=== PATIENT | female | born 1940 | race Caucasian/White ===

== ENCOUNTER 2016-11-03 13:52 | Inpatient (IN) | payer OTHER ==
[~2016-11-03] VITALS: Ht 160 cm; Wt 78.0 kg
[~2016-11-03 13:52] MED LIST: ACTONEL35 MG PO; ADVAIR 500-501 EACH INH; ADVAIR DISKUS 21 DSK PO; ATROVENT 0.02%2.5 ML INH; AZITHROMYCIN250 M1 PO; AZITHROMYCIN250 MG PO; AZITHROMYCIN500 M3 PO; AZITHROMYCIN500 MG PO; BISCOLAX5 MG PO; CEFTIN500 M1 PO; CHANTIX 1 MG1 MG PO; CLARITIN10 M1 PO; CLARITIN10 MG PO; COUMADIN 2 MG TA2 MG PO; COUMADIN 2.5 M2.5 MG PO; COUMADIN 3 MG TA3 MG PO; COUMADIN 4MG TAB4 MG PO; COUMADIN 5 MG TA5 MG PO; COUMADIN3 M1 PO; COUMADIN4 M1 PO; CRESTOR20 MG PO; DIAZEPAM5 M1 PO; DICLOFENAC 3% TOP; DOCUSATE SOD100 MG PO; DULCOLAX5 M1 PO; FIORICET 325 MG1 TAB PO; FOLIC ACID0.8 M2 PO; FOSAMAX70 M1 PO; FUROSEMIDE40 MG PO; IPRAT-ALBUT 0.5-3 ML INH/SOL; LAMISIL AT1% TOP; LASIX40 M1 PO; LEVOTHYROXINE88 MCG PO; LEXAPRO20 M1 PO; LIDOCAINE VISC100 M2 PO; LIDODERM1 EACH TOP; LYRICA100 M1 PO; MEDROL DOSEPAK1 PAC PO; NAPROSYN500 M1 PO; NASONEX17 GM NASB; NEURONTIN300 MG PO; NEURONTIN400 M1 PO; NICODERM C21 MG/24 H TOP; NICODERM C7 MG/24 HR TD; NICOTINE GUM2 MG PO; NICOTINE PATCH1 EAC1 TOP; NICOTINE T14 MG/24 H TOP; NORCO 325 MG-101 TAB PO; OMEPRAZOLE40 M1 PO; PERCOCET 325 MG1 TA2 PO; PREDNICOT10 MG PO; PREDNISONE10 M2 PO; PREDNISONE10 MG PO; PREDNISONE50 MG PO; PROMETHAZINE V473 M2 PO; PROMETHAZINE V473 ML PO; PROTONIX 40MG T40 MG PO; PROVENTIL HFA6.7 GM INH; PROVIGIL200 MG PO; ROBITUSSIN COU237 ML PO; SINGULAIR10 MG PO; SOLU-MEDROL40 MG IV; SPIRIVA18 MCG INH; SUDAFED 30 MG PO; TRAZODONE HCL50 M1 PO; TUDORZA PR400 MCG/Ac PO; TYLENOL EXTRA500 M2 PO; TYLENOL XSTR500 MG PO; VALIUM5 M1 PO; VIBRAMYCIN 100100 MG PO; VITAMIN B-121000 MC3 PO; VITAMIN B121000 MC2 PO; VITAMIN D250000 UNIT PO; ZITHROMAX 500M500 MG PO; ZITHROMAX250 M1 PO
--- NOTE | 2016-11-03 13:57 | ED DYSPNEA/ASTHMA COMPLAINT ---
History of Present Illness General Chief Complaint: Dyspnea (COPD, CHF, Other) Stated Complaint: BIBA WITH SOB Source: patient Exam Limitations: no limitations Vital Signs & Intake/Output Vital Signs & Intake/Output Vital Signs Date Time Temp Pulse Resp B/P Pulse O2 O2 Flow FiO2 Ox Delivery Rate 11/05 0414 Nasal 2.0L Cannula 11/05 0000 Nasal 2.0L Cannula 11/04 2346 98.4 87 18 118/64 93 Nasal 2.0L Cannula 11/04 1930 87 Room Air 11/04 1509 98.6 90 18 138/62 94 11/04 0953 96 Nasal 2.0L Cannula 11/04 0950 Nasal 2.0L Cannula 11/04 0800 Nasal 2.0L Cannula ED Intake and Output 11/05 0000 11/04 1200 Intake Total 1110 100 Output Total Balance 1110 100 Intake, IV 270 Intake, Oral 840 100 Number 1 Bowel Movements Allergies Coded Allergies: Penicillins (UNKNOWN 05/01/16) atorvastatin (UNKNOWN 05/01/16) nickel (UNKNOWN 05/01/16) morphine (UNKNOWN 05/01/16) Reconcile Medications Acetaminophen (Tylenol Extra Strength) 500 MG TABLET 2 TAB PO BID PAIN ( Reported) Reason to Stop at ADM: pain pathway Albuterol Sulfate (Proventil Hfa) 90 MCG HFA.AER.AD 2 PUF INH Q4 PRN COPD ( Reported) Alendronate Sodium (Fosamax) 70 MG TABLET 1 TAB PO QFRI BONE (Reported) in the morning, at least 30 minutes before the first food, beverage, or medication of the day Bisacodyl (Dulcolax) 5 MG TABLET.DR 1 TAB PO DAILY GI (Reported) Budesonide 0.25 MG/2 ML AMPUL.NEB 1 Vial INH/UDAY BID BREATHING PROBLEMS ( Reported) Reason to Stop at ADM: TRC Butalb/Acetaminophen/Caffeine (Fioricet 50-300-40 MG Capsule) 50 MG-300 MG-40 MG CAPSULE 1 CAP PO Q4 HRS NEEDED PRN HEADACHE (Reported) Cyanocobalamin (Vitamin B-12) 1,000 MCG TABLET 1 TAB PO DAILY SUPPLEMENT ( Reported) Diazepam 5 MG TABLET 1 TAB PO BIDP PRN anxiety/insomnia (Reported) Ergocalciferol (Vitamin D2) (Vitamin D2) 50,000 UNIT CAPSULE 1 CAP PO QFRI SUPPLEMENT (Reported) Escitalopram Oxalate (Lexapro) 20 MG TABLET 1 TAB PO DAILY MENTAL HEALTH ( Reported) Ferrous Sulfate 325 MG (65 MG IRON) TABLET 1 TAB PO BID SUPPLEMENT (Reported) Fluticasone/Salmeterol (Advair 500-50 Diskus) 500 MCG-50 MCG/DOSE BLST.W.DEV 1 PUF INH BID BREATHING PROBLEMS (Reported) Folic Acid 0.8 MG TABLET 1 TAB PO TID SUPPLEMENT (Reported) Gabapentin (Neurontin) 400 MG CAPSULE 1 CAP PO BID NEUROPATHY (Reported) Ipratropium/Albuterol Sulfate (Iprat-Albut 0.5-3(2.5) MG/3 Ml) 0.5 MG-3 MG (2.5 MG BASE)/3 ML AMPUL.NEB 1 Vial INH/UDAY 4 TIMES/DAY COPD (Reported) Reason to Stop at ADM: TRC Levothyroxine Sodium 88 MCG TABLET 1 TAB PO DAILY AC THYROID (Reported) Lidocaine (Lidoderm) 5 % ADH..PATCH 1 PAT TOP DAILY PAIN (Reported) may wear up to 12 hours Melatonin 3 MG TABLET 1 TAB PO QPM SLEEP (Reported) Mometasone Furoate (Nasonex) 50 MCG SPRAY.PUMP 2 SPRAY [place] DAILY ALLERGIES ( Reported) Naproxen (Naprosyn) 500 MG TABLET 1 TAB PO BID PAIN CONTROL Reason to Stop at ADM: pain pathway Omeprazole 40 MG CAPSULE.DR 1 CAP PO DAILY GI (Reported) Pregabalin (Lyrica) 100 MG CAPSULE 1 CAP PO TID PAIN (Reported) Tiotropium [place] (Spiriva) 18 MCG CAP.W.DEV 1 CAP INH DAILY BREATHING PROBLEMS (Reported) Trazodone HCl 50 MG TABLET 1 TAB PO QPM SLEEP (Reported) Warfarin Sodium (Coumadin) 3 MG TABLET 1 TAB PO DAILY DVT Triage Nurses Notes Reviewed? yes HPI: This patient is a 76-year-old female with a past medical history including COPD/ emphysema, bronchitis, lung cancer, narcolepsy, hyperlipidemia, osteoarthritis, and depression who presented to the emergency department today brought in by ambulance from [facility] for evaluation of difficulty breathing. The patient reported that she always has trouble breathing at baseline. However, she reported over the last day she has felt more short of breath. She reported that she has been coughing. It is productive of yellow sputum. Coughing causes pain in her right side. She denied any chest pain. She denies any fevers or chills. No abdominal pain, nausea, or vomiting. No constipation or diarrhea. This patient is a current every day smoker. (FERNY GARCIA PA-C) Past History Travel History Traveled to [place] past 21 day No Medical History Any Pertinent Medical History? see below for history Neurological: FIBROMYALGIA NARCOLEPSEY EENT: allergies Cardiovascular: hyperlipidemia, MITRAL VALVE PROLAPSE Respiratory: bronchitis, COPD, emphysema Gastrointestinal: GERD, CONSTIPATION Hepatic: NONE Renal: NONE Musculoskeletal: osteoarthritis, CERVICAL SPINAL STENOSIS Psychiatric: anxiety Endocrine: diabetes, hypothyroidism Blood Disorders: anemia, DVT Cancer(s): lung cancer, back cancer THERMAL MOLDER/Reproductive: HYSTERECTOMY History of MRSA: No History of VRE: No History of CDIFF: No Pneumonia Vaccine: 04/29/16 Influenza Vaccine: 04/29/16 Surgical History Surgical History: appendectomy lumpectomy for tumor in breast. tumor removal from back? RIGHT PNEUMONECTOMY Psychosocial History Who do you live with Patient/Self Services at Home Home Health Aide What is your primary language British Tobacco Use: Current Daily Use Family History Family History, If Any: FATHER Relation not specified for: FH: CHF (congestive heart failure) Hypertension Hx Contributory? No (FERNY GARCIA PA-C) Review of Systems Review of Systems Constitutional: Reports: no symptoms. EENTM: Reports: no symptoms. Respiratory: Reports: see HPI. Cardiovascular: Reports: no symptoms. GI: Reports: no symptoms. Genitourinary: Reports: no symptoms. Musculoskeletal: Reports: see HPI. Skin: Reports: no symptoms. Neurological/Psychological: Reports: no symptoms. All Other Systems: Reviewed and Negative (FERNY GARCIA PA-C) Physical Exam Physical Exam Respiratory: chest non-tender, DIFFUSE EXPIRATORY WHEEZES IN ALL LUNG DE JESUS. nO RHONCHI OR RALES. nO STRIDOR OR DIMINISHED BREATH SOUNDS. mILD RESPIRATORY DISTRESS Comments: Well-developed well-nourished person in no acute distress HEENT: Normal EENT exam, head normocephalic, moist mucous membranes Pupils equally round and reactive to light. Neck: Supple, no lymphadenopathy Back: Normal inspection Cardiovascular: Regular rate and rhythm with no murmurs, rubs, or gallops. No JVD or carotid bruits Abdomen: Soft. Nontender. Nondistended Extremity: No edema, no calf tenderness to palpation, normal and equal pulses. Neuro: Alert oriented x3, cranial nerves II through XII grossly intact. Skin: No appreciable rash on exposed skin, skin is warm and dry. Psych: Mood and affect is normal Core Measures ACS in differential dx? Yes Severe Sepsis Present: No Septic Shock Present: No (RADHA HOLDEN,FERNY) Progress Differential Diagnosis: asthma, AMI, bronchitis, costochondritis, CHF, COPD, musculoskeletal pain, pericarditis, pulmonary embolism, pneumonia, pneumothorax, unstable angina Plan of Care: Orders Procedure Date/time Status PROTHROMBIN TIME 11/05 599 Active BASIC ELECTROLYTES PLUS BUN&CR 11/05 599 Active RT: Evaluation 11/04 950 Active THERAPIST ORDERS 11/04 UNK Complete OXYGEN SETUP CHG 11/03 UNK Complete OXYGEN 11/03 UNK Complete OXYGEN DAILY CHARGE 11/03 UNK Complete Current Medications Sig/Eulogio Start time Last Medication Dose Stop Time Status Admin Alendronate Sodium 70 MG QFRI 11/10 0700 AC (Fosamax) Ergocalciferol 50,000 IU QFRI 11/10 0700 AC (Drisdol) Warfarin Sodium 3 MG 1700 11/04 1700 CAN (Coumadin) Insulin Aspart 0 TIDAC 11/04 1200 AC (NovoLOG) Nicotine 21 MG DAILY 11/04 1000 AC (Nicoderm) Magnesium Hydroxide 30 ML AT BEDTIME PRN 11/04 0845 AC (Milk Of Magnesia) Acetaminophen 325 MG Q6P PRN 11/03 2130 AC (Tylenol) Ibuprofen 600 MG Q6P PRN 11/03 2130 AC (Motrin) Acetaminophen/ 1 TAB Q4P PRN 11/03 2045 AC Butalbital/Caffeine (Fioricet) Sodium Chloride 2 SPRAY Q4P PRN 11/03 2045 AC (Nasal) Laboratory Tests 11/04/16 1620: PT 28.7 H, INR 2.76 H Diagnostic Imaging: Viewed by Me: Radiology Read. Discussed w/RAD: Radiology Read. CXR Impression: PATIENT: REID WEINER PRESENT AGE: 76 PATIENT ACCOUNT NO: [id number] : 41 LOCATION: [facility] ORDERING PHYSICIAN: FERNY GARCIA PA-C SERVICE DATE: 11/03/16-140 EXAM TYPE: RAD - XRY-CHEST XRAY, PA AND LATERAL EXAMINATION: XR CHEST CLINICAL INFORMATION: Shortness of breath COMPARISON: 05/08/2016, 05/01/2016, 12/30/2015 TECHNIQUE: 2 views of the chest were obtained. FINDINGS: There is stable mild blunting of the right costophrenic angle compatible with pleural thickening. The cardiomediastinal silhouette is unchanged and within normal limits. There is increased retrosternal clear space and flattening of the hemidiaphragms compatible with hyperinflation. Right hilar surgical clips are stable. There is no evidence of pulmonary edema, consolidation, pleural effusion, or pneumothorax. The bones appear demineralized with multilevel degenerative change. Cervical fusion hardware is partially visualized and unchanged. IMPRESSION: Stable appearance of the chest relative to prior studies. No acute abnormality. DICTATED BY: SIMBA RZIVI MD DATE/TIME DICTATED:11/03/161454 HEADLIGHT ASSEMBLER:NATHAN DATE/TIME TRANSCRIBED:11/03/161454 CONFIDENTIAL, DO NOT COPY WITHOUT APPROPRIATE AUTHORIZATION. <Electronically signed in Other Vendor System> SIGNED BY: SIMBA RIZVI MD 11/03/16 1501 Initial ED EKG: normal axis, normal intervals, no ST T wave changes, 81 bpm (RADHA HOLDEN,FERNY) Departure Departure Disposition: STILL A PATIENT Condition: Stable Clinical Impression Primary Impression: COPD exacerbation Referrals: CINDY STUBBS MD (PCP/Family) Departure Forms: Customer Survey General Discharge Information Prescriptions: Current Visit Scripts Naproxen (Naprosyn) 1 TAB PO BID 7 Days Reason to Stop at ADM: pain pathway Admission Note Spoke With: CINDY STUBBS MD Documentation of Exam: Documentation of any treatments & extenuating circumstances including Concerns Regarding Discharge (functional status, medication knowledge or non-compliance, living conditions, etc.) that warrant an admission rather than observation: [ This patient is a 76-year-old female with a past medical history including COPD who presented to the emergency department today for 2 days of difficulty breathing. Likely COPD exacerbation. Oxygen saturation is 87% on room air. This patient does not have any oxygen at her assisted living facility. She should be admitted to general medicine for oxygen therapy, oxygen saturation monitoring, trend labs, IV steroids, pulmonology consultation, and close monitoring. This patient or candidate for outpatient treatment. Premature discharge could prove medically harmful.] (FERNY GARCIA PA-C) PA/FOAM CASTER Co-Sign Statement Statement: ED Attending supervision documentation- [X] I saw and evaluated the patient. I have also reviewed all the pertinent lab results and diagnostic results. I agree with the findings and the plan of care as documented in the PA's/FOAM CASTER's documentation. [X] I have reviewed the ED Record and agree with the PA's/FOAM CASTER's documentation. [] Additions or exceptions (if any) to the PAs/FOAM CASTER's note and plan are summarized below: [] (LORI LISA,ELEAZAR) Critical Care Note Critical Care Note Critical Care Time: non-applicable (RADHA HOLDEN,FERNY) (Nasal) Laboratory Tests 11/04/16 0720: Anion Gap 8, Estimated GFR > 60, BUN/Creatinine Ratio 27.5 H 11/03/16 2032: PT Cancelled, INR Cancelled 11/03/16 1442: Anion Gap 5, Estimated GFR 54 L, BUN/Creatinine Ratio 27.0 H, Glucose 138 H, Hemoglobin A1c Pending, Calcium 10.0, Magnesium 2.0, Total Bilirubin 0.6, AST 14 , ALT 30, Alkaline Phosphatase 52, Troponin I < 0.01, Vba-D-Ursmrmprdrk Pept 164 H, Total Protein 6.1 L, Albumin 3.7, Globulin 2.4, Albumin/Globulin Ratio 1.5, PT 31.2 H, INR 3.00 H, D-Dimer < 200, CBC w Diff NO MAN DIFF REQ, RBC 4.38, MCV 97.4, MCH 32.0 H, RDW 16.5 H, MPV 7.7, Gran % 87.2 H, Lymphocytes % 10.5 L, Monocytes % 1.0 L, Eosinophils % 1.0, Basophils % 0.3, Absolute Granulocytes 9.0 H, Absolute Lymphocytes 1.1 L, Absolute Monocytes 0.1 L, Absolute Eosinophils 0.1, Absolute Basophils 0, PUBS MCHC 32.8 L Microbiology 11/04 2115 LOWER RESP: Respiratory Culture - COLB 11/04 2115 LOWER RESP: Gram Stain - COLB Diagnostic Imaging: Viewed by Me: Radiology Read. Discussed w/RAD: Radiology Read. CXR Impression: PATIENT: REID WEINER PRESENT AGE: 76 PATIENT ACCOUNT NO: [id number] : 41 LOCATION: ER ORDERING PHYSICIAN: FERNY GARCIA PA-C SERVICE DATE: 11/03/16 EXAM TYPE: RAD - XRY-CHEST XRAY, PA AND LATERAL EXAMINATION: XR CHEST CLINICAL INFORMATION: Shortness of breath COMPARISON: 05/08/2016, 05/01/2016, 12/30/2015 TECHNIQUE: 2 views of the chest were obtained. FINDINGS: There is stable mild blunting of the right costophrenic angle compatible with pleural thickening. The cardiomediastinal silhouette is unchanged and within normal limits. There is increased retrosternal clear space and flattening of the hemidiaphragms compatible with hyperinflation. Right hilar surgical clips are stable. There is no evidence of pulmonary edema, consolidation, pleural effusion, or pneumothorax. The bones appear demineralized with multilevel degenerative change. Cervical fusion hardware is partially visualized and unchanged. IMPRESSION: Stable appearance of the chest relative to prior studies. No acute abnormality. DICTATED BY: SIMBA RIZVI MD DATE/TIME DICTATED:11/03/161454 HEADLIGHT ASSEMBLER:NATHAN DATE/TIME TRANSCRIBED:11/03/161454 CONFIDENTIAL, DO NOT COPY WITHOUT APPROPRIATE AUTHORIZATION. <Electronically signed in Other Vendor System> SIGNED BY: SIMBA RIZVI MD 11/03/16 1501 Initial ED EKG: normal axis, normal intervals, no ST T wave changes, 81 bpm Departure Departure Disposition: STILL A PATIENT Condition: Stable Clinical Impression Primary Impression: COPD exacerbation Referrals: CINDY STUBBS MD (PCP/Family) Departure Forms: Customer Survey General Discharge Information Prescriptions: Current Visit Scripts Naproxen (Naprosyn) 1 TAB PO BID 7 Days Reason to Stop at ADM: pain pathway Admission Note Spoke With: CINDY STUBBS MD Documentation of Exam: Documentation of any treatments & extenuating circumstances including Concerns Regarding Discharge (functional status, medication knowledge or non-compliance, living conditions, etc.) that warrant an admission rather than observation: [ This patient is a 76-year-old female with a past medical history including COPD who presented to the emergency department today for 2 days of difficulty breathing. Likely COPD exacerbation. Oxygen saturation is 87% on room air. This patient does not have any oxygen at her assisted living facility. She should be admitted to general medicine for oxygen therapy, oxygen saturation monitoring, trend labs, IV steroids, pulmonology consultation, and close monitoring. This patient or candidate for outpatient treatment. Premature discharge could prove medically harmful.] Critical Care Note Critical Care Note Critical Care Time: non-applicable
[2016-11-03] MEDS ORDERED: MELATONIN3 M4 PO (14:16)
[2016-11-03] MEDS ORDERED: FIORICET 50-301 EACH PO (14:27)
[2016-11-03] MEDS ORDERED: BUDESONIDE0.25 MG/1 INH/SOL (14:28)
[2016-11-03] MEDS ORDERED: FERROUS SULFAT325 M3 PO (14:29)
[2016-11-03 14:49] LABS: ABSOLUTE BASOPHIL COUNT 0 /CUMM (0.0-0.2); ABSOLUTE EOSINOPHIL COUNT 0.1 /CUMM (0.0-0.7); ABSOLUTE LYMPH COUNT 1.1 /CUMM (1.2-3.4); ABSOLUTE MONOCYTE COUNT 0.1 /CUMM (0.10-0.60); BASOPHIL % 0.3 % (0.0-2.0); HEMATOCRIT 42.7 % (37-47); MEAN CORPUSCULAR HGB CONC 32.8 G/DL (33.0-37.0); MEAN CORPUSCULAR VOLUME 97.4 FL (81.0-99.0); MEAN PLATELET VOLUME 7.7 FL (7.4-10.4); PLATELET COUNT 214 /CUMM (130-400); RBC DISTRIBUTION WIDTH 16.5 % (11.5-14.5); RED BLOOD CELL CT 4.38 /CUMM (4.20-5.40); WHITE BLOOD CELL COUNT 10.3 /CUMM (4.8-10.8)
--- NOTE | 2016-11-03 15:01 | RADIOLOGY REPORT ---
EXAMINATION: XR CHEST CLINICAL INFORMATION: Shortness of breath COMPARISON: 05/08/2016, 05/01/2016, 12/30/2015 TECHNIQUE: 2 views of the chest were obtained. FINDINGS: There is stable mild blunting of the right costophrenic angle compatible with pleural thickening. The cardiomediastinal silhouette is unchanged and within normal limits. There is increased retrosternal clear space and flattening of the hemidiaphragms compatible with hyperinflation. Right hilar surgical clips are stable. There is no evidence of pulmonary edema, consolidation, pleural effusion, or pneumothorax. The bones appear demineralized with multilevel degenerative change. Cervical fusion hardware is partially visualized and unchanged. IMPRESSION: Stable appearance of the chest relative to prior studies. No acute abnormality.
[2016-11-03 15:05] LABS: GRANULOCYTE % 87.2 % (42.2-75.2)
--- NOTE | 2016-11-03 19:49 | History & Physical ---
[facility] [place] 11/03/161947: General Information and HPI MD Statement: I have seen and personally examined REID NOONAN and documented this H&P. The patient is a 76 year old F who presented with a patient stated chief complaint of shortness of breath. Source of Information: patient, old records Exam Limitations: clinical condition History of Present Illness: Ms. Noonan is a 76 y/o F smoker with PMHx of COPD not on home oxygen, lung cancer s/p right lobectomy and DVT s/p IVC filter on warfarin who presents with worsening shortness of breath x1 day. The night prior to current presentation patient's nurse at the assisted living facility noted that she was having trouble breathing and prompted her to come to the hospital but patient refused. This morning patient's shortness of breath had worsened and ambulance was called to bring her to the ED. Patient has a chronic cough productive of yellow sputum at baseline and reports increased sputum production for the past few weeks. She also endorses wheezing as well as right-sided sharp chest pain exacerbated by coughing. Of note, for the past few weeks leading up current presentation, she has been having lower abdominal pain. She reports that pain is exacerbated by straining during defecation although she denies constipation and reports having daily bowel movements. Patient has had the flu shot this year. Allergies/Medications Allergies: Coded Allergies: Penicillins (UNKNOWN 05/01/16) atorvastatin (UNKNOWN 05/01/16) nickel (UNKNOWN 05/01/16) morphine (UNKNOWN 05/01/16) Home Med list Acetaminophen (Tylenol Extra Strength) 500 MG TABLET 2 TAB PO BID PAIN ( Reported) Reason to Stop at ADM: pain pathway Albuterol Sulfate (Proventil Hfa) 90 MCG HFA.AER.AD 2 PUF INH Q4 PRN COPD ( Reported) Alendronate Sodium (Fosamax) 70 MG TABLET 1 TAB PO QFRI BONE (Reported) in the morning, at least 30 minutes before the first food, beverage, or medication of the day Bisacodyl (Dulcolax) 5 MG TABLET.DR 1 TAB PO DAILY GI (Reported) Budesonide 0.25 MG/2 ML AMPUL.NEB 1 Vial INH/UDAY BID BREATHING PROBLEMS ( Reported) Reason to Stop at ADM: TRC Butalb/Acetaminophen/Caffeine (Fioricet 50-300-40 MG Capsule) 50 MG-300 MG-40 MG CAPSULE 1 CAP PO Q4 HRS NEEDED PRN HEADACHE (Reported) Cyanocobalamin (Vitamin B-12) 1,000 MCG TABLET 1 TAB PO DAILY SUPPLEMENT ( Reported) Diazepam 5 MG TABLET 1 TAB PO BIDP PRN anxiety/insomnia (Reported) Ergocalciferol (Vitamin D2) (Vitamin D2) 50,000 UNIT CAPSULE 1 CAP PO QFRI SUPPLEMENT (Reported) Escitalopram Oxalate (Lexapro) 20 MG TABLET 1 TAB PO DAILY MENTAL HEALTH ( Reported) Ferrous Sulfate 325 MG (65 MG IRON) TABLET 1 TAB PO BID SUPPLEMENT (Reported) Fluticasone/Salmeterol (Advair 500-50 Diskus) 500 MCG-50 MCG/DOSE BLST.W.DEV 1 PUF INH BID BREATHING PROBLEMS (Reported) Folic Acid 0.8 MG TABLET 1 TAB PO TID SUPPLEMENT (Reported) Gabapentin (Neurontin) 400 MG CAPSULE 1 CAP PO BID NEUROPATHY (Reported) Ipratropium/Albuterol Sulfate (Iprat-Albut 0.5-3(2.5) MG/3 Ml) 0.5 MG-3 MG (2.5 MG BASE)/3 ML AMPUL.NEB 1 Vial INH/UDAY 4 TIMES/DAY COPD (Reported) Reason to Stop at ADM: TRC Levothyroxine Sodium 88 MCG TABLET 1 TAB PO DAILY AC THYROID (Reported) Lidocaine (Lidoderm) 5 % ADH..PATCH 1 PAT TOP DAILY PAIN (Reported) may wear up to 12 hours Melatonin 3 MG TABLET 1 TAB PO QPM SLEEP (Reported) Mometasone Furoate (Nasonex) 50 MCG SPRAY.PUMP 2 SPRAY [place] DAILY ALLERGIES ( Reported) Naproxen (Naprosyn) 500 MG TABLET 1 TAB PO BID PAIN CONTROL Reason to Stop at ADM: pain pathway Omeprazole 40 MG CAPSULE.DR 1 CAP PO DAILY GI (Reported) Pregabalin (Lyrica) 100 MG CAPSULE 1 CAP PO TID PAIN (Reported) Tiotropium [place] (Spiriva) 18 MCG CAP.W.DEV 1 CAP INH DAILY BREATHING PROBLEMS (Reported) Trazodone HCl 50 MG TABLET 1 TAB PO QPM SLEEP (Reported) Warfarin Sodium (Coumadin) 3 MG TABLET 1 TAB PO DAILY DVT Past History Travel History Traveled to [place] past 21 day No Medical History Neurological: narcolepsy EENT: allergies, cataracts, rhinitis Cardiovascular: hyperlipidemia, mitral valve prolapse Respiratory: COPD Gastrointestinal: constipation, diverticulitis, GERD Hepatic: NONE Renal: NONE Musculoskeletal: fibromyalgia, osteoarthritis, spinal stenosis (cervical) Psychiatric: anxiety, depression Endocrine: diabetes, hypothyroidism Blood Disorders: anemia, DVT Cancer(s): lung cancer, back cancer 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 Assisted Living Who Do You Live With? self Primary Language: Sami Smoking Status: Current Everyday Smoker (1/2 PPD, Smoked For 65 Years) Living Will? yes Functional Ability ADLs Independent: dressing, eating, toileting, bathing. Ambulation: walker IADLs Independent: telephone. Needs Assist: shopping, housework, transportation, medication admin. Review of Systems Review of Systems Constitutional: Denies: chills, fever. EENTM: Reports: no symptoms. Cardiovascular: Reports: chest pain. Respiratory: Reports: cough, short of breath, sputum production, wheezing. Denies: stridor. GI: Reports: abdominal pain, changes in stool (tarry stools on warfarin). Denies: constipation, diarrhea, nausea, vomiting. Genitourinary: Reports: no symptoms. Musculoskeletal: Reports: no symptoms. Skin: Reports: no symptoms. Neurological/Psychological: Reports: no symptoms. Hematologic/Endocrine: Reports: no symptoms. Immunologic/Allergic: Reports: no symptoms. All Other Systems: Reviewed and Negative Exam & Diagnostic Data Last 24 Hrs of Vital Signs/I&O Vital Signs Date Time Temp Pulse Resp B/P Pulse O2 O2 Flow FiO2 Ox Delivery Rate 11/03 2059 91 Nasal 2.0L Cannula 11/03 1744 98.5 82 18 146/67 87 11/03 1421 96 Nasal 2.0L Cannula 11/03 1401 96.1 84 24 135/63 100 Aerosol 6.0L Mask Intake & Output 11/03 1600 11/03 0800 11/03 0000 Intake Total Output Total Balance Patient 78.471 kg Weight Physical Exam General Appearance Oriented X3, Fatigued Skin No Rashes HEENT Atraumatic, Mucous Membr. moist/pink Neck Supple Cardiovascular Regular Rate, Normal S1, Normal S2 Lungs Diffuse Wheezes Scattered Throughout Bilateral Lung Duran, Mild Respiratory Distress Abdomen Soft, Positive Bowel Sounds, Mild Tenderness to Palpation Most Pronounced at Right Lower Quadrant Extremities No Clubbing, No Cyanosis, No Edema Last 24 Hrs of Labs/Mick: Laboratory Tests 11/03/162: PT Cancelled, INR Cancelled 11/03/16 1442: Anion Gap 5, Estimated GFR 54 L, BUN/Creatinine Ratio 27.0 H, Glucose 138 H, Calcium 10.0, Magnesium 2.0, Total Bilirubin 0.6, AST 14, ALT 30, Alkaline Phosphatase 52, Troponin I < 0.01, Ina-Z-Eimsddvvhcq Pept 164 H, Total Protein 6.1 L, Albumin 3.7, Globulin 2.4, Albumin/Globulin Ratio 1.5, PT 31.2 H, INR 3.00 H, D-Dimer < 200, CBC w Diff NO MAN DIFF REQ, RBC 4.38, MCV 97.4, MCH 32.0 H, RDW 16.5 H, MPV 7.7, Gran % 87.2 H, Lymphocytes % 10.5 L, Monocytes % 1.0 L, Eosinophils % 1.0, Basophils % 0.3, Absolute Granulocytes 9.0 H, Absolute Lymphocytes 1.1 L, Absolute Monocytes 0.1 L, Absolute Eosinophils 0.1, Absolute Basophils 0, PUBS MCHC 32.8 L Microbiology 11/04 2115 LOWER RESP: Respiratory Culture - ORD 11/04 2115 LOWER RESP: Gram Stain - ORD Diagnostic Data EKG Results Normal sinus rhythm HR 81 QTc 451 CXR Results Stable appearance of the chest relative to prior studies. No acute abnormality. Assessment/Plan Assessment: 76 y/o F with PMHx of COPD not on home oxygen, lung cancer s/p right lobe resection and DVT s/p IVC filter on warfarin who presents with worsening shortness of breath x1 day. #COPD exacerbation: SOB and increased sputum production consistent with COPD exacerbation. Lung exam with significant wheezing. CXR with no evidence of pneumonia. S/p 125 mg IV Solumedrol and nebulizer treatment en route to the ED. Multiple attempts at ABG by respiratory therapy were unsuccessful. Currently on 2 L NC. Not on oxygen at home. * TRC and nebs. * Pulmonology consult requested. Appreciate their recs. * Provide supplemental oxygen as needed to keep SpO2 > 92%. * Start Solumedrol 40 mg IV Q8H in the AM. * Start azithromycin 500 mg IV daily. * Continue home inhalers Spiriva and Symbicort. * Check sputum Cx. #Abdominal pain: Lower abdominal pain associated with straining during defecation of several weeks duration. Likely secondary to constipation. * Scheduled Dulcolax and Milk of Magnesia for constipation. * Consider imaging with CT Abdomen/Pelvis if pain worsens. #DVT: S/p IVC filter placement. On warfarin. INR 3 on admission. * Hold warfarin today and resume tomorrow. * Check INR daily and continue to dose warfarin accordingly to keep INR between 2-3. #T2DM: Currently not on any medications. * Check HbA1c. * Accu-checks and low dose Novolog sliding scale. #Hypothyroidism: * Continue prior to admission levothyroxine 88 mcg PO AC daily. #Fibromyalgia: * Continue prior to admission gabapentin 400 mg PO BID and Lyrica 100 mg PO TID. * Apply lidocaine patch. #Depression: * Continue prior to admission escitalopram 10 mg PO daily. #Anxiety: * Continue prior to admission diazepam 5 mg PO BID PRN for anxiety. #Insomnia: * Continue prior to admission trazodone 50 mg PO QPM and melatonin 3 mg PO QPM. #Nicotine dependence: Has smoked for 65 years. Currently smokes 1/2 PPD. 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 * Nicotine patch 21 mg given. Diet: Consistent Carbohydrate 2 DVT PPx: Warfarin CODE: DNR/DNI As Ranked By This Provider Problem List: 1. COPD exacerbation 2. Abdominal pain 3. Nicotine dependence 4. T2DM (type 2 diabetes mellitus) 5. Fibromyalgia 6. Hypothyroidism 7. Anxiety and depression 8. History of DVT (deep vein thrombosis) Core Measures/Miscellaneous Acute Coronary Syndrome ACS Diagnosis: No Cerebrovascular Accident CVA/TIA Diagnosis: No Congestive Heart Failure CHF Diagnosis: No Venous Thromboembolism VTE Risk Factors: Acute medical illness, Age > 40, CHF or Resp failure, Obesity, Previous VTE, [facility] prophylaxis d/t: DVT of LE No VTE Pharm Prophylaxis d/t: No contraindications VTE Diagnosis: No VTE Type: NONE VTE Confirmed by (Test): NONE Severe Sepsis Severe Sepsis Present: No Septic Shock Septic Shock Present: No Miscellaneous Documentation Attending Case Discussed With: EVELYNE MD,[facility] Primary Care Physician: Pari Montano MD Patient sees these Specialists 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 lobectomy, DVT s/p IVC filter on coumadin, GERD, hypothyroidism, mitral valve prolapse, HTN , HLD, DM, fibromyalgia, anxiety/depression, who is a current smoker (1ppd, > 65yrs) presented with worsening shortness of breath from last night around 9pm. She has cough, yellowish sputum with wheezing sounds. No chest pain. She had flu vaccination, and no recent flu like symptoms. Otherwise, she c/o fatigue, lower abdominal pain related with defecation, tarry stool with coumadin. Initial V/S: 96.1F, W[place] 84, RR 24, BP 135/63, 100% on 6L, pertinent exam: pt was in mild distress, lung sounds: coarse breathing sound with wheezing bilaterally, abdomen : soft, mild tenderness, normal bowel sound, LE: no edema, normal pulses, WBC: 10.3, Hb/Hct 14/42.7, INR 3, K 5.3, BUN/Cr 27/1.0 CXR: No acute abnormality. A/P 1. Acute COPD exacerbation: On way to ED, she was given IV solumedrol 125mg x 1 time with TRC/nebs. ABG was attempted 3 times but failed by respiratory therapy. Continue TRC/nebs around the clock, oxygen support Sat > 92%, IV solumedrol 40mg q8, IV azithromycin, follow sputum culture, pulmonary consult in AM (she followed Dr. Mayes as outpt). 2. Current smoker: > 65 PY, smoking cessation counseling was given, nicotine patch is not working for her, but she is willing to try. 3. DVT s/p IVC filter on coumadin: INR was 3, hold coumadin tonight, check INR in am and dose coumadin accordingly. 4. DM: not on home meds, check HbA1c, diabetic diet, accuchecks, novolog s/s 5. Hypothyroidism: c/w levothyroxine 0.088mg daily 6. Fibromyalgia: c/w lyrica, gabapentin as home dose 7. Depression/anxiety: c/w lexapro, diazepam as home dose DVT ppx: po coumadin, DNR/I, pain pathway EVELYNE LISA,[facility] 11/04/16 1302: Attending MD Review Statement Attending Statement Attending MD Statement: examined this patient, discuss w/resident/PA/MOBILE UI DEVELOPER, discussed with family, reviewed EMR data (avail)
[2016-11-03] MEDS ORDERED: NAPROSYN500 M1 PO (21:24)
[2016-11-03 21:29] LABS: PT 31.2 SEC (9.4-12.5)
[2016-11-03 22:49] VITALS: BP 140/78
[2016-11-04 06:30] VITALS: BP 134/76
--- NOTE | 2016-11-04 08:26 | PN- Housestaff ---
Subjective Follow-up For: COPD Exacerbation Subjective: yaya was seen and examined this morning, complains of dry cough, SOB on 2 L O2 , denied fevver, chills. Patient reported abdominal pain at the epigastric and right lower quadrant is not new, denied any nausea, vomiting, had one bowel movement this morning of loose stool. Vital signs are stable Review of Systems Constitutional: Reports: see HPI. Objective Last 24 Hrs of Vital Signs/I&O Vital Signs Date Time Temp Pulse Resp B/P Pulse O2 O2 Flow FiO2 Ox Delivery Rate 11/04 0630 98.4 80 18 134/76 96 Nasal Cannula 11/03 2249 98.2 82 18 140/78 95 Nasal 2.0L Cannula 11/03 2200 Nasal 2.0L Cannula 11/03 2059 91 Nasal 2.0L Cannula 11/03 1744 98.5 82 18 146/67 87 11/03 1421 96 Nasal 2.0L Cannula 11/03 1401 96.1 84 24 135/63 100 Aerosol 6.0L Mask Intake & Output 11/04 1600 11/04 0800 11/04 0000 Intake Total 100 Output Total Balance 100 Intake, Oral 100 Patient 78.471 kg Weight Physical Exam General Appearance: Alert, Oriented X3, Cooperative, No Acute Distress Skin: No Rashes, No Breakdown, No Significant Lesion HEENT: Atraumatic, PERRLA, EOMI, Mucous Membr. moist/pink Neck: Supple, No JVD Cardiovascular: Regular Rate, Normal S1, Normal S2, No Murmurs Lungs: bilateral decreased air entry, diffuse wheeze and prolonged expiratory phase Abdomen: Normal Bowel Sounds, Soft, No Tenderness Neurological: Normal Speech, Strength at 5/5 X4 Ext, Normal Tone, Sensation Intact, Cranial Nerves 3-12 NL, Reflexes 2+ Extremities: No Clubbing, No Cyanosis, No Edema, Normal Pulses Assessment/Plan Assessment: 76 y/o F with PMHx of COPD not on home oxygen, lung cancer s/p right lobe resection and DVT s/p IVC filter on warfarin who presents with worsening shortness of breath x1 day. #COPD exacerbation: * Not on oxygen at home. Patient is a current smoker. * TRC and nebs. * Discontinue Symbicort to prevent confusion. * Continue 2L oxygen supplementation, titrate as tolerated. * Continue Solumedrol 40 mg IV Q8H. * Continue home inhalers Spiriva and Advair. * Sputum culture is unobtainable. 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 #Abdominal pain: Lower abdominal pain associated with straining during defecation of several weeks duration. Likely secondary to constipation. * Bisacodyl 5 mg PO daily for constipation. #DVT: S/p IVC filter placement. On warfarin. INR 3 on admission. * INR 2.7 will dose 3 mg warfrain. * Check INR daily and continue to dose warfarin accordingly to keep INR between 2-3. #Hypothyroidism: * Continue levothyroxine 88 mcg PO AC daily. #Fibromyalgia: * Continue prior to admission gabapentin 400 mg PO BID and Lyrica 100 mg PO TID. #Depression: * Continue prior to admission escitalopram 10 mg PO daily. #Anxiety: * Continue prior to admission diazepam 5 mg PO BID PRN for anxiety. #Insomnia: * Continue prior to admission trazodone 50 mg PO QPM and melatonin 3 mg PO QPM. Diet: Consistent Carbohydrate 2 DVT PPx: Warfarin CODE: DNR/DNI Problem List: 1. COPD exacerbation Pain Ratin Pain Location: LLQ bdominal pain Pain Goal: Pain 4 or less Pain Plan: Mild pain pathway Tomorrow's Labs & Rationales: BEP, INR
--- NOTE | 2016-11-04 12:13 | Cons- Pulmonary ---
General Information and HPI Consulting Request Date of Consult: 11/04/16 Requested By: Dr. Pinon Reason for Consult: COPD exacerbation History of Present Illness: Mrs. Noonan is 76 years old. Her usual ethnographic materials conservator is Dr. Mayes. Consultation is requested for COPD exacerbation. She was last seen in the office on October 26. She continues to smoke. At the time of her office visit she had an increasing cough and bronchospasm. Her sputum is with clear phlegm. In the office her oxygen saturation on room air was 92%. She had no chest pain at the time. At home she is prescribed Advair, Spiriva, and nebulizer therapy. She is from assisted living. At that time during the office visit steroid taper was prescribed. Is not on oxygen at home. She has a history of lung cancer status post right lobectomy and history of DVT with an IVC filter on Coumadin. Her shortness of breath worsened over the course of 2 days and she was brought to the hospital for further workup. In the hospital setting she was afebrile no white blood cell count elevation creatinine 0.8 BNP 164 chest x-ray with a stable appearance of the chest without acute abnormalities. [place] better with steroid administration. No sick contacts or travel history no nausea no vomiting no diarrhea no constipation. No chest pain no headaches Allergies/Medications Allergies: Coded Allergies: Penicillins (UNKNOWN 05/01/16) atorvastatin (UNKNOWN 05/01/16) nickel (UNKNOWN 05/01/16) morphine (UNKNOWN 05/01/16) Home Med List: Acetaminophen (Tylenol Extra Strength) 500 MG TABLET 2 TAB PO BID PAIN ( Reported) Reason to Stop at ADM: pain pathway Albuterol Sulfate (Proventil Hfa) 90 MCG HFA.AER.AD 2 PUF INH Q4 PRN COPD ( Reported) Alendronate Sodium (Fosamax) 70 MG TABLET 1 TAB PO QFRI BONE (Reported) in the morning, at least 30 minutes before the first food, beverage, or medication of the day Bisacodyl (Dulcolax) 5 MG TABLET.DR 1 TAB PO DAILY GI (Reported) Budesonide 0.25 MG/2 ML AMPUL.NEB 1 Vial INH/UDAY BID BREATHING PROBLEMS ( Reported) Reason to Stop at ADM: TRC Butalb/Acetaminophen/Caffeine (Fioricet 50-300-40 MG Capsule) 50 MG-300 MG-40 MG CAPSULE 1 CAP PO Q4 HRS NEEDED PRN HEADACHE (Reported) Cyanocobalamin (Vitamin B-12) 1,000 MCG TABLET 1 TAB PO DAILY SUPPLEMENT ( Reported) Diazepam 5 MG TABLET 1 TAB PO BIDP PRN anxiety/insomnia (Reported) Ergocalciferol (Vitamin D2) (Vitamin D2) 50,000 UNIT CAPSULE 1 CAP PO QFRI SUPPLEMENT (Reported) Escitalopram Oxalate (Lexapro) 20 MG TABLET 1 TAB PO DAILY MENTAL HEALTH ( Reported) Ferrous Sulfate 325 MG (65 MG IRON) TABLET 1 TAB PO BID SUPPLEMENT (Reported) Fluticasone/Salmeterol (Advair 500-50 Diskus) 500 MCG-50 MCG/DOSE BLST.W.DEV 1 PUF INH BID BREATHING PROBLEMS (Reported) Folic Acid 0.8 MG TABLET 1 TAB PO TID SUPPLEMENT (Reported) Gabapentin (Neurontin) 400 MG CAPSULE 1 CAP PO BID NEUROPATHY (Reported) Ipratropium/Albuterol Sulfate (Iprat-Albut 0.5-3(2.5) MG/3 Ml) 0.5 MG-3 MG (2.5 MG BASE)/3 ML AMPUL.NEB 1 Vial INH/UDAY 4 TIMES/DAY COPD (Reported) Reason to Stop at ADM: TRC Levothyroxine Sodium 88 MCG TABLET 1 TAB PO DAILY AC THYROID (Reported) Lidocaine (Lidoderm) 5 % ADH..PATCH 1 PAT TOP DAILY PAIN (Reported) may wear up to 12 hours Melatonin 3 MG TABLET 1 TAB PO QPM SLEEP (Reported) Mometasone Furoate (Nasonex) 50 MCG SPRAY.PUMP 2 SPRAY [place] DAILY ALLERGIES ( Reported) Naproxen (Naprosyn) 500 MG TABLET 1 TAB PO BID PAIN CONTROL Reason to Stop at ADM: pain pathway Omeprazole 40 MG CAPSULE.DR 1 CAP PO DAILY GI (Reported) Pregabalin (Lyrica) 100 MG CAPSULE 1 CAP PO TID PAIN (Reported) Tiotropium [place] (Spiriva) 18 MCG CAP.W.DEV 1 CAP INH DAILY BREATHING PROBLEMS (Reported) Trazodone HCl 50 MG TABLET 1 TAB PO QPM SLEEP (Reported) Warfarin Sodium (Coumadin) 3 MG TABLET 1 TAB PO DAILY DVT Current Medications: Current Medications Sig/Eulogio Start time Last Medication Dose Route Stop Time Status Admin Acetaminophen 325 MG Q6P PRN 11/03 2130 AC PO Acetaminophen 1,000 MG Q6P PRN 04/07 2130 AC IV Acetaminophen/ 1 TAB Q4P PRN 11/03 204 AC Butalbital/Caffeine PO Albuterol Sulfate 3 ML TID 11/04 1000 AC 11/04 INH 0950 Albuterol Sulfate 2 PUF Q4 PRN 11/03 204 CAN INH Albuterol Sulfate 3 ML Q4H 11/03 2045 DC 11/03 INH 205 Alendronate Sodium 70 MG QFRI 11/10 07 AC PO Azithromycin 500 MG DAILY 11/04 1000 AC 11/04 Sodium Chloride 250 ML IV 1049 Bisacodyl 5 MG DAILY 11/04 1000 AC 11/04 PO 0907 Budesonide/ 2 PUF BID 11/03 2200 AC 11/04 Formoterol Fumarate INH 0906 Cyanocobalamin 1,000 MCG DAILY 11/04 1000 AC 11/04 PO 0907 Diazepam 5 MG BID PRN 11/03 2044 AC PO Ergocalciferol 50,000 IU QFRI 11/10 07 AC PO Escitalopram Oxalate 20 MG DAILY 11/04 1000 AC 11/04 PO 0907 Ferrous Sulfate 325 MG BID 11/03 2200 AC 11/04 PO 0907 Folic Acid 1 MG DAILY 11/04 1000 AC 11/04 PO 0907 Gabapentin 400 MG BID 11/03 2200 AC 11/04 PO 0907 Heparin Sodium 5,000 UNIT Q8 11/03 2200 CAN (Porcine) SC Ibuprofen 600 MG Q6P PRN 11/03 2129 AC PO Insulin Aspart 0 TIDAC 11/04 1200 AC SC Ipratropium [place] 2.5 ML TID 11/04 1000 AC 11/04 INH 0950 Levothyroxine Sodium 0.088 MG DAILY AC 11/04 0700 AC 11/04 PO 0551 Lidocaine 1 PAT DAILY 11/04 1000 AC 11/04 EXT 0911 Magnesium Hydroxide 30 ML AT BEDTIME PRN 11/04 0845 AC PO Melatonin 3 MG QPM 11/03 2200 AC 11/03 PO 2332 Methylprednisolone 40 MG Q8 11/04 0600 AC 11/04 IV 0553 Nicotine 21 MG DAILY 11/04 1000 AC TOP Omeprazole 40 MG DAILY AC 11/04 0700 AC 11/04 PO 0550 Pregabalin 100 MG TID 11/03 2200 AC 11/04 PO 0907 Sodium Chloride 2 SPRAY Q4P PRN 11/03 2045 AC BRANDY Sodium Polystyrene 0 .STK-MED ONE 11/03 1631 DC Sulfonate .ROUTE Sodium Polystyrene 60 ML ONCE ONE 11/03 1545 DC 11/03 Sulfonate PO 11/03 1546 1636 Tiotropium [place] 1 PUF DAILY 11/03 2122 AC 11/04 INH 0906 Trazodone HCl 50 MG QPM 11/03 2200 AC 11/03 PO 2332 Warfarin Sodium 3 MG 1700 11/04 1700 AC PO Review of Systems Comments 18 point review of systems performed. Pertinent positive and negative findings are in the HPI, otherwise negative. 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 Assisted Living Who Do You Live With? self Primary Language: Irish Smoking Status: Current Everyday Smoker (1/2 PPD For 65 Years) Living Will? yes Functional Ability ADLs Independent: dressing, eating, toileting, bathing. Ambulation: walker IADLs Independent: telephone. Needs Assist: shopping, housework, transportation, medication admin. Exam & Diagnostic Data Last 24 Hrs of Vital Signs/I&O Vital Signs Date Time Temp Pulse Resp B/P Pulse O2 O2 Flow FiO2 Ox Delivery Rate 11/04 0953 96 Nasal 2.0L Cannula 11/04 0950 Nasal 2.0L Cannula 11/04 0800 Nasal 2.0L Cannula 11/04 0630 98.4 80 18 134/76 96 Nasal Cannula 11/03 2249 98.2 82 18 140/78 95 Nasal 2.0L Cannula 11/03 2200 Nasal 2.0L Cannula 11/03 2059 91 Nasal 2.0L Cannula 11/03 1744 98.5 82 18 146/67 87 11/03 1421 96 Nasal 2.0L Cannula 11/03 1401 96.1 84 24 135/63 100 Aerosol 6.0L Mask Intake & Output 11/04 1600 11/04 0800 11/04 0000 Intake Total 100 Output Total Balance 100 Intake, Oral 100 Patient 173 lb Weight Physical Exam Other Physical Findings: Gen - alert and awake HEENT - NCAT CVS - S1, S2, no murmurs, rubs or gallops Lungs - bilateral significant rhonchi and inspiratory and expiratory wheezes Abdomen - soft, non-tender, bs+ Ext - no edema, no cyanosis Last 48 Hrs of Labs/Mick: Laboratory Tests 11/04/16 0720: Anion Gap 8, Estimated GFR > 60, BUN/Creatinine Ratio 27.5 H 11/03/162031: PT Cancelled, INR Cancelled 11/03/16 1442: Anion Gap 5, Estimated GFR 54 L, BUN/Creatinine Ratio 27.0 H, Glucose 138 H, Hemoglobin A1c Pending, Calcium 10.0, Magnesium 2.0, Total Bilirubin 0.6, AST 14 , ALT 30, Alkaline Phosphatase 52, Troponin I < 0.01, [id number] Pept 164 H, Total Protein 6.1 L, Albumin 3.7, Globulin 2.4, Albumin/Globulin Ratio 1.5, PT 31.2 H, INR 3.00 H, D-Dimer < 200, CBC w Diff NO MAN DIFF REQ, RBC 4.38, MCV 97.4, MCH 32.0 H, RDW 16.5 H, MPV 7.7, Gran % 87.2 H, Lymphocytes % 10.5 L, Monocytes % 1.0 L, Eosinophils % 1.0, Basophils % 0.3, Absolute Granulocytes 9.0 H, Absolute Lymphocytes 1.1 L, Absolute Monocytes 0.1 L, Absolute Eosinophils 0.1, Absolute Basophils 0, PUBS MCHC 32.8 L Assessment/Plan Impression/Plan: Impression 76-year-old woman * Exacerbation of COPD likely related to her underlying tobacco dependence and possible acute viral or possibly bacterial bronchitis Plan - Continue Solu-Medrol 40 mg IV every 8 today, monitor fingersticks - TRC/nebs - Can continue Zithromax for now for anti-inflammatory properties if there are no further signs of infections this may be discontinued - Sputum culture - Patient is on Spiriva and Advair at home please discontinue Symbicort to avoid any confusion - Careful use of benzodiazepines as the patient uses them at home DVT prophylaxis at all times Consult Acknowledgment - Thank you for your consult request.
--- NOTE | 2016-11-04 12:58 | Admission Certification ---
Admission Certification Certification Statement - As attending physician, I certify that at the time of - admission, based on clinical presentation, severity of - symptoms, need for further diagnostic testing and - therapeutic interventions, and risk of adverse outcomes - without in-hospital treatment, in my clinical assessment, - this patient requires an acute hospital stay for a minimum - of two nights or longer. I have also considered psychsocial - factors such as support system, advanced age, financial - issues, cognitive issues, and failed out-patient treatments, - past re-admission history, safety of patient, and lack of - compliance as applicable. Specific rationale supporting this admission is: COPD exacerbation
--- NOTE | 2016-11-04 13:02 | PN- Att Addend ---
Attending Addendum Attending Brief Note Patient reports improved breathing. General Appearance: Alert, No Acute Distress Skin: Grossly normal HEENT: PEERLA Neck: Supple, No JVD Cardiovascular: Regular Rate, Normal S1, Normal S2, No Murmurs Lungs: Expiratory wheeze Neurological: Normal Speech, Strength at 5/5 X4 Ext, Cranial Nerves 3-12 NL, Reflexes 2+ Extremities: No Clubbing, No Cyanosis, No Edema Vascular: Normal Pulses Assessment 76 with history of COPD not on home oxygen, history of lung cancer status post lobectomy and DVT status post IVC filter on Coumadin presenting with shortness of breath. Chest x-ray is negative and there are no signs of pneumonia. She has significant COPD exacerbation now requiring oxygen. Plan Continue Solu-Medrol Continue azithromycin TRC and nebs Hold Coumadin for subtherapeutic INR Check INR in a.m. Continue other home medications DVT prophylaxis Current Medications Sig/Eulogio Start time Last Medication Dose Route Stop Time Status Admin Acetaminophen 325 MG Q6P PRN 11/03 2129 AC PO Acetaminophen 1,000 MG Q6P PRN 11/03 213 AC IV Acetaminophen/ 1 TAB Q4P PRN 11/03 2044 AC Butalbital/Caffeine PO Albuterol Sulfate 3 ML TID 11/04 1000 AC 11/04 INH 0950 Albuterol Sulfate 2 PUF Q4 PRN 11/03 2044 CAN INH Albuterol Sulfate 3 ML Q4H 11/03 2045 DC 11/03 INH 2054 Alendronate Sodium 70 MG QFRI 11/10 699 AC PO Azithromycin 500 MG DAILY 11/04 1000 AC 11/04 Sodium Chloride 250 ML IV 1049 Bisacodyl 5 MG DAILY 11/04 1000 AC 11/04 PO 0907 Budesonide/ 2 PUF BID 11/03 220 AC 11/04 Formoterol Fumarate INH 0906 Cyanocobalamin 1,000 MCG DAILY 11/04 1000 AC 11/04 PO 0907 Diazepam 5 MG BID PRN 11/03 2044 AC PO Ergocalciferol 50,000 IU QFRI 11/10 07 AC PO Escitalopram Oxalate 20 MG DAILY 11/04 1000 AC 11/04 PO 0907 Ferrous Sulfate 325 MG BID 11/03 2200 AC 11/04 PO 09 Folic Acid 1 MG DAILY 11/04 1000 AC 11/04 PO 09 Gabapentin 400 MG BID 11/03 2200 AC 11/04 PO 0907 Heparin Sodium 5,000 UNIT Q8 11/03 2200 CAN (Porcine) SC Ibuprofen 600 MG Q6P PRN 11/03 2130 AC PO Insulin Aspart 0 TIDAC 11/04 1200 AC SC Ipratropium [place] 2.5 ML TID 11/04 1000 AC 11/04 INH 0950 Levothyroxine Sodium 0.088 MG DAILY AC 11/04 0700 AC 11/04 PO 0551 Lidocaine 1 PAT DAILY 11/04 1000 AC 11/04 EXT 0911 Magnesium Hydroxide 30 ML AT BEDTIME PRN 11/04 0845 AC PO Melatonin 3 MG QPM 11/03 2200 AC 11/03 PO 2332 Methylprednisolone 40 MG Q8 11/04 0600 AC 11/04 IV 0553 Nicotine 21 MG DAILY 11/04 1000 AC TOP Omeprazole 40 MG DAILY AC 11/04 0700 AC 11/04 PO 0550 Pregabalin 100 MG TID 11/03 2200 AC 11/04 PO 0907 Sodium Chloride 2 SPRAY Q4P PRN 11/03 2045 AC BRANDY Sodium Polystyrene 0 .STK-MED ONE 11/03 1631 DC Sulfonate .ROUTE Sodium Polystyrene 60 ML ONCE ONE 11/03 1545 DC 11/03 Sulfonate PO 11/03 1546 1636 Tiotropium [place] 1 PUF DAILY 11/032 AC 11/04 INH 0906 Trazodone HCl 50 MG QPM 11/03 2200 AC 11/03 PO 2332 Warfarin Sodium 3 MG 1700 11/04 1700 AC PO Laboratory Tests 11/04 11/03 04 0720 2032 1442 Chemistry Sodium (137 - 145 mmol/L) 139 137 Potassium (3.5 - 5.1 mmol/L) 4.4 5.3 H Chloride (98 - 107 mmol/L) 105 102 Carbon Dioxide (22 - 30 mmol/L) 26 30 Anion Gap (5 - 16) 8 5 BUN (7 - 17 mg/dL) 22 H 27 H Creatinine (0.5 - 1.0 mg/dL) 0.8 1.0 Estimated GFR (>60 ml/min) > 60 54 L BUN/Creatinine Ratio (7 - 25 %) 27.5 H 27.0 H Glucose (65 - 99 mg/dL) 138 H Hemoglobin A1c (4.2 - 5.8 %) 6.4 H Calcium (8.4 - 10.2 mg/dL) 10.0 Magnesium (1.6 - 2.3 mg/dL) 2.0 Total Bilirubin (0.2 - 1.3 mg/dL) 0.6 AST (14 - 36 U/L) 14 ALT (9 - 52 U/L) 30 Alkaline Phosphatase (<127 U/L) 52 Troponin I (< 0.11 ng/ml) < 0.01 [id number]-[id number] Pept (<125 pg/mL) 164 H Total Protein (6.3 - 8.2 g/dL) 6.1 L Albumin (3.5 - 5.0 g/dL) 3.7 Globulin (1.9 - 4.2 gm/dL) 2.4 Albumin/Globulin Ratio (1.1 - 2.2 %) 1.5 Coagulation PT (9.4 - 12.5 SEC) Cancelled 31.2 H INR (0.90 - 1.19) Cancelled 3.00 H D-Dimer (70 - 232 ng/ml) < 200 Hematology CBC w Diff NO MAN DIFF REQ WBC (4.8 - 10.8 /CUMM) 10.3 RBC (4.20 - 5.40 /CUMM) 4.38 Hgb (12.0 - 16.0 G/DL) 14.0 Hct (37 - 47 %) 42.7 MCV (81.0 - 99.0 FL) 97.4 MCH (27.0 - 31.0 PG) 32.0 H RDW (11.5 - 14.5 %) 16.5 H Plt Count (130 - 400 /CUMM) 214 MPV (7.4 - 10.4 FL) 7.7 Gran % (42.2 - 75.2 %) 87.2 H Lymphocytes % (20.5 - 51.1 %) 10.5 L Monocytes % (1.7 - 9.3 %) 1.0 L Eosinophils % (0 - 5 %) 1.0 Basophils % (0.0 - 2.0 %) 0.3 Absolute Granulocytes (1.4 - 6.5 /CUMM) 9.0 H Absolute Lymphocytes (1.2 - 3.4 /CUMM) 1.1 L Absolute Monocytes (0.10 - 0.60 /CUMM) 0.1 L Absolute Eosinophils (0.0 - 0.7 /CUMM) 0.1 Absolute Basophils (0.0 - 0.2 /CUMM) 0 PUBS MCHC (33.0 - 37.0 G/DL) 32.8 L Vital Signs Date Time Temp Pulse Resp B/P Pulse O2 O2 Flow FiO2 Ox Delivery Rate 11/04 0953 96 Nasal 2.0L Cannula 11/04 0950 Nasal 2.0L Cannula 11/04 0800 Nasal 2.0L Cannula 11/04 0630 98.4 80 18 134/76 96 Nasal Cannula 11/03 2249 98.2 82 18 140/78 95 Nasal 2.0L Cannula 11/03 2200 Nasal 2.0L Cannula 11/03 2059 91 Nasal 2.0L Cannula 11/03 1744 98.5 82 18 146/67 87 11/03 1421 96 Nasal 2.0L Cannula 11/03 1401 96.1 84 24 135/63 100 Aerosol 6.0L Mask
[2016-11-04 15:09] VITALS: BP 138/62
[2016-11-04 16:38] LABS: PT 28.7 SEC (9.4-12.5)
[2016-11-04 23:46] VITALS: BP 118/64
[2016-11-05 07:18] VITALS: BP 103/52
--- NOTE | 2016-11-05 08:24 | PN- Housestaff ---
Subjective Follow-up For: COPD Exacerbation Subjective: Patient was seen and examined this morning, she is on 2 L oxygen with saturation above 90%, she had desats 87% at 7 PM last night when she was coughing excessively, afibrile. Patient denied any productive cough, chest pain, fever, chills. She has dry cough, some abdominal discomfort muscular pain with cough episodes, 3 bowel movement of loose stool last night and this morning she had a normal bowel movement, denied any nausea, vomiting, dysuria. Review of Systems Constitutional: Reports: see HPI. Objective Last 24 Hrs of Vital Signs/I&O Vital Signs Date Time Temp Pulse Resp B/P Pulse O2 O2 Flow FiO2 Ox Delivery Rate 11/05 0843 94 Nasal 2.5L Cannula 11/05 08 Nasal 2.0L Cannula 11/05 0718 98.3 91 20 103/52 94 Room Air 11/05 0414 Nasal 2.0L Cannula 11/05 0000 Nasal 2.0L Cannula 11/04 2346 98.4 87 18 118/64 93 Nasal 2.0L Cannula 11/04 1930 87 Room Air 11/04 1509 98.6 90 18 138/62 94 Intake & Output 11/05 1600 11/05 0800 11/05 0000 Intake Total 480 500 Output Total Balance 480 500 Intake, IV 20 Intake, Oral 480 480 Number 2 Bowel Movements Physical Exam General Appearance: Alert, Oriented X3, Cooperative, Mild Distress Skin: No Rashes, No Breakdown, No Significant Lesion HEENT: Atraumatic, PERRLA, EOMI, Mucous Membr. moist/pink Neck: Supple Cardiovascular: Regular Rate, Normal S1, Normal S2, No Murmurs Lungs: BL decrease air entery with diffuse whezze and ronchi Abdomen: Normal Bowel Sounds, Soft, No Tenderness Neurological: Normal Gait, Normal Speech, Strength at 5/5 X4 Ext, Normal Tone, Sensation Intact, Cranial Nerves 3-12 NL, Reflexes 2+ Extremities: No Clubbing, No Cyanosis, No Edema, Normal Pulses Assessment/Plan Assessment: 76 y/o F with PMHx of COPD not on home oxygen, lung cancer s/p right lobe resection and DVT s/p IVC filter on warfarin who presents with worsening shortness of breath x1 day. #COPD exacerbation: * Not on oxygen at home. Patient is a current smoker. * Nicotine patch, smoking cessation counseling. * TRC and nebs. * Discontinue Symbicort to prevent confusion. * Continue 2L oxygen supplementation, titrate as tolerated. * Continue Solumedrol 40 mg IV Q8H. * Continue azithromycin Day#2. * Continue home inhalers Spiriva and Advair. * Sputum culture is unobtainable, patient reported dry cough. #Abdominal pain: Lower abdominal pain associated with straining during defecation of several weeks duration. Likely secondary to constipation. * Bisacodyl 5 mg PO daily for constipation. #DVT: S/p IVC filter placement. On warfarin. INR 3 on admission. * Check INR daily and continue to dose warfarin accordingly to keep INR between 2-3. #Hypothyroidism: * Continue levothyroxine 88 mcg PO AC daily. #Fibromyalgia: * Continue prior to admission gabapentin 400 mg PO BID and Lyrica 100 mg PO TID. #Depression: * Continue prior to admission escitalopram 10 mg PO daily. #Anxiety: * Continue prior to admission diazepam 5 mg PO BID PRN for anxiety. #Insomnia: * Continue prior to admission trazodone 50 mg PO QPM and melatonin 3 mg PO QPM. Diet: Consistent Carbohydrate 2 DVT PPx: Warfarin CODE: DNR/DNI Problem List: 1. COPD exacerbation Pain Ratin Pain Location: None Pain Goal: Pain 4 or less Pain Plan: Mild pain pathway Tomorrow's Labs & Rationales: INR
[2016-11-05 08:43] LABS: PT 26.1 SEC (9.4-12.5)
--- NOTE | 2016-11-05 08:48 | PN- Housestaff ---
Assessment/Plan Assessment: 76 y/o F with PMHx of COPD not on home oxygen, lung cancer s/p right lobe resection and DVT s/p IVC filter on warfarin who presents with worsening shortness of breath x1 day. #COPD exacerbation: * Not on oxygen at home. Patient is a current smoker. * TRC and nebs. * Discontinue Symbicort to prevent confusion. * Continue 2L oxygen supplementation, titrate as tolerated. * Continue Solumedrol 40 mg IV Q8H. * Continue home inhalers Spiriva and Advair. * Sputum culture is unobtainable. 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 #Abdominal pain: Lower abdominal pain associated with straining during defecation of several weeks duration. Likely secondary to constipation. * Bisacodyl 5 mg PO daily for constipation. #DVT: S/p IVC filter placement. On warfarin. INR 3 on admission. * INR 2.7 will dose 3 mg warfrain. * Check INR daily and continue to dose warfarin accordingly to keep INR between 2-3. #Hypothyroidism: * Continue levothyroxine 88 mcg PO AC daily. #Fibromyalgia: * Continue prior to admission gabapentin 400 mg PO BID and Lyrica 100 mg PO TID. #Depression: * Continue prior to admission escitalopram 10 mg PO daily. #Anxiety: * Continue prior to admission diazepam 5 mg PO BID PRN for anxiety. #Insomnia: * Continue prior to admission trazodone 50 mg PO QPM and melatonin 3 mg PO QPM. Diet: Consistent Carbohydrate 2 DVT PPx: Warfarin CODE: DNR/DNI
--- NOTE | 2016-11-05 11:27 | PN- Att Addend ---
Attending Addendum Attending Brief Note Patient reports improved breathing. General Appearance: Alert, No Acute Distress Skin: Grossly normal HEENT: PEERLA Neck: Supple, No JVD Cardiovascular: Regular Rate, Normal S1, Normal S2, No Murmurs Lungs: Expiratory wheeze Neurological: Normal Speech, Strength at 5/5 X4 Ext, Cranial Nerves 3-12 NL, Reflexes 2+ Extremities: No Clubbing, No Cyanosis, No Edema Vascular: Normal Pulses Assessment 76 yo with history of COPD not on home oxygen, history of lung cancer status post lobectomy and DVT status post IVC filter on Coumadin presenting with shortness of breath. Chest x-ray is negative and there are no signs of pneumonia. She has significant COPD exacerbation now requiring oxygen. We will continue current management for 1 more day and reassess. Plan Continue Solu-Medrol Continue azithromycin TRC and nebs Resume Coumadin Check INR in a.m. Continue other home medications DVT prophylaxis Current Medications Sig/Eulogio Start time Last Medication Dose Route Stop Time Status Admin Acetaminophen 325 MG Q6P PRN 11/03 2130 AC PO Acetaminophen 1,000 MG Q6P PRN 11/03 2130 AC 11/04 IV 2006 Acetaminophen/ 1 TAB Q4P PRN 11/03 2045 AC Butalbital/Caffeine PO Albuterol Sulfate 3 ML TID 11/04 1000 AC 11/05 INH 0840 Alendronate Sodium 70 MG QFRI 11/10 699 AC PO Azithromycin 500 MG DAILY 11/04 1000 AC 11/05 Sodium Chloride 250 ML IV 0949 Bisacodyl 5 MG DAILY 11/04 1000 AC 11/04 PO 0907 Budesonide/ 2 PUF BID 11/03 2200 DC 11/04 Formoterol Fumarate INH 0906 Cyanocobalamin 1,000 MCG DAILY 11/04 1000 AC 11/05 PO 0943 Diazepam 5 MG BID PRN 11/03 2045 AC 11/04 PO 1647 Ergocalciferol 50,000 IU QFRI 11/10 07 AC PO Escitalopram Oxalate 20 MG DAILY 11/04 1000 AC 11/05 PO 0943 Ferrous Sulfate 325 MG BID 11/03 2200 AC 11/05 PO 0943 Folic Acid 1 MG DAILY 11/04 1000 AC 11/05 PO 0943 Gabapentin 400 MG BID 11/03 2200 AC 11/05 PO 0943 Guaifenesin 600 MG Q12 11/05 1003 AC PO Ibuprofen 600 MG Q6P PRN 11/03 2130 AC PO Insulin Aspart 0 TIDAC 11/04 1200 AC SC Ipratropium [place] 2.5 ML TID 11/04 1000 AC 11/05 INH 0839 Levothyroxine Sodium 0.088 MG DAILY AC 11/04 0700 AC 11/05 PO 0517 Lidocaine 1 PAT DAILY 11/04 1000 AC 11/05 EXT 0943 Magnesium Hydroxide 30 ML AT BEDTIME PRN 11/04 0845 AC PO Melatonin 3 MG QPM 11/03 2200 AC 11/04 PO 2333 Methylprednisolone 40 MG Q8 11/04 06 AC 11/05 IV 0517 Nicotine 21 MG DAILY 11/04 1000 AC TOP Omeprazole 40 MG DAILY AC 11/04 07 AC 11/05 PO 0517 Pregabalin 100 MG TID 11/03 2200 AC 11/05 PO 0943 Sodium Chloride 2 SPRAY Q4P PRN 11/03 2045 AC BRANDY Tiotropium [place] 1 PUF DAILY 11/03 2122 AC 11/05 INH 0944 Trazodone HCl 50 MG QPM 11/03 2200 AC 11/04 PO 2333 Warfarin Sodium 3 MG COUMADIN 1700 ONE 11/05 1700 AC PO 11/05 1701 Warfarin Sodium 3 MG 1700 11/04 1700 CAN PO Warfarin Sodium 3 MG COUMADIN 1700 ONE 11/04 1700 DC 11/04 PO 11/04 1701 1918 Laboratory Tests 11/05 11/04 0710 1620 Chemistry Sodium (137 - 145 mmol/L) 135 L Potassium (3.5 - 5.1 mmol/L) 4.3 Chloride (98 - 107 mmol/L) 104 Carbon Dioxide (22 - 30 mmol/L) 27 Anion Gap (5 - 16) 4 L BUN (7 - 17 mg/dL) 27 H Creatinine (0.5 - 1.0 mg/dL) 0.8 Estimated GFR (>60 ml/min) > 60 BUN/Creatinine Ratio (7 - 25 %) 33.8 H Coagulation PT (9.4 - 12.5 SEC) 26.1 H 28.7 H INR (0.90 - 1.19) 2.51 H 2.76 H Vital Signs Date Time Temp Pulse Resp B/P Pulse O2 O2 Flow FiO2 Ox Delivery Rate 11/05 842 94 Nasal 2.5L Cannula 04/09 0800 Nasal 2.0L Cannula 11/05 0718 98.3 91 20 103/52 94 Room Air 11/05 0414 Nasal 2.0L Cannula 11/05 0000 Nasal 2.0L Cannula 11/04 2346 98.4 87 18 118/64 93 Nasal 2.0L Cannula 11/04 1930 87 Room Air 11/04 1509 98.6 90 18 138/62 94
--- NOTE | 2016-11-05 12:06 | PN- Pulmonary ---
Subjective HPI/Critical Care Issues: pt seen and examined no significant improvement since yesterday, but better than arrival still wheezing no cp, no n/v/d/c Objective Current Medications: Current Medications Sig/Eulogio Start time Last Medication Dose Route Stop Time Status Admin Acetaminophen 325 MG Q6P PRN 11/03 2130 AC PO Acetaminophen 1,000 MG Q6P PRN 11/03 2130 AC 11/04 IV 2006 Acetaminophen/ 1 TAB Q4P PRN 11/03 2045 AC Butalbital/Caffeine PO Albuterol Sulfate 3 ML TID 11/04 1000 AC 11/05 INH 0840 Alendronate Sodium 70 MG QFRI 11/10 0700 AC PO Azithromycin 500 MG DAILY 11/04 1000 AC 11/05 Sodium Chloride 250 ML IV 0949 Bisacodyl 5 MG DAILY 11/04 1000 AC 11/04 PO 0907 Budesonide/ 2 PUF BID 11/03 2200 DC 11/04 Formoterol Fumarate INH 0906 Cyanocobalamin 1,000 MCG DAILY 11/04 1000 AC 11/05 PO 0943 Diazepam 5 MG BID PRN 11/03 2045 AC 11/04 PO 1647 Ergocalciferol 50,000 IU QFRI 11/10 0700 AC PO Escitalopram Oxalate 20 MG DAILY 11/04 1000 AC 11/05 PO 0943 Ferrous Sulfate 325 MG BID 11/03 2200 AC 11/05 PO 0943 Folic Acid 1 MG DAILY 11/04 1000 AC 11/05 PO 0943 Gabapentin 400 MG BID 11/03 2200 AC 11/05 PO 0943 Guaifenesin 600 MG Q12 11/05 1003 AC PO Ibuprofen 600 MG Q6P PRN 11/03 2130 AC PO Insulin Aspart 0 TIDAC 11/04 1200 AC SC Ipratropium [place] 2.5 ML TID 11/04 1000 AC 11/05 INH 0839 Levothyroxine Sodium 0.088 MG DAILY AC 11/04 0700 AC 11/05 PO 0517 Lidocaine 1 PAT DAILY 11/04 1000 AC 11/05 EXT 0943 Magnesium Hydroxide 30 ML AT BEDTIME PRN 11/04 0845 AC PO Melatonin 3 MG QPM 11/03 2200 AC 11/04 PO 2333 Methylprednisolone 40 MG Q8 11/04 0600 AC 11/05 IV 0517 Nicotine 21 MG DAILY 11/04 1000 AC TOP Omeprazole 40 MG DAILY AC 11/04 0700 AC 11/05 PO 0517 Pregabalin 100 MG TID 11/03 2199 AC 11/05 PO 0943 Sodium Chloride 2 SPRAY Q4P PRN 11/03 2044 AC BRANDY Tiotropium [place] 1 PUF DAILY 11/03 2121 AC 11/05 INH 0944 Trazodone HCl 50 MG QPM 11/03 2199 AC 11/04 PO 2333 Warfarin Sodium 3 MG COUMADIN 1700 ONE 11/05 1700 AC PO 11/05 1701 Warfarin Sodium 3 MG 1700 11/04 1700 CAN PO Warfarin Sodium 3 MG COUMADIN 1700 ONE 11/04 1700 DC 11/04 PO 11/04 1701 1918 Vital Signs & I&O Last 24 Hrs of Vitals and I&O: Vital Signs Date Time Temp Pulse Resp B/P Pulse O2 O2 Flow FiO2 Ox Delivery Rate 11/05 0843 94 Nasal 2.5L Cannula 11/05 08 Nasal 2.0L Cannula 11/05 0718 98.3 91 20 103/52 94 Room Air 11/05 0414 Nasal 2.0L Cannula 11/05 0000 Nasal 2.0L Cannula 11/04 2346 98.4 87 18 118/64 93 Nasal 2.0L Cannula 11/04 1930 87 Room Air 11/04 1509 98.6 90 18 138/62 94 Intake & Output 11/05 1600 11/05 0800 11/05 0000 Intake Total 480 500 Output Total Balance 480 500 Intake, IV 20 Intake, Oral 480 480 Number 2 Bowel Movements Exam Other Physical Findings: Gen - alert and awake HEENT - NCAT CVS - S1, S2, no murmurs, rubs or gallops Lungs - bilateral rhonchi and inspiratory and expiratory wheezes Abdomen - soft, non-tender, bs+ Ext - no edema, no cyanosis Results Last 24 Hrs of Lab Results: Laboratory Tests 11/05/16 0710: Anion Gap 4 L, Estimated GFR > 60, BUN/Creatinine Ratio 33.8 H, PT 26.1 H, INR 2.51 H 11/04/16 1620: PT 28.7 H, INR 2.76 H Impression/Plan Impression/Plan Impression/Plan: Impression 76-year-old woman * Exacerbation of COPD likely related to her underlying tobacco dependence and possible acute viral or possibly bacterial bronchitis Plan - Continue Solu-Medrol 40 mg IV every 8 today, monitor fingersticks, will consider taper 11/06 - Dr. Mayes to resume consultation as of tomorrow - TRC/nebs - Can continue Zithromax for now for anti-inflammatory properties if there are no further signs of infections this may be discontinued - Sputum culture - Patient is on Spiriva and Advair at home please discontinue Symbicort to avoid any confusion - Careful use of benzodiazepines as the patient uses them at home DVT prophylaxis at all times
[2016-11-05 14:16] VITALS: BP 118/72
[2016-11-05 23:22] VITALS: BP 120/70
--- NOTE | 2016-11-06 05:31 | PN- Housestaff ---
Subjective Follow-up For: COPD exacerbation Diarrhea Subjective: Patient seen and examined. She is seen sitting upright in bed resting comfortably maintained on supplemental oxygen via nasal cannula. She appears to be in no acute distress. She is complaining of mild shortness of breath without any associated cough. She also admits to a persistent mid chest discomfort is worsened when lying flat. She also states that she has had multiple episodes of black diarrhea that is not normal for her. Otherwise she denies any headache, fever, chills, chest pain, palpitations, worsening shortness of breath, nausea, vomiting. No overnight events reported. Review of Systems Constitutional: Reports: see HPI. Objective Last 24 Hrs of Vital Signs/I&O Vital Signs Date Time Temp Pulse Resp B/P Pulse O2 O2 Flow FiO2 Ox Delivery Rate 11/06 0842 96 Nasal 2.0L Cannula 11/06 08 Nasal 2.0L Cannula 11/06 0652 97.8 76 20 130/70 96 Nasal 2.0L Cannula 11/06 0000 96 Nasal 2.0L Cannula 11/05 2322 98.6 92 20 120/70 95 Nasal Cannula 11/05 1925 96 Nasal 2.0L Cannula 11/05 1600 95 Nasal 2.0L Cannula 11/05 1416 98.7 78 20 118/72 95 Intake & Output 11/06 1600 11/06 0800 11/06 0000 Intake Total 120 240 Output Total Balance 120 240 Intake, Oral 120 240 Physical Exam General Appearance: Alert, Oriented X3, Cooperative, No Acute Distress Other Physical Findings: General -well-developed, well-nourished elderly woman in no acute distress HEENT - NCAT, PERRL, EOMI, anicteric sclera Cardio - S1, S2 w/o murmurs/gallops/rubs Resp -bilateral wheezing without rhonchi/crackles, nasal cannula in place GI - soft, nontender, nondistended, bowel sounds present Neuro - Awake and alert, CN II - XII grossly intact Extremities - no edema, pulses intact Current Medications: Current Medications Sig/Eulogio Start time Last Medication Dose Route Stop Time Status Admin Acetaminophen 325 MG Q6P PRN 11/03 2129 AC PO Acetaminophen 1,000 MG Q6P PRN 11/03 213 AC 11/04 IV 2006 Acetaminophen/ 1 TAB Q4P PRN 11/03 2044 AC Butalbital/Caffeine PO Albuterol Sulfate 3 ML TID 11/04 1000 AC 11/06 INH 1337 Alendronate Sodium 70 MG QFRI 11/10 0700 AC PO Azithromycin 500 MG DAILY 11/04 1000 AC 11/06 Sodium Chloride 250 ML IV 0912 Bisacodyl 5 MG DAILY 11/04 1000 AC 11/04 PO 0907 Cyanocobalamin 1,000 MCG DAILY 11/04 1000 AC 11/06 PO 0911 Diazepam 5 MG BID PRN 11/03 2045 AC 11/04 PO 1647 Ergocalciferol 50,000 IU QFRI 11/10 0700 AC PO Escitalopram Oxalate 20 MG DAILY 11/04 1000 AC 11/06 PO 0911 Ferrous Sulfate 325 MG BID 11/03 2200 AC 11/06 PO 0911 Folic Acid 1 MG DAILY 11/04 1000 AC 11/06 PO 0911 Gabapentin 400 MG BID 11/03 2200 AC 11/06 PO 0911 Guaifenesin 600 MG Q12 11/05 1003 AC 11/06 PO 0911 Ibuprofen 600 MG Q6P PRN 11/03 2130 AC PO Insulin Aspart 0 TIDAC 11/04 1200 AC 11/05 SC 1739 Ipratropium [place] 2.5 ML TID 11/04 1000 AC 11/06 INH 1337 Levothyroxine Sodium 0.088 MG DAILY AC 11/04 0700 AC 11/06 PO 0538 Lidocaine 1 PAT DAILY 11/04 1000 AC 11/06 EXT 0912 Magnesium Hydroxide 30 ML AT BEDTIME PRN 11/04 0845 AC PO Melatonin 3 MG QPM 11/03 2200 AC 11/05 PO 2146 Methylprednisolone 40 MG Q8 11/04 06 AC 11/06 IV 1326 Nicotine 21 MG DAILY 11/04 1000 AC TOP Omeprazole 40 MG DAILY AC 11/06 0853 AC 11/06 PO 0911 Omeprazole 40 MG DAILY AC 11/04 07 AC 11/06 PO 0540 Pregabalin 25 MG .STK-MED ONE 11/05 2137 DC PO 11/05 2138 Pregabalin 75 MG .STK-MED ONE 11/05 2136 DC PO 11/05 2137 Pregabalin 100 MG TID 11/03 2200 AC 11/06 PO 0912 Sodium Chloride 2 SPRAY Q4P PRN 11/03 2045 AC BRANDY Tiotropium [place] 1 PUF DAILY 11/03 2121 AC 11/06 INH 0912 Trazodone HCl 50 MG QPM 11/03 2200 AC 11/05 PO 2147 Warfarin Sodium 3 MG COUMADIN 1700 ONE 11/05 1700 DC 11/05 PO 11/05 1701 1655 Last 24 Hrs of Lab/Mick Results Last 24 Hrs of Labs/Mics: Laboratory Tests 11/06/16 0730: PT 34.3 H, INR 3.31 H Assessment/Plan Assessment: Patient is clinically improving on intravenous antibiotics and steroids. She is still requiring supplemental oxygen, she is not on home oxygen. He has persistent symptoms suggestive of heartburn for which she was started on a oral PPI today. She also reports having persistent black diarrhea without any objective evidence of hemodynamic instability. Stools are to be guaiaced with interval surveillance acute blood loss as necessary. Coumadin was held today for supratherapeutic INR. Physical therapy assessment order placed, recommendations pending COPD exacerbation -Gen. 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 This is most likely due to acid reflux exacerbated with intravenous steroids. -Guaiac all stools -Omeprazole 40 mg by mouth daily -Daily CBC Fibromyalgia -Gabapentin 400 mg by mouth twice a day -Lyrica 100 mg by mouth 3 times a day Insomnia -Trazodone 50 mg by mouth daily at bedtime -Melatonin 3 mg by mouth daily at bedtime Hypothyroidism-Synthroid 88 g by mouth daily Depression-Escitalopram 10 mg by mouth daily Diet- Consistent Carbohydrate 2 DVT PPx- On anticoagulation CODE STATUS-DNR/DNI Problem List: 1. COPD (chronic obstructive pulmonary disease) Pain Ratin Pain Location: None Pain Goal: Remain pain free Pain Plan: See assessment Tomorrow's Labs & Rationales: CBC - black diarrhea INR - coumadin
[2016-11-06 06:52] VITALS: BP 130/70
--- NOTE | 2016-11-06 07:56 | PN- Pulmonary ---
Subjective HPI/Critical Care Issues: Patient's primary complaint is heartburn. Shortness of breath appears somewhat improved oxygen saturation is normal on 2 L Objective Current Medications: Current Medications Sig/Eulogio Start time Last Medication Dose Route Stop Time Status Admin Acetaminophen 325 MG Q6P PRN 11/03 2130 AC PO Acetaminophen 1,000 MG Q6P PRN 11/03 2130 AC 11/04 IV 2006 Acetaminophen/ 1 TAB Q4P PRN 11/03 2045 AC Butalbital/Caffeine PO Albuterol Sulfate 3 ML TID 11/04 1000 AC 11/05 INH 1925 Alendronate Sodium 70 MG QFRI 11/10 07 AC PO Azithromycin 500 MG DAILY 11/04 1000 AC 11/05 Sodium Chloride 250 ML IV 0949 Bisacodyl 5 MG DAILY 11/04 1000 AC 11/04 PO 0907 Cyanocobalamin 1,000 MCG DAILY 11/04 1000 AC 11/05 PO 0943 Diazepam 5 MG BID PRN 11/03 2045 AC 11/04 PO 1647 Ergocalciferol 50,000 IU QFRI 11/10 07 AC PO Escitalopram Oxalate 20 MG DAILY 11/04 1000 AC 11/05 PO 0943 Ferrous Sulfate 325 MG BID 11/03 2200 AC 11/05 PO 2146 Folic Acid 1 MG DAILY 11/04 1000 AC 11/05 PO 0943 Gabapentin 400 MG BID 11/03 2200 AC 11/05 PO 2146 Guaifenesin 600 MG Q12 11/05 1003 AC 11/05 PO 2146 Ibuprofen 600 MG Q6P PRN 11/03 2130 AC PO Insulin Aspart 0 TIDAC 11/04 1200 AC 11/05 SC 1739 Ipratropium [place] 2.5 ML TID 11/04 1000 AC 11/05 INH 1925 Levothyroxine Sodium 0.088 MG DAILY AC 11/04 0700 AC 11/06 PO 0538 Lidocaine 1 PAT DAILY 11/04 1000 AC 11/05 EXT 0943 Magnesium Hydroxide 30 ML AT BEDTIME PRN 11/04 0845 AC PO Melatonin 3 MG QPM 11/03 2200 AC 11/05 PO 2146 Methylprednisolone 40 MG Q8 11/04 0600 AC 11/06 IV 0538 Nicotine 21 MG DAILY 11/04 1000 AC TOP Omeprazole 40 MG DAILY AC 11/04 699 AC 11/06 PO 0540 Pregabalin 25 MG .STK-MED ONE 11/05 2137 DC PO 11/05 2138 Pregabalin 75 MG .STK-MED ONE 11/05 2136 DC PO 11/05 2137 Pregabalin 100 MG TID 11/03 2199 AC 11/05 PO 2148 Sodium Chloride 2 SPRAY Q4P PRN 11/03 2044 AC BRANDY Tiotropium [place] 1 PUF DAILY 11/03 2121 AC 11/05 INH 0944 Trazodone HCl 50 MG QPM 11/03 2199 AC 11/05 PO 2146 Warfarin Sodium 3 MG COUMADIN 1700 ONE 11/05 1700 DC 11/05 PO 11/05 1701 1655 Vital Signs & I&O Last 24 Hrs of Vitals and I&O: Vital Signs Date Time Temp Pulse Resp B/P Pulse O2 O2 Flow FiO2 Ox Delivery Rate 11/06 0552 97.8 76 20 130/70 96 Nasal 2.0L Cannula 11/06 0000 96 Nasal 2.0L Cannula 11/05 2322 98.6 92 20 120/70 95 Nasal Cannula 11/05 1925 96 Nasal 2.0L Cannula 11/05 1600 95 Nasal 2.0L Cannula 11/05 1416 98.7 78 20 118/72 95 11/05 0843 94 Nasal 2.5L Cannula 11/05 0800 Nasal 2.0L Cannula Intake & Output 11/06 0800 11/06 0000 11/05 1600 Intake Total 240 750 Output Total Balance 240 750 Intake, IV 250 Intake, Oral 240 500 Number 2 Bowel Movements Oxygen saturation on 2 L 96% exam for chest shows bilateral expiratory wheezing cardiac exam shows regular S1 and S2 without murmurs INR is therapeutic Impression/Plan Impression/Plan Impression/Plan: 76-year-old with severe COPD history of PE on anticoagulation status post lung cancer admitted with exacerbation of COPD in the setting of persistent smoking. She's been counseled regarding the need for smoking cessation. Her primary complaint is worsening heartburn likely related to her steroid administration. Recommendations: Follow up on sputum C&S taper FiO2 with improved saturations continue current medical regimen. Address persistent heartburn
[2016-11-06 08:32] LABS: PT 34.3 SEC (9.4-12.5)
--- NOTE | 2016-11-06 09:16 | PN- Att Addend ---
Attending Addendum Attending Brief Note Patient reports having black stools and also burning in her chest. She is still requiring high flow oxygen. She reports generalized weakness. General Appearance: Alert, No Acute Distress Skin: Grossly normal HEENT: [place]ER[place] Neck: Supple, No JVD Cardiovascular: Regular Rate, Normal S1, Normal S2, No Murmurs Lungs: Expiratory wheeze Neurological: Normal Speech, Strength at 5/5 X4 Ext, Cranial Nerves 3-12 NL, Reflexes 2+ Extremities: No Clubbing, No Cyanosis, No Edema Vascular: Normal Pulses Assessment 76 yo with history of COPD not on home oxygen, history of lung cancer status post lobectomy and DVT status post IVC filter on Coumadin presenting with shortness of breath. Chest x-ray is negative and there are no signs of pneumonia. She has significant COPD exacerbation now requiring oxygen. Patient reports burning in her chest with black tarry stools. We must rule out upper GI bleed. Plan Guaiac stools Start PPI Decrease Solu-Medrol to every 12 hours Continue azithromycin TRC and nebs Hold Coumadin for subtherapeutic INR PT evaluation Check INR in a.m. Continue other home medications DVT prophylaxis Current Medications Sig/Eulogio Start time Last Medication Dose Route Stop Time Status Admin Acetaminophen 325 MG Q6P PRN 11/03 2129 AC PO Acetaminophen 1,000 MG Q6P PRN 11/03 213 AC 11/04 IV 2006 Acetaminophen/ 1 TAB Q4P PRN 11/03 2044 AC Butalbital/Caffeine PO Albuterol Sulfate 3 ML TID 11/04 999 AC 11/06 INH 0840 Alendronate Sodium 70 MG QFRI 11/10 699 AC PO Azithromycin 500 MG DAILY 11/04 1000 AC 11/05 Sodium Chloride 250 ML IV 0949 Bisacodyl 5 MG DAILY 11/04 1000 AC 11/04 PO 0907 Cyanocobalamin 1,000 MCG DAILY 11/04 1000 AC 11/05 PO 0943 Diazepam 5 MG BID PRN 11/03 2044 AC 11/04 PO 1647 Ergocalciferol 50,000 IU QFRI 11/10 07 AC PO Escitalopram Oxalate 20 MG DAILY 11/04 1000 AC 11/05 PO 0943 Ferrous Sulfate 325 MG BID 11/030 AC 11/05 PO 2146 Folic Acid 1 MG DAILY 11/04 1000 AC 11/05 PO 0943 Gabapentin 400 MG BID 11/03 2200 AC 11/05 PO 2146 Guaifenesin 600 MG Q12 11/05 1003 AC 11/05 PO 2146 Ibuprofen 600 MG Q6P PRN 11/03 2130 AC PO Insulin Aspart 0 TIDAC 11/04 1200 AC 11/05 SC 1739 Ipratropium [place] 2.5 ML TID 11/04 1000 AC 11/06 INH 0840 Levothyroxine Sodium 0.088 MG DAILY AC 11/04 0700 AC 11/06 PO 0538 Lidocaine 1 PAT DAILY 11/04 1000 AC 11/05 EXT 0943 Magnesium Hydroxide 30 ML AT BEDTIME PRN 11/04 0845 AC PO Melatonin 3 MG QPM 11/03 2200 AC 11/05 PO 2146 Methylprednisolone 40 MG Q8 11/04 0600 AC 11/06 IV 0538 Nicotine 21 MG DAILY 11/04 1000 AC TOP Omeprazole 40 MG DAILY AC 11/06 0853 AC PO Omeprazole 40 MG DAILY AC 11/04 0700 AC 11/06 PO 0540 Pregabalin 25 MG .STK-MED ONE 11/05 2137 DC PO 11/05 213 Pregabalin 75 MG .STK-MED ONE 11/05 2136 DC PO 11/05 2138 Pregabalin 100 MG TID 11/03 2200 AC 11/05 PO 2149 Sodium Chloride 2 SPRAY Q4P PRN 11/03 2045 AC BRANDY Tiotropium [place] 1 PUF DAILY 11/03 2122 AC 11/05 INH 0944 Trazodone HCl 50 MG QPM 11/03 2200 AC 11/05 PO 2147 Warfarin Sodium 3 MG COUMADIN 1700 ONE 11/05 1700 DC 11/05 PO 11/05 1701 1655 Laboratory Tests 11/06 0730 Coagulation PT (9.4 - 12.5 SEC) 34.3 H INR (0.90 - 1.19) 3.31 H Vital Signs Date Time Temp Pulse Resp B/P Pulse O2 O2 Flow FiO2 Ox Delivery Rate 11/06 0842 96 Nasal 2.0L Cannula 11/06 0652 97.8 76 20 130/70 96 Nasal 2.0L Cannula 11/06 0000 96 Nasal 2.0L Cannula 11/05 2322 98.6 92 20 120/70 95 Nasal Cannula 11/05 1925 96 Nasal 2.0L Cannula 11/05 1600 95 Nasal 2.0L Cannula 11/05 1416 98.7 78 20 118/72 95
[2016-11-06 14:35] VITALS: BP 140/82
[2016-11-06 22:50] VITALS: BP 114/78
[2016-11-07 06:21] VITALS: BP 110/80
--- NOTE | 2016-11-07 07:04 | History & Physical ---
General Information and HPI Source of Information: patient, old records Exam Limitations: clinical condition Allergies/Medications Allergies: Coded Allergies: Penicillins (UNKNOWN 05/01/16) atorvastatin (UNKNOWN 05/01/16) nickel (UNKNOWN 05/01/16) morphine (UNKNOWN 05/01/16) Home Med list Acetaminophen (Tylenol Extra Strength) 500 MG TABLET 2 TAB PO BID PAIN ( Reported) Reason to Stop at ADM: pain pathway Albuterol Sulfate (Proventil Hfa) 90 MCG HFA.AER.AD 2 PUF INH Q4 PRN COPD ( Reported) Alendronate Sodium (Fosamax) 70 MG TABLET 1 TAB PO QFRI BONE (Reported) in the morning, at least 30 minutes before the first food, beverage, or medication of the day Bisacodyl (Dulcolax) 5 MG TABLET.DR 1 TAB PO DAILY GI (Reported) Budesonide 0.25 MG/2 ML AMPUL.NEB 1 Vial INH/UDAY BID BREATHING PROBLEMS ( Reported) Reason to Stop at ADM: TRC Butalb/Acetaminophen/Caffeine (Fioricet 50-300-40 MG Capsule) 50 MG-300 MG-40 MG CAPSULE 1 CAP PO Q4 HRS NEEDED PRN HEADACHE (Reported) Cyanocobalamin (Vitamin B-12) 1,000 MCG TABLET 1 TAB PO DAILY SUPPLEMENT ( Reported) Diazepam 5 MG TABLET 1 TAB PO BIDP PRN anxiety/insomnia (Reported) Ergocalciferol (Vitamin D2) (Vitamin D2) 50,000 UNIT CAPSULE 1 CAP PO QFRI SUPPLEMENT (Reported) Escitalopram Oxalate (Lexapro) 20 MG TABLET 1 TAB PO DAILY MENTAL HEALTH ( Reported) Ferrous Sulfate 325 MG (65 MG IRON) TABLET 1 TAB PO BID SUPPLEMENT (Reported) Fluticasone/Salmeterol (Advair 500-50 Diskus) 500 MCG-50 MCG/DOSE BLST.W.DEV 1 PUF INH BID BREATHING PROBLEMS (Reported) Folic Acid 0.8 MG TABLET 1 TAB PO TID SUPPLEMENT (Reported) Gabapentin (Neurontin) 400 MG CAPSULE 1 CAP PO BID NEUROPATHY (Reported) Ipratropium/Albuterol Sulfate (Iprat-Albut 0.5-3(2.5) MG/3 Ml) 0.5 MG-3 MG (2.5 MG BASE)/3 ML AMPUL.NEB 1 Vial INH/UDAY 4 TIMES/DAY COPD (Reported) Reason to Stop at ADM: TRC Levothyroxine Sodium 88 MCG TABLET 1 TAB PO DAILY AC THYROID (Reported) Lidocaine (Lidoderm) 5 % ADH..PATCH 1 PAT TOP DAILY PAIN (Reported) may wear up to 12 hours Melatonin 3 MG TABLET 1 TAB PO QPM SLEEP (Reported) Mometasone Furoate (Nasonex) 50 MCG SPRAY.PUMP 2 SPRAY [place] DAILY ALLERGIES ( Reported) Naproxen (Naprosyn) 500 MG TABLET 1 TAB PO BID PAIN CONTROL Reason to Stop at ADM: pain pathway Omeprazole 40 MG CAPSULE.DR 1 CAP PO DAILY GI (Reported) Pregabalin (Lyrica) 100 MG CAPSULE 1 CAP PO TID PAIN (Reported) Tiotropium [place] (Spiriva) 18 MCG CAP.W.DEV 1 CAP INH DAILY BREATHING PROBLEMS (Reported) Trazodone HCl 50 MG TABLET 1 TAB PO QPM SLEEP (Reported) Warfarin Sodium (Coumadin) 3 MG TABLET 1 TAB PO DAILY DVT Past History Travel History Traveled to [place] past 21 day No Medical History Blood Transfusion Hx: No Neurological: narcolepsy EENT: allergies, cataracts, rhinitis Cardiovascular: hyperlipidemia, mitral valve prolapse Respiratory: COPD Gastrointestinal: constipation, diverticulitis, GERD Hepatic: NONE Renal: NONE Musculoskeletal: fibromyalgia, osteoarthritis, spinal stenosis (cervical) Psychiatric: anxiety, depression Endocrine: diabetes, hypothyroidism Blood Disorders: anemia, DVT BLE Cancer(s): lung cancer 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 Assisted Living Who Do You Live With? self Primary Language: Hungarian Smoking Status: Current Everyday Smoker (1/2 PPD, Smoked For 65 Years) Living Will? yes Functional Ability ADLs Independent: dressing, eating, toileting, bathing. Ambulation: walker IADLs Independent: telephone. Needs Assist: shopping, housework, transportation, medication admin. Exam & Diagnostic Data Diagnostic Data EKG Results Normal sinus rhythm HR 81 QTc 451 CXR Results Stable appearance of the chest relative to prior studies. No acute abnormality. Core Measures/Miscellaneous Cerebrovascular Accident CVA/TIA Diagnosis: No Severe Sepsis Severe Sepsis Present: No Septic Shock Septic Shock Present: No Miscellaneous Documentation Patient sees these Specialists Game Artist Martir Mayes MD Level of Patient Care: General Medicine
--- NOTE | 2016-11-07 07:06 | PN- Housestaff ---
Subjective Follow-up For: COPD exacerbation Diarrhea Subjective: Seen and examined patient. Complains of 4-6 episodes of diarrhea overnight, abdominal discomfort and chills. Denies fever, shortness of breath. Review of Systems Constitutional: Reports: chills. Denies: no symptoms, see HPI, diaphoresis, fever, malaise, weakness, unexplained weight loss. Cardiovascular: Denies: chest pain, edema, orthopena, palpitations, peripheral edema, syncope. Respiratory: Denies: cough, hemoptysis, orthopnea, short of breath, sputum production, stridor, wheezing. Gastrointestinal: Reports: diarrhea. Objective Last 24 Hrs of Vital Signs/I&O Vital Signs Date Time Temp Pulse Resp B/P Pulse O2 O2 Flow FiO2 Ox Delivery Rate 11/07 1427 98.0 86 20 120/70 98 Room Air 11/07 1342 95 Nasal 2.0L Cannula 11/07 0837 95 Nasal 2.0L Cannula 11/07 0621 97.6 100 22 110/80 98 Room Air 11/07 0000 95 Nasal 2.0L Cannula 11/06 2250 98.9 95 20 114/78 95 Nasal 2.0L Cannula 11/06 1920 94 Nasal 2.0L Cannula 11/06 1600 Nasal 2.0L Cannula 11/06 1435 98.0 78 20 140/82 100 Intake & Output 11/07 1600 11/07 0800 11/07 0000 Intake Total 210 700 Output Total 600 Balance 210 100 Intake, IV 10 Intake, Oral 200 700 Number 1 Bowel Movements Output, Urine 600 Patient 172 lb Weight Physical Exam General Appearance: Alert, Oriented X3, Cooperative, No Acute Distress Cardiovascular: Regular Rate, Normal S1, Normal S2 Lungs: scattered wheezes Abdomen: Soft, hyperactive bowel sounds, diffuse tenderness to palpation Extremities: No Edema Current Medications: Current Medications Sig/Eulogio Start time Last Medication Dose Route Stop Time Status Admin Acetaminophen 325 MG Q6P PRN 11/03 2130 AC PO Acetaminophen 1,000 MG Q6P PRN 11/03 2130 AC 11/04 IV 2006 Acetaminophen/ 1 TAB Q4P PRN 11/03 2045 AC Butalbital/Caffeine PO Albuterol Sulfate 3 ML TID 11/04 1000 AC 11/07 INH 1337 Alendronate Sodium 70 MG QFRI 11/10 0700 AC PO Azithromycin 500 MG DAILY 11/04 1000 DC 11/06 Sodium Chloride 250 ML IV 0912 Bisacodyl 5 MG DAILY 11/04 1000 AC 11/04 PO 0907 Calcium Carbonate 500 MG DAILY PRN 11/06 2014 AC 11/07 PO 0042 Cyanocobalamin 1,000 MCG DAILY 11/04 1000 AC 11/07 PO 1133 Diazepam 5 MG BID PRN 11/03 204 AC 11/04 PO 1647 Ergocalciferol 50,000 IU QFRI 11/10 07 AC PO Escitalopram Oxalate 20 MG DAILY 11/04 1000 AC 11/07 PO 1128 Ferrous Sulfate 325 MG BID 11/03 2200 AC 11/07 PO 1128 Folic Acid 1 MG DAILY 11/04 1000 AC 11/07 PO 1132 Gabapentin 400 MG BID 11/03 2200 AC 11/07 PO 1128 Guaifenesin 600 MG Q12 11/05 1003 AC 11/07 PO 1128 Ibuprofen 600 MG Q6P PRN 11/03 2130 AC PO Insulin Aspart 0 TIDAC 11/04 1200 AC 11/05 SC 1739 Ipratropium [place] 2.5 ML TID 11/04 1000 AC 11/07 INH 1337 Levothyroxine Sodium 0.088 MG DAILY AC 11/04 699 AC 11/07 PO 0609 Lidocaine 1 PAT DAILY 11/04 1000 AC 11/07 EXT 1132 Magnesium Hydroxide 30 ML AT BEDTIME PRN 11/04 0845 AC PO Melatonin 3 MG QPM 11/03 2199 AC 11/06 PO 211 Methylprednisolone 40 MG Q12 11/07 1000 AC 11/07 IV 1126 Methylprednisolone 40 MG Q8 11/04 06 DC 11/07 IV 0609 Metronidazole 500 MG Q8 11/07 0859 AC 11/07 PO 1426 Nicotine 21 MG DAILY 11/04 1000 AC TOP Omeprazole 40 MG DAILY AC 11/06 2114 DC PO 11/06 211 Omeprazole 40 MG DAILY AC 11/06 0853 DC 11/06 PO 0911 Omeprazole 40 MG DAILY AC 11/04 07 AC 11/07 PO 0609 Pregabalin 100 MG TID 11/03 2199 AC 11/07 PO 1128 Sodium Chloride 2 SPRAY Q4P PRN 11/03 2045 AC BRANDY Tiotropium [place] 1 PUF DAILY 11/03 2122 AC 11/07 INH 1126 Trazodone HCl 50 MG QPM 11/03 220 AC 11/06 PO 2112 Last 24 Hrs of Lab/Mick Results Last 24 Hrs of Labs/Mics: Laboratory Tests 11/07/16 0620: PT 49.2 *H, INR 4.76 *H, CBC w Diff NO MAN DIFF REQ, RBC 4.30, MCV 98.0, MCH 31.6 H, RDW 16.8 H, MPV 8.3, Gran % 88.2 H, Lymphocytes % 5.9 L, Monocytes % 5.7, Eosinophils % 0.1, Basophils % 0.1, Absolute Granulocytes 11.6 H, Absolute Lymphocytes 0.8 L, Absolute Monocytes 0.7 H, Absolute Eosinophils 0, Absolute Basophils 0, PUBS MCHC 32.3 L Microbiology 11/07 0800 STOOL: Clostridium difficile Toxin A & B - COMP Assessment/Plan Assessment: 76 -year-old woman with PMHx of COPD not on home oxygen, lung cancer s/p right lobe resection and DVT s/p IVC filter on warfarin current admission for hypoxic respiratory failure secondary to COPD exacerbation, now resolved. Complaining of multiple episodes of diarrhea and abdominal pain and chills. plan: Diarrhea High suspicion for C. difficile, hemodynamically stable and afebrile white count trending up today to 13.1. Continues to have multiple episodes of diarrhea throughout the day C. difficile stool test is is negative however will continue to keep patient in isolation. Continue treatment with Flagyl Will repeat C. difficile on 11/09/16, if she continues to have clinical symptoms and the C. difficile is negative again will send for PCR at that time Will discontinue omeprazole as well as azithromycin as they can be potential causes of C. diff COPD exacerbation -Gen. medicine -Continue TRC/nebs -Supplemental oxygen, goal> 92%, continue to taper oxygen -Will discontinue continue Azithromycin in view of high suspicion for C. difficile at this time -Decrease Solu-Medrol 40 mg IV every 12 hours -Guaifenesin 600 mg by mouth every 12 hours -[facility]pir[facility] - appreciate Pulmonology recommendations History of deep venous thrombosis status post IVC filter on Coumadin -Supratherapeutic INR 4.76, hold Coumadin today and check INR tomorrow Diabetes Continue to monitor fingersticks, currently controlled Continue insulin sliding scale Fibromyalgia -Gabapentin 400 mg by mouth twice a day -Lyrica 100 mg by mouth 3 times a day Insomnia -Trazodone 50 mg by mouth daily at bedtime -Melatonin 3 mg by mouth daily at bedtime Hypothyroidism-Synthroid 88 g by mouth daily Depression-Escitalopram 10 mg by mouth daily Diet- Consistent Carbohydrate 2, as tolerated. DVT PPx- On anticoagulation CODE STATUS-DNR/DNI Problem List: 1. Supratherapeutic INR 2. COPD exacerbation 3. Lung cancer 4. Diarrhea 5. Hypothyroidism Pain Ratin Pain Location: abdomen Pain Goal: Pain 4 or less Pain Plan: Will continue with current regimen for now Tomorrow's Labs & Rationales: CBC, BEP, InR
[2016-11-07 07:58] LABS: ABSOLUTE BASOPHIL COUNT 0 /CUMM (0.0-0.2); ABSOLUTE EOSINOPHIL COUNT 0 /CUMM (0.0-0.7); ABSOLUTE GRANULOCYTE CT 11.6 /CUMM (1.4-6.5); ABSOLUTE LYMPH COUNT 0.8 /CUMM (1.2-3.4); ABSOLUTE MONOCYTE COUNT 0.7 /CUMM (0.10-0.60); BASOPHIL % 0.1 % (0.0-2.0); EOSINOPHIL % 0.1 % (0-5); GRANULOCYTE % 88.2 % (42.2-75.2); HEMATOCRIT 42.1 % (37-47); MEAN CORPUSCULAR HGB 31.6 PG (27.0-31.0); MEAN CORPUSCULAR HGB CONC 32.3 G/DL (33.0-37.0); MEAN PLATELET VOLUME 8.3 FL (7.4-10.4); PLATELET COUNT 186 /CUMM (130-400); RBC DISTRIBUTION WIDTH 16.8 % (11.5-14.5)
--- NOTE | 2016-11-07 08:25 | PN- Pulmonary ---
Subjective HPI/Critical Care Issues: Patient complaining of significant diarrhea. Reportedly these are guaiac negative. C. difficile is pending. Shortness of breath is slowly improving. Objective Current Medications: Current Medications Sig/Eulogio Start time Last Medication Dose Route Stop Time Status Admin Acetaminophen 325 MG Q6P PRN 11/03 2130 AC PO Acetaminophen 1,000 MG Q6P PRN 11/03 2130 AC 11/04 IV 2006 Acetaminophen/ 1 TAB Q4P PRN 11/03 2045 AC Butalbital/Caffeine PO Albuterol Sulfate 3 ML TID 11/04 1000 AC 11/06 INH 1920 Alendronate Sodium 70 MG QFRI 11/10 0700 AC PO Azithromycin 500 MG DAILY 11/04 1000 AC 11/06 Sodium Chloride 250 ML IV 0912 Bisacodyl 5 MG DAILY 11/04 1000 AC 11/04 PO 0907 Calcium Carbonate 500 MG DAILY PRN 11/06 2015 AC 11/07 PO 0042 Cyanocobalamin 1,000 MCG DAILY 11/04 1000 AC 11/06 PO 0911 Diazepam 5 MG BID PRN 11/03 2045 AC 11/04 PO 1647 Ergocalciferol 50,000 IU QFRI 11/10 07 AC PO Escitalopram Oxalate 20 MG DAILY 11/04 1000 AC 11/06 PO 0911 Ferrous Sulfate 325 MG BID 11/03 2200 AC 11/06 PO 2112 Folic Acid 1 MG DAILY 11/04 1000 AC 11/06 PO 0911 Gabapentin 400 MG BID 11/03 2200 AC 11/06 PO 2112 Guaifenesin 600 MG Q12 11/05 1003 AC 11/06 PO 2112 Ibuprofen 600 MG Q6P PRN 11/03 2130 AC PO Insulin Aspart 0 TIDAC 11/04 1200 AC 11/05 SC 1739 Ipratropium [place] 2.5 ML TID 11/04 1000 AC 11/06 INH 1920 Levothyroxine Sodium 0.088 MG DAILY AC 11/04 0700 AC 11/07 PO 0609 Lidocaine 1 PAT DAILY 11/04 1000 AC 11/06 EXT 0912 Magnesium Hydroxide 30 ML AT BEDTIME PRN 11/04 0845 AC PO Melatonin 3 MG QPM 11/03 2200 AC 11/06 PO 2112 Methylprednisolone 40 MG Q8 11/04 0600 AC 11/07 IV 0609 Nicotine 21 MG DAILY 11/04 1000 AC TOP Omeprazole 40 MG DAILY AC 11/06 2114 DC PO 11/07 2115 Omeprazole 40 MG DAILY AC 11/06 0853 DC 11/06 PO 0911 Omeprazole 40 MG DAILY AC 11/04 699 AC 11/07 PO 0609 Pregabalin 100 MG TID 11/03 2199 AC 11/06 PO 211 Sodium Chloride 2 SPRAY Q4P PRN 11/035 AC BRANDY Tiotropium [place] 1 PUF DAILY 11/03 2121 AC 11/06 INH 0912 Trazodone HCl 50 MG QPM 11/03 2199 AC 11/06 PO 2111 Vital Signs & I&O Last 24 Hrs of Vitals and I&O: Vital Signs Date Time Temp Pulse Resp B/P Pulse O2 O2 Flow FiO2 Ox Delivery Rate 11/07 0621 97.6 100 22 110/80 98 Room Air 11/07 0000 95 Nasal 2.0L Cannula 11/06 2250 98.9 95 20 114/78 95 Nasal 2.0L Cannula 11/06 1920 94 Nasal 2.0L Cannula 11/06 1600 Nasal 2.0L Cannula 11/06 1435 98.0 78 20 140/82 100 11/06 0842 96 Nasal 2.0L Cannula Intake & Output 11/07 1600 11/07 0800 11/07 0000 Intake Total 210 700 Output Total 600 Balance 210 100 Intake, IV 10 Intake, Oral 200 700 Number 1 Bowel Movements Output, Urine 600 Oxygen saturation 2 L 98% exam for chest shows persistent soft expiratory wheezing cardiac exam shows regular S1 and S2 without murmurs Impression/Plan Impression/Plan Impression/Plan: 76-year-old with severe COPD history of PE on anticoagulation status post lung cancer admitted with exacerbation of COPD in the setting of persistent smoking. Respiratory status is slowly improving. Recommendations: Taper FiO2 his saturations allow. Decrease Solu-Medrol to every 12 hours with anticipated by mouth prednisone tomorrow follow-up C. difficile. She may benefit from short-term pulmonary rehabilitation
[2016-11-07 08:42] LABS: PT 49.2 SEC (9.4-12.5)
[2016-11-07 08:59] LABS: WHITE BLOOD CELL COUNT 13.1 /CUMM (4.8-10.8)
--- NOTE | 2016-11-07 09:44 | PN- Att Addend ---
Attending Addendum Attending Brief Note Patient has profuse diarrhea with abdominal pain. General Appearance: Alert, No Acute Distress Skin: Grossly normal HEENT: [place]ER[place] Neck: Supple, No JVD Cardiovascular: Regular Rate, Normal S1, Normal S2, No Murmurs Lungs: Expiratory wheeze Neurological: Normal Speech, Strength at 5/5 X4 Ext, Cranial Nerves 3-12 NL, Reflexes 2+ Extremities: No Clubbing, No Cyanosis, No Edema Vascular: Normal Pulses Assessment Hypoxic respiratory failure secondary to COPD exacerbation now complicated by severe diarrhea with a high suspicion for C. difficile. We will empirically treat her with Flagyl pending C. difficile test. In the meantime we will continue Solu-Medrol and stop azithromycin. Plan Start Flagyl by mouth Check stool C. difficile Discontinue PPI Repeat Guaiac stools Decrease Solu-Medrol to every 12 hours Discontinue azithromycin TRC and nebs Hold Coumadin for subtherapeutic INR Check INR in a.m. Continue other home medications DVT prophylaxis Current Medications Sig/Eulogio Start time Last Medication Dose Route Stop Time Status Admin Acetaminophen 325 MG Q6P PRN 11/030 AC PO Acetaminophen 1,000 MG Q6P PRN 11/03 2130 AC 11/04 IV 2006 Acetaminophen/ 1 TAB Q4P PRN 11/03 2044 AC Butalbital/Caffeine PO Albuterol Sulfate 3 ML TID 11/04 1000 AC 11/06 INH 1920 Alendronate Sodium 70 MG QFRI 11/10 699 AC PO Azithromycin 500 MG DAILY 11/04 1000 DC 11/06 Sodium Chloride 250 ML IV 0912 Bisacodyl 5 MG DAILY 11/04 1000 AC 11/04 PO 0907 Calcium Carbonate 500 MG DAILY PRN 11/06 2014 AC 11/07 PO 0042 Cyanocobalamin 1,000 MCG DAILY 11/04 1000 AC 11/06 PO 0911 Diazepam 5 MG BID PRN 11/03 204 AC 11/04 PO 1647 Ergocalciferol 50,000 IU QFRI 11/10 699 AC PO Escitalopram Oxalate 20 MG DAILY 11/04 1000 AC 11/06 PO 0911 Ferrous Sulfate 325 MG BID 11/03 2199 AC 11/06 PO 211 Folic Acid 1 MG DAILY 11/04 1000 AC 11/06 PO 09 Gabapentin 400 MG BID 11/03 2199 AC 11/06 PO 211 Guaifenesin 600 MG Q12 11/05 1003 AC 11/06 PO 2112 Ibuprofen 600 MG Q6P PRN 11/03 2130 AC PO Insulin Aspart 0 TIDAC 11/04 1200 AC 11/05 SC 1739 Ipratropium [place] 2.5 ML TID 11/04 1000 AC 11/06 INH 1920 Levothyroxine Sodium 0.088 MG DAILY AC 11/04 0700 AC 11/07 PO 0609 Lidocaine 1 PAT DAILY 11/04 1000 AC 11/06 EXT 0912 Magnesium Hydroxide 30 ML AT BEDTIME PRN 11/04 0845 AC PO Melatonin 3 MG QPM 11/03 2200 AC 11/06 PO 2112 Methylprednisolone 40 MG Q12 11/07 1000 AC IV Methylprednisolone 40 MG Q8 11/04 0600 DC 11/07 IV 0609 Metronidazole 500 MG Q8 11/07 0859 AC PO Nicotine 21 MG DAILY 11/04 1000 AC TOP Omeprazole 40 MG DAILY AC 11/06 211 DC PO 11/06 211 Omeprazole 40 MG DAILY AC 11/06 0853 DC 11/06 PO 0911 Omeprazole 40 MG DAILY AC 11/04 0700 AC 11/07 PO 0609 Pregabalin 100 MG TID 11/03 2200 AC 11/06 PO 2112 Sodium Chloride 2 SPRAY Q4P PRN 11/03 2045 AC BRANDY Tiotropium [place] 1 PUF DAILY 11/03 212 AC 11/06 INH 0912 Trazodone HCl 50 MG QPM 11/03 2200 AC 11/06 PO 211 Laboratory Tests 11/07 0620 Coagulation PT (9.4 - 12.5 SEC) 49.2 *H INR (0.90 - 1.19) 4.76 *H Hematology CBC w Diff NO MAN DIFF REQ WBC (4.8 - 10.8 /CUMM) 13.1 H RBC (4.20 - 5.40 /CUMM) 4.30 Hgb (12.0 - 16.0 G/DL) 13.6 Hct (37 - 47 %) 42.1 MCV (81.0 - 99.0 FL) 98.0 MCH (27.0 - 31.0 PG) 31.6 H RDW (11.5 - 14.5 %) 16.8 H Plt Count (130 - 400 /CUMM) 186 MPV (7.4 - 10.4 FL) 8.3 Gran % (42.2 - 75.2 %) 88.2 H Lymphocytes % (20.5 - 51.1 %) 5.9 L Monocytes % (1.7 - 9.3 %) 5.7 Eosinophils % (0 - 5 %) 0.1 Basophils % (0.0 - 2.0 %) 0.1 Absolute Granulocytes (1.4 - 6.5 /CUMM) 11.6 H Absolute Lymphocytes (1.2 - 3.4 /CUMM) 0.8 L Absolute Monocytes (0.10 - 0.60 /CUMM) 0.7 H Absolute Eosinophils (0.0 - 0.7 /CUMM) 0 Absolute Basophils (0.0 - 0.2 /CUMM) 0 PUBS MCHC (33.0 - 37.0 G/DL) 32.3 L Vital Signs Date Time Temp Pulse Resp B/P Pulse O2 O2 Flow FiO2 Ox Delivery Rate 11/07 0837 95 Nasal 2.0L Cannula 11/07 0621 97.6 100 22 110/80 98 Room Air 11/07 0000 95 Nasal 2.0L Cannula 11/06 2250 98.9 95 20 114/78 95 Nasal 2.0L Cannula 11/06 1920 94 Nasal 2.0L Cannula 11/06 1600 Nasal 2.0L Cannula 11/06 1435 98.0 78 20 140/82 100
[2016-11-07 14:27] VITALS: BP 120/70
[2016-11-07 22:41] VITALS: BP 110/70
[2016-11-08 06:10] VITALS: BP 154/82
--- NOTE | 2016-11-08 07:35 | PN- Housestaff ---
Subjective Follow-up For: COPD exacerbation Diarrhea Subjective: Seen and examined patient. States that she continues to have episodes of on bloody grayish colored diarrhea, about 4 episodes overnight. Continues to feel chills and nonproductive cough. Denies fever, shortness of breath, abdominal pain, Review of Systems Constitutional: Reports: chills, malaise. Denies: diaphoresis, fever, weakness, unexplained weight loss. Cardiovascular: Denies: chest pain, edema, orthopena, palpitations, peripheral edema, syncope. Respiratory: Reports: cough. Denies: hemoptysis, orthopnea, short of breath, sputum production, stridor, wheezing. Gastrointestinal: Denies: abdominal pain, bloating, constipation, diarrhea, distention, bowel incontinence, melena, nausea, bloody stool, changes in stool, vomiting, steatorrhea. Objective Last 24 Hrs of Vital Signs/I&O Vital Signs Date Time Temp Pulse Resp B/P Pulse O2 O2 Flow FiO2 Ox Delivery Rate 11/08 0610 98.4 73 18 154/82 98 Nasal 1.5L Cannula 11/08 0000 Nasal 1.5L Cannula 11/07 2241 98.2 84 20 110/70 95 11/07 2020 97 Nasal 2.0L Cannula 11/07 1600 Nasal 1.5L Cannula 11/07 1427 98.0 86 20 120/70 98 Room Air 11/07 1342 95 Nasal 2.0L Cannula 11/07 0837 95 Nasal 2.0L Cannula 11/07 0800 Nasal 2.0L Cannula Intake & Output 11/08 0800 11/08 0000 11/07 1600 Intake Total 200 500 Output Total 320 Balance 200 180 Intake, Oral 200 500 Number 6 Bowel Movements Output, Urine 320 Patient 172 lb Weight Physical Exam General Appearance: Alert, Oriented X3, Cooperative, No Acute Distress Cardiovascular: Regular Rate, Normal S1, Normal S2 Lungs: bilateral wheezing, scattered rhonchi Abdomen: Normal Bowel Sounds, Soft Extremities: No Edema Current Medications: Current Medications Sig/Eulogio Start time Last Medication Dose Route Stop Time Status Admin Acetaminophen 325 MG Q6P PRN 11/03 2130 AC PO Acetaminophen 1,000 MG Q6P PRN 11/03 2130 AC 11/04 IV 2006 Acetaminophen/ 1 TAB Q4P PRN 11/03 2045 AC Butalbital/Caffeine PO Albuterol Sulfate 3 ML TID 04/08 1000 AC 11/07 INH 2019 Alendronate Sodium 70 MG QFRI 11/10 07 AC PO Azithromycin 500 MG DAILY 11/04 1000 DC 11/06 Sodium Chloride 250 ML IV 0912 Bisacodyl 5 MG DAILY 11/04 1000 AC 11/04 PO 0907 Calcium Carbonate 500 MG DAILY PRN 11/06 2015 AC 11/07 PO 0042 Cyanocobalamin 1,000 MCG DAILY 11/04 1000 AC 11/07 PO 1133 Diazepam 5 MG BID PRN 11/03 204 AC 11/04 PO 1647 Ergocalciferol 50,000 IU QFRI 11/10 07 AC PO Escitalopram Oxalate 20 MG DAILY 11/04 1000 AC 11/07 PO 112 Ferrous Sulfate 325 MG BID 11/03 220 AC 11/07 PO 205 Folic Acid 1 MG DAILY 11/04 1000 AC 11/07 PO 113 Gabapentin 400 MG BID 11/03 2200 AC 11/07 PO 205 Guaifenesin 600 MG Q12 11/05 1003 AC 11/07 PO 205 Ibuprofen 600 MG Q6P PRN 11/03 2130 AC PO Insulin Aspart 0 TIDAC 11/04 1200 AC 11/05 SC 1739 Ipratropium [place] 2.5 ML TID 11/04 1000 AC 11/07 INH 2019 Levothyroxine Sodium 0.088 MG DAILY AC 11/04 07 AC 11/08 PO 0603 Lidocaine 1 PAT DAILY 11/04 1000 AC 11/07 EXT 1132 Magnesium Hydroxide 30 ML AT BEDTIME PRN 11/04 0845 AC PO Melatonin 3 MG QPM 11/03 2200 AC 11/07 PO 224 Methylprednisolone 40 MG Q12 11/07 1000 AC 11/07 IV 205 Methylprednisolone 40 MG Q8 11/04 06 DC 11/07 IV 0609 Metronidazole 500 MG Q8 11/07 0859 AC 11/08 PO 0603 Nicotine 21 MG DAILY 11/04 1000 AC TOP Omeprazole 40 MG DAILY AC 11/04 0700 DC 11/07 PO 0609 Pregabalin 100 MG TID 11/03 2200 AC 11/07 PO 2058 Sodium Chloride 2 SPRAY Q4P PRN 11/03 204 AC BRANDY Tiotropium [place] 1 PUF DAILY 11/032 AC 11/07 INH 1126 Trazodone HCl 50 MG QPM 11/03 2200 AC 11/07 PO 2243 Last 24 Hrs of Lab/Mick Results Last 24 Hrs of Labs/Mics: Microbiology 11/07 0800 STOOL: Clostridium difficile Toxin A & B - COMP Assessment/Plan Assessment: 76 -year-old woman with PMHx of COPD not on home oxygen, lung cancer s/p right lobe resection and DVT s/p IVC filter on warfarin current admission for hypoxic respiratory failure secondary to COPD exacerbation, now resolved. Discontinued is to have multiple episodes of diarrhea and abdominal discomfort and chills. Of note patient does not have history of diabetes and her fingersticks were monitored secondary to steroid use. plan: Diarrhea High suspicion for C. difficile, hemodynamically stable and afebrile. Continues to have multiple episodes of diarrhea throughout the day C. difficile stool test is is negative however will continue to keep patient in isolation and continue treatment with Flagyl day 2 Will repeat C. difficile on 11/09/16, if she continues to have clinical symptoms and the C. difficile is negative again will send for PCR at that time Discontinued omeprazole as well as azithromycin as they can be potential causes of C. diff COPD exacerbation -Continue TRC/nebs -Supplemental oxygen, 98% on 1.5 L, continue to taper oxygen -Will discontinue continue Azithromycin in view of high suspicion for C. difficile at this time -Solu-Medrol 40 mg IV every 12 hours, will start PO prednisone. Fingersticks, currently controlled: 103, 103, 89. will discontinue fingersticks. -Guaifenesin 600 mg by mouth every 12 hours -Continue [facility] - Appreciate Pulmonology recommendations History of deep venous thrombosis status post IVC filter on Coumadin -INR 5.14, will continue to hold her coumadin Fibromyalgia -Gabapentin 400 mg by mouth twice a day -Lyrica 100 mg by mouth 3 times a day Insomnia -Trazodone 50 mg by mouth daily at bedtime -Melatonin 3 mg by mouth daily at bedtime Hypothyroidism-continue Synthroid 88 g by mouth daily Depression-continue Escitalopram 10 mg by mouth daily Diet- Consistent Carbohydrate 2, as tolerated. DVT PPx- On anticoagulation CODE STATUS-DNR/DNI Problem List: 1. COPD exacerbation 2. Anxiety and depression 3. Supratherapeutic INR 4. Diarrhea Pain Ratin Pain Location: Abdomen Pain Goal: Pain 4 or less Pain Plan: Current regimen Tomorrow's Labs & Rationales: INR
--- NOTE | 2016-11-08 08:28 | PN- Pulmonary ---
Subjective HPI/Critical Care Issues: Patient continues to have watery diarrhea C. difficile is negative respiratory status is stable with improved oxygen saturations Objective Current Medications: Current Medications Sig/Eulogio Start time Last Medication Dose Route Stop Time Status Admin Acetaminophen 325 MG Q6P PRN 11/03 2130 AC PO Acetaminophen 1,000 MG Q6P PRN 11/03 2130 AC 11/04 IV 2006 Acetaminophen/ 1 TAB Q4P PRN 11/03 204 AC Butalbital/Caffeine PO Albuterol Sulfate 3 ML TID 11/04 1000 AC 11/07 INH 2018 Alendronate Sodium 70 MG QFRI 11/10 07 AC PO Azithromycin 500 MG DAILY 11/04 1000 DC 11/06 Sodium Chloride 250 ML IV 09 Bisacodyl 5 MG DAILY 11/04 1000 AC 11/04 PO 09 Calcium Carbonate 500 MG DAILY PRN 11/06 2015 AC 11/07 PO 0042 Cyanocobalamin 1,000 MCG DAILY 11/04 1000 AC 11/07 PO 1133 Diazepam 5 MG BID PRN 11/03 204 AC 11/04 PO 1647 Ergocalciferol 50,000 IU QFRI 11/10 07 AC PO Escitalopram Oxalate 20 MG DAILY 11/04 1000 AC 11/07 PO 1128 Ferrous Sulfate 325 MG BID 11/03 2200 AC 11/07 PO 205 Folic Acid 1 MG DAILY 11/04 1000 AC 11/07 PO 113 Gabapentin 400 MG BID 11/03 2200 AC 11/07 PO 205 Guaifenesin 600 MG Q12 11/05 1003 AC 11/07 PO 205 Ibuprofen 600 MG Q6P PRN 11/03 2130 AC PO Insulin Aspart 0 TIDAC 11/04 1200 AC 11/05 SC 1739 Ipratropium [place] 2.5 ML TID 11/04 1000 AC 11/07 INH 2018 Levothyroxine Sodium 0.088 MG DAILY AC 11/04 0700 AC 11/08 PO 0603 Lidocaine 1 PAT DAILY 11/04 1000 AC 11/07 EXT 1132 Magnesium Hydroxide 30 ML AT BEDTIME PRN 11/04 0845 AC PO Melatonin 3 MG QPM 11/03 2200 AC 11/07 PO 2243 Methylprednisolone 40 MG Q12 11/07 1000 AC 11/07 IV 205 Methylprednisolone 40 MG Q8 11/04 0600 DC 11/07 IV 0609 Metronidazole 500 MG Q8 11/07 0859 AC 11/08 PO 0603 Nicotine 21 MG DAILY 11/04 1000 AC TOP Omeprazole 40 MG DAILY AC 11/04 0700 DC 11/07 PO 0609 Pregabalin 100 MG TID 11/03 2199 AC 11/07 PO 205 Sodium Chloride 2 SPRAY Q4P PRN 11/03 204 AC BRANDY Tiotropium [place] 1 PUF DAILY 11/03 212 AC 11/07 INH 1126 Trazodone HCl 50 MG QPM 11/03 2199 AC 11/07 PO 2243 Vital Signs & I&O Last 24 Hrs of Vitals and I&O: Vital Signs Date Time Temp Pulse Resp B/P Pulse O2 O2 Flow FiO2 Ox Delivery Rate 11/08 0610 98.4 73 18 154/82 98 Nasal 1.5L Cannula 11/08 0000 Nasal 1.5L Cannula 11/07 2241 98.2 84 20 110/70 95 11/07 2020 97 Nasal 2.0L Cannula 11/07 1600 Nasal 1.5L Cannula 11/07 1427 98.0 86 20 120/70 98 Room Air 11/07 1342 95 Nasal 2.0L Cannula 11/07 0837 95 Nasal 2.0L Cannula Intake & Output 11/08 1600 11/08 0800 11/08 0000 Intake Total 200 Output Total Balance 200 Intake, Oral 200 Oxygen saturation 1.5 L 98% exam of her chest continues to show scattered expiratory rhonchi cardiac exam shows regular S1 and S2 abdomen is soft Impression/Plan Impression/Plan Impression/Plan: 76-year-old with severe COPD history of PE on anticoagulation status post lung cancer admitted with exacerbation of COPD in the setting of persistent smoking. Respiratory status is slowly improving. Recommendations: Taper FiO2 his saturations allow. Begin oral prednisone. If diarrhea persists and C. difficile is negative consider CT of the abdomen and pelvis to exclude alternative causes.
[2016-11-08 08:40] LABS: PT 53.1 SEC (9.4-12.5)
[2016-11-08 09:17] LABS: ABSOLUTE BASOPHIL COUNT 0 /CUMM (0.0-0.2); ABSOLUTE EOSINOPHIL COUNT 0 /CUMM (0.0-0.7); ABSOLUTE LYMPH COUNT 1.1 /CUMM (1.2-3.4); ABSOLUTE MONOCYTE COUNT 0.5 /CUMM (0.10-0.60); BASOPHIL % 0.1 % (0.0-2.0); EOSINOPHIL % 0.1 % (0-5); HEMATOCRIT 40.6 % (37-47); MEAN CORPUSCULAR HGB 31.6 PG (27.0-31.0); MEAN CORPUSCULAR HGB CONC 32.5 G/DL (33.0-37.0); MEAN CORPUSCULAR VOLUME 97.4 FL (81.0-99.0); MEAN PLATELET VOLUME 8.4 FL (7.4-10.4); PLATELET COUNT 174 /CUMM (130-400); RBC DISTRIBUTION WIDTH 16.3 % (11.5-14.5); RED BLOOD CELL CT 4.17 /CUMM (4.20-5.40); WHITE BLOOD CELL COUNT 10.7 /CUMM (4.8-10.8)
--- NOTE | 2016-11-08 09:26 | PN- Att Addend ---
Attending Addendum Attending Brief Note Patient has profuse diarrhea with abdominal pain. General Appearance: Alert, No Acute Distress Skin: Grossly normal HEENT: PEERLA Neck: Supple, No JVD Cardiovascular: Regular Rate, Normal S1, Normal S2, No Murmurs Lungs: Expiratory wheeze Neurological: Normal Speech, Strength at 5/5 X4 Ext, Cranial Nerves 3-12 NL, Reflexes 2+ Extremities: No Clubbing, No Cyanosis, No Edema Vascular: Normal Pulses Assessment Hypoxic respiratory failure secondary to COPD exacerbation now complicated by severe diarrhea with a high suspicion for C. difficile. For C. difficile was negative and her diarrhea has improved with Flagyl. Will continue Flagyl and repeat C. difficile. Plan Continue Flagyl by mouth Check stool C. difficile Changed to prednisone by mouth Discontinue azithromycin TRC and nebs Hold Coumadin for subtherapeutic INR Check INR in a.m. Continue other home medications DVT prophylaxis Current Medications Sig/Eulogio Start time Last Medication Dose Route Stop Time Status Admin Acetaminophen 325 MG Q6P PRN 11/03 2129 AC PO Acetaminophen 1,000 MG Q6P PRN 11/03 2129 AC 11/04 IV 2006 Acetaminophen/ 1 TAB Q4P PRN 11/03 2044 AC Butalbital/Caffeine PO Albuterol Sulfate 3 ML TID 11/04 1000 AC 11/07 INH 2019 Alendronate Sodium 70 MG QFRI 11/10 07 AC PO Bisacodyl 5 MG DAILY 11/04 1000 AC 11/04 PO 0907 Calcium Carbonate 500 MG DAILY PRN 11/06 2014 AC 11/07 PO 0042 Cyanocobalamin 1,000 MCG DAILY 11/04 1000 AC 11/07 PO 113 Diazepam 5 MG BID PRN 11/03 2044 AC 11/04 PO 164 Ergocalciferol 50,000 IU QFRI 11/10 07 AC PO Escitalopram Oxalate 20 MG DAILY 11/04 1000 AC 11/07 PO 112 Ferrous Sulfate 325 MG BID 11/03 2199 AC 11/07 PO 2057 Folic Acid 1 MG DAILY 11/04 1000 AC 11/07 PO 113 Gabapentin 400 MG BID 11/03 2199 AC 11/07 PO 2057 Guaifenesin 600 MG Q12 11/05 1003 AC 11/07 PO 2057 Ibuprofen 600 MG Q6P PRN 11/03 2129 AC PO Insulin Aspart 0 TIDAC 11/04 1200 AC 11/05 SC 1739 Ipratropium [place] 2.5 ML TID 11/04 1000 AC 11/07 INH 2019 Levothyroxine Sodium 0.088 MG DAILY AC 11/04 0700 AC 11/08 PO 0603 Lidocaine 1 PAT DAILY 11/04 1000 AC 11/07 EXT 1132 Magnesium Hydroxide 30 ML AT BEDTIME PRN 11/04 0845 AC PO Melatonin 3 MG QPM 11/03 2200 AC 11/07 PO 2243 Methylprednisolone 40 MG Q12 11/07 1000 DC 11/07 IV 2058 Metronidazole 500 MG Q8 11/07 0859 AC 11/08 PO 0603 Nicotine 21 MG DAILY 11/04 1000 AC TOP Omeprazole 40 MG DAILY AC 11/04 0700 DC 11/07 PO 0609 Prednisone 60 MG DAILY 11/08 1000 AC PO Pregabalin 100 MG TID 11/03 2200 AC 11/07 PO 205 Sodium Chloride 2 SPRAY Q4P PRN 11/03 2045 AC BRANDY Tiotropium [place] 1 PUF DAILY 11/03 2121 AC 11/07 INH 1126 Trazodone HCl 50 MG QPM 11/03 2200 AC 11/07 PO 2243 Laboratory Tests 11/08 0750 Chemistry Sodium (137 - 145 mmol/L) 141 Potassium (3.5 - 5.1 mmol/L) 4.0 Chloride (98 - 107 mmol/L) 111 H Carbon Dioxide (22 - 30 mmol/L) 22 Anion Gap (5 - 16) 9 BUN (7 - 17 mg/dL) 29 H Creatinine (0.5 - 1.0 mg/dL) 0.9 Estimated GFR (>60 ml/min) > 60 BUN/Creatinine Ratio (7 - 25 %) 32.2 H Coagulation PT (9.4 - 12.5 SEC) 53.1 *H INR (0.90 - 1.19) 5.14 *H Hematology CBC w Diff Pending WBC Pending RBC Pending Hgb Pending Hct Pending MCV Pending MCH Pending RDW Pending Plt Count Pending MPV Pending Gran % Pending Lymphocytes % Pending Monocytes % Pending Eosinophils % Pending Basophils % Pending Absolute Granulocytes Pending Absolute Lymphocytes Pending Absolute Monocytes Pending Absolute Eosinophils Pending Absolute Basophils Pending PUBS MCHC Pending Vital Signs Date Time Temp Pulse Resp B/P Pulse O2 O2 Flow FiO2 Ox Delivery Rate 04/12 0610 98.4 73 18 154/82 98 Nasal 1.5L Cannula 11/08 0000 Nasal 1.5L Cannula 11/07 2241 98.2 84 20 110/70 95 11/07 2020 97 Nasal 2.0L Cannula 11/07 1600 Nasal 1.5L Cannula 11/07 1427 98.0 86 20 120/70 98 Room Air 11/07 1342 95 Nasal 2.0L Cannula
[2016-11-08 10:06] LABS: GRANULOCYTE % 84.3 % (42.2-75.2)
[2016-11-08 14:23] VITALS: BP 110/62
[2016-11-08 22:51] VITALS: BP 160/84
--- NOTE | 2016-11-09 06:44 | PN- Housestaff ---
Subjective Follow-up For: COPD exacerbation Diarrhea Subjective: And examined patient lying in bed. States that her diarrhea has improved considerably continues to have some mild lower abdominal discomfort. Denies any shortness of breath fever, chills, chest pain. Review of Systems Constitutional: Denies: chills, diaphoresis, fever, malaise, weakness, unexplained weight loss. Cardiovascular: Denies: chest pain, edema, orthopena, palpitations, peripheral edema, syncope. Respiratory: Denies: cough, hemoptysis, orthopnea, short of breath, sputum production, stridor, wheezing. Gastrointestinal: Reports: abdominal pain, diarrhea. Objective Last 24 Hrs of Vital Signs/I&O Vital Signs Date Time Temp Pulse Resp B/P Pulse O2 O2 Flow FiO2 Ox Delivery Rate 11/09 0815 94 Room Air 11/09 0800 Room Air 11/09 0652 98.1 68 20 122/68 96 Room Air 11/09 0000 Room Air 11/08 2251 98.1 97 20 160/84 93 Room Air 11/08 1855 93 Room Air 11/08 1423 98.2 102 20 110/62 94 Room Air Intake & Output 11/09 1600 11/09 0800 11/09 0000 Intake Total 240 120 Output Total Balance 240 120 Intake, Oral 240 120 Physical Exam General Appearance: Alert, Oriented X3, Cooperative, No Acute Distress Cardiovascular: Regular Rate, Normal S1, Normal S2 Lungs: Clear to Auscultation, Normal Air Movement Abdomen: Normal Bowel Sounds, Soft, MILD TENDERNESS TO PALPATION OF LOWER ABDOMEN Extremities: No Edema Assessment/Plan Assessment: 76 -year-old woman with PMHx of COPD not on home oxygen, lung cancer s/p right lobe resection and DVT s/p IVC filter on warfarin current admission for hypoxic respiratory failure secondary to COPD exacerbation, now resolved. Her diarrhea has decreased considerably and she is more comfortable now. Showing clinical improvement plan: Diarrhea Continues to be hemodynamically stable and afebrile. Continue treatment with Flagyl day 10/06 Discontinued omeprazole as well as azithromycin COPD exacerbation Continue TRC/nebs 94% on room air, will obtain ambulatory O2 sat Guaifenesin 600 mg by mouth every 12 hours Continue Spiriva Appreciate Pulmonology recommendations Will be discharged on a prednisone taper History of deep venous thrombosis status post IVC filter on Coumadin -INR 3.09, will continue to hold her coumadin, recheck INR in a.m. Fibromyalgia -Gabapentin 400 mg by mouth twice a day -Lyrica 100 mg by mouth 3 times a day Insomnia -Trazodone 50 mg by mouth daily at bedtime -Melatonin 3 mg by mouth daily at bedtime Hypothyroidism-continue Synthroid 88 g by mouth daily Depression-continue Escitalopram 10 mg by mouth daily Diet- Consistent Carbohydrate 2, as tolerated. DVT PPx- supratherapeutic INR CODE STATUS-DNR/DNI Problem List: 1. COPD (chronic obstructive pulmonary disease) 2. Abdominal pain 3. History of DVT (deep vein thrombosis) 4. Supratherapeutic INR 5. Diarrhea Pain Ratin Pain Location: Lower abdomen Pain Goal: Pain 4 or less Pain Plan: Current regimen Tomorrow's Labs & Rationales: INR
[2016-11-09 06:52] VITALS: BP 122/68
[2016-11-09 08:34] LABS: PT 32.1 SEC (9.4-12.5)
--- NOTE | 2016-11-09 08:54 | PN- Pulmonary ---
Subjective HPI/Critical Care Issues: Patient feels substantively better diarrhea appears to have resolved she is now on room air Objective Current Medications: Current Medications Sig/Eulogio Start time Last Medication Dose Route Stop Time Status Admin Acetaminophen 325 MG Q6P PRN 11/03 2130 AC PO Acetaminophen 1,000 MG Q6P PRN 11/03 2130 AC 11/04 IV 2006 Acetaminophen/ 1 TAB Q4P PRN 11/03 2045 AC Butalbital/Caffeine PO Albuterol Sulfate 3 ML TID 11/04 1000 AC 11/09 INH 0813 Alendronate Sodium 70 MG QFRI 11/10 0700 AC PO Bisacodyl 5 MG DAILY 11/04 1000 AC 11/04 PO 0907 Calcium Carbonate 500 MG DAILY PRN 11/06 2014 AC 11/07 PO 0042 Cyanocobalamin 1,000 MCG DAILY 11/04 1000 AC 11/08 PO 1018 Diazepam 5 MG BID PRN 11/03 2045 AC 11/04 PO 1647 Ergocalciferol 50,000 IU QFRI 11/10 0700 AC PO Escitalopram Oxalate 20 MG DAILY 11/04 1000 AC 11/08 PO 1018 Ferrous Sulfate 325 MG BID 11/03 2200 AC 11/08 PO 2231 Folic Acid 1 MG DAILY 11/04 1000 AC 11/08 PO 1018 Gabapentin 400 MG BID 11/03 2200 AC 11/08 PO 2231 Guaifenesin 600 MG Q12 11/05 1003 AC 11/08 PO 2231 Ibuprofen 600 MG Q6P PRN 11/03 2130 AC PO Insulin Aspart 0 TIDAC 11/04 1200 DC 11/05 SC 1739 Ipratropium [place] 2.5 ML TID 11/04 1000 AC 11/09 INH 0813 Levothyroxine Sodium 0.088 MG DAILY AC 11/04 0700 AC 11/09 PO 0639 Lidocaine 1 PAT DAILY 11/04 1000 AC 11/08 EXT 1018 Magnesium Hydroxide 30 ML AT BEDTIME PRN 11/04 0845 AC PO Melatonin 3 MG QPM 11/03 2200 AC 11/08 PO 2231 Methylprednisolone 40 MG Q12 11/07 1000 DC 11/07 IV 2058 Metronidazole 500 MG Q8 11/07 0859 AC 11/09 PO 0639 Nicotine 21 MG DAILY 11/04 1000 AC TOP Prednisone 60 MG DAILY 11/08 1000 AC 11/08 PO 1028 Pregabalin 100 MG TID 11/03 2199 AC 11/08 PO 2231 Sodium Chloride 2 SPRAY Q4P PRN 11/03 2045 AC BRANDY Tiotropium [place] 1 PUF DAILY 11/03 2121 AC 11/08 INH 1019 Trazodone HCl 50 MG QPM 11/03 2199 AC 11/08 PO 2231 Vital Signs & I&O Last 24 Hrs of Vitals and I&O: Vital Signs Date Time Temp Pulse Resp B/P Pulse O2 O2 Flow FiO2 Ox Delivery Rate 11/09 0815 94 Room Air 11/09 0652 98.1 68 20 122/68 96 Room Air 11/09 0000 Room Air 11/08 2251 98.1 97 20 160/84 93 Room Air 11/08 1855 93 Room Air 11/08 1423 98.2 102 20 110/62 94 Room Air 11/08 1000 92 Room Air 11/08 0931 96 Nasal 1.5L Cannula Intake & Output 11/09 1600 11/09 0800 11/09 0000 Intake Total 240 120 Output Total Balance 240 120 Intake, Oral 240 120 Oxygen saturation is 94% exam for chest shows diminished breath sounds there are no wheezes cardiac exam shows regular S1 and S2 without murmurs abdomen is soft Impression/Plan Impression/Plan Impression/Plan: 76-year-old with severe COPD history of PE on anticoagulation status post lung cancer admitted with exacerbation of COPD in the setting of persistent smoking. Respiratory status is slowly improving. Recommendations: Slow prednisone taper. Assess oxygen saturation with ambulation. If diarrhea has resolved assess patient for discharge
--- NOTE | 2016-11-09 09:45 | PN- Att Addend ---
Attending Addendum Attending Brief Note Diarrhea and abdominal pain improved. General Appearance: Alert, No Acute Distress Skin: Grossly normal HEENT: [place] Neck: Supple, No JVD Cardiovascular: Regular Rate, Normal S1, Normal S2, No Murmurs Lungs: Expiratory wheeze Neurological: Normal Speech, Strength at 5/5 X4 Ext, Cranial Nerves 3-12 NL, Reflexes 2+ Extremities: No Clubbing, No Cyanosis, No Edema Vascular: Normal Pulses Assessment Hypoxic respiratory failure secondary to COPD exacerbation now complicated by diarrhea with a high suspicion for C. difficile. First C. difficile was negative and her diarrhea has improved with Flagyl. Will continue Flagyl and repeat C. difficile. Plan Continue Flagyl by mouth for total 10 days Check stool C. difficile prednisone by mouth Discontinue azithromycin TRC and nebs Hold Coumadin for subtherapeutic INR Check INR in a.m. Continue other home medications DVT prophylaxis Current Medications Sig/Eulogio Start time Last Medication Dose Route Stop Time Status Admin Acetaminophen 325 MG Q6P PRN 11/03 2129 AC PO Acetaminophen 1,000 MG Q6P PRN 11/03 213 AC 11/04 IV 2006 Acetaminophen/ 1 TAB Q4P PRN 11/03 2045 AC Butalbital/Caffeine PO Albuterol Sulfate 3 ML TID 11/04 1000 AC 11/09 INH 0813 Alendronate Sodium 70 MG QFRI 11/10 07 AC PO Bisacodyl 5 MG DAILY 11/04 1000 AC 11/04 PO 0907 Calcium Carbonate 500 MG DAILY PRN 11/06 2014 AC 11/07 PO 0042 Cyanocobalamin 1,000 MCG DAILY 11/04 1000 AC 11/09 PO 0902 Diazepam 5 MG BID PRN 11/03 2045 AC 11/04 PO 1647 Ergocalciferol 50,000 IU QFRI 11/10 0700 AC PO Escitalopram Oxalate 20 MG DAILY 11/04 1000 AC 11/09 PO 0902 Ferrous Sulfate 325 MG BID 11/03 2200 AC 11/09 PO 0901 Folic Acid 1 MG DAILY 11/04 1000 AC 11/09 PO 0901 Gabapentin 400 MG BID 11/03 2200 AC 11/09 PO 0902 Guaifenesin 600 MG Q12 11/05 1003 AC 11/09 PO 0902 Ibuprofen 600 MG Q6P PRN 11/03 2130 AC PO Insulin Aspart 0 TIDAC 11/04 1200 DC 11/05 SC 1739 Ipratropium [place] 2.5 ML TID 11/04 1000 AC 11/09 INH 0813 Levothyroxine Sodium 0.088 MG DAILY AC 11/04 0700 AC 11/09 PO 0639 Lidocaine 1 PAT DAILY 11/04 1000 AC 11/09 EXT 0902 Magnesium Hydroxide 30 ML AT BEDTIME PRN 11/04 0845 AC PO Melatonin 3 MG QPM 11/03 2200 AC 11/08 PO 2231 Metronidazole 500 MG Q8 11/07 0859 AC 11/09 PO 0639 Nicotine 21 MG DAILY 11/04 1000 AC TOP Prednisone 60 MG DAILY 11/08 1000 AC 11/09 PO 0902 Pregabalin 100 MG TID 11/03 2200 AC 11/09 PO 0901 Sodium Chloride 2 SPRAY Q4P PRN 11/03 2045 AC BRANDY Tiotropium [place] 1 PUF DAILY 11/03 2122 AC 11/09 INH 0902 Trazodone HCl 50 MG QPM 11/03 2200 AC 11/08 PO 2231 Laboratory Tests 11/09 0700 Coagulation PT (9.4 - 12.5 SEC) 32.1 H INR (0.90 - 1.19) 3.09 H Vital Signs Date Time Temp Pulse Resp B/P Pulse O2 O2 Flow FiO2 Ox Delivery Rate 11/09 0815 94 Room Air 11/09 0652 98.1 68 20 122/68 96 Room Air 11/09 0000 Room Air 11/08 2251 98.1 97 20 160/84 93 Room Air 11/08 1855 93 Room Air 11/08 1423 98.2 102 20 110/62 94 Room Air 11/08 1000 92 Room Air
[2016-11-09] MEDS ORDERED: FLAGYL250 M1 PO (11:48)
--- NOTE | 2016-11-09 11:52 | Patient Discharge Instructions ---
Discharge Instructions General Discharge Information You were seen/treated for: COPD exacerbation C.difficile diarrhea Special Instructions: please follow up with your primary care physician Please follow-up with your imposer within 1 week of discharge Acute Coronary Syndrome Inclusion Criteria At DC or during hospital stay patient has or had the following: ACS DIAGNOSIS No Discharge Core Measures Meds if any: Prescribed or Continued at Discharge Meds if any: NOT Prescribed or Continued at Discharge Congestive Heart Failure Inclusion Criteria At DC or during hospital stay patient has or had the following: CHF DIAGNOSIS No Discharge Core Measures Meds if any: Prescribed or Continued at Discharge Meds if any: NOT Prescribed or Continued at Discharge Cerebrovascular accident Inclusion Criteria At DC or during hospital stay patient has or had the following: CVA/TIA Diagnosis No Discharge Core Measures Meds if any: Prescribed or Continued at Discharge Meds if any: NOT Prescribed or Continued at Discharge Venous thromboembolism Inclusion Criteria VTE Diagnosis No VTE Type NONE VTE Confirmed by (Test) NONE Discharge Core Measures - Per Current guidelines, there needs to be overlap - treatment for the first 5 days of Warfarin therapy. - If discharged on Warfarin prior to 5 days of - overlap therapy, the patient will need to be - assessed for post discharge needs including - *Post discharge parental anticoagulation - *Warfarin and/or parental anticoagulation education - *Follow up date to check INR post discharge At least 5 days overlap therapy as Inpatient No Meds if any: Prescribed or Continued at Discharge Note: Overlap Therapy is Warfarin and Anticoagulant Meds if any: NOT Prescribed or Continued at Discharge
[2016-11-09] MEDS ORDERED: PREDNISONE10 M2 PO (13:06)
[2016-11-09 14:36] VITALS: BP 122/90
[2016-11-09 23:30] VITALS: BP 106/60
--- NOTE | 2016-11-10 07:05 | PN- Housestaff ---
Subjective Follow-up For: COPD exacerbation Diarrhea Subjective: Seen and examined patient. Lying in bed. Does not report any further episodes of diarrhea. She was walked by nursing staff yesterday and saturated 93%, however was noted to little bit short of breath and was not able to conitinue walking. Denies fever, chest pain, shortness of breath. Review of Systems Constitutional: Denies: chills, diaphoresis, fever, malaise, weakness, unexplained weight loss. Cardiovascular: Denies: chest pain, edema, orthopena, palpitations, peripheral edema, syncope. Respiratory: Denies: cough, hemoptysis, orthopnea, short of breath, sputum production, stridor, wheezing. Objective Last 24 Hrs of Vital Signs/I&O Vital Signs Date Time Temp Pulse Resp B/P Pulse O2 O2 Flow FiO2 Ox Delivery Rate 11/10 0742 97.7 60 18 110/62 96 Room Air 11/09 2330 98.2 74 20 106/60 94 Room Air 11/09 1920 92 Room Air 11/09 1600 Room Air 11/09 1436 97.9 74 20 122/90 94 Room Air Intake & Output 11/10 1600 11/10 0800 11/10 0000 Intake Total 240 1010 Output Total Balance 240 1010 Intake, IV 10 Intake, Oral 240 1000 Physical Exam General Appearance: Alert, Oriented X3, Cooperative, No Acute Distress Cardiovascular: Regular Rate, Normal S1, Normal S2 Lungs: Clear to Auscultation, Normal Air Movement Abdomen: Normal Bowel Sounds, mild tenderness to palpation Current Medications: Current Medications Sig/Eulogio Start time Last Medication Dose Route Stop Time Status Admin Acetaminophen 325 MG Q6P PRN 11/030 AC PO Acetaminophen 1,000 MG Q6P PRN 11/03 2130 AC 11/04 IV 2006 Acetaminophen/ 1 TAB Q4P PRN 11/03 2044 AC Butalbital/Caffeine PO Albuterol Sulfate 3 ML TID 11/04 1000 AC 11/09 INH 1920 Alendronate Sodium 70 MG QFRI 11/10 0700 AC 11/10 PO 0607 Bisacodyl 5 MG DAILY 11/04 1000 AC 11/04 PO 0907 Calcium Carbonate 500 MG DAILY PRN 11/06 2014 AC 11/07 PO 0042 Cyanocobalamin 1,000 MCG DAILY 11/04 1000 AC 11/09 PO 0902 Diazepam 5 MG BID PRN 11/03 2044 AC 11/09 PO 2322 Ergocalciferol 50,000 IU QFRI 11/10 0700 AC 11/10 PO 0605 Escitalopram Oxalate 20 MG DAILY 11/04 1000 AC 11/09 PO 0902 Ferrous Sulfate 325 MG BID 11/03 2200 AC 11/09 PO 2110 Folic Acid 1 MG DAILY 11/04 1000 AC 11/09 PO 0901 Gabapentin 400 MG BID 11/03 2200 AC 11/09 PO 2111 Guaifenesin 600 MG Q12 11/05 1003 AC 11/09 PO 2110 Ibuprofen 600 MG Q6P PRN 11/03 2130 AC PO Ipratropium [place] 2.5 ML TID 11/04 1000 AC 11/09 INH 1920 Levothyroxine Sodium 0.088 MG DAILY AC 11/04 0700 AC 11/10 PO 0605 Lidocaine 1 PAT DAILY 11/04 1000 AC 11/09 EXT 0902 Magnesium Hydroxide 30 ML AT BEDTIME PRN 11/04 0845 AC PO Melatonin 3 MG QPM 11/03 2200 AC 11/09 PO 2110 Metronidazole 500 MG Q8 11/07 0859 AC 11/10 PO 0605 Nicotine 21 MG DAILY 11/04 1000 AC TOP Prednisone 60 MG DAILY 11/08 1000 AC 11/09 PO 0902 Pregabalin 100 MG TID 11/03 2200 AC 11/09 PO 2110 Sodium Chloride 2 SPRAY Q4P PRN 11/03 2045 AC BRANDY Tiotropium [place] 1 PUF DAILY 11/03 2122 AC 11/09 INH 0902 Trazodone HCl 50 MG QPM 11/03 2200 AC 11/09 PO 2110 Warfarin Sodium 3 MG COUMADIN 1700 ONE 11/10 1700 AC PO 11/10 1701 Last 24 Hrs of Lab/Mick Results Last 24 Hrs of Labs/Mics: Laboratory Tests 11/10/16 0636: PT 23.2 H, INR 2.23 H Assessment/Plan Assessment: 76 -year-old woman with PMHx of COPD not on home oxygen, lung cancer s/p right lobe resection and DVT s/p IVC filter on warfarin current admission for hypoxic respiratory failure secondary to COPD exacerbation, now resolved. Her diarrhea has decreased considerably and she is more comfortable now. Diarrhea is resolved. Will walk patient again this morning and see how she does. Saturating well on room air. plan: Diarrhea Continues to be hemodynamically stable and afebrile. Continue treatment with Flagyl day 11/06 Discontinued omeprazole as well as azithromycin COPD exacerbation Continue TRC/nebs 94% on room air, 92% ambulatory O2 sat Guaifenesin 600 mg by mouth every 12 hours Continue Spiriva Appreciate Pulmonology recommendations Will be discharged on a prednisone taper History of deep venous thrombosis status post IVC filter on Coumadin -INR 2.23, will dose 3mg of Coumadin today Fibromyalgia -Gabapentin 400 mg by mouth twice a day -Lyrica 100 mg by mouth 3 times a day Insomnia -Trazodone 50 mg by mouth daily at bedtime -Melatonin 3 mg by mouth daily at bedtime Hypothyroidism-continue Synthroid 88 g by mouth daily Depression-continue Escitalopram 10 mg by mouth daily Diet- Consistent Carbohydrate 2, as tolerated. DVT PPx- supratherapeutic INR CODE STATUS-DNR/DNI Problem List: 1. History of DVT (deep vein thrombosis) 2. Diarrhea Pain Ratin Pain Location: na Pain Goal: Pain 4 or less Pain Plan: current regimen Tomorrow's Labs & Rationales: none required
[2016-11-10 07:42] VITALS: BP 110/62
--- NOTE | 2016-11-10 07:59 | PN- Pulmonary ---
Subjective HPI/Critical Care Issues: Patient is comfortable diarrhea has resolved she no longer requires supplemental oxygen Objective Current Medications: Current Medications Sig/Eulogio Start time Last Medication Dose Route Stop Time Status Admin Acetaminophen 325 MG Q6P PRN 11/03 2130 AC PO Acetaminophen 1,000 MG Q6P PRN 11/03 2130 AC 11/04 IV 2006 Acetaminophen/ 1 TAB Q4P PRN 11/03 204 AC Butalbital/Caffeine PO Albuterol Sulfate 3 ML TID 11/04 1000 AC 11/09 INH 1920 Alendronate Sodium 70 MG QFRI 11/10 07 AC 11/10 PO 0607 Bisacodyl 5 MG DAILY 11/04 1000 AC 11/04 PO 0907 Calcium Carbonate 500 MG DAILY PRN 11/06 2014 AC 11/07 PO 0042 Cyanocobalamin 1,000 MCG DAILY 11/04 1000 AC 11/09 PO 0902 Diazepam 5 MG BID PRN 11/03 204 AC 11/09 PO 2322 Ergocalciferol 50,000 IU QFRI 11/10 07 AC 11/10 PO 0605 Escitalopram Oxalate 20 MG DAILY 11/04 1000 AC 11/09 PO 0902 Ferrous Sulfate 325 MG BID 11/03 2200 AC 11/09 PO 2110 Folic Acid 1 MG DAILY 11/04 1000 AC 11/09 PO 0901 Gabapentin 400 MG BID 11/03 2200 AC 11/09 PO 2111 Guaifenesin 600 MG Q12 11/05 1003 AC 11/09 PO 2110 Ibuprofen 600 MG Q6P PRN 11/03 2130 AC PO Ipratropium [place] 2.5 ML TID 11/04 1000 AC 11/09 INH 1920 Levothyroxine Sodium 0.088 MG DAILY AC 11/04 0700 AC 11/10 PO 0605 Lidocaine 1 PAT DAILY 11/04 1000 AC 11/09 EXT 0902 Magnesium Hydroxide 30 ML AT BEDTIME PRN 11/04 0845 AC PO Melatonin 3 MG QPM 11/03 2200 AC 11/09 PO 2110 Metronidazole 500 MG Q8 11/07 0859 AC 11/10 PO 0605 Nicotine 21 MG DAILY 11/04 1000 AC TOP Prednisone 60 MG DAILY 11/08 1000 AC 11/09 PO 0902 Pregabalin 100 MG TID 11/03 2200 AC 11/09 PO 2110 Sodium Chloride 2 SPRAY Q4P PRN 11/03 2044 AC BRANDY Tiotropium [place] 1 PUF DAILY 11/03 2121 AC 11/09 INH 0902 Trazodone HCl 50 MG QPM 11/03 2199 AC 11/09 PO 2110 Vital Signs & I&O Last 24 Hrs of Vitals and I&O: Vital Signs Date Time Temp Pulse Resp B/P Pulse O2 O2 Flow FiO2 Ox Delivery Rate 11/10 0742 97.7 60 18 110/62 96 Room Air 11/09 2330 98.2 74 20 106/60 94 Room Air 11/09 1920 92 Room Air 11/09 1600 Room Air 11/09 1436 97.9 74 20 122/90 94 Room Air 11/09 0815 94 Room Air 11/09 0800 Room Air Intake & Output 11/10 0800 11/10 0000 11/09 1600 Intake Total 240 1010 600 Output Total Balance 240 1010 600 Intake, IV 10 0 Intake, Oral 240 1000 600 Number 3 Bowel Movements Room air oxygen saturation 96% exam for chest shows clear lung [place] are no wheezes cardiac exam shows a normal S1 and S2 without murmurs Impression/Plan Impression/Plan Impression/Plan: 76-year-old with severe COPD history of PE on anticoagulation status post lung cancer admitted with exacerbation of COPD in the setting of persistent smoking. She appears to have recovered Recommendations: Slow prednisone taper. Assess oxygen saturation with ambulation. If diarrhea has resolved assess patient for discharge. Continue prednisone taper patient can be seen in follow-up next week as outpatient
[2016-11-10 08:22] LABS: PT 23.2 SEC (9.4-12.5)
--- NOTE | 2016-11-10 09:29 | Discharge Summary ---
Visit Information Visit Dates Admission Date: 11/03/16 Discharge Date: 11/10/16 Hospital Course Course [facility] Primary Care Physician: Grace Montano MD Hospital Course: 76 -year-old woman with PMHx of COPD not on home oxygen, lung cancer s/p right lobectomy and DVT s/p IVC filter on warfarin, presented to [place] [id number] with worsening shortness of breath of one day duration. Patient reported productive chronic cough with yellowish sputum at baseline and had noticed increased sputum production few weeks prior to admission, endorsed wheezing as well as right-sided sharp chest pain exacerbated by coughing. Vitals on admission: 96.1F, MT 84, RR 24, BP 135/63, 100% on 6L Labs: WBC: 10.3, Hb/Hct 14/42.7, INR 3, K 5.3, BUN/Cr 27/1.0 CXR: No acute abnormality. She was admitted to general medicine floor and the following issues were addressed: COPD exacerbation She was given TRC/nebs, started on IV steroids which was later tapered. She required supplemental oxygen, which was tapered as she clinically improved. IV azithromycin was also started. Spiriva was continued. Pulmonology consult was obtained. Upon discharge she was 94% on room air and 92% on ambulation. Was discharged on a prednisone taper. Diarrhea On day 5 of admission she complained of multiple episodes of diarrhea and associated worsening abdominal pain. C. difficile toxin was sent, patient was kept in isolation and treatment with Flagyl was started. Omeprazole as well as azithromycin was discontinued. C. difficile came back negative however is we had high suspicion of C. difficile and it was decided to continue Flagyl for a total of 10 days. Her diarrhea and abdominal pain improved 2 days after starting Flagyl. Unable to send for a repeat test for C. difficile. History of deep venous thrombosis status post IVC filter on Coumadin During her hospitalization her INR remained supratherapeutic and her Coumadin was held. On day of discharge her INR was INR 2.23 and her home dose of 3mg Coumadin was restarted. Fibromyalgia Gabapentin 400 mg by mouth twice a day was continued along with Lyrica 100 mg by mouth 3 times a day. Insomnia Trazodone 50 mg by mouth daily at bedtime and Melatonin 3 mg by mouth daily at bedtime was given as needed Hypothyroidism Synthroid 88 g by mouth daily was continued. Depression Escitalopram 10 mg by mouth daily was continued. Diet- Consistent Carbohydrate 2, as tolerated. DVT PPx- supratherapeutic INR CODE STATUS-DNR/DNI Complications: diarrhea Allergies: Coded Allergies: Penicillins (UNKNOWN 05/01/16) atorvastatin (UNKNOWN 05/01/16) nickel (UNKNOWN 05/01/16) morphine (UNKNOWN 05/01/16) Significant Procedures: FINDINGS: There is stable mild blunting of the right costophrenic angle compatible with pleural thickening. The cardiomediastinal silhouette is unchanged and within normal limits. There is increased retrosternal clear space and flattening of the hemidiaphragms compatible with hyperinflation. Right hilar surgical clips are stable. There is no evidence of pulmonary edema, consolidation, pleural effusion, or pneumothorax. The bones appear demineralized with multilevel degenerative change. Cervical fusion hardware is partially visualized and unchanged. IMPRESSION: Stable appearance of the chest relative to prior studies. No acute abnormality. 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 within 1 week of discharge Medications at Discharge Discharge Medications: Continue taking these medications: Levothyroxine Sodium (Levothyroxine Sodium) 88 MCG TABLET 1 Tablet ORAL DAILY BEFORE BREAKFAST Comments: Last Taken: 11/10/16 Time: 6AM Escitalopram Oxalate (Lexapro) 20 MG TABLET 1 Tablet ORAL DAILY Comments: Last Taken: 11/10/16 Time: 10AM Cyanocobalamin (Vitamin B-12) 1,000 MCG TABLET 1 Tablet ORAL DAILY Comments: Last Taken: 11/10/16 Time: 10AM Trazodone HCl (Trazodone HCl) 50 MG TABLET 1 Tablet ORAL Every night Comments: Last Taken: 11/09/16 Time: 9PM Folic Acid (Folic Acid) 0.8 MG TABLET 1 Tablet ORAL THREE TIMES DAILY Comments: Last Taken: 11/10/16 Time: 10AM Albuterol Sulfate (Proventil Hfa) 90 MCG HFA.AER.AD 2 Puff Inhale through mouth Every 4 hours as needed for COPD Comments: NOT GIVEN AT HOSPITAL Ergocalciferol (Vitamin D2) (Vitamin D2) 50,000 UNIT CAPSULE 1 Capsule ORAL EVERY SUNDAY Comments: Last Taken: 11/10/16 Time: 6AM Ipratropium/Albuterol Sulfate (Iprat-Albut 0.5-3(2.5) MG/3 Ml) 0.5 MG-3 MG (2.5 MG BASE)/3 ML AMPUL.NEB 1 Vial Inhale Solution 4 TIMES A DAY Instructions: Reason to Stop at ADM: TRC Comments: Last Taken: 11/10/16 Time: 12PM Mometasone Furoate (Nasonex) 50 MCG SPRAY.PUMP 2 [place] Both sides of nose DAILY Comments: NOT GIVEN WHILE IN HOSPITAL Acetaminophen (Tylenol Extra Strength) 500 MG TABLET 2 Tablet ORAL TWICE DAILY Instructions: Reason to Stop at ADM: pain pathway Comments: NOT GIVEN WHILE IN HOSPITAL Gabapentin (Neurontin) 400 MG CAPSULE 1 Capsule ORAL TWICE DAILY Comments: Last Taken: 11/10/16 Time: 10AM Omeprazole (Omeprazole) 40 MG CAPSULE.DR 1 Capsule ORAL DAILY Comments: NOT GIVEN WHILE IN HOSPITAL Bisacodyl (Dulcolax) 5 MG TABLET.DR 1 Tablet ORAL DAILY Comments: HELD FOR DIARRHEA Alendronate Sodium (Fosamax) 70 MG TABLET 1 Tablet ORAL EVERY SUNDAY Instructions: in the morning, at least 30 minutes before the first food, beverage, or medication of the day Comments: Last Taken: 11/10/16 Time: 6AM Fluticasone/Salmeterol (Advair 500-50 Diskus) 500 MCG-50 MCG/DOSE BLST.W.DEV 1 Puff Inhale through mouth TWICE DAILY Comments: NOT GIVEN WHILE IN HOSPITAL Lidocaine (Lidoderm) 5 % ADH..PATCH 1 Patch On the skin DAILY Instructions: may wear up to 12 hours Comments: Last Taken: 11/10/16 Time: 10AM Tiotropium [place] (Spiriva) 18 MCG CAP.W.DEV 1 Capsule Inhale through mouth DAILY Comments: Last Taken: 11/10/16 Time: 10AM Pregabalin (Lyrica) 100 MG CAPSULE 1 Capsule ORAL THREE TIMES DAILY Comments: Last Taken: 11/10/16 Time: 10AM Diazepam (Diazepam) 5 MG TABLET 1 Tablet ORAL 2 x Daily as needed as needed for anxiety/insomnia Comments: NOT GIVEN AT HOSPITAL Warfarin Sodium (Coumadin) 3 MG TABLET 1 Tablet ORAL DAILY Qty = 30 Comments: HELD FOR ELEVATED INR, OK TO RESUME TODAY 11/10 Melatonin (Melatonin) 3 MG TABLET 1 Tablet ORAL Every night Comments: Last Taken: 11/09/16 Time: 9PM Butalb/Acetaminophen/Caffeine (Fioricet 50-300-40 MG Capsule) 50 MG-300 MG-40 MG CAPSULE 1 Capsule ORAL EVERY 4 HOURS NEEDED as needed for HEADACHE Comments: NOT GIVEN WHILE IN HOSPITAL Budesonide (Budesonide) 0.25 MG/2 ML AMPUL.NEB 1 Vial Inhale Solution TWICE DAILY Instructions: Reason to Stop at ADM: TRC Comments: NOT GIVEN WHILE IN HOSPITAL Ferrous Sulfate (Ferrous Sulfate) 325 MG (65 MG IRON) TABLET 1 Tablet ORAL TWICE DAILY Comments: Last Taken: 11/10/16 Time: 10AM Start taking the following new medications: Metronidazole (Flagyl) 250 MG TABLET 500 Milligram ORAL EVERY 8 HOURS Days = 6 No Refills Comments: Last Taken: 11/10/16 Time: 2PM Prednisone (Prednisone) 10 MG TABLET 10 Milligram ORAL See Instructions Qty = 15 No Refills Instructions: On Take 11/10-11/12 5 TABS 11/13-11/15 4 TABS 11/16-11/18 3 TABS 11/19-11/21 2 TABS 11/22-11/21 1 TAB Then Stop Comments: Last Taken: 11/10/16 Time: 10AM Copies To: JAY LISA,GRACE Attending MD Review Statement Documenting Attending: CINDY STUBBS MD
--- NOTE | 2016-11-10 09:52 | PN- Att Addend ---
Attending Addendum Attending Brief Note Diarrhea and abdominal pain improved. General Appearance: Alert, No Acute Distress Skin: Grossly normal HEENT: PEERLA Neck: Supple, No JVD Cardiovascular: Regular Rate, Normal S1, Normal S2, No Murmurs Lungs: Expiratory wheeze Neurological: Normal Speech, Strength at 5/5 X4 Ext, Cranial Nerves 3-12 NL, Reflexes 2+ Extremities: No Clubbing, No Cyanosis, No Edema Vascular: Normal Pulses Assessment Hypoxic respiratory failure secondary to COPD exacerbation now complicated by diarrhea with a high suspicion for C. difficile. First C. difficile was negative and her diarrhea has improved with Flagyl. Will continue Flagyl for total 10 days. Plan Continue Flagyl by mouth for total 10 days prednisone by mouth Resume Coumadin Continue other home medications Stable for discharge Current Medications Sig/Eulogio Start time Last Medication Dose Route Stop Time Status Admin Acetaminophen 325 MG Q6P PRN 11/03 2129 AC PO Acetaminophen 1,000 MG Q6P PRN 11/03 213 AC 11/04 IV 2006 Acetaminophen/ 1 TAB Q4P PRN 11/03 204 AC Butalbital/Caffeine PO Albuterol Sulfate 3 ML TID 11/04 999 AC 11/09 INH 1920 Alendronate Sodium 70 MG QFRI 11/10 07 AC 11/10 PO 0607 Bisacodyl 5 MG DAILY 11/04 1000 AC 11/04 PO 0907 Calcium Carbonate 500 MG DAILY PRN 11/06 2014 AC 11/07 PO 0042 Cyanocobalamin 1,000 MCG DAILY 11/04 1000 AC 11/10 PO 0945 Diazepam 5 MG BID PRN 11/03 204 AC 11/09 PO 2322 Ergocalciferol 50,000 IU QFRI 11/10 07 AC 11/10 PO 0605 Escitalopram Oxalate 20 MG DAILY 11/04 1000 AC 11/10 PO 0945 Ferrous Sulfate 325 MG BID 11/03 2200 AC 11/10 PO 0945 Folic Acid 1 MG DAILY 11/04 1000 AC 11/10 PO 0945 Gabapentin 400 MG BID 11/03 2199 AC 11/10 PO 0945 Guaifenesin 600 MG Q12 11/05 1003 AC 11/10 PO 0945 Ibuprofen 600 MG Q6P PRN 11/03 2130 AC PO Ipratropium [place] 2.5 ML TID 11/04 1000 AC 11/09 INH 1920 Levothyroxine Sodium 0.088 MG DAILY AC 11/04 0700 AC 11/10 PO 0605 Lidocaine 1 PAT DAILY 11/04 1000 AC 11/10 EXT 0945 Magnesium Hydroxide 30 ML AT BEDTIME PRN 11/04 0845 AC PO Melatonin 3 MG QPM 11/03 2200 AC 11/09 PO 2110 Metronidazole 500 MG Q8 11/07 0859 AC 11/10 PO 0605 Nicotine 21 MG DAILY 11/04 1000 AC TOP Prednisone 60 MG DAILY 11/08 1000 AC 11/10 PO 0945 Pregabalin 100 MG TID 11/03 2200 AC 11/10 PO 0945 Sodium Chloride 2 SPRAY Q4P PRN 11/03 2045 AC BRANDY Tiotropium [place] 1 PUF DAILY 11/03 2122 AC 11/10 INH 0945 Trazodone HCl 50 MG QPM 11/03 2200 AC 11/09 PO 2110 Warfarin Sodium 3 MG COUMADIN 1700 ONE 11/10 1700 AC PO 11/10 1701 Laboratory Tests 11/10 0636 Coagulation PT (9.4 - 12.5 SEC) 23.2 H INR (0.90 - 1.19) 2.23 H Vital Signs Date Time Temp Pulse Resp B/P Pulse O2 O2 Flow FiO2 Ox Delivery Rate 11/10 0742 97.7 60 18 110/62 96 Room Air 11/09 2330 98.2 74 20 106/60 94 Room Air 11/09 1920 92 Room Air 11/09 1600 Room Air 11/09 1436 97.9 74 20 122/90 94 Room Air
[2016-11-10 14:30] VITALS: BP 120/85
== END 2016-11-10 14:55 | disposition home health service (06) | DRG 190 ==
LOC: ENRESERVTM → ENRESERVDT → ERH 13:52 → ENPENDDIS 20:22 → ERHI 20:22 → 2NA 20:22
PROVIDERS: Internal Medicine; Internal Medicine Interventional Cardiology; Physician Assistant; Student in an Organized Health Care Education/Training Program; ADMIT Internal Medicine
DX: J44.1 Chronic obstructive pulmonary disease with (acute) exacerbation (principal); J96.01 Acute respiratory failure with hypoxia; B96.7 Clostridium perfringens [C. perfringens] as the cause of diseases classified elsewhere; Z99.81 Dependence on supplemental oxygen; E11.9 Type 2 diabetes mellitus without complications; I34.1 Nonrheumatic mitral (valve) prolapse; J20.9 Acute bronchitis, unspecified; J44.0 Chronic obstructive pulmonary disease with (acute) lower respiratory infection; F17.200 Nicotine dependence, unspecified, uncomplicated; Z86.718 Personal history of other venous thrombosis and embolism; Z79.01 Long term (current) use of anticoagulants; E03.9 Hypothyroidism, unspecified; E78.5 Hyperlipidemia, unspecified; K21.9 Gastro-esophageal reflux disease without esophagitis; Z85.118 Personal history of other malignant neoplasm of bronchus and lung; F41.8 Other specified anxiety disorders; M79.7 Fibromyalgia; R19.7 Diarrhea, unspecified
CPT/HCPCS: 2NAP; 2NASP; 36415; 82436; 87070; 93005; 93010; 97116-GO; 97161-GP; 97164-GP; 97530-GO; J0131; J0456; J2920; J3490; J7040

== ENCOUNTER 2016-11-26 20:07 | Inpatient (IN) | payer OTHER ==
[~2016-11-26] VITALS: Ht 160 cm; Wt 78.5 kg
[~2016-11-26 20:07] MED LIST changes: +BUDESONIDE0.25 MG/1 INH/SOL; +FERROUS SULFAT325 M3 PO; +FIORICET 50-301 EACH PO; +FLAGYL250 M1 PO; +MELATONIN3 M4 PO
--- NOTE | 2016-11-26 20:12 | ED DYSPNEA/ASTHMA COMPLAINT ---
History of Present Illness General Chief Complaint: Dyspnea (COPD, CHF, Other) Stated Complaint: BIBA, SOB Source: patient, EMS Exam Limitations: no limitations Vital Signs & Intake/Output Vital Signs & Intake/Output Vital Signs Date Time Temp Pulse Resp B/P B/P Pulse O2 O2 Flow FiO2 Mean Ox Delivery Rate 11/26 2310 99 Nasal 2.0L Cannula 11/26 2017 95 Nasal 2.0L Cannula 11/26 2013 97.2 84 18 147/76 95 Room Air Room Air ED Intake and Output 11/27 0000 11/26 1200 Intake Total 250 Output Total Balance 250 Intake, IV 250 Patient 160 lb Weight Weight Estimated Measurement Method Allergies Coded Allergies: Penicillins (UNKNOWN 05/01/16) atorvastatin (UNKNOWN 05/01/16) nickel (UNKNOWN 05/01/16) morphine (UNKNOWN 05/01/16) Reconcile Medications Acetaminophen (Tylenol Extra Strength) 500 MG TABLET 2 TAB PO BID PAIN ( Reported) Reason to Stop at ADM: pain pathway Albuterol Sulfate (Proventil Hfa) 90 MCG HFA.AER.AD 2 PUF INH Q4 PRN COPD ( Reported) Alendronate Sodium (Fosamax) 70 MG TABLET 1 TAB PO QFRI BONE (Reported) in the morning, at least 30 minutes before the first food, beverage, or medication of the day Bisacodyl (Dulcolax) 5 MG TABLET.DR 1 TAB PO DAILY GI (Reported) Budesonide 0.25 MG/2 ML AMPUL.NEB 1 Vial INH/UDAY BID BREATHING PROBLEMS ( Reported) Reason to Stop at ADM: TRC Butalb/Acetaminophen/Caffeine (Fioricet 50-300-40 MG Capsule) 50 MG-300 MG-40 MG CAPSULE 1 CAP PO Q4 HRS NEEDED PRN HEADACHE (Reported) Cyanocobalamin (Vitamin B-12) 1,000 MCG TABLET 1 TAB PO DAILY SUPPLEMENT ( Reported) Diazepam 5 MG TABLET 1 TAB PO BIDP PRN anxiety/insomnia (Reported) Ergocalciferol (Vitamin D2) (Vitamin D2) 50,000 UNIT CAPSULE 1 CAP PO QFRI SUPPLEMENT (Reported) Escitalopram Oxalate (Lexapro) 20 MG TABLET 1 TAB PO DAILY MENTAL HEALTH ( Reported) Ferrous Sulfate 325 MG (65 MG IRON) TABLET 1 TAB PO BID SUPPLEMENT (Reported) Fluticasone/Salmeterol (Advair 500-50 Diskus) 500 MCG-50 MCG/DOSE BLST.W.DEV 1 PUF INH BID BREATHING PROBLEMS (Reported) Folic Acid 0.8 MG TABLET 1 TAB PO TID SUPPLEMENT (Reported) Gabapentin (Neurontin) 400 MG CAPSULE 1 CAP PO BID NEUROPATHY (Reported) Ipratropium/Albuterol Sulfate (Iprat-Albut 0.5-3(2.5) MG/3 Ml) 0.5 MG-3 MG (2.5 MG BASE)/3 ML AMPUL.NEB 1 Vial INH/UDAY 4 TIMES/DAY COPD (Reported) Reason to Stop at ADM: TRC Levothyroxine Sodium 88 MCG TABLET 1 TAB PO DAILY AC THYROID (Reported) Lidocaine (Lidoderm) 5 % ADH..PATCH 1 PAT TOP DAILY PAIN (Reported) may wear up to 12 hours Melatonin 3 MG TABLET 1 TAB PO QPM SLEEP (Reported) Mometasone Furoate (Nasonex) 50 MCG SPRAY.PUMP 2 SPRAY [place] DAILY ALLERGIES ( Reported) Naproxen (Naprosyn) 500 MG TABLET 1 TAB PO BID PAIN/INFLAMMATION (Reported) Omeprazole 40 MG CAPSULE.DR 1 CAP PO DAILY GI (Reported) Prednisone 10 MG TABLET 1 TAB PO DAILY STEROID (Reported) Pregabalin (Lyrica) 100 MG CAPSULE 1 CAP PO TID PAIN (Reported) Tiotropium [place] (Spiriva) 18 MCG CAP.W.DEV 1 CAP INH DAILY BREATHING PROBLEMS (Reported) Trazodone HCl 50 MG TABLET 1 TAB PO QPM SLEEP (Reported) Warfarin Sodium (Coumadin) 3 MG TABLET 1 TAB PO DAILY DVT Triage Nurses Notes Reviewed? yes Onset: Gradual Duration: day(s):, waxing and waning Severity: moderate Activities at Onset: none Prior Episodes/Possible Cause: no prior episodes Modifying Factors: Improves With: rest. Associated Symptoms: cough, wheezing Patient currently breastfeeds: No HPI: 76 yo woman, h/o COPD, from home, presents with cough, wheeze, and phlegm for the past 1 day. She has been feeling unwell, but without chest pain, leg swelling, orthopnea, fever. The medics noted an 02 sat of 88-90%, which corrected to 96% with 2l nc Past History Travel History Traveled to [place] past 21 day No Medical History Any Pertinent Medical History? 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 No Review of Systems Review of Systems Constitutional: Reports: no symptoms. EENTM: Reports: no symptoms. Respiratory: Reports: no symptoms. Cardiovascular: Reports: no symptoms. GI: Reports: no symptoms. Genitourinary: Reports: no symptoms. Musculoskeletal: Reports: no symptoms. Skin: Reports: no symptoms. Neurological/Psychological: Reports: no symptoms. Hematologic/Endocrine: Reports: no symptoms. Immunologic/Allergic: Reports: no symptoms. All Other Systems: Reviewed and Negative Physical Exam Physical Exam General Appearance: well developed/nourished, mild distress, moderate distress Head: atraumatic, normal appearance Eyes: Bilateral: normal appearance. Ears, Nose, Throat: normal pharynx, normal ENT inspection Neck: normal inspection, supple, full range of motion Respiratory: normal breath sounds, wheezing, respiratory distress Cardiovascular: regular rate/rhythm Gastrointestinal: normal bowel sounds, soft, non-tender, no organomegaly Extremities: normal inspection Neurologic/Psych: no motor/sensory deficits, awake, alert, oriented x 3 Skin: intact, normal color, warm/dry Core Measures ACS in differential dx? No Severe Sepsis Present: No Septic Shock Present: No Progress Differential Diagnosis: asthma, bronchitis, COPD Plan of Care: Orders Procedure Date/time Status Nothing by Mouth 11/27 B Active TRC EVALUATION (GEN) 11/26 2320 Active Patient Data 11/26 2301 Active Saline Lock 11/26 2252 Active Misc Message 11/26 2252 Active ED Holding Orders 11/26 2252 Active Vital Signs 11/26 2252 Active Code Status 11/26 2252 Active Admit to inpatient 11/27 2251 Active BLOOD CULTURE 11/26 2234 Active Intake & Output 11/26 2016 Active TROPONIN LEVEL 11/27 2011 Complete PARTIAL THROMBOPLASTIN TIME 11/27 2011 Complete PROTHROMBIN TIME 11/27 2011 Complete COMPREHENSIVE METABOLIC PANEL 11/27 2011 Complete CBC WITHOUT DIFFERENTIAL 11/27 2011 Complete B-TYPE NATRIURETIC PEP (BNP) 11/27 2011 Complete EKG 11/27 2007 Active Current Medications Sig/Eulogio Start time Last Medication Dose Stop Time Status Admin Alendronate Sodium 70 MG QFRI 12/01 0700 AC (Fosamax) Melatonin 3 MG QPM 11/27 2200 AC (Melatonin) Trazodone HCl 50 MG QPM 11/27 2200 AC (Desyrel) Azithromycin 500 MG DAILY 11/27 1000 AC (Zithromax) Sodium Chloride 250 ML (Normal Saline 0.9%) Bisacodyl 5 MG DAILY 11/27 1000 AC (Dulcolax) Budesonide/ 2 PUF BID 11/27 1000 AC Formoterol Fumarate (Symbicort) Cyanocobalamin 1,000 MCG DAILY 11/27 1000 AC (Vitamin B12) Diazepam 5 MG BID PRN 11/27 1000 AC (Valium) Escitalopram Oxalate 20 MG DAILY 11/27 1000 AC (Lexapro) Ferrous Sulfate 325 MG BID 11/27 1000 AC (Feosol) Folic Acid 1 MG DAILY 11/27 1000 AC (Folic Acid) Gabapentin 400 MG BID 11/27 1000 AC (Neurontin) Lidocaine 1 PAT DAILY 11/27 1000 AC (Lidoderm) Naproxen 500 MG BID 11/27 1000 AC (Naprosyn) Tiotropium [place] 1 PUF DAILY 11/27 1000 AC (Spiriva) Levothyroxine Sodium 0.088 MG DAILY AC 11/27 0700 AC (Synthroid) Omeprazole 40 MG DAILY AC 11/27 0700 AC (Prilosec) Methylprednisolone 40 MG Q8 11/27 0600 AC (Solumedrol) Albuterol Sulfate 2 PUF Q4 PRN 11/26 2315 AC (Ventolin) Pregabalin 100 MG TID 11/26 2310 AC (Lyrica) Laboratory Tests 11/26/162030: Anion Gap 7, Estimated GFR > 60, BUN/Creatinine Ratio 21.3, Glucose 120 H, Calcium 8.1 L, Total Bilirubin 0.4, AST 13 L, ALT 32, Alkaline Phosphatase 51, Troponin I < 0.01, Lko-P-Gkurowijvnq Pept 108, Total Protein 5.7 L, Albumin 3.2 L, Globulin 2.5, Albumin/Globulin Ratio 1.3, PT 20.4 H, INR 1.96 H, APTT 46 H, CBC w Diff NO MAN DIFF REQ, RBC 4.23, MCV 97.9, MCH 31.6 H, RDW 16.5 H, MPV 7.7, Gran % 71.6, Lymphocytes % 20.4 L, Monocytes % 6.3, Eosinophils % 1.4, Basophils % 0.3, Absolute Granulocytes 5.1, Absolute Lymphocytes 1.5, Absolute Monocytes 0.4, Absolute Eosinophils 0.1, Absolute Basophils 0, PUBS MCHC 32.2 L Microbiology 11/267 BLOOD: Blood Culture - RECD 11/26 2249 BLOOD: Blood Culture - RECD Diagnostic Imaging: Viewed by Me: Radiology Read. Discussed w/RAD: Radiology Read. CXR Impression: no acute abnormality, no infiltrates, normal size heart, normal mediastinum Initial ED EKG: normal axis, normal intervals, normal p-waves, normal QRS complex, normal sinus rhythm Departure Departure Disposition: STILL A PATIENT Condition: Stable Clinical Impression Primary Impression: COPD exacerbation Departure Forms: Customer Survey General Discharge Information Admission Note Spoke With: EBONI MATA MD Documentation of Exam: Documentation of any treatments & extenuating circumstances including Concerns Regarding Discharge (functional status, medication knowledge or non-compliance, living conditions, etc.) that warrant an admission rather than observation: pt with hypoxia to 86-88% room air, dyspnea with minimal walking in the ED... pt merits 02 support, nebs, iv steroids. Critical Care Note Critical Care Note Critical Care Time: non-applicable
[2016-11-26] MEDS ORDERED: PREDNISONE10 M2 PO (20:41)
[2016-11-26 20:42] LABS: ABSOLUTE BASOPHIL COUNT 0 /CUMM (0.0-0.2); ABSOLUTE EOSINOPHIL COUNT 0.1 /CUMM (0.0-0.7); ABSOLUTE GRANULOCYTE CT 5.1 /CUMM (1.4-6.5); ABSOLUTE LYMPH COUNT 1.5 /CUMM (1.2-3.4); ABSOLUTE MONOCYTE COUNT 0.4 /CUMM (0.10-0.60); BASOPHIL % 0.3 % (0.0-2.0); EOSINOPHIL % 1.4 % (0-5); GRANULOCYTE % 71.6 % (42.2-75.2); HEMATOCRIT 41.4 % (37-47); MEAN CORPUSCULAR HGB 31.6 PG (27.0-31.0); MEAN CORPUSCULAR HGB CONC 32.2 G/DL (33.0-37.0); MEAN CORPUSCULAR VOLUME 97.9 FL (81.0-99.0); MEAN PLATELET VOLUME 7.7 FL (7.4-10.4); PLATELET COUNT 168 /CUMM (130-400); RBC DISTRIBUTION WIDTH 16.5 % (11.5-14.5); RED BLOOD CELL CT 4.23 /CUMM (4.20-5.40); WHITE BLOOD CELL COUNT 7.2 /CUMM (4.8-10.8)
[2016-11-26] MEDS ORDERED: NAPROSYN500 M1 PO (20:44)
[2016-11-26 20:54] LABS: PT 20.4 SEC (9.4-12.5); PTT 46 SEC (25-37)
--- NOTE | 2016-11-26 21:25 | RADIOLOGY REPORT ---
EXAMINATION: XR PORTABLE CHEST CLINICAL INFORMATION: Dyspnea. Hypoxia. COMPARISON: Chest x-ray 11/03/2016 TECHNIQUE: Portable frontal view of the chest was obtained. 8:57 PM FINDINGS: Surgical clips in right hilum. Chronic blunting of right costophrenic angle. Chronic reticular markings in the right mid lung. There is emphysematous lucency of lungs. No acute abnormality. No pulmonary vascular congestion. No infiltrate or pleural effusion. No pneumothorax. Orthopedic hardware at the lower cervical spine. IMPRESSION: No acute abnormality of the chest.
--- NOTE | 2016-11-26 23:14 | History & Physical ---
AMY DANIELS 11/26/16 2313: General Information and HPI MD Statement: I have seen and personally examined REID NOONAN and documented this H&P. The patient is a 76 year old F who presented with a patient stated chief complaint of SOB and productive cough for 2 days. Source of Information: patient, old records Exam Limitations: no limitations History of Present Illness: This is a 75-year-old female with past medical history significant for current smoker, COPD not on home oxygen, lung cancer status post right lobe resection, deep vein thrombosis status post IVC filter and Coumadin, osteoarthritis on alendronate, GERD, hypothyroidism, hypertension, anxiety, bilateral leg shakiness, microcytic anemia, allergic rhinitis, hypercholesterolemia, fibromyalgia, spinal stenosis, major depression, emphysema, nonrheumatic mitral valve prolapse, narcolepsy presented to the [facility] emergency department this afternoon with chief complaint of cough and worsening dyspnea on exertion for 2 days. She follows anson Carrizales regional telecommunications specialist as outpatient and she follows Grace Thompson MD primary care provider as outpatient. According to the patient, she reports worsening shortness of breath on exertion for Couple of days. Difficulty breathing associated with cough and yellow colored sputum production. Not associated with any fever, chills. She reports wheezing. She denies any orthopnea, paroxysmal nocturnal dyspnea. She denied having sick contacts or recent travel history. She reports being tired for couple of days. Also she reports the nausea, denies any vomiting, abdominal pain, change in bladder or bowel habits. She denies any chest pain. Offnote patient continues to smoke 1 pack per day for 65 years. Denied any alcohol intake or illicit drug abuse. Patient denies any chest pain, racing of heart, headache, weakness or sensory changes. Offnote patient reports left lower extremity pain and edema. Of note patient was discharged from [facility] on 11/10/2016 after being treated for COPD exacerbation and C. difficile diarrhea with Flagyl for 10 days. She was advised to follow-up with Dr. Hilton, regional telecommunications specialist after discharge however she couldn't book any appointment with the lung doctor. She came from [facility] and she has a visiting nurse who comes every day. Allergies/Medications Allergies: Coded Allergies: Penicillins (UNKNOWN 05/01/16) atorvastatin (UNKNOWN 05/01/16) nickel (UNKNOWN 05/01/16) morphine (UNKNOWN 05/01/16) Home Med list Acetaminophen (Tylenol Extra Strength) 500 MG TABLET 2 TAB PO BID PAIN ( Reported) Reason to Stop at ADM: pain pathway Albuterol Sulfate (Proventil Hfa) 90 MCG HFA.AER.AD 2 PUF INH Q4 PRN COPD ( Reported) Alendronate Sodium (Fosamax) 70 MG TABLET 1 TAB PO QFRI BONE (Reported) in the morning, at least 30 minutes before the first food, beverage, or medication of the day Bisacodyl (Dulcolax) 5 MG TABLET.DR 1 TAB PO DAILY GI (Reported) Budesonide 0.25 MG/2 ML AMPUL.NEB 1 Vial INH/UDAY BID BREATHING PROBLEMS ( Reported) Reason to Stop at ADM: TRC Butalb/Acetaminophen/Caffeine (Fioricet 50-300-40 MG Capsule) 50 MG-300 MG-40 MG CAPSULE 1 CAP PO Q4 HRS NEEDED PRN HEADACHE (Reported) Cyanocobalamin (Vitamin B-12) 1,000 MCG TABLET 1 TAB PO DAILY SUPPLEMENT ( Reported) Diazepam 5 MG TABLET 1 TAB PO BIDP PRN anxiety/insomnia (Reported) Ergocalciferol (Vitamin D2) (Vitamin D2) 50,000 UNIT CAPSULE 1 CAP PO QFRI SUPPLEMENT (Reported) Escitalopram Oxalate (Lexapro) 20 MG TABLET 1 TAB PO DAILY MENTAL HEALTH ( Reported) Ferrous Sulfate 325 MG (65 MG IRON) TABLET 1 TAB PO BID SUPPLEMENT (Reported) Fluticasone/Salmeterol (Advair 500-50 Diskus) 500 MCG-50 MCG/DOSE BLST.W.DEV 1 PUF INH BID BREATHING PROBLEMS (Reported) Folic Acid 0.8 MG TABLET 1 TAB PO TID SUPPLEMENT (Reported) Gabapentin (Neurontin) 400 MG CAPSULE 1 CAP PO BID NEUROPATHY (Reported) Ipratropium/Albuterol Sulfate (Iprat-Albut 0.5-3(2.5) MG/3 Ml) 0.5 MG-3 MG (2.5 MG BASE)/3 ML AMPUL.NEB 1 Vial INH/UDAY 4 TIMES/DAY COPD (Reported) Reason to Stop at ADM: TRC Levothyroxine Sodium 88 MCG TABLET 1 TAB PO DAILY AC THYROID (Reported) Lidocaine (Lidoderm) 5 % ADH..PATCH 1 PAT TOP DAILY PAIN (Reported) may wear up to 12 hours Melatonin 3 MG TABLET 1 TAB PO QPM SLEEP (Reported) Mometasone Furoate (Nasonex) 50 MCG SPRAY.PUMP 2 SPRAY NASB DAILY ALLERGIES ( Reported) Naproxen (Naprosyn) 500 MG TABLET 1 TAB PO BID PAIN/INFLAMMATION (Reported) Omeprazole 40 MG CAPSULE.DR 1 CAP PO DAILY GI (Reported) Prednisone 10 MG TABLET 1 TAB PO DAILY STEROID (Reported) Pregabalin (Lyrica) 100 MG CAPSULE 1 CAP PO TID PAIN (Reported) Tiotropium [place] (Spiriva) 18 MCG CAP.W.DEV 1 CAP INH DAILY BREATHING PROBLEMS (Reported) Trazodone HCl 50 MG TABLET 1 TAB PO QPM SLEEP (Reported) Warfarin Sodium (Coumadin) 3 MG TABLET 1 TAB PO DAILY DVT Compliance With Home Meds: GOOD Past History Travel History Traveled to [place] past 21 day No Medical History Neurological: narcolepsy EENT: allergies, cataracts, rhinitis Cardiovascular: hyperlipidemia, mitral valve prolapse Respiratory: COPD Gastrointestinal: constipation, diverticulitis, GERD Hepatic: NONE Renal: NONE Musculoskeletal: fibromyalgia, osteoarthritis, spinal stenosis (cervical) Psychiatric: anxiety, depression Endocrine: diabetes, hypothyroidism Blood Disorders: anemia, DVT BLE Cancer(s): lung cancer QUALITY AUDITOR/Reproductive: uterine/bladder prolapse History of MRSA: No History of VRE: No History of CDIFF: Yes Surgical History Surgical History: appendectomy, hysterectomy, lumpectomy, right lobectomy cervical fusion Past Family/Social History Family History Relations & Conditions if any FATHER FH: CHF (congestive heart failure) Hypertension Psychosocial History Who Do You Live With? self Primary Language: Albanian Smoking Status: Current Everyday Smoker ETOH Use: denies use Illicit Drug Use: denies illicit drug use Living Will? yes Functional Ability ADLs Independent: dressing, eating, toileting, bathing. Ambulation: walker IADLs Independent: telephone. Needs Assist: shopping, housework, transportation, medication admin. Review of Systems Review of Systems Constitutional: Reports: weakness. Denies: chills, diaphoresis, fever, malaise, unexplained weight loss. EENTM: Denies: see HPI. Cardiovascular: Reports: peripheral edema. Denies: chest pain, edema, orthopena, palpitations, syncope. Respiratory: Reports: cough, short of breath, sputum production, wheezing. Denies: hemoptysis, orthopnea, stridor. GI: Reports: nausea. Denies: abdominal pain, bloating, constipation, diarrhea, melena, vomiting. Genitourinary: Denies: dysuria, frequency, hematuria, urgency. Musculoskeletal: Reports: back pain. Denies: gout, joint pain. Skin: Denies: see HPI. Neurological/Psychological: Denies: anxiety, confusion, depressed, dementia, emotional problems, headache, numbness, tingling, tremors. Exam & Diagnostic Data Last 24 Hrs of Vital Signs/I&O Vital Signs Date Time Temp Pulse Resp B/P B/P Pulse O2 O2 Flow FiO2 Mean Ox Delivery Rate 11/27 0044 94 Nasal 2.0L Cannula 11/27 003 98.7 70 24 118/70 95 11/26 2310 99 Nasal 2.0L Cannula 11/26 2017 95 Nasal 2.0L Cannula 11/26 2013 97.2 84 18 147/76 95 Room Air Room Air Intake & Output 11/27 0800 11/27 0000 11/26 1600 Intake Total 250 Output Total Balance 250 Intake, IV 250 Patient 78.471 kg 72.575 kg Weight Weight Reported by Patient Estimated Measurement Method Physical Exam General Appearance Alert, Oriented X3, Cooperative, No Acute Distress Skin No Rashes, No Breakdown HEENT Atraumatic, PERRLA, EOMI, Mucous Membr. moist/pink Neck Supple, No JVD Lymphatic Cervical nl Cardiovascular Regular Rate, Normal S1, Normal S2, No Murmurs Lungs Normal Air Movement, b/l inspiratory and expiratory wheezes Abdomen Normal Bowel Sounds, Soft, No Tenderness Neurological Normal Speech, Strength at 5/5 X4 Ext, Normal Tone, Cranial Nerves 3-12 NL, Reflexes 2+ Extremities No Clubbing, No Cyanosis, 2 pitting edema left lower extremity Vascular Normal Pulses, Pulses Symmetrical Last 24 Hrs of Labs/Mick: Laboratory Tests 11/26/162030: Anion Gap 7, Estimated GFR > 60, BUN/Creatinine Ratio 21.3, Glucose 120 H, Calcium 8.1 L, Total Bilirubin 0.4, AST 13 L, ALT 32, Alkaline Phosphatase 51, Troponin I < 0.01, Lqq-H-Zcvijtuzjav Pept 108, Total Protein 5.7 L, Albumin 3.2 L, Globulin 2.5, Albumin/Globulin Ratio 1.3, PT 20.4 H, INR 1.96 H, APTT 46 H, CBC w Diff NO MAN DIFF REQ, RBC 4.23, MCV 97.9, MCH 31.6 H, RDW 16.5 H, MPV 7.7, Gran % 71.6, Lymphocytes % 20.4 L, Monocytes % 6.3, Eosinophils % 1.4, Basophils % 0.3, Absolute Granulocytes 5.1, Absolute Lymphocytes 1.5, Absolute Monocytes 0.4, Absolute Eosinophils 0.1, Absolute Basophils 0, PUBS MCHC 32.2 L Microbiology 11/26 2316 BLOOD: Blood Culture - RECD 11/26 2249 BLOOD: Blood Culture - RECD Assessment/Plan Assessment: This is a 75-year-old female with past medical history significant for current smoker, COPD not on home oxygen, lung cancer status post right lobe resection, deep vein thrombosis status post IVC filter and Coumadin, osteoarthritis on alendronate, GERD, hypothyroidism, hypertension, anxiety, bilateral leg shakiness, microcytic anemia, allergic rhinitis, hypercholesterolemia, fibromyalgia, spinal stenosis, major depression, emphysema, nonrheumatic mitral valve prolapse, narcolepsy presented to the [facility] emergency department this afternoon with chief complaint of cough and worsening dyspnea on exertion for 2 days. Of note patient was discharged from [facility] on 11/10/2016 after being treated for COPD exacerbation and C. difficile diarrhea with Flagyl for 10 days. She was advised to follow-up with Dr. Hilton, regional telecommunications specialist after discharge however she couldn't book any appointment with the lung doctor. Vitals on admission-afebrile, heart rate 84, respiratory rate 18, blood pressure 140/76, saturating at 95% on 2 L oxygen. Pertinent labs on admission- WBC normal, hemoglobin 13, platelet 168. INR 1.96. BEP normal. Chest x-ray showed emphysematous changes of both the lungs. No pleural effusion. No infiltrates. No acute pulmonary process. EKG showed sinus rhythm, rate 84, no acute ST-T wave changes. Problem list 1. Acute exacerbation of COPD(not on home oxygen) 2. Chronic smoker 3. Lung cancer status post right lobectomy 4. Left lower extremity pain and swelling 5. Bilateral lower extremity DVT status post IVC filter and on warfarin 6. Hypothyroidism 7. Depression 8. Fibromyalgia 9. Anxiety 10. Osteoarthritis 11. Constipation 12. GERD 13. Iron deficiency anemia Acute exacerbation of COPD/acute resp failure Significant history of COPD, current every day smoker, acute on chronic cough, worsening shortness of breath, sputum production most possibly COPD exacerbation. Her clinical manifestations-cough, sputum production, worsening dyspnea on exertion, decreased breath sounds, increased expiratory phase, rhonchi and wheezes-suggestive of acute exacerbation of COPD. chest x-ray was clear with no acute pulmonary process, no pneumonia. * We'll admit to general med floor * Check her vitals every shift * Supplemental oxygen * Keep oxygen saturation above 92% * Will start IV Solu-Medrol 40 mg IV every 8 hours. * TRC and nebulizer treatment * Bronchodilators and beta agonists * We will start her on antibiotic iv azithromycin daily- to decrease exacerbations * Smoking cessation counseled * Will call Dr. Hilton in the morning for pulmonology consult. * Will follow blood culture and sputum cultures History of lung cancer History of lung cancer status post right lobectomy Follows Anson Ornelas MD regional telecommunications specialist Current every day smoker 1 pack per day Smoking history of 65 years Left lower extremity pain Patient does report left lower extremity pain, 5/10 and swelling. However she denied any redness, warmth. Patient has history of bilateral lower extremity deep vein thrombosis status post IVC filter placement and she is on Coumadin 3 mg daily at home * Will get ultrasound Doppler left lower extremity to rule out any deep vein thrombosis. dvt s/p ivc filter and on coumadin INR 1.96 coumadin 3 mg daily will monitor inr in the morning GERD continue omeprazole hypothyroid continue synthyroid Fibromyalgia Continue home dose of gabapentin 400 mg twice a day Continue home dose of Lyrica Depression Continue Lexapro home dose Anxiety Continue diazepam 5 mg daily Osteoarthritis on alendronate every Sunday 70 mg Constipation Dulcolax whenever necessary Microcytic anemia On iron sulfate Hyperglycemia HbA1c 6.4 Will keep her on insulin sliding scale low-dose Accu-Cheks before meals dnr,dni dvt prophylaxis- coumadin regular diet mild pain pathway- tylinol As Ranked By This Provider Problem List: 1. COPD (chronic obstructive pulmonary disease) 2. DVT (deep venous thrombosis) 3. Shortness of breath 4. Lung cancer 5. Arthritis 6. DNR (do not resuscitate) 7. DNI (do not intubate) 8. Anxiety and depression 9. GERD (gastroesophageal reflux disease) 10. Hypothyroidism 11. Fibromyalgia Core Measures/Miscellaneous Acute Coronary Syndrome ACS Diagnosis: No Cerebrovascular Accident CVA/TIA Diagnosis: No Congestive Heart Failure CHF Diagnosis: No Venous Thromboembolism VTE Risk Factors: Acute medical illness, Age > 40, Obesity, Smoking No [facility] VTE prophylaxis d/t: No contraindications No VTE Pharm Prophylaxis d/t: No contraindications VTE Diagnosis: No VTE Type: Deep Venous Thrombosis VTE Confirmed by (Test): UNILATERAL VENOUS DOPPLER Severe Sepsis Severe Sepsis Present: No Septic Shock Septic Shock Present: No Miscellaneous Documentation Attending Case Discussed With: EBONI MATA MD Primary Care Physician: GRACE THOMPSON MD Patient sees these Specialists regional telecommunications specialist Level of Patient Care: General Medicine WENDIMELISSA 11/27/16 0313: Resident Review Statement Other Findings: Boris Noonan, is a 76-year-old female with significant past medical history of COPD, lung cancer status post right lobectomy, with subsequent DVT status post IVC filter on Coumadin, fibromyalgia, depression, hypothyroidism who presents to hospital emergency department from an assisted living facility with complaints of dyspnea, wheezing and productive cough 1 day. Per the patient, a nurse from her assisted living facility felt that she was indeed more fatigued in comparison to baseline. The patient does admit to sick contacts. The patient also complains of left leg swelling. She follows up with Dr. Mayes for her pulmonary care. She continues to smoke daily and has been smoking for 67 years, The remaining review of systems and physical exam as dictated above Vitals on admission were stable, saturating 95% on 2 L of oxygen via nasal cannula. Labs unremarkable. INR 1.96. Chest x-ray negative. EKG normal sinus rhythm at 84 bpm. NE 132, QTC 454. Problem list assessment and plan Acute hypoxemic respiratory failure secondary to COPD exacerbation. * Admit to general medicine for intravenous steroids, antibiotics until respiratory care. * We will give 40 mg of Solu-Medrol every 8 hours as well as 500 mg azithromycin daily given her productive cough and dyspnea as it does have significant anti- inflammatory properties. * Total respiratory care with nebulizers and inhalers. We will prophylactically place her on a NovoLog sliding scale and she will be on IV steroids and her past A1c has been in the mid 6s. * CBC and INR in the morning, and dose Coumadin accordingly (pt on 3mg at home). LLE swelling * We will also obtain a duplex ultrasound of the left lower extremity given her swelling and tenderness. * DVT unlikely given the fact that she is on Coumadin however her level was slightly subtherapeutic at 1.96. home meds * Continue home medications including pregabalin 100 mg 3 times a day, levothyroxine 88 g daily, escitalopram 20 mg daily, trazodone 50 mg at night, omeprazole 40 mg daily, diazepam 5 mg twice daily when necessary, melatonin 3 mg nightly, and gabapentin 400 mg twice daily. She is also on multivitamin supplementation and iron supplementation. DNR/DNI Regular diet Warfarin for DVT prophylaxis Pain pathway EBONI MATA 11/27/16 0333: Attending MD Review Statement Attending Statement Attending MD Statement: examined this patient, discuss w/resident/PA/EVAPORATOR OPERATOR MOLASSES, agreed w/resident/PA/EVAPORATOR OPERATOR MOLASSES, reviewed EMR data (avail), reviewed images, amended to note Attending Assessment/Plan: Cc: Respiratory congestion, shortness of breath PMH: COPD, lung cancer S/P right lobectomy, bilateral DVT S/P IVC filter and on warfarin, HLD, hypothyroidism, anxiety, current smoker Patient was sent from assisted living through EMS for increased shortness of breath and wheezing along with congested cough. Patient states that since last 2 days she is getting worsening of shortness of breath even at rest, with wheezing extensively, productive cough with yellowish sputum production. She feels very tired and fatigued, denies chest pain, chest tightness, fever, chills, headache, loss of consciousness, PND, orthopnea. Of note patient mentions that she has left lower extremity swelling that started early this morning. Vitals: Afebrile, pulse, RRR, blood pressure unremarkable. Saturating 95% on 2 L. On exam: A O 3, cooperative, mild respiratory distress, neck supple, JVD normal , no lymphadenopathy, mucosa moist, no thrush, no focal neurological deficit, left lower extremity and lashes compared to right, acting edema around feet on the left side, no obvious skin rashes or inflammation CVS: S1-S2, RRR. RS: Wheezing all over lung [place]. Abdomen: Soft, NT, ND, bowel sounds present. CXR: No acute abnormality A and P Patient comes in with worsening of shortness of breath, productive cough with yellow sputum. She has history of COPD, not on home oxygen with extensive and current smoking. We'll admit for COPD exacerbation. Patient will also benefit from outpatient ENT follow-up for vocal cord dysfunction for audible wheezing not corresponding with signs and symptoms of COPD # COPD exacerbation # History of lung cancer # Left lower extremity swelling #History of DVT # History of hypothyroidism, anxiety, chronic pain - Admit to general medicine - Continue IV azithromycin - Continue IV Solu-Medrol 40 mg every 8 hours - Scheduled and when necessary nebulization with albuterol and Atrovent, TRC - Informed patient's regional telecommunications specialist - Left lower extremity Doppler - Continue low-dose sliding scale insulin, patient's hemoglobin A1c is around 6.5 since long time, and no history of diabetes, probably secondary to recurrent steroid use, even in current setting she might get hyperglycemia secondary to IV steroids. - Continue Mucinex 600 mg by mouth twice a day - Continue home doses of warfarin, check INR in a.m. - Continue rest of her home medications
[2016-11-27 00:35] VITALS: BP 118/70
[2016-11-27 06:53] VITALS: BP 140/78
--- NOTE | 2016-11-27 07:00 | PN- Housestaff ---
ABDELRAHMAN SHAH 11/27/16 0659: Subjective Follow-up For: Dyspnea Desaturation Subjective: Seen and examined patient. Continues to feel short of breath. Audible wheezing noted. Denies fevers, chills, chest pain. Review of Systems Constitutional: Denies: chills, diaphoresis, fever, malaise, weakness, unexplained weight loss. Cardiovascular: Denies: chest pain, edema, orthopena, palpitations, peripheral edema, syncope. Respiratory: Reports: cough, short of breath, wheezing. Denies: hemoptysis, orthopnea, sputum production, stridor. Gastrointestinal: Denies: abdominal pain, bloating, constipation, diarrhea, distention, bowel incontinence, melena, nausea, bloody stool, changes in stool, vomiting, steatorrhea. Objective Last 24 Hrs of Vital Signs/I&O Vital Signs Date Time Temp Pulse Resp B/P B/P Pulse O2 O2 Flow FiO2 Mean Ox Delivery Rate 11/27 652 98.3 76 28 140/78 95 11/27 0044 94 Nasal 2.0L Cannula 11/27 0035 98.7 70 24 118/70 95 11/26 2310 99 Nasal 2.0L Cannula 11/26 2017 95 Nasal 2.0L Cannula 11/26 2013 97.2 84 18 147/76 95 Room Air Room Air Intake & Output 11/27 1600 11/27 0800 11/27 0000 Intake Total 240 250 Output Total Balance 240 250 Intake, IV 250 Intake, Oral 240 Patient 173 lb 160 lb Weight Weight Reported by Patient Estimated Measurement Method Physical Exam General Appearance: Alert, Oriented X3, Cooperative, Mild Distress Cardiovascular: Regular Rate, Normal S1, Normal S2 Lungs: b/l coarse rhonchi and wheezing Abdomen: Normal Bowel Sounds, Soft, No Tenderness Extremities: mild edema of ankle Current Medications: Current Medications Sig/Eulogio Start time Last Medication Dose Route Stop Time Status Admin Acetaminophen 650 MG Q6P PRN 11/27 0200 AC PO Acetaminophen 1,000 MG Q6P PRN 11/27 0200 AC IV Albuterol Sulfate 3 ML Q6 PRN 11/27 0100 AC INH Albuterol Sulfate 2 PUF Q4 PRN 11/26 2315 DC INH Albuterol Sulfate 3 ML ONCE ONE 11/26 2244 DC 11/26 INH 11/26 2245 2301 Alendronate Sodium 70 MG QFRI 12/01 07 AC PO Azithromycin 500 MG DAILY 11/27 1000 AC Sodium Chloride 250 ML IV Azithromycin 500 MG ONCE ONE 11/26 2244 DC 11/26 Sodium Chloride 250 ML IV 11/27 2343 231 Bisacodyl 5 MG DAILY 11/27 1000 AC PO Budesonide/ 2 PUF BID 11/27 1000 AC Formoterol Fumarate INH Ceftriaxone Sodium 0 .STK-MED ONE 11/27 2311 DC .ROUTE Ceftriaxone Sodium 1,000 MG ONCE ONE 11/26 2244 DC 11/26 IV 11/26 Cyanocobalamin 1,000 MCG DAILY 11/27 1000 AC PO Diazepam 5 MG BID PRN 11/27 1000 AC PO Enoxaparin Sodium 40 MG DAILY 11/27 1000 CAN SC Escitalopram Oxalate 20 MG DAILY 11/27 1000 AC PO Ferrous Sulfate 325 MG BID 11/27 1000 AC PO Folic Acid 1 MG DAILY 11/27 1000 AC PO Gabapentin 400 MG BID 11/27 1000 AC PO Guaifenesin 600 MG Q12 11/27 1000 AC PO Insulin Aspart 0 TIDAC 11/27 0800 AC SC Ipratropium [place] 2.5 ML ONCE ONE 11/26 2244 DC 11/26 INH 11/26 2245 230 Ketorolac 15 MG Q6P PRN 11/27 0200 AC Tromethamine IV Levothyroxine Sodium 0.088 MG DAILY AC 11/27 0700 AC 11/27 PO 0619 Lidocaine 1 PAT DAILY 11/27 1000 AC EXT Melatonin 3 MG QPM 11/27 2200 AC PO Methylprednisolone 40 MG Q8 11/27 0600 AC 11/27 IV 0618 Methylprednisolone 0 .STK-MED ONE 11/27 2311 DC .ROUTE Methylprednisolone 125 MG ONCE ONE 11/26 2244 DC 11/26 IV 11/26 Naproxen 500 MG BID 11/27 1000 AC PO Omeprazole 40 MG DAILY AC 11/27 0700 AC 11/27 PO 0619 Pregabalin 100 MG TID 11/26 2309 AC 11/27 PO 0103 Tiotropium [place] 1 PUF DAILY 11/27 1000 AC INH Trazodone HCl 50 MG QPM 11/27 2200 AC PO Last 24 Hrs of Lab/Mick Results Last 24 Hrs of Labs/Mics: Laboratory Tests 11/26/162030: Anion Gap 7, Estimated GFR > 60, BUN/Creatinine Ratio 21.3, Glucose 120 H, Calcium 8.1 L, Total Bilirubin 0.4, AST 13 L, ALT 32, Alkaline Phosphatase 51, Troponin I < 0.01, Irl-Y-Thxigygjxrc Pept 108, Total Protein 5.7 L, Albumin 3.2 L, Globulin 2.5, Albumin/Globulin Ratio 1.3, PT 20.4 H, INR 1.96 H, APTT 46 H, CBC w Diff NO MAN DIFF REQ, RBC 4.23, MCV 97.9, MCH 31.6 H, RDW 16.5 H, MPV 7.7, Gran % 71.6, Lymphocytes % 20.4 L, Monocytes % 6.3, Eosinophils % 1.4, Basophils % 0.3, Absolute Granulocytes 5.1, Absolute Lymphocytes 1.5, Absolute Monocytes 0.4, Absolute Eosinophils 0.1, Absolute Basophils 0, PUBS MCHC 32.2 L Microbiology 11/267 BLOOD: Blood Culture - RECD 11/26 2249 BLOOD: Blood Culture - RECD Assessment/Plan Assessment: 75-year-old woman current everyday smoker from assisted living, with past medical history COPD not on home oxygen, lung cancer status post right lobe resection, deep vein thrombosis status post IVC filter and Coumadin, osteoarthritis on alendronate, GERD, hypothyroidism, hypertension, anxiety, microcytic anemia, allergic rhinitis, hypercholesterolemia, fibromyalgia, spinal stenosis, major depression, emphysema, nonrheumatic mitral valve prolapse, narcolepsy with current admission for desaturation to 88% and shortness of breath. No acute changes noted her CXR was hospital day 1 Continues to be short of breath at rest. afebrile, stable BP, saturating 94% on 2L NC. corrected calciium 8.7. Nonocclusive thrombus is present within the left common femoral vein, new since prior study dated 06/29/2011, of indeterminate age. problem list: Dyspnea- sec to COPD exacerbation VS PE(Well's criteria 4.5) h/o DVT on coumadin osteoarthritis hypothyroidism major depression smoking Plan continue on General medicine ATC TRC/nebs, continue IV solumedrol and Azithromycin day 2 f/up venous doppler US per Well's criteria she is moderate risk for PE, will obtain D-Dimer and if elevated will consider CTA to r/o PE INR 2.04, will dose 3mg of coumadin will discontinue her home medication of naproxen to decrease her risk of GI bleeding as she is also on meloxicam and we are using Toradol for pain control continue home meds of fosamax,trazadone,diazepam,omeprozole, lyrica and synthroid. DVT ppx with coumadin regular diet DNR/DNI Problem List: 1. Shortness of breath 2. DVT (deep venous thrombosis) 3. Anxiety and depression 4. Hypothyroidism Pain Ratin Pain Location: na Pain Goal: Pain 4 or less Pain Plan: current plan Tomorrow's Labs & Rationales: none required WHIT TORIBIO MDDARRIUSBrodie 11/27/16 1541: Attending MD Review Statement Attending Statement Attending MD Statement: examined this patient, discuss w/resident/PA/DELI COOK, agreed w/resident/PA/DELI COOK, reviewed EMR data (avail), discussed with nursing, discussed with case mgmt, amended to note Attending Assessment/Plan: Patient seen and examined. Resting in bed not in any acute respiratory distress. She continues to complain of some shortness of breath. She denies chest pain. She denies palpitations. She complains of left lower extremity pain and swelling. Reports that this has been going on for about a month. On auscultation she has mild diffuse wheezes. She has trace swelling over left lower extremity and it is tender to touch per patient. Doppler of the left lower extremity shows a nonocclusive thrombus which is new from my last imaging in 2010. Patient does not recall when she first developed DVT thrombosis of the left lower extremities however has not 2012 records show that she had a confirmED diagnosis of left lower extremity DVT. Her symptoms improved that at best her DVT soft acute. This raises concern that her respiratory complaints may be secondary to an embolism. Her INR was only mildly sub-therapeutic on presentation. Her d-dimer is not elevated however this result is inconclusive giving her new finding of DVT. Recommendations: -Continue bronchodilator therapy and systemic steroid therapy for COPD exacerbation. -Obtain CT angiogram to rule out pulmonary embolism. This was discussed with barker peeler Dr. Martir Mayes. -If her CT scan is positive will consider anticoagulation with one of the newer oral anticoagulation regimen. Currently her INR is therapeutic. We'll not make any changes for now.
--- NOTE | 2016-11-27 08:13 | PN- Pulmonary ---
Subjective HPI/Critical Care Issues: She returned home and began actively smoking. She presented with increasing shortness breath bronchospasm and desaturation. As well she was noted to have left lower extremity edema for which ultrasound is pending Objective Current Medications: Current Medications Sig/Eulogio Start time Last Medication Dose Route Stop Time Status Admin Acetaminophen 650 MG Q6P PRN 11/27 0200 AC PO Acetaminophen 1,000 MG Q6P PRN 11/27 0200 AC IV Albuterol Sulfate 3 ML Q6 PRN 11/27 0100 AC INH Albuterol Sulfate 2 PUF Q4 PRN 11/26 2315 DC INH Albuterol Sulfate 3 ML ONCE ONE 11/26 2244 DC 11/26 INH 11/26 2245 2301 Alendronate Sodium 70 MG QFRI 12/01 07 AC PO Azithromycin 500 MG DAILY 11/27 1000 AC Sodium Chloride 250 ML IV Azithromycin 500 MG ONCE ONE 11/26 2244 DC 11/26 Sodium Chloride 250 ML IV 11/264 2319 Bisacodyl 5 MG DAILY 11/27 1000 AC PO Budesonide/ 2 PUF BID 11/27 1000 AC Formoterol Fumarate INH Ceftriaxone Sodium 0 .STK-MED ONE 11/27 2311 DC .ROUTE Ceftriaxone Sodium 1,000 MG ONCE ONE 11/26 2244 DC 11/26 IV 11/26 2245 2319 Cyanocobalamin 1,000 MCG DAILY 11/27 1000 AC PO Diazepam 5 MG BID PRN 11/27 1000 AC PO Enoxaparin Sodium 40 MG DAILY 11/27 1000 CAN SC Escitalopram Oxalate 20 MG DAILY 11/27 1000 AC PO Ferrous Sulfate 325 MG BID 11/27 1000 AC PO Folic Acid 1 MG DAILY 11/27 1000 AC PO Gabapentin 400 MG BID 11/27 1000 AC PO Guaifenesin 600 MG Q12 11/27 1000 AC PO Insulin Aspart 0 TIDAC 11/27 0800 AC SC Ipratropium [place] 2.5 ML ONCE ONE 11/26 2244 DC 11/26 INH 11/26 2245 2301 Ketorolac 15 MG Q6P PRN 11/27 0200 AC Tromethamine IV Levothyroxine Sodium 0.088 MG DAILY AC 11/27 0700 AC 11/27 PO 0619 Lidocaine 1 PAT DAILY 11/27 1000 AC EXT Melatonin 3 MG QPM 11/27 2200 AC PO Methylprednisolone 40 MG Q8 11/27 0600 AC 11/27 IV 0618 Methylprednisolone 0 .STK-MED ONE 11/27 2311 DC .ROUTE Methylprednisolone 125 MG ONCE ONE 11/26 2244 DC 11/26 IV 11/26 2245 2319 Naproxen 500 MG BID 11/27 1000 AC PO Omeprazole 40 MG DAILY AC 11/27 0700 AC 11/27 PO 0619 Pregabalin 100 MG TID 11/26 2310 AC 11/27 PO 0103 Tiotropium [place] 1 PUF DAILY 11/27 1000 AC INH Trazodone HCl 50 MG QPM 11/27 2200 AC PO Vital Signs & I&O Last 24 Hrs of Vitals and I&O: Vital Signs Date Time Temp Pulse Resp B/P B/P Pulse O2 O2 Flow FiO2 Mean Ox Delivery Rate 11/27 652 98.3 76 28 140/78 95 11/27 0044 94 Nasal 2.0L Cannula 11/27 003 98.7 70 24 118/70 95 11/260 99 Nasal 2.0L Cannula 11/26 2017 95 Nasal 2.0L Cannula 11/26 2013 97.2 84 18 147/76 95 Room Air Room Air Intake & Output 11/27 1600 11/27 0800 11/27 0000 Intake Total 240 250 Output Total Balance 240 250 Intake, IV 250 Intake, Oral 240 Patient 173 lb 160 lb Weight Weight Reported by Patient Estimated Measurement Method Since saturation 2 L 95% exam for chest shows diffuse wheezing cardiac exam shows regular S1 and S2 abdomen exam is soft nontender there's mild left lower extremity edema Impression/Plan Impression/Plan Impression/Plan: 76-year-old with severe COPD actively smoking be admitted with acute wheezing. She is again been counseled regarding the need for smoking cessation Recommendations: Continue IV steroids nebs Zithromax and follow-up lower extremity ultrasound. Taper FiO2 his saturations allow. Would consider pulmonary rehabilitation in hopes of facilitating smoking cessation
[2016-11-27 09:53] LABS: PT 21.3 SEC (9.4-12.5)
--- NOTE | 2016-11-27 10:59 | ULTRASOUND REPORT ---
EXAMINATION: US TRIPLEX LOWER EXTREMITY, LEFT CLINICAL INFORMATION: 76-year-old female, previous lung cancer, presented with left lower extremity swelling. COMPARISON: 06/29/2011. TECHNIQUE: Color-flow triplex imaging with spectral analysis and compression Doppler were performed on the lower extremity. FINDINGS: Nonocclusive thrombus is present within the left common femoral vein, new since prior study dated 06/29/2011, of indeterminate age. The remainder of the left lower extremity deep venous system appear widely patent. There is no Hopson's cyst. IMPRESSION: Nonocclusive thrombus within the left common femoral vein, new since 06/29/2011, indeterminate age. This critical result was discussed with Dr. Gutierrez at 9:50 AM on 11/27/2016 and it was ascertained that the content and urgency of the report was understood at the time of direct communication.
[2016-11-27 14:55] VITALS: BP 116/67; BP 116/70
--- NOTE | 2016-11-27 19:48 | CT SCAN REPORT ---
EXAMINATION: CT ANGIOGRAM OF THE CHEST WITH AND WITHOUT CONTRAST (CT PULMONARY ANGIOGRAM FOR PE) CLINICAL INFORMATION: Shortness of breath. COMPARISON: CT chest without contrast 12/24/2014. TECHNIQUE: Prior to contrast administration, noncontrast localization images were obtained. Subsequently, multidetector volumetric imaging was performed from the thoracic inlet to below the diaphragms following the administration of 95 mL Optiray 350 intravenous contrast. No contrast reaction reported. Sagittal, coronal, and MIP oblique sagittal reformatted images were obtained on the CT workstation, uploaded to PACS, and reviewed. Total exam dose-length product 529 mGy-cm. FINDINGS: QUALITY OF STUDY/CONTRAST BOLUS: Suboptimal contrast opacification of the pulmonary arterial vasculature. Additionally, there is diffuse respiratory motion abnormality which degrades image quality, limiting evaluation of the pulmonary arterial vasculature. PULMONARY ARTERIES: No large central pulmonary emboli. No visible emboli within the right or left pulmonary arteries or within the lobar arterial branches of the pulmonary arterial vasculature. There is limited evaluation for intraluminal filling defects within segmental and subsegmental branches of the pulmonary arterial vasculature given the aforementioned exam limitations. THORACIC AORTA: Scattered atherosclerosis of the thoracic aorta. Normal caliber of the thoracic aorta, without aneurysmal dilatation. No centrally displaced intraluminal flaps to suggest aortic dissection. LUNG: Evaluation of the lung parenchyma demonstrates mild centrilobular emphysematous changes, notably within the bilateral upper lobes. There are groundglass opacities within the dependent portions of the left upper lobe, which may be secondary to hypoinflation. There is questionable subsegmental atelectasis versus scarring along the periphery of the right lower lobe. There are no visible suspicious pulmonary nodules or masses. The central airways are patent without endobronchial obstructing lesions. PLEURA: No pleural effusion or pneumothorax. MEDIASTINUM: Normal heart size. No pericardial effusion. No hilar or mediastinal lymphadenopathy. No evidence of septal bowing or right heart strain. The thyroid gland appears unremarkable. CHEST WALL/AXILLA: No axillary or internal mammary lymphadenopathy. OSSEOUS STRUCTURES: No acute or suspicious osseous abnormality. UPPER ABDOMEN: No acute findings within the upper abdomen. No reflux of contrast into the hepatic veins to suggest elevated right heart pressures. IMPRESSION: 1. Suboptimal contrast opacification of the pulmonary arterial vasculature. Additionally, evaluation of the pulmonary arteries is limited secondary to diffuse respiratory motion abnormality, which degrades image quality. No large central pulmonary emboli. No visible emboli within the right or left pulmonary arteries or within the lobar branches of the pulmonary arterial vasculature. Limited evaluation of the segmental and subsegmental pulmonary arteries given the aforementioned exam limitations. Clinical concern for pulmonary embolism persists, consider correlation with bilateral lower extremity ultrasounds. Alternatively a repeat CTA of the chest may be performed following hydration. 2. Subsegmental atelectasis within the bilateral lungs. Questionable emphysematous changes within the bilateral upper lobes. Questionable scarring versus atelectasis along the periphery of the right lower lobe. VTE: Indeterminate.
[2016-11-27 22:42] VITALS: BP 102/60
[2016-11-28 06:01] VITALS: BP 124/62
[2016-11-28 08:09] LABS: PT 21.9 SEC (9.4-12.5)
--- NOTE | 2016-11-28 08:57 | PN- Pulmonary ---
Subjective HPI/Critical Care Issues: Patient feels a bit more comfortable but continues with wheezing. CTA was suboptimal but excluded major central pulmonary emboli. Significance of lower extremity duplex ultrasound is uncertain. INR is now therapeutic Objective Current Medications: Current Medications Sig/Eulogio Start time Last Medication Dose Route Stop Time Status Admin Acetaminophen 650 MG Q6P PRN 11/27 0200 AC PO Acetaminophen 1,000 MG Q6P PRN 11/27 0200 AC 11/27 IV 1552 Albuterol Sulfate 3 ML EVERY 4 HRS/AWAKE 11/27 1200 AC 11/28 INH 0827 Albuterol Sulfate 3 ML Q6 PRN 11/27 0100 AC INH Alendronate Sodium 70 MG QFRI 12/01 0700 AC PO Azithromycin 500 MG DAILY 11/27 1000 AC 11/27 Sodium Chloride 250 ML IV 1119 Bisacodyl 5 MG DAILY 11/27 1000 AC 11/27 PO 1119 Budesonide/ 2 PUF BID 11/27 1000 AC 11/27 Formoterol Fumarate INH 2222 Cyanocobalamin 1,000 MCG DAILY 11/27 1000 AC 11/27 PO 1118 Diazepam 5 MG BID PRN 11/27 1000 AC 11/27 PO 1940 Escitalopram Oxalate 20 MG DAILY 11/27 1000 AC 11/27 PO 1117 Ferrous Sulfate 325 MG BID 11/27 1000 AC 11/27 PO 2214 Folic Acid 1 MG DAILY 11/27 1000 AC 11/27 PO 1117 Gabapentin 400 MG BID 11/27 1000 AC 11/27 PO 2214 Guaifenesin 600 MG Q12 11/27 1000 AC 11/27 PO 2214 Insulin Aspart 0 TIDAC 11/27 0800 DC SC Ketorolac 15 MG Q6P PRN 11/27 0200 DC Tromethamine IV Levothyroxine Sodium 0.088 MG DAILY AC 11/27 0700 AC 11/28 PO 0623 Lidocaine 1 PAT DAILY 11/27 1000 AC 11/27 EXT 1117 Melatonin 3 MG QPM 11/27 2200 AC 11/27 PO 2214 Methylprednisolone 40 MG Q8 11/27 0600 AC 11/28 IV 0502 Naproxen 500 MG BID 11/27 1000 DC 11/27 PO 1138 Omeprazole 40 MG DAILY AC 11/27 0700 AC 11/28 PO 0622 Patient Medication 1 ED .STK-MED ONE 11/27 1356 DC Teaching ED 11/27 1357 Pregabalin 100 MG TID 11/26 2310 AC 11/27 PO 2216 Tiotropium [place] 1 PUF DAILY 11/27 1000 AC 11/27 INH 1126 Trazodone HCl 50 MG QPM 11/27 2200 AC 11/27 PO 2214 Warfarin Sodium 3 MG COUMADIN 1700 ONE 11/27 1700 DC 11/27 PO 11/27 1701 1935 Vital Signs & I&O Last 24 Hrs of Vitals and I&O: Vital Signs Date Time Temp Pulse Resp B/P B/P Pulse O2 O2 Flow FiO2 Mean Ox Delivery Rate 11/28 0830 91 Nasal 2.0L Cannula 11/28 0601 98.7 76 20 124/62 96 Nasal 2.0L Cannula 11/28 0000 Nasal 2.0L Cannula 11/27 2242 98.6 88 20 102/60 95 Nasal 2.0L Cannula 11/27 1633 97 Nasal 2.0L Cannula 11/27 1600 Nasal 2.0L Cannula 11/27 1455 99.0 101 22 116/67 96 Intake & Output 11/28 1600 11/28 0800 11/28 0000 Intake Total 200 350 Output Total 500 Balance -300 350 Intake, Oral 200 350 Output, Urine 500 Oxygen saturation 2 L 91-96% exam for chest continues to show significant bronchospasm cardiac exam shows a regular S1 and S2 without murmurs Impression/Plan Impression/Plan Impression/Plan: 76-year-old with severe COPD actively smoking be admitted with acute wheezing. She is again been counseled regarding the need for smoking cessation Recommendations: Continue IV steroids nebs Zithromax . Taper FiO2 his saturations allow. Would consider pulmonary rehabilitation in hopes of facilitating smoking cessation. Optimize INR
--- NOTE | 2016-11-28 09:21 | PN- Housestaff ---
ABDELRAHMAN SHAH 11/28/16 0921: Subjective Follow-up For: Dyspnea Desaturation Subjective: Seen and examined patient. States her breathing is still the same and has not improved much. She had one episode of urinary incontinence this morning, denies previous episodes. Denies fever, chills, abdominal pain, dysuria. Review of Systems Constitutional: Denies: chills, diaphoresis, fever, malaise, weakness, unexplained weight loss. Cardiovascular: Denies: chest pain, edema, orthopena, palpitations, peripheral edema, syncope. Respiratory: Denies: cough, hemoptysis, orthopnea, short of breath, sputum production, stridor, wheezing. Objective Last 24 Hrs of Vital Signs/I&O Vital Signs Date Time Temp Pulse Resp B/P B/P Pulse O2 O2 Flow FiO2 Mean Ox Delivery Rate 11/28 0830 91 Nasal 2.0L Cannula 11/28 0601 98.7 76 20 124/62 96 Nasal 2.0L Cannula 11/28 0000 Nasal 2.0L Cannula 11/27 2242 98.6 88 20 102/60 95 Nasal 2.0L Cannula 11/27 1633 97 Nasal 2.0L Cannula 11/27 1600 Nasal 2.0L Cannula 11/27 1455 99.0 101 22 116/67 96 Intake & Output 11/28 1600 11/28 0800 11/28 0000 Intake Total 200 350 Output Total 500 Balance -300 350 Intake, Oral 200 350 Output, Urine 500 Physical Exam General Appearance: Oriented X3, Cooperative, No Acute Distress, lethargic Cardiovascular: Regular Rate, Normal S1, Normal S2 Lungs: b/l rhonchi and expiratory wheezing Abdomen: Normal Bowel Sounds, Soft, No Tenderness Extremities: No Edema Current Medications: Current Medications Sig/Eulogio Start time Last Medication Dose Route Stop Time Status Admin Acetaminophen 650 MG Q6P PRN 11/27 0200 AC PO Acetaminophen 1,000 MG Q6P PRN 11/27 0200 AC 11/27 IV 1552 Albuterol Sulfate 3 ML EVERY 4 HRS/AWAKE 11/27 1200 AC 11/28 INH 0827 Albuterol Sulfate 3 ML Q6 PRN 11/27 0100 AC INH Alendronate Sodium 70 MG QFRI 12/01 0700 AC PO Azithromycin 500 MG DAILY 11/27 1000 AC 11/28 Sodium Chloride 250 ML IV 0948 Bisacodyl 5 MG DAILY 11/27 1000 AC 11/28 PO 0948 Budesonide/ 2 PUF BID 11/27 1000 AC 11/28 Formoterol Fumarate INH 0947 Cyanocobalamin 1,000 MCG DAILY 11/27 1000 AC 11/28 PO 0948 Diazepam 5 MG BID PRN 11/27 1000 AC 11/27 PO 1940 Escitalopram Oxalate 20 MG DAILY 11/27 1000 AC 11/28 PO 0948 Ferrous Sulfate 325 MG BID 11/27 1000 AC 11/28 PO 0948 Folic Acid 1 MG DAILY 11/27 1000 AC 11/28 PO 0948 Gabapentin 400 MG BID 11/27 1000 AC 11/28 PO 0948 Guaifenesin 600 MG Q12 11/27 1000 AC 11/28 PO 0948 Insulin Aspart 0 TIDAC 11/27 0800 DC SC Levothyroxine Sodium 0.088 MG DAILY AC 11/27 0700 AC 11/28 PO 0623 Lidocaine 1 PAT DAILY 11/27 1000 AC 11/28 EXT 0950 Melatonin 3 MG QPM 11/27 2200 AC 11/27 PO 2214 Methylprednisolone 40 MG Q8 11/27 0600 AC 11/28 IV 0502 Naproxen 500 MG BID 11/27 1000 DC 11/27 PO 1138 Omeprazole 40 MG DAILY AC 11/27 0700 AC 11/28 PO 0622 Patient Medication 1 ED .STK-MED ONE 11/27 1356 MI Teaching ED 11/27 1357 Pregabalin 100 MG TID 11/26 2310 AC 11/28 PO 1008 Tiotropium [place] 1 PUF DAILY 11/27 1000 AC 11/28 INH 0947 Trazodone HCl 50 MG QPM 11/27 2200 AC 11/27 PO 2214 Warfarin Sodium 3 MG COUMADIN 1700 ONE 11/27 1700 DC 05 PO 11/27 1701 1935 Last 24 Hrs of Lab/Mick Results Last 24 Hrs of Labs/Mics: Laboratory Tests 11/28/16 1006: Urine Color Pending, Urine Clarity Pending, Urine pH Pending, Ur Specific [place] Pending, Urine Protein Pending, Urine Ketones Pending, Urine Nitrite Pending, Urine Bilirubin Pending, Urine Urobilinogen Pending, Ur Leukocyte Esterase Pending, Ur Microscopic SEDIMENT EXAMINED, Urine RBC Pending, Urine Hemoglobin Pending, Urine Glucose Pending 11/28/16 0644: PT 21.9 H, INR 2.10 H Assessment/Plan Assessment: 75-year-old woman current everyday smoker from assisted living, with past medical history COPD not on home oxygen, lung cancer status post right lobe resection, deep vein thrombosis status post IVC filter and Coumadin, osteoarthritis on alendronate, GERD, hypothyroidism, hypertension, anxiety, microcytic anemia, allergic rhinitis, hypercholesterolemia, fibromyalgia, spinal stenosis, major depression, emphysema, nonrheumatic mitral valve prolapse, narcolepsy with current admission for desaturation to 88% and shortness of breath. No acute changes noted her CXR was Hospital day 2 Continues to be short of breath at rest. afebrile, stable BP, saturating 91% on 2L NC. Nonocclusive thrombus is present within the left common femoral vein, new since prior study dated 06/29/2011. CT scan done yesterday was interdeterminate subsegemental PE. She is more lethargic today, however easily arousable problem list: Acute hypoxic respiratory failure h/o DVT on coumadin urinary in continence osteoarthritis hypothyroidism major depression smoking Plan continue on General medicine, vitals per protocol ATC, TRC/nebs, continue IV solumedrol 40mg IV q8 and Azithromycin day 3 per patient she dose not use CPAP at home, her last sleep study was 10 years ago. if she continues to be lethargic will obtain ABG to r/o CO2 retention will obtain UA to see if there is any infection INR 2.10, will dose 3mg of coumadin continue fingersticks while on IV steroids, will add low dose sliding scale continue home meds of fosamax,trazadone,diazepam,omeprozole, lyrica and synthroid. DVT ppx with coumadin regular diet DNR/DNI Problem List: 1. History of DVT (deep vein thrombosis) Pain Ratin Pain Location: na Pain Goal: Pain 4 or less Pain Plan: current regimen Tomorrow's Labs & Rationales: none required GRETTA TORIBIO MD 11/28/16 1154: Attending MD Review Statement Attending Statement Attending Statement: examined this patient, discuss w/resident/PA/WEDGER MACHINE, agreed w/resident/PA/WEDGER MACHINE, reviewed EMR data (avail), discussed with nursing, discussed with case mgmt, amended to note Attending Assessment/Plan: Patient seen and examined. Mildly lethargic but does in any acute distress. Continues complain of cough or shortness of breath. Denies chest pain. Denies abdominal pain. Reports some discomfort in her left lower extremity. Chest CT done yesterday to rule out pulmonary embolic ensure no evidence of large emboli. However could not rule out subsegmental emboli due to motion artifact. This is discussed with bingo caller Martir Ornelas MD. His recommendations are for patient to continue on anticoagulation with Coumadin since she was mildly subtherapeutic on presentation. We'll continue current course of bronchodilator therapy and keep her on the current dose of steroids as she continues to be wheezing actively on examination. We'll reevaluate the patient to the course of the day. If she continues to be lethargic we'll consider obtaining an ABG to rule out CO2 retention.
--- NOTE | 2016-11-28 10:16 | Discharge Summary ---
Visit Information Visit Dates Admission Date: 11/26/16 Discharge Date: 11/30/16 Hospital Course Course Attending Physician: GRETTA TORIBIO M.D Primary Care Physician: JAY LISA,[facility] Course: Patient was sent from assisted living through EMS for increased shortness of breath and wheezing along with congested cough. Patient states that since last 2 days she is getting worsening of shortness of breath even at rest, with wheezing extensively, productive cough with yellowish sputum production. She feels very tired and fatigued, denies chest pain, chest tightness, fever, chills, headache, loss of consciousness, PND, orthopnea. She developed left lower extremity swelling that started early on the morning of admission. Continued on IV steroids, nebs, Zithromax. FiO2 tapered his saturations allow. Patient was amenable to pulmonary rehabilitation in hopes of facilitating smoking cessation. aTransitions to po azithromycin prednisone taper fter which she will be discharged to nursing home facility for pulmonary rehabilitation as recommended by her skeins yarn examiner. Patient is in agreement with this plan. Patient's INR is currently therapeutic. She did present with a subtherapeutic, and evidence of DVT new from studies last done in 2010. Would recommend outpatient follow-up with her primary care provider. Recommend repeat Doppler of lower extremity in 2 weeks to ensure there is no progression of the clot at which point she should be continued on anticoagulation with Coumadin. If there is evidence of clot progression despite therapeutic INR consideration should be given to changing her anticoagulation therapy. # Acute Respiratory Failure # COPD exacerbation # History of lung cancer # Left lower extremity swelling # History of DVT # History of hypothyroidism, anxiety, chronic pain Allergies: Coded Allergies: Penicillins (UNKNOWN 05/01/16) atorvastatin (UNKNOWN 05/01/16) nickel (UNKNOWN 05/01/16) morphine (UNKNOWN 05/01/16) Pertinent Lab Results: Vital Signs Date Time Temp Pulse Resp B/P B/P Pulse O2 O2 Flow FiO2 Mean Ox Delivery Rate 11/28 0830 91 Nasal 2.0L Cannula 11/28 0601 98.7 76 20 124/62 96 Nasal 2.0L Cannula 11/28 0000 Nasal 2.0L Cannula 11/27 2242 98.6 88 20 102/60 95 Nasal 2.0L Cannula 11/27 1633 97 Nasal 2.0L Cannula 11/27 1600 Nasal 2.0L Cannula 11/27 1455 99.0 101 22 116/67 96 11/27 0839 96 Nasal 2.0L Cannula 11/27 0830 Nasal 2.0L Cannula 11/27 0800 Nasal 2.0L Cannula 11/27 0653 98.3 76 28 140/78 95 11/27 0044 94 Nasal 2.0L Cannula 11/27 0035 98.7 70 24 118/70 95 11/26 2310 99 Nasal 2.0L Cannula 11/26 2017 95 Nasal 2.0L Cannula 11/26 2013 97.2 84 18 147/76 95 Room Air Room Air Last 24 Hours I&Os 11/28 1600 11/28 0800 11/28 0000 Intake Total 200 350 Output Total 500 Balance -300 350 Intake, Oral 200 350 Output, Urine 500 Laboratory Tests 11/28/16 0644: PT 21.9 H, INR 2.10 H Microbiology Date/Time Procedure - Status Source Growth 11/26 2316 Blood Culture - RES BLOOD Orders Procedure Date/time Status URINALYSIS 11/28 0906 Active PROTHROMBIN TIME 11/28 06 Complete MISSING MEDICATION FORM 11/28 UNK Active Regular Diet 11/27 B Active RT: Evaluation 11/27 0838 Active D-DIMER 11/27 0830 Complete Change service to 11/27 0743 Active PROTHROMBIN TIME 11/27 0600 Complete Code Status 11/27 0311 Active Pathway - chart 11/27 0152 Active Pathway - chart 11/27 0143 Active House Staff 11/27 0143 Active Vital Signs 11/27 0044 Active Teach/Educate 11/27 0044 Active Pain Treatment and Response 11/27 0044 Active Nutritional Intake, Monitor 11/27 0044 Active Isolation 11/27 0044 Active Intake & Output 11/27 0044 Active Patient Care Conference 11/27 0044 Active Activity/Ambulation 11/27 0044 Active THERAPIST ORDERS 11/27 UNK Complete OXYGEN SETUP (GEN) 11/27 UNK Complete Lab Add-on Test 11/27 UNK Active FingerStick- Glucose 11/27 UNK Active TRC EVALUATION (GEN) 11/26 2321 Complete Patient Data 11/26 230 Active Saline Lock 11/26 2252 Active Misc Message 11/26 2252 Active ED Holding Orders 11/26 225 Active Vital Signs 11/26 2252 Active Code Status 11/26 225 Complete Admit to inpatient 11/27 2251 Active BLOOD CULTURE 11/26 2234 Active Intake & Output 11/26 2016 Active TROPONIN LEVEL 11/27 2011 Complete PARTIAL THROMBOPLASTIN TIME 11/27 2011 Complete PROTHROMBIN TIME 11/27 2011 Complete COMPREHENSIVE METABOLIC PANEL 11/27 2011 Complete CBC WITHOUT DIFFERENTIAL 11/27 2011 Complete B-TYPE NATRIURETIC PEP (BNP) 11/27 2011 Complete EKG 11/27 2007 Active Disposition Summary Disposition Principal Diagnosis: see above Additional Diagnosis: see above Discharge Disposition: str Discharge Instructions General Discharge Information Code Status: Do Not Resucitate/Intubat Patient's Diet: regular Patient's Activity: self limited Follow-Up Instructions/Appts: [place] Medications at Discharge Discharge Medications: Stop taking the following medications: Prednisone (Prednisone) 10 MG TABLET ORAL DAILY Naproxen (Naprosyn) 500 MG TABLET ORAL TWICE DAILY Continue taking these medications: Levothyroxine Sodium (Levothyroxine Sodium) 88 MCG TABLET 1 Tablet ORAL DAILY BEFORE BREAKFAST Comments: Last Taken: 11/30/16 Time: 6:00 AM Escitalopram Oxalate (Lexapro) 20 MG TABLET 1 Tablet ORAL DAILY Comments: Last Taken: 11/30/16 Time: 9:30 AM Cyanocobalamin (Vitamin B-12) 1,000 MCG TABLET 1 Tablet ORAL DAILY Comments: Last Taken: 11/30/16 Time: 9:30 AM Trazodone HCl (Trazodone HCl) 50 MG TABLET 1 Tablet ORAL Every night Comments: Last Taken: 11/30/16 Time: 10:30 PM Folic Acid (Folic Acid) 0.8 MG TABLET 1 Tablet ORAL THREE TIMES DAILY Comments: Last Taken: 11/30/16 Time: 9:30 AM Albuterol Sulfate (Proventil Hfa) 90 MCG HFA.AER.AD 2 Puff Inhale through mouth Every 4 hours as needed for COPD Comments: NOT GIVEN AT HOSPITAL Ergocalciferol (Vitamin D2) (Vitamin D2) 50,000 UNIT CAPSULE 1 Capsule ORAL EVERY SUNDAY Comments: NOT GIVEN IN HOSPITAL Ipratropium/Albuterol Sulfate (Iprat-Albut 0.5-3(2.5) MG/3 Ml) 0.5 MG-3 MG (2.5 MG BASE)/3 ML AMPUL.NEB 1 Vial Inhale Solution 4 TIMES A DAY Comments: Last Taken: 11/30/16 Time: 12:00 PM Mometasone Furoate (Nasonex) 50 MCG SPRAY.PUMP 2 [place] Both sides of nose DAILY Comments: NOT GIVEN IN HOSPITAL Acetaminophen (Tylenol Extra Strength) 500 MG TABLET 2 Tablet ORAL TWICE DAILY Comments: Last Taken: 11/28/16 Time: 12:00 PM Gabapentin (Neurontin) 400 MG CAPSULE 1 Capsule ORAL TWICE DAILY Comments: Last Taken: 11/30/16 Time: 9:30 AM Omeprazole (Omeprazole) 40 MG CAPSULE.DR 1 Capsule ORAL DAILY Comments: Last Taken: 11/30/16 Time: 6:00 AM Bisacodyl (Dulcolax) 5 MG TABLET.DR 1 Tablet ORAL DAILY Comments: Last Taken: 11/30/16 Time: 9:30 AM Alendronate Sodium (Fosamax) 70 MG TABLET 1 Tablet ORAL EVERY SUNDAY Instructions: in the morning, at least 30 minutes before the first food, beverage, or medication of the day Comments: NOT GIVEN IN HOSPTIAL Fluticasone/Salmeterol (Advair 500-50 Diskus) 500 MCG-50 MCG/DOSE BLST.W.DEV 1 Puff Inhale through mouth TWICE DAILY Comments: NOT GIVEN IN HOSPITAL Lidocaine (Lidoderm) 5 % ADH..PATCH 1 Patch On the skin DAILY Instructions: may wear up to 12 hours Comments: Last Taken: 11/30/16 Time: 11:00 AM Tiotropium [place] (Spiriva) 18 MCG CAP.W.DEV 1 Capsule Inhale through mouth DAILY Comments: Last Taken: 11/30/16 Time: 9:30 AM Pregabalin (Lyrica) 100 MG CAPSULE 1 Capsule ORAL THREE TIMES DAILY Comments: Last Taken: 11/30/16 Time: 4:00 PM Diazepam (Diazepam) 5 MG TABLET 1 Tablet ORAL 2 x Daily as needed as needed for anxiety/insomnia Comments: Last Taken: 11/28/16 Time: 12:30 PM Warfarin Sodium (Coumadin) 3 MG TABLET 1 Tablet ORAL DAILY Qty = 30 Comments: Last Taken: 11/29/16 Time: 4:30 PM Melatonin (Melatonin) 3 MG TABLET 1 Tablet ORAL Every night Comments: NOT GIVEN IN HOSPITAL Butalb/Acetaminophen/Caffeine (Fioricet 50-300-40 MG Capsule) 50 MG-300 MG-40 MG CAPSULE 1 Capsule ORAL EVERY 4 HOURS NEEDED as needed for HEADACHE Comments: NOT GIVEN WHILE IN HOSPITAL Budesonide (Budesonide) 0.25 MG/2 ML AMPUL.NEB 1 Vial Inhale Solution TWICE DAILY Instructions: Reason to Stop at ADM: TRC Comments: NOT GIVEN WHILE IN HOSPITAL Ferrous Sulfate (Ferrous Sulfate) 325 MG (65 MG IRON) TABLET 1 Tablet ORAL TWICE DAILY Comments: Last Taken: 11/30/16 Time: 9:30 AM Start taking the following new medications: Prednisone (Prednisone) 10 MG TABLET 0 ORAL TAPER Qty = 20 No Refills Instructions: TAPER FOLLOWS: 4 TABS FOR 2 DAYS; 3 TABS FOR 2 DAYS; 2 TABS FOR 2 DAYS; 1 TAB FOR 2 DAYS; Comments: NOT GIVEN IN HOSPITAL (IV SOULUMEDROL GIVEN) Azithromycin (Azithromycin) 250 MG TABLET 1 Dose Pack ORAL DAILY Qty = 1 No Refills Instructions: 2 the first day followed by 1 for days 2-5 Comments: NOT GIVEN IN HOSPITAL Nicotine (Nicoderm Cq) 14 MG/24 HOUR PATCH.TD24 1 Patch On the skin DAILY Qty = 28 No Refills Comments: NOT GIVEN IN HOSPITAL Copies To: FLO LISA,CORWIN THOMPSON MD,GRACE Attending MD Review Statement Documenting Attending: GRETTA TORIBIO M.D Other Findings: I have reviewed the discharge summary. Patient is medically stable to be discharged.
[2016-11-28 15:18] VITALS: BP 114/60
[2016-11-28 22:21] VITALS: BP 112/62
[2016-11-29 06:48] VITALS: BP 150/84
--- NOTE | 2016-11-29 08:06 | PN- Pulmonary ---
Subjective HPI/Critical Care Issues: Patient feels somewhat improved. [place] spasm has diminished. Objective Current Medications: Current Medications Sig/Eulogio Start time Last Medication Dose Route Stop Time Status Admin Acetaminophen 650 MG .STK-MED ONE 11/28 1231 DC PO 11/28 1232 Acetaminophen 650 MG Q6P PRN 11/27 0200 AC 11/28 PO 1231 Acetaminophen 1,000 MG Q6P PRN 11/27 0200 AC 11/27 IV 1552 Albuterol Sulfate 3 ML EVERY 4 HRS/AWAKE 11/27 1200 AC 11/28 INH 2025 Albuterol Sulfate 3 ML Q6 PRN 11/27 0100 AC INH Alendronate Sodium 70 MG QFRI 12/01 0700 AC PO Azithromycin 500 MG DAILY 11/27 1000 AC 11/28 Sodium Chloride 250 ML IV 0948 Bisacodyl 5 MG DAILY 11/27 1000 AC 11/28 PO 0948 Budesonide/ 2 PUF BID 11/27 1000 AC 11/28 Formoterol Fumarate INH 2116 Cyanocobalamin 1,000 MCG DAILY 11/27 1000 AC 11/28 PO 0948 Diazepam 5 MG BID PRN 11/27 1000 AC 11/28 PO 1231 Escitalopram Oxalate 20 MG DAILY 11/27 1000 AC 11/28 PO 0948 Ferrous Sulfate 325 MG BID 11/27 1000 AC 11/28 PO 2116 Folic Acid 1 MG DAILY 11/27 1000 AC 11/28 PO 0948 Gabapentin 400 MG BID 11/27 1000 AC 11/28 PO 2115 Guaifenesin 600 MG Q12 11/27 1000 AC 11/28 PO 2116 Insulin Aspart 0 TIDAC 11/28 1200 AC 11/29 SC 0747 Levothyroxine Sodium 0.088 MG DAILY AC 11/27 0700 AC 11/29 PO 0549 Lidocaine 1 PAT DAILY 11/27 1000 AC 11/28 EXT 0950 Melatonin 3 MG QPM 11/27 2200 AC 11/28 PO 2332 Methylprednisolone 40 MG Q8 11/27 0600 AC 11/29 IV 0549 Omeprazole 40 MG DAILY AC 11/27 0700 AC 11/29 PO 0549 Pregabalin 100 MG TID 11/26 2310 AC 11/28 PO 2115 Tiotropium [place] 1 PUF DAILY 11/27 1000 AC 11/28 INH 0947 Trazodone HCl 50 MG QPM 11/27 2200 AC 05/02 PO 2332 Warfarin Sodium 3 MG COUMADIN 1700 ONE 11/28 1700 DC 11/28 PO 11/28 1701 1658 Vital Signs & I&O Last 24 Hrs of Vitals and I&O: Vital Signs Date Time Temp Pulse Resp B/P B/P Pulse O2 O2 Flow FiO2 Mean Ox Delivery Rate 11/29 0648 97.5 62 18 150/84 98 Nasal 2.0L Cannula 11/29 0000 Nasal 2.0L Cannula 11/28 2221 97.8 87 20 112/62 94 Nasal 2.0L Cannula 11/28 1615 95 Nasal 2.0L Cannula 11/28 1600 94 Nasal 2.0L Cannula 11/28 1518 98.3 97 20 114/60 94 Room Air 11/28 0830 91 Nasal 2.0L Cannula Intake & Output 11/29 1600 11/29 0800 11/29 0000 Intake Total 912 1970 Output Total 750 950 Balance 162 1020 Intake, IV 12 250 Intake, Oral 900 1720 Number 0 0 Bowel Movements Output, Urine 750 950 Oxygen saturation 2 L 98% exam for chest shows decreased wheezing cardiac exam shows regular S1 and S2 without murmurs Impression/Plan Impression/Plan Impression/Plan: 76-year-old with severe COPD actively smoking be admitted with acute wheezing. She is again been counseled regarding the need for smoking cessation recommend short-term rehabilitation Recommendations: Begin oral prednisone. Taper FiO2 his saturations allow. Would recommend pulmonary rehabilitation in hopes of facilitating smoking cessation. Optimize INR
[2016-11-29 08:37] LABS: PT 25.4 SEC (9.4-12.5)
--- NOTE | 2016-11-29 11:27 | PN- Housestaff ---
ABDELRAHMAN SHAH 11/29/16 1127: Subjective Follow-up For: Dyspnea Desaturation Subjective: Seen and examined patient, continues to complain of difficulty breathing. Per nursing she gets short of breath on ambulation. Denies fevers, chest pain, abdominal pain. Review of Systems Constitutional: Denies: chills, diaphoresis, fever, malaise, weakness, unexplained weight loss. Cardiovascular: Denies: chest pain, edema, orthopena, palpitations, peripheral edema, syncope. Respiratory: Denies: cough, hemoptysis, orthopnea, short of breath, sputum production, stridor, wheezing. Gastrointestinal: Denies: abdominal pain, bloating, constipation, diarrhea, distention, bowel incontinence, melena, nausea, bloody stool, changes in stool, vomiting, steatorrhea. Objective Last 24 Hrs of Vital Signs/I&O Vital Signs Date Time Temp Pulse Resp B/P B/P Pulse O2 O2 Flow FiO2 Mean Ox Delivery Rate 11/29 1115 Nasal 2.0L Cannula 11/29 0648 97.5 62 18 150/84 98 Nasal 2.0L Cannula 11/29 0000 Nasal 2.0L Cannula 11/28 2221 97.8 87 20 112/62 94 Nasal 2.0L Cannula 11/28 1615 95 Nasal 2.0L Cannula 11/28 1600 94 Nasal 2.0L Cannula 11/28 1518 98.3 97 20 114/60 94 Room Air Intake & Output 11/29 1600 11/29 0800 11/29 0000 Intake Total 912 1970 Output Total 750 950 Balance 162 1020 Intake, IV 12 250 Intake, Oral 900 1720 Number 0 0 Bowel Movements Output, Urine 750 950 Physical Exam General Appearance: Alert, Oriented X3, Cooperative, No Acute Distress Cardiovascular: Regular Rate, Normal S1, Normal S2 Lungs: b/l rhonchi and expiratory wheezes Extremities: No Edema Current Medications: Current Medications Sig/Eulogio Start time Last Medication Dose Route Stop Time Status Admin Acetaminophen 650 MG .STK-MED ONE 11/28 1231 DC PO 11/28 1232 Acetaminophen 650 MG Q6P PRN 11/27 0200 AC 11/28 PO 1231 Acetaminophen 1,000 MG Q6P PRN 11/27 0200 AC 11/27 IV 1552 Albuterol Sulfate 3 ML EVERY 4 HRS/AWAKE 11/27 1200 AC 11/29 INH 0812 Albuterol Sulfate 3 ML Q6 PRN 11/27 0100 AC INH Alendronate Sodium 70 MG QFRI 12/01 0700 AC PO Azithromycin 500 MG DAILY 11/27 1000 AC 11/29 Sodium Chloride 250 ML IV 1000 Bisacodyl 5 MG DAILY 11/27 1000 AC 11/29 PO 1000 Budesonide/ 2 PUF BID 11/27 1000 AC 11/29 Formoterol Fumarate INH 1000 Cyanocobalamin 1,000 MCG DAILY 11/27 1000 AC 11/29 PO 1000 Diazepam 5 MG BID PRN 11/27 1000 AC 11/28 PO 1231 Escitalopram Oxalate 20 MG DAILY 11/27 1000 AC 11/29 PO 1000 Ferrous Sulfate 325 MG BID 11/27 1000 AC 11/29 PO 1000 Folic Acid 1 MG DAILY 11/27 1000 AC 11/29 PO 1000 Gabapentin 400 MG BID 11/27 1000 AC 11/29 PO 1000 Guaifenesin 600 MG Q12 11/27 1000 AC 11/29 PO 1001 Insulin Aspart 0 TIDAC 11/28 1200 AC 11/29 SC 0747 Levothyroxine Sodium 0.088 MG DAILY AC 11/27 0700 AC 11/29 PO 0549 Lidocaine 1 PAT DAILY 11/27 1000 AC 11/29 EXT 1001 Melatonin 3 MG QPM 11/27 2200 AC 11/28 PO 2332 Methylprednisolone 40 MG 0600,1800 11/29 1800 AC IV Methylprednisolone 40 MG Q12 11/29 1000 DC IV Methylprednisolone 40 MG Q8 11/27 0600 DC 11/29 IV 0549 Omeprazole 40 MG DAILY AC 11/27 0700 AC 11/29 PO 0549 Pregabalin 100 MG TID 11/26 2310 AC 11/29 PO 1000 Tiotropium [place] 1 PUF DAILY 11/27 1000 AC 11/29 INH 1000 Trazodone HCl 50 MG QPM 11/27 2200 AC 11/28 PO 2332 Warfarin Sodium 3 MG COUMADIN 1700 ONE 11/29 1700 AC PO 11/29 1701 Warfarin Sodium 3 MG COUMADIN 1700 ONE 11/28 1700 DC 11/28 PO 11/28 1701 1658 Last 24 Hrs of Lab/Mick Results Last 24 Hrs of Labs/Mics: Laboratory Tests 11/29/16 0638: PT 25.4 H, INR 2.44 H 11/28/16 1455: pH 7.40, pCO2 44, pO2 79 L, HCO3 27, ABG O2 Sat (Measured) 96.0, P-50 (Temp Corrected) YES, Carboxyhemoglobin 0.7 L, O2 Concentration % 2L, Temperature 98.7, O2 Delivery Method NC, Phlebotomy Draw Site RIGHT BRACHIAL Assessment/Plan Assessment: 75-year-old woman current everyday smoker from assisted living, with past medical history COPD not on home oxygen, lung cancer status post right lobe resection, deep vein thrombosis status post IVC filter and Coumadin, osteoarthritis on alendronate, GERD, hypothyroidism, hypertension, anxiety, microcytic anemia, allergic rhinitis, hypercholesterolemia, fibromyalgia, spinal stenosis, major depression, emphysema, nonrheumatic mitral valve prolapse, narcolepsy with current admission for desaturation to 88% and shortness of breath. No acute changes noted on her CXR. Hospital day 3 Continues to be short of breath at rest. afebrile, stable BP, saturating 94% on 2L NC. Nonocclusive thrombus is present within the left common femoral vein, new since prior study dated 06/29/2011. CT scan was interdeterminate for subsegemental PE. ABG was wnl yesterday. No indication of infection on UA. Clinically more awake today however continues to be more short of breath on excertion. problem list: Acute hypoxic respiratory failure h/o DVT on coumadin urinary in continence osteoarthritis hypothyroidism major depression smoking Plan continue on General medicine, vitals per protocol ATC, TRC/nebs, IV solumedrol decreased to 40mg IV q12 and Azithromycin day 4 INR 2.44, will dose 3mg of coumadin continue fingersticks while on IV steroids, continue low dose sliding scale continue home meds of fosamax,trazadone,diazepam,omeprozole, lyrica and synthroid. DVT ppx with coumadin regular diet DNR/DNI Problem List: 1. Shortness of breath 2. Hypothyroidism 3. History of DVT (deep vein thrombosis) 4. Nicotine dependence Pain Ratin Pain Location: na Pain Goal: Pain 4 or less Pain Plan: current regimen Tomorrow's Labs & Rationales: none required GRETTA TORIBIO MD 11/29/16 1146: Attending Review Statement Attending Statement Attending MD Statement: examined this patient, discuss w/resident/PA/HARDWOOD FLOOR FINISHER, agreed w/resident/PA/HARDWOOD FLOOR FINISHER, reviewed EMR data (avail), discussed with nursing, discussed with case mgmt, amended to note Attending Assessment/Plan: Patient seen and examined. She appears more alert today. She is not in any respiratory distress. ABG done yesterday showed no evidence of CO2 retention. She continues to report some cough with phlegm which he finds difficult to expectorate. She denies any chest pain. Denies any palpitations. She reports that she is able to ambulate around the room however she does admit to shortness of breath with exertion. She denies any lower extremity pain. On examination she has no cough swelling or tenderness. Recommendations: -We will wean her steroid therapy down from every 8 hours to every 12 hours today. -Tomorrow she may be transitioned to oral prednisone after which she will be discharged to group home facility for pulmonary rehabilitation as recommended by her fire protection engineer. Patient is in agreement with this plan. -Patient's INR is currently therapeutic. She did present with a subtherapeutic, and evidence of DVT new from studies last done in 2010. -Would recommend outpatient follow-up with her primary care provider. -Recommend repeat Doppler of lower extremity in 2 weeks to ensure there is no progression of the clot at which point she should be continued on anticoagulation with Coumadin. If there is evidence of clot progression despite therapeutic INR consideration should be given to changing her anticoagulation therapy.
[2016-11-29] MEDS ORDERED: PREDNISONE10 M2 PO (12:44)
[2016-11-29] MEDS ORDERED: AZITHROMYCIN250 M1 PO (12:49)
--- NOTE | 2016-11-29 12:50 | Patient Discharge Instructions ---
Discharge Instructions General Discharge Information You were seen/treated for: COPD EXACERBATION Watch for these problems: SHROTNESS OF BREATHE, COUGH, MUCUS, FEVER, CHILLS, DIFFICULTY BREATHEING, WHEEZING Diet Continue normal diet: Yes Activity Activity Self Limited: Yes Acute Coronary Syndrome Inclusion Criteria At DC or during hospital stay patient has or had the following: ACS DIAGNOSIS No Discharge Core Measures Meds if any: Prescribed or Continued at Discharge Meds if any: NOT Prescribed or Continued at Discharge Congestive Heart Failure Inclusion Criteria At DC or during hospital stay patient has or had the following: CHF DIAGNOSIS No Discharge Core Measures Meds if any: Prescribed or Continued at Discharge Meds if any: NOT Prescribed or Continued at Discharge Cerebrovascular accident Inclusion Criteria At DC or during hospital stay patient has or had the following: CVA/TIA Diagnosis No Discharge Core Measures Meds if any: Prescribed or Continued at Discharge Meds if any: NOT Prescribed or Continued at Discharge Venous thromboembolism Inclusion Criteria VTE Diagnosis No VTE Type NONE VTE Confirmed by (Test) NONE Discharge Core Measures - Per Current guidelines, there needs to be overlap - treatment for the first 5 days of Warfarin therapy. - If discharged on Warfarin prior to 5 days of - overlap therapy, the patient will need to be - assessed for post discharge needs including - *Post discharge parental anticoagulation - *Warfarin and/or parental anticoagulation education - *Follow up date to check INR post discharge At least 5 days overlap therapy as Inpatient No Meds if any: Prescribed or Continued at Discharge Note: Overlap Therapy is Warfarin and Anticoagulant Meds if any: NOT Prescribed or Continued at Discharge
[2016-11-29 14:33] VITALS: BP 134/80
[2016-11-29 22:31] VITALS: BP 118/64
[2016-11-30 06:19] VITALS: BP 112/72
[2016-11-30 08:23] LABS: PT 32.7 SEC (9.4-12.5)
--- NOTE | 2016-11-30 08:26 | PN- Pulmonary ---
Subjective HPI/Critical Care Issues: Patient is slowly improving oxygen flow rate has been tapered to 1 L Objective Current Medications: Current Medications Sig/Eulogio Start time Last Medication Dose Route Stop Time Status Admin Acetaminophen 650 MG Q6P PRN 11/27 0200 AC 05 PO 1231 Acetaminophen 1,000 MG Q6P PRN 11/27 0200 AC 05 IV 1552 Albuterol Sulfate 3 ML EVERY 4 HRS/AWAKE 11/27 1200 AC 11/29 INH 2045 Albuterol Sulfate 3 ML Q6 PRN 11/27 0100 AC INH Alendronate Sodium 70 MG QFRI 12/01 0700 AC PO Azithromycin 500 MG DAILY 11/27 1000 AC 11/29 Sodium Chloride 250 ML IV 1000 Bisacodyl 5 MG DAILY 11/27 1000 AC 11/29 PO 1000 Budesonide/ 2 PUF BID 11/27 1000 AC 11/29 Formoterol Fumarate INH 2249 Cyanocobalamin 1,000 MCG DAILY 11/27 1000 AC 11/29 PO 1000 Diazepam 5 MG BID PRN 11/27 1000 AC 11/28 PO 1231 Escitalopram Oxalate 20 MG DAILY 11/27 1000 AC 11/29 PO 1000 Ferrous Sulfate 325 MG BID 11/27 1000 AC 11/29 PO 2246 Folic Acid 1 MG DAILY 11/27 1000 AC 11/29 PO 1000 Gabapentin 400 MG BID 11/27 1000 AC 11/29 PO 2246 Guaifenesin 600 MG Q12 11/27 1000 AC 11/29 PO 2246 Insulin Aspart 0 TIDAC 11/28 1200 AC 11/29 SC 1710 Levothyroxine Sodium 0.088 MG DAILY AC 11/27 0700 AC 11/30 PO 0550 Lidocaine 1 PAT DAILY 11/27 1000 AC 11/29 EXT 1001 Melatonin 3 MG QPM 11/27 2200 AC 05 PO 2246 Methylprednisolone 40 MG 0600,1800 05/03 1800 AC 11/30 IV 0550 Methylprednisolone 40 MG Q12 11/29 1000 DC IV Methylprednisolone 40 MG Q8 11/27 0600 DC 11/29 IV 0549 Omeprazole 40 MG DAILY AC 11/27 0700 AC 11/30 PO 0550 Patient Medication 1 ED .STK-MED ONE 11/29 1405 DC Teaching ED 11/29 1406 Pregabalin 100 MG TID 11/26 2310 AC 11/29 PO 2248 Tiotropium [place] 1 PUF DAILY 05/01 1000 AC 11/29 INH 1000 Trazodone HCl 50 MG QPM 11/27 2200 AC 11/29 PO 2246 Warfarin Sodium 3 MG COUMADIN 1700 ONE 11/29 1700 DC 11/29 PO 11/29 1701 1710 Vital Signs & I&O Last 24 Hrs of Vitals and I&O: Vital Signs Date Time Temp Pulse Resp B/P B/P Pulse O2 O2 Flow FiO2 Mean Ox Delivery Rate 11/30 618 97.9 67 22 112/72 96 Nasal 1.0L Cannula 11/30 0000 Nasal 1.0L Cannula 11/29 2231 97.5 88 20 118/64 95 Nasal 1.0L Cannula 11/29 1620 95 Nasal 1.0L Cannula 11/29 1531 93 Nasal 2.0L Cannula 11/29 1433 98.5 77 20 134/80 92 Nasal 1.0L Cannula 11/29 1151 93 Nasal 1.0L Cannula 11/29 1115 Nasal 2.0L Cannula Intake & Output 11/30 1600 11/30 0800 11/30 0000 Intake Total 480 Output Total 300 Balance 180 Intake, Oral 480 Output, Urine 300 She saturation 1 L 96% exam for chest shows scattered wheezing cardiac exam shows regular S1 and S2 without murmurs Impression/Plan Impression/Plan Impression/Plan: 76-year-old with severe COPD actively smoking be admitted with acute wheezing. She is again been counseled regarding the need for smoking cessation recommend short-term rehabilitation Recommendations: DC IV steroids Begin oral prednisone. Taper FiO2 his saturations allow. Would recommend pulmonary rehabilitation in hopes of facilitating smoking cessation. Optimize INR
--- NOTE | 2016-11-30 08:43 | PN- Housestaff ---
ABDELRAHMAN SHAH 11/30/16 0843: Subjective Follow-up For: Dyspnea Desaturation Subjective: Seen and examined patient, continues to complain of difficulty breathing. Still gets short of breath on ambulation. Denies fevers, chest pain, abdominal pain. Review of Systems Constitutional: Denies: chills, diaphoresis, fever, malaise, weakness, unexplained weight loss. Respiratory: Reports: short of breath. Denies: cough, hemoptysis, orthopnea, sputum production, stridor, wheezing. Gastrointestinal: Denies: abdominal pain, bloating, constipation, diarrhea, distention, bowel incontinence, melena, nausea, bloody stool, changes in stool, vomiting, steatorrhea. Objective Last 24 Hrs of Vital Signs/I&O Vital Signs Date Time Temp Pulse Resp B/P B/P Pulse O2 O2 Flow FiO2 Mean Ox Delivery Rate 11/30 0837 95 Nasal 2.0L Cannula 11/30 0823 Nasal 2.0L Cannula 11/30 0800 93 Nasal 1.0L Cannula 11/30 0619 97.9 67 22 112/72 96 Nasal 1.0L Cannula 11/30 0000 Nasal 1.0L Cannula 11/29 2231 97.5 88 20 118/64 95 Nasal 1.0L Cannula 11/29 1620 95 Nasal 1.0L Cannula 11/29 1531 93 Nasal 2.0L Cannula 11/29 1433 98.5 77 20 134/80 92 Nasal 1.0L Cannula 11/29 1151 93 Nasal 1.0L Cannula 11/29 1115 Nasal 2.0L Cannula Intake & Output 11/30 1600 11/30 0800 11/30 0000 Intake Total 480 Output Total 300 Balance 180 Intake, Oral 480 Output, Urine 300 Physical Exam General Appearance: Alert, Oriented X3, Cooperative, No Acute Distress Cardiovascular: Regular Rate, Normal S1, Normal S2 Lungs: b/l rhonchi Abdomen: Soft, No Tenderness Extremities: No Edema Current Medications: Current Medications Sig/Eulogio Start time Last Medication Dose Route Stop Time Status Admin Acetaminophen 650 MG Q6P PRN 11/27 0200 AC 11/28 PO 1231 Acetaminophen 1,000 MG Q6P PRN 11/27 0200 AC 11/27 IV 1552 Albuterol Sulfate 3 ML EVERY 4 HRS/AWAKE 11/27 1200 AC 11/30 INH 0833 Albuterol Sulfate 3 ML Q6 PRN 05 0100 AC INH Alendronate Sodium 70 MG QFRI 12/01 0700 AC PO Azithromycin 500 MG DAILY 11/27 1000 AC 11/29 Sodium Chloride 250 ML IV 1000 Bisacodyl 5 MG DAILY 11/27 1000 AC 0503 PO 1000 Budesonide/ 2 PUF BID 11/27 1000 AC 11/29 Formoterol Fumarate INH 2249 Cyanocobalamin 1,000 MCG DAILY 11/27 1000 AC 11/29 PO 1000 Diazepam 5 MG BID PRN 11/27 1000 AC 11/28 PO 1231 Escitalopram Oxalate 20 MG DAILY 11/27 1000 AC 11/29 PO 1000 Ferrous Sulfate 325 MG BID 11/27 1000 AC 11/29 PO 2246 Folic Acid 1 MG DAILY 11/27 1000 AC 11/29 PO 1000 Gabapentin 400 MG BID 11/27 1000 AC 11/29 PO 2246 Guaifenesin 600 MG Q12 11/27 1000 AC 11/29 PO 2246 Insulin Aspart 0 TIDAC 11/28 1200 AC 11/29 SC 1710 Levothyroxine Sodium 0.088 MG DAILY AC 11/27 0700 AC 11/30 PO 0550 Lidocaine 1 PAT DAILY 11/27 1000 AC 11/29 EXT 1001 Melatonin 3 MG QPM 11/27 2200 AC 11/29 PO 2246 Methylprednisolone 40 MG 0600,1800 05/03 1800 DC 11/30 IV 0550 Methylprednisolone 40 MG Q12 11/29 1000 DC IV Methylprednisolone 40 MG Q8 11/27 0600 DC 05 IV 0549 Omeprazole 40 MG DAILY AC 11/27 0700 AC 11/30 PO 0550 Patient Medication 1 ED .STK-MED ONE 11/29 1405 CO Teaching ED 11/29 1406 Prednisone 60 MG DAILY 11/30 1000 UNVr PO Pregabalin 100 MG TID 11/26 2310 AC 11/29 PO 2248 Tiotropium [place] 1 PUF DAILY 11/27 1000 AC 11/29 INH 1000 Trazodone HCl 50 MG QPM 11/27 2200 AC 11/29 PO 2246 Warfarin Sodium 3 MG COUMADIN 1700 ONE 11/29 1700 DC 05 PO 11/29 1701 1710 Last 24 Hrs of Lab/Mick Results Last 24 Hrs of Labs/Mics: Laboratory Tests 11/30/16 0645: PT 32.7 H, INR 3.15 H Assessment/Plan Assessment: 75-year-old woman current everyday smoker from assisted living, with past medical history COPD not on home oxygen, lung cancer status post right lobe resection, deep vein thrombosis status post IVC filter and Coumadin, osteoarthritis on alendronate, GERD, hypothyroidism, hypertension, anxiety, microcytic anemia, allergic rhinitis, hypercholesterolemia, fibromyalgia, spinal stenosis, major depression, emphysema, nonrheumatic mitral valve prolapse, narcolepsy with current admission for desaturation to 88% and shortness of breath. No acute changes noted on her CXR. Hospital day 4 Continues to be short of breath at rest. afebrile, stable BP, saturating 94% on 2L NC. Nonocclusive thrombus is present within the left common femoral vein, new since prior study dated 06/29/2011. CT scan was interdeterminate for subsegemental PE. ABG was wnl yesterday. No indication of infection on UA. Clinically more awake today however continues to be more short of breath on excertion. problem list: Acute hypoxic respiratory failure h/o DVT on coumadin urinary in continence osteoarthritis hypothyroidism major depression smoking Plan continue on General medicine, vitals per protocol ATC, TRC/nebs, will transition to PO prednisone and Azithromycin day 4 today INR 3.15, will hold coumadin today continue fingersticks while on steroids, continue low dose sliding scale continue home meds of fosamax,trazadone,diazepam,omeprozole, lyrica and synthroid. DVT ppx with coumadin regular diet DNR/DNI awaiting bed to STR Problem List: 1. Lung cancer 2. History of DVT (deep vein thrombosis) 3. Nicotine dependence 4. COPD exacerbation Pain Ratin Pain Location: na Pain Goal: Pain 4 or less Pain Plan: current regimen Tomorrow's Labs & Rationales: inr MALU LISA,GRETTA 11/30/16 1230: Attending MD Review Statement Attending Statement Attending MD Statement: examined this patient, discuss w/resident/PA/TOW MOTOR DRIVER, agreed w/resident/PA/TOW MOTOR DRIVER, reviewed EMR data (avail), discussed with nursing, discussed with case mgmt, amended to note Attending Assessment/Plan: Patient seen and examined. Lying in bed. Not in acute distress. She reports feeling better compared to presentation. She however remains lethargic. She also complains of dyspnea with exertion. She reports difficulty with smoking cessation. She reports been declined by one of the nursing homes because she continued smoking able well and at the facility during her last admission. She is willing to try again. Auscultation and she has mild rhonchi bilaterally. She is maintaining saturation on 2 liters of oxygen. She denies any lower extremity pain. On examination she has local swelling or tenderness. Problems: 1. Acute hypoxic respiratory failure secondary to COPD exacerbation. Recommendations: -She is medically stable to be discharged today. -She will be discharged to detention facility for pulmonary rehabilitation -Need for smoking cessation has been reinforced with the patient. -She will be discharged on a prednisone taper and complete a course of azithromycin.
[2016-11-30 11:03] VITALS: BP 112/72
[2016-11-30] MEDS ORDERED: NICODERM CQ1 EAC1 TOP (13:50)
[2016-11-30 14:06] VITALS: BP 116/64
== END 2016-11-30 16:34 | DRG 190 ==
LOC: DELPENDDIS → ERH 20:07 → ERHI 22:52 → 2NB 22:52 → ENRESERV 23:09 → 2NB 11-27 00:25 → ENPENDDIS 11-30 07:48 → 2NB 11-30 16:34
PROVIDERS: Internal Medicine; Internal Medicine Cardiovascular Disease; Pediatrics; ADMIT Internal Medicine
DX: J44.1 Chronic obstructive pulmonary disease with (acute) exacerbation (principal); E11.65 Type 2 diabetes mellitus with hyperglycemia; J96.01 Acute respiratory failure with hypoxia; I34.1 Nonrheumatic mitral (valve) prolapse; Z85.118 Personal history of other malignant neoplasm of bronchus and lung; Z86.718 Personal history of other venous thrombosis and embolism; K21.9 Gastro-esophageal reflux disease without esophagitis; E03.9 Hypothyroidism, unspecified; I10 Essential (primary) hypertension; M79.7 Fibromyalgia; G47.419 Narcolepsy without cataplexy; F17.210 Nicotine dependence, cigarettes, uncomplicated; E78.5 Hyperlipidemia, unspecified; F32.9 Major depressive disorder, single episode, unspecified; F41.9 Anxiety disorder, unspecified; Z66 Do not resuscitate; E66.9 Obesity, unspecified; Z68.30 Body mass index [BMI] 30.0-30.9, adult; Z79.01 Long term (current) use of anticoagulants; R32 Unspecified urinary incontinence
CPT/HCPCS: 2NBP; ERO; 36415; 81001; 87040; 93005; 93010; 97110-GO; 97116-GO; 97161-GP; J0131; J0456; J0696; J1650; J2920; J2930; J3490; J7040

== ENCOUNTER 2017-08-26 08:08 | Inpatient (IN) | payer OTHER ==
[~2017-08-26] VITALS: Ht 160 cm; Wt 72.6 kg
[~2017-08-26 08:08] MED LIST changes: +NICODERM CQ1 EAC1 TOP
[2017-08-26 09:34] LABS: ABSOLUTE BASOPHIL COUNT 0 /CUMM (0.0-0.2); ABSOLUTE EOSINOPHIL COUNT 0.1 /CUMM (0.0-0.7); ABSOLUTE GRANULOCYTE CT 4.5 /CUMM (1.4-6.5); ABSOLUTE LYMPH COUNT 0.9 /CUMM (1.2-3.4); ABSOLUTE MONOCYTE COUNT 0.4 /CUMM (0.10-0.60); BASOPHIL % 0.3 % (0.0-2.0); EOSINOPHIL % 2.2 % (0-5); GRANULOCYTE % 74.7 % (42.2-75.2); HEMATOCRIT 37.4 % (37-47); MEAN CORPUSCULAR HGB 30.7 PG (27.0-31.0); MEAN CORPUSCULAR HGB CONC 33.4 G/DL (33.0-37.0); MEAN PLATELET VOLUME 8.3 FL (7.4-10.4); PLATELET COUNT 137 /CUMM (130-400); RBC DISTRIBUTION WIDTH 14.8 % (11.5-14.5); RED BLOOD CELL CT 4.07 /CUMM (4.20-5.40)
--- NOTE | 2017-08-26 09:49 | RADIOLOGY REPORT ---
EXAMINATION: XR CHEST CLINICAL INFORMATION: Productive cough, wheezing and weakness. Evaluate for pneumonia. COMPARISON: Previous chest x-rays most recent March [address] scan most recent November 2016. TECHNIQUE: 2 views of the chest were obtained. FINDINGS: The cardiac silhouette is enlarged but stable. There are surgical clips adjacent to the right pulmonary hilum. There is an abnormal parenchymal density in the right lateral midlung that is stable. The lungs are otherwise clear without evidence of a pneumonia. There is no pleural effusion or pneumothorax. There are degenerative changes of the thoracic spine. There is evidence of previous surgery to the cervical spine. IMPRESSION: Stable abnormal parenchymal density in the right lateral mid lung. No evidence of pneumonia.
--- NOTE | 2017-08-26 11:48 | ED DYSPNEA/ASTHMA COMPLAINT ---
History of Present Illness General Chief Complaint: Dyspnea (COPD, CHF, Other) Stated Complaint: SOB OF BREATH, SMOKER, NEB EN ROUTE Source: patient, old records Exam Limitations: no limitations Vital Signs & Intake/Output Vital Signs & Intake/Output Vital Signs Date Time Temp Pulse Resp B/P B/P Pulse O2 O2 Flow FiO2 Mean Ox Delivery Rate 08/26 1404 98.5 74 20 118/62 93 08/26 1300 98.0 76 20 148/80 94 Room Air 08/26 1035 97.6 74 16 118/74 93 Room Air 08/26 1013 96 08/26 0829 95 Room Air 08/26 0828 98.7 75 20 137/68 97 Room Air Allergies Coded Allergies: Penicillins (UNKNOWN 05/01/16) atorvastatin (UNKNOWN 05/01/16) nickel (UNKNOWN 05/01/16) morphine (UNKNOWN 05/01/16) Reconcile Medications Acetaminophen (Tylenol Extra Strength) 500 MG TABLET 2 TAB PO BID PAIN ( Reported) Albuterol Sulfate (Proventil Hfa) 90 MCG HFA.AER.AD 2 PUF INH Q4 PRN COPD ( Reported) Alendronate Sodium (Fosamax) 70 MG TABLET 1 TAB PO QFRI BONE (Reported) in the morning, at least 30 minutes before the first food, beverage, or medication of the day Azithromycin 250 MG TABLET 1 DP PO DAILY COPD EXACERBATION 2 the first day followed by 1 for days 2-5 Bisacodyl (Dulcolax) 5 MG TABLET.DR 1 TAB PO DAILY GI (Reported) Budesonide 0.25 MG/2 ML AMPUL.NEB 1 Vial INH/UDAY BID BREATHING PROBLEMS ( Reported) Reason to Stop at ADM: TRC Butalb/Acetaminophen/Caffeine (Fioricet 50-300-40 MG Capsule) 50 MG-300 MG-40 MG CAPSULE 1 CAP PO Q4 HRS NEEDED PRN HEADACHE (Reported) Cyanocobalamin (Vitamin B-12) 1,000 MCG TABLET 1 TAB PO DAILY SUPPLEMENT ( Reported) Diazepam 5 MG TABLET 1 TAB PO BIDP PRN anxiety/insomnia (Reported) Ergocalciferol (Vitamin D2) (Vitamin D2) 50,000 UNIT CAPSULE 1 CAP PO QFRI SUPPLEMENT (Reported) Escitalopram Oxalate (Lexapro) 20 MG TABLET 1 TAB PO DAILY MENTAL HEALTH ( Reported) Ferrous Sulfate 325 MG (65 MG IRON) TABLET 1 TAB PO BID SUPPLEMENT (Reported) Fluticasone/Salmeterol (Advair 500-50 Diskus) 500 MCG-50 MCG/DOSE BLST.W.DEV 1 PUF INH BID BREATHING PROBLEMS (Reported) Folic Acid 0.8 MG TABLET 1 TAB PO TID SUPPLEMENT (Reported) Gabapentin (Neurontin) 400 MG CAPSULE 1 CAP PO BID NEUROPATHY (Reported) Ipratropium/Albuterol Sulfate (Iprat-Albut 0.5-3(2.5) MG/3 Ml) 0.5 MG-3 MG (2.5 MG BASE)/3 ML AMPUL.NEB 1 Vial INH/UDAY 4 TIMES/DAY COPD (Reported) Levothyroxine Sodium 88 MCG TABLET 1 TAB PO DAILY AC THYROID (Reported) Lidocaine (Lidoderm) 5 % ADH..PATCH 1 PAT TOP DAILY PAIN (Reported) may wear up to 12 hours Melatonin 3 MG TABLET 1 TAB PO QPM SLEEP (Reported) Mometasone Furoate (Nasonex) 50 MCG SPRAY.PUMP 2 SPRAY [place] DAILY ALLERGIES ( Reported) Nicotine (Nicoderm Cq) 14 MG/24 HOUR PATCH.TD24 1 PAT TOP DAILY SMOKING CESSATION Omeprazole 40 MG CAPSULE.DR 1 CAP PO DAILY GI (Reported) Prednisone 10 MG TABLET 0 PO TAPER copd TAPER FOLLOWS: 4 TABS FOR 2 DAYS; 3 TABS FOR 2 DAYS; 2 TABS FOR 2 DAYS; 1 TAB FOR 2 DAYS; Pregabalin (Lyrica) 100 MG CAPSULE 1 CAP PO TID PAIN (Reported) Tiotropium [place] (Spiriva) 18 MCG CAP.W.DEV 1 CAP INH DAILY BREATHING PROBLEMS (Reported) Trazodone HCl 50 MG TABLET 1 TAB PO QPM SLEEP (Reported) Warfarin Sodium (Coumadin) 3 MG TABLET 1 TAB PO DAILY DVT Triage Note: PT BIBA FROM HOME FOR C/O SOB AND DYSURIA HAD BEEN SATING 95% ON RA UPON EMS ARRIVAL. SHE HAD A NEB ON ROUTE AND IS CURRENTLY IN NO DISTRESS SATTING 95% RA. PT IS A 1.5 PPD SMOKER Triage Nurses Notes Reviewed? yes Onset: Morning Duration: hour(s):, constant, continues in ED Timing: recent history Severity: moderate Activities at Onset: rest Prior Episodes/Possible Cause: illness exposure Modifying Factors: Worsens With: movement. Associated Symptoms: wheezing, weakness LMP (ages 10-50): post menopausal : No Patient currently breastfeeds: No HPI: Several hours prior to admission patient reports missed sitting on the couch and landed on her buttocks on a hard floor unable to get up. EMS called for lift assist and put into bed. Prior to admission she complained of productive cough shortness of breath weakness. She also complains of painful urination burning. She denies fever chills nausea vomiting diarrhea abdominal pain chest pain headache rash bleeding. Past History Travel History Traveled to [place] past 21 day No Medical History Any Pertinent Medical History? see below for history Neurological: narcolepsy EENT: allergies, cataracts, rhinitis Cardiovascular: hyperlipidemia, mitral valve prolapse Respiratory: COPD Gastrointestinal: constipation, diverticulitis, GERD Hepatic: NONE Renal: NONE Musculoskeletal: fibromyalgia, osteoarthritis, spinal stenosis (cervical) Psychiatric: anxiety, depression Endocrine: diabetes, hypothyroidism Blood Disorders: anemia, DVT BLE Cancer(s): lung cancer NUT CULLER/Reproductive: uterine/bladder prolapse History of MRSA: No History of VRE: No History of CDIFF: No Surgical History Surgical History: appendectomy, hysterectomy, lumpectomy, right lobectomy cervical fusion Psychosocial History Who do you live with Patient/Self What is your primary language Swedish Tobacco Use: Current Daily Use Daily Tobacco Use Amount/Type: => 5 Cigarettes daily Family History Family History, If Any: FATHER FH: CHF (congestive heart failure) Hypertension Hx Contributory? No Review of Systems Review of Systems Constitutional: Reports: see HPI, weakness. EENTM: Reports: no symptoms. Respiratory: Reports: see HPI, cough, short of breath, wheezing. Cardiovascular: Reports: no symptoms. GI: Reports: no symptoms. Genitourinary: Reports: see HPI, dysuria. Musculoskeletal: Reports: no symptoms. Skin: Reports: no symptoms. Neurological/Psychological: Reports: no symptoms. Hematologic/Endocrine: Reports: no symptoms. Immunologic/Allergic: Reports: no symptoms. All Other Systems: Reviewed and Negative Physical Exam Physical Exam General Appearance: well developed/nourished, alert, awake, mild distress, obese Head: atraumatic, normal appearance Eyes: Bilateral: normal appearance, PERRL, EOMI. Ears, Nose, Throat: normal pharynx, normal ENT inspection, hearing grossly normal Neck: normal inspection, supple, full range of motion, no midline tenderness Respiratory: chest non-tender, no respiratory distress, quiet respiration, rhonchi, wheezing Cardiovascular: regular rate/rhythm, normal peripheral pulses, norml femoral pulses equa Peripheral Pulses: 4+ carotid (R), 4+ carotid (L) Gastrointestinal: normal bowel sounds, soft, non-tender, no organomegaly Extremities: normal inspection, normal capillary refill, normal range of motion, no edema Neurologic/Psych: no motor/sensory deficits, awake, alert, oriented x 3, normal mood/affect, 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 No CVA/TIA Diagnosis No Sepsis Present: No Sepsis Focused Exam Completed? No Progress Differential Diagnosis: bronchitis, CHF, pneumonia Plan of Care: Orders Procedure Date/time Status PROTHROMBIN TIME 08/27 0600 Active CBC WITHOUT DIFFERENTIAL 08/27 0600 Active BASIC ELECTROLYTES PLUS BUN&CR 08/27 0600 Active Regular Diet 08/26 L Complete Regular Diet 08/26 D Active PROTHROMBIN TIME 08/26 1327 Active CULTURE,URINE 08/26 1323 Active Pathway - chart 08/26 1321 Active House Staff 08/26 1321 Active Patient Data 08/26 1321 Active Code Status 08/26 1321 Active Patient Data 08/26 1223 Active OXYGEN SETUP (GEN) 08/26 1148 Active Saline Lock 08/26 1148 Active Admit to inpatient 08/26 1148 Active Vital Signs 08/26 1148 Active Activity/Ambulation 08/26 1148 Active Code Status 08/26 1148 Complete RAPID VIRAL INFLUENZA A 08/26 1107 Complete LDH (LACT ACID DEHYDROGENASE) 08/26 0928 Complete CREATINE PHOSPHOKINASE 08/26 0928 Complete URINALYSIS 08/26 0841 Complete TROPONIN LEVEL 08/26 0841 Complete COMPREHENSIVE METABOLIC PANEL 08/26 0841 Complete CBC WITHOUT DIFFERENTIAL 08/26 0841 Complete B-TYPE NATRIURETIC PEP (BNP) 08/26 0841 Complete EKG 08/26 0841 Active Intake & Output 08/26 0809 Active US-RENAL/KIDNEY 08/26 UNK Active Lab Add-on Test 08/26 UNK Active VTE Mechanical Prophylaxis 08/26 UNK Active Vital Signs 08/26 UNK Active Current Medications Sig/Eulogio Start time Last Medication Dose Stop Time Status Admin Alendronate Sodium 70 MG QFRI 08/31 0700 AC (Fosamax) Bisacodyl 5 MG DAILY 08/27 1000 AC (Dulcolax) Cyanocobalamin 1,000 MCG DAILY 08/27 1000 AC (Vitamin B12) Escitalopram Oxalate 20 MG DAILY 08/27 1000 AC (Lexapro) Lidocaine 1 PAT DAILY 08/27 1000 AC (Lidoderm) Diazepam 5 MG BID PRN 08/26 2200 AC (Valium) Ferrous Sulfate 325 MG BID 08/26 2200 AC (Feosol) Gabapentin 400 MG BID 08/26 2200 AC (Neurontin) Melatonin 3 MG QPM 08/26 2200 AC (Melatonin) Trazodone HCl 50 MG QPM 08/26 2200 AC (Desyrel) Pregabalin 100 MG TID 08/26 1600 AC (Lyrica) Sodium Chloride 1,000 ML Q13H 08/26 1415 AC (Normal Saline 0.9%) 08/27 1614 Nicotine 14 MG DAILY 08/26 1333 AC (Nicotine Cq) Omeprazole 40 MG DAILY AC 08/26 1333 AC (Prilosec) Tiotropium [place] 1 PUF DAILY 08/26 1333 AC (Spiriva) Acetaminophen 650 MG Q6P PRN 08/26 1330 AC (Tylenol) Acetaminophen 1,000 MG Q6P PRN 08/26 1330 AC (Ofirmev) Albuterol Sulfate 2 PUF Q4 PRN 08/26 1330 AC (Ventolin) Fluticasone 2 PUF BID 08/26 1330 AC Propionate (Flovent) Folic Acid 1 MG DAILY 08/26 1330 AC (Folic Acid) Ipratropium [place] 2.5 ML DAILY 08/26 1330 AC (Atrovent) Levothyroxine Sodium 0.088 MG DAILY AC 08/26 1330 AC (Synthroid) Budesonide/ 2 PUF BID 08/26 1328 AC Formoterol Fumarate (Symbicort) Laboratory Tests 08/26/17 1320: Urine Color YEL, Urine Clarity CLDY H, Urine pH 6.0, Ur Specific [place] 1.020, Urine Protein 100 H, Urine Ketones NEG, Urine Nitrite NEG, Urine Bilirubin NEG, Urine Urobilinogen 0.2, Ur Leukocyte Esterase LARGE H, Ur Microscopic SEDIMENT EXAMINED, Urine RBC 3-5, Urine WBC PACKD H, Ur Epithelial Cells MOD H, Urine Bacteria FEW H, Urine Hemoglobin MOD H, Urine Glucose NEG 08/26/17 0928: Anion Gap 13, Estimated GFR 44 L, BUN/Creatinine Ratio 22.5, Glucose 112 H, Calcium 8.3 L, Total Bilirubin 0.2, AST 17, ALT 22, Alkaline Phosphatase 87, Lactate Dehydrogenase 718 H, Creatine Kinase 52, Troponin I 0.07, Pro-B- Natriuretic Pept 530 H, Total Protein 6.0 L, Albumin 3.2 L, Globulin 2.8, Albumin/Globulin Ratio 1.1, CBC w Diff NO MAN DIFF REQ, RBC 4.07 L, MCV 92.0, MCH 30.7, MCHC 33.4, RDW 14.8 H, MPV 8.3, Gran % 74.7, Lymphocytes % 15.6 L, Monocytes % 7.2, Eosinophils % 2.2, Basophils % 0.3, Absolute Granulocytes 4.5, Absolute Lymphocytes 0.9 L, Absolute Monocytes 0.4, Absolute Eosinophils 0.1, Absolute Basophils 0 Microbiology 08/26 1323 URINE ROUT: Urine Culture - COLB 08/26 1137 NASOPHARYN: Influenza Virus A & B Rapid Smear - COMP Diagnostic Imaging: Viewed by Me: Radiology Read. Discussed w/RAD: Radiology Read. CXR Impression: Stable abnormal parenchymal density in the right lateral mid lung. No evidence of pneumonia. Initial ED EKG: normal axis, normal intervals, normal p-waves, normal QRS complex, normal sinus rhythm, nonspecific ST T wave chg Prior EKG: unchanged Rhythm Strip: normal sinus rhythm Comments: Desats with ambulation requiring significant assistance of one. Departure Departure Time of Disposition: 1151 Disposition: STILL A PATIENT Condition: Stable Clinical Impression Primary Impression: COPD (chronic obstructive pulmonary disease) with acute bronchitis Secondary Impressions: Dysuria, UTI (urinary tract infection) Referrals: Pari Montano MD (PCP/Family) Departure Forms: Customer Survey General Discharge Information Admission Note Spoke With: Tariq LISA,Robin Smith Documentation of Exam: Documentation of any treatments & extenuating circumstances including Concerns Regarding Discharge (functional status, medication knowledge or non-compliance, living conditions, etc.) that warrant an admission rather than observation: IV steroids antibiotics for UTI serial beta agonist nebs medication adjustment physical therapy continuing care discharge planning Critical Care Note Critical Care Note Critical Care Time: non-applicable
--- NOTE | 2017-08-26 13:19 | History & Physical ---
Mandeep Jane 08/26/17 1319: General Information and HPI MD Statement: I have seen and personally examined REID WEINER and documented this H&P. The patient is a 77 year old F who presented with a patient stated chief complaint of dysuria, lower abdominal discomfort, shortness of breath on exertion Source of Information: patient Exam Limitations: no limitations History of Present Illness: This is a 75-year-old female with past medical history significant for current smoker 1PPD, COPD not on home oxygen, lung cancer status post right lobe resection, deep vein thrombosis status post IVC filter and Coumadin, osteoarthritis on alendronate, GERD, hypothyroidism, hypertension, anxiety, bilateral leg shakiness, microcytic anemia, allergic rhinitis, hypercholesterolemia, fibromyalgia, spinal stenosis, major depression, emphysema , nonrheumatic mitral valve prolapse, narcolepsy presented to the [facility] emergency department this afternoon with chief complaint of burning urination, lower abdominal pain, shortness of breath on exertion since morning. Patient reports suprapubic discomfort and pain, 5 x 10, stabbing, nonradiating since this morning. She also reports burning urination. Denies any fever, chills, frequency, urgency. Denies any prior urinary tract infections. She denies any hematuria. However she has [id number] smoking history, current smoker one pack per day. Denies any flank pain. Patient also reports shortness of breath on exertion since morning. Minimal relief with nebulizer and inhaler treatment. She denies any fever, chills, chest pain, palpitations, cough. No recent travel or sick contact exposure. Received her flu vaccine this year. Off note flu was negative in the emergency room. Review of systems was negative except for as above. Denies any abdomen pain, nausea, vomiting, constipation or diarrhea, weakness or sensory changes. continues to smoke 1 pack per day for 65 years. Denied any alcohol intake or illicit drug abuse. she was admitted to [facility] in November 2016 for COPD exacerbation. She follows up with Dr. Pace mint machine operator for COPD. Allergies/Medications Allergies: Coded Allergies: Penicillins (UNKNOWN 05/01/16) atorvastatin (UNKNOWN 05/01/16) nickel (UNKNOWN 05/01/16) morphine (UNKNOWN 05/01/16) Home Med list Acetaminophen (Tylenol Extra Strength) 500 MG TABLET 2 TAB PO BID PAIN ( Reported) Albuterol Sulfate (Proventil Hfa) 90 MCG HFA.AER.AD 2 PUF INH Q4 PRN COPD ( Reported) Alendronate Sodium (Fosamax) 70 MG TABLET 1 TAB PO QFRI BONE (Reported) in the morning, at least 30 minutes before the first food, beverage, or medication of the day Azithromycin 250 MG TABLET 1 DP PO DAILY COPD EXACERBATION 2 the first day followed by 1 for days 2-5 Bisacodyl (Dulcolax) 5 MG TABLET.DR 1 TAB PO DAILY GI (Reported) Budesonide 0.25 MG/2 ML AMPUL.NEB 1 Vial INH/UDAY BID BREATHING PROBLEMS ( Reported) Reason to Stop at ADM: TRC Butalb/Acetaminophen/Caffeine (Fioricet 50-300-40 MG Capsule) 50 MG-300 MG-40 MG CAPSULE 1 CAP PO Q4 HRS NEEDED PRN HEADACHE (Reported) Cyanocobalamin (Vitamin B-12) 1,000 MCG TABLET 1 TAB PO DAILY SUPPLEMENT ( Reported) Diazepam 5 MG TABLET 1 TAB PO BIDP PRN anxiety/insomnia (Reported) Ergocalciferol (Vitamin D2) (Vitamin D2) 50,000 UNIT CAPSULE 1 CAP PO QFRI SUPPLEMENT (Reported) Escitalopram Oxalate (Lexapro) 20 MG TABLET 1 TAB PO DAILY MENTAL HEALTH ( Reported) Ferrous Sulfate 325 MG (65 MG IRON) TABLET 1 TAB PO BID SUPPLEMENT (Reported) Fluticasone/Salmeterol (Advair 500-50 Diskus) 500 MCG-50 MCG/DOSE BLST.W.DEV 1 PUF INH BID BREATHING PROBLEMS (Reported) Folic Acid 0.8 MG TABLET 1 TAB PO TID SUPPLEMENT (Reported) Gabapentin (Neurontin) 400 MG CAPSULE 1 CAP PO BID NEUROPATHY (Reported) Ipratropium/Albuterol Sulfate (Iprat-Albut 0.5-3(2.5) MG/3 Ml) 0.5 MG-3 MG (2.5 MG BASE)/3 ML AMPUL.NEB 1 Vial INH/UDAY 4 TIMES/DAY COPD (Reported) Levothyroxine Sodium 88 MCG TABLET 1 TAB PO DAILY AC THYROID (Reported) Lidocaine (Lidoderm) 5 % ADH..PATCH 1 PAT TOP DAILY PAIN (Reported) may wear up to 12 hours Melatonin 3 MG TABLET 1 TAB PO QPM SLEEP (Reported) Mometasone Furoate (Nasonex) 50 MCG SPRAY.PUMP 2 SPRAY [place]B DAILY ALLERGIES ( Reported) Nicotine (Nicoderm Cq) 14 MG/24 HOUR PATCH.TD24 1 PAT TOP DAILY SMOKING CESSATION Omeprazole 40 MG CAPSULE.DR 1 CAP PO DAILY GI (Reported) Prednisone 10 MG TABLET 0 PO TAPER copd TAPER FOLLOWS: 4 TABS FOR 2 DAYS; 3 TABS FOR 2 DAYS; 2 TABS FOR 2 DAYS; 1 TAB FOR 2 DAYS; Pregabalin (Lyrica) 100 MG CAPSULE 1 CAP PO TID PAIN (Reported) Tiotropium Tunica (Spiriva) 18 MCG CAP.W.DEV 1 CAP INH DAILY BREATHING PROBLEMS (Reported) Trazodone HCl 50 MG TABLET 1 TAB PO QPM SLEEP (Reported) Warfarin Sodium (Coumadin) 3 MG TABLET 1 TAB PO DAILY DVT Compliance With Home Meds: GOOD Past History Travel History Traveled to [place] past 21 day No Medical History Neurological: narcolepsy EENT: allergies, cataracts, rhinitis Cardiovascular: hyperlipidemia, mitral valve prolapse Respiratory: COPD Gastrointestinal: constipation, diverticulitis, GERD Hepatic: NONE Renal: NONE Musculoskeletal: fibromyalgia, osteoarthritis, spinal stenosis (cervical) Psychiatric: anxiety, depression Endocrine: diabetes, hypothyroidism Blood Disorders: anemia, DVT BLE Cancer(s): lung cancer CRUISE STAFF MEMBER/Reproductive: uterine/bladder prolapse History of MRSA: No History of VRE: No History of CDIFF: No Surgical History Surgical History: appendectomy, hysterectomy, lumpectomy, right lobectomy cervical fusion Past Family/Social History Family History Relations & Conditions if any FATHER FH: CHF (congestive heart failure) Hypertension Psychosocial History Who Do You Live With? self Primary Language: Singaporean Smoking Status: Current Everyday Smoker ETOH Use: denies use Illicit Drug Use: denies illicit drug use Living Will? yes Functional Ability ADLs Independent: dressing, eating, toileting, bathing. Ambulation: walker IADLs Independent: telephone. Needs Assist: shopping, housework, transportation, medication admin. Review of Systems Review of Systems Constitutional: Reports: see HPI. EENTM: Denies: blurred vision, double vision, visual changes. Cardiovascular: Denies: chest pain, edema, orthopena, palpitations, peripheral edema, syncope. Respiratory: Reports: short of breath, wheezing. Denies: cough, hemoptysis, orthopnea, sputum production, stridor. GI: Reports: abdominal pain. Denies: bloating, constipation, diarrhea, distention, melena, nausea, bloody stool, vomiting. Genitourinary: Reports: dysuria. Denies: discharge, frequency, hematuria, hesitation, nocturia , pain. Musculoskeletal: Reports: back pain. Denies: gout, joint pain, joint swelling. Neurological/Psychological: Denies: anxiety, ataxia, confusion, depressed, emotional problems, headache, numbness. Exam & Diagnostic Data Last 24 Hrs of Vital Signs/I&O Vital Signs Date Time Temp Pulse Resp B/P B/P Pulse O2 O2 Flow FiO2 Mean Ox Delivery Rate 08/26 1404 98.5 74 20 118/62 93 08/26 1300 98.0 76 20 148/80 94 Room Air 08/26 1035 97.6 74 16 118/74 93 Room Air 08/26 1013 96 08/26 0829 95 Room Air 08/26 0828 98.7 75 20 137/68 97 Room Air Intake & Output 08/26 1600 08/26 0800 08/26 0000 Intake Total Output Total Balance Patient 72.575 kg Weight Weight Estimated Measurement Method Physical Exam General Appearance Alert, Oriented X3, Cooperative, No Acute Distress Skin No Rashes, No Breakdown, No Significant Lesion Skin Temp/Moisture Exam: Warm/Dry Sepsis Skin Exam (color): Normal for Ethnicity HEENT Atraumatic, PERRLA, EOMI, Mucous Membr. moist/pink Neck Supple, No JVD, No thryomegaly, +2 Carotid Pulse wo Bruit Lymphatic Axillary nl, Cervical nl Cardiovascular Regular Rate, Normal S1, Normal S2, No Murmurs Lungs Normal Air Movement, b/l insp and exp wheezes Abdomen Normal Bowel Sounds, Soft, No Hepatospenomegaly, tender lower abdomen Neurological Normal Speech, Strength at 5/5 X4 Ext Extremities No Clubbing, No Cyanosis, No Edema, Normal Pulses, No Tenderness/ Swelling Vascular Normal Pulses, Pulses Symmetrical Last 24 Hrs of Labs/Mick: Laboratory Tests 08/26/17 1320: Urine Color YEL, Urine Clarity CLDY H, Urine pH 6.0, Ur Specific [place] 1.020, Urine Protein 100 H, Urine Ketones NEG, Urine Nitrite NEG, Urine Bilirubin NEG, Urine Urobilinogen 0.2, Ur Leukocyte Esterase LARGE H, Ur Microscopic SEDIMENT EXAMINED, Urine RBC 3-5, Urine WBC PACKD H, Ur Epithelial Cells MOD H, Urine Bacteria FEW H, Urine Hemoglobin MOD H, Urine Glucose NEG 08/26/17 0928: Anion Gap 13, Estimated GFR 44 L, BUN/Creatinine Ratio 22.5, Glucose 112 H, Calcium 8.3 L, Total Bilirubin 0.2, AST 17, ALT 22, Alkaline Phosphatase 87, Lactate Dehydrogenase 718 H, Creatine Kinase 52, Troponin I 0.07, Pro-B- Natriuretic Pept 530 H, Total Protein 6.0 L, Albumin 3.2 L, Globulin 2.8, Albumin/Globulin Ratio 1.1, CBC w Diff NO MAN DIFF REQ, RBC 4.07 L, MCV 92.0, MCH 30.7, MCHC 33.4, RDW 14.8 H, MPV 8.3, Gran % 74.7, Lymphocytes % 15.6 L, Monocytes % 7.2, Eosinophils % 2.2, Basophils % 0.3, Absolute Granulocytes 4.5, Absolute Lymphocytes 0.9 L, Absolute Monocytes 0.4, Absolute Eosinophils 0.1, Absolute Basophils 0 Microbiology 08/26 1323 URINE ROUT: Urine Culture - COLB 08/26 1137 NASOPHARYN: Influenza Virus A & B Rapid Smear - COMP Assessment/Plan Assessment: This is a 75-year-old female with past medical history significant for current smoker 1PPD, COPD not on home oxygen, lung cancer status post right lobe resection, deep vein thrombosis status post IVC filter and Coumadin, osteoarthritis on alendronate, GERD, hypothyroidism, hypertension, anxiety, bilateral leg shakiness, microcytic anemia, allergic rhinitis, hypercholesterolemia, fibromyalgia, spinal stenosis, major depression, emphysema , nonrheumatic mitral valve prolapse, narcolepsy presented to the [facility] emergency department this afternoon with chief complaint of burning urination, lower abdominal pain, shortness of breath on exertion since morning. Vitals afebrile, heart rate 74, respiratory rate 16, blood pressure 128/70, saturating at 93 on room air. Labs CBC completely normal BUN 27 and creatinine 1.2, baseline is 1 BNP 530 Troponin negative Flu negative Chest x-ray normal Received IV methylprednisolone 125 mg and respiratory treatments in the emergency room Acute cystitis She presented with suprapubic discomfort, dysuria. Denies any frequency, urgency, fever, chills, flank pain, hematuria. Urine analysis showed positive nitrate, esterase, packed WBC, bacteria, hemoglobin. Given her symptoms and urine findings will treat her for urinary tract infection. * Started IV ceftriaxone 1 g daily * Follow-up urine cultures * Renal ultrasound was done to rule out any obstruction * Bladder ultrasound was normal Acute exacerbation of COPD/acute resp failure Significant history of COPD, current every day smoker, worsening shortness of breath, most possibly COPD exacerbation. chest x-ray was clear with no acute pulmonary process, no pneumonia. * We'll admit to general med floor * Check her vitals every shift * Supplemental oxygen * Keep oxygen saturation above 92% * Will start IV Solu-Medrol 40 mg IV every 12 hours. * TRC and nebulizer treatment * Bronchodilators and beta agonists * Smoking cessation counseled Acute kidney injury Creatinine 1.2 at the time of admission. Baseline creatinine was 1. Given her urine infection and dehydration- will Provide gentle hydration and recheck creatinine in the a.m. Renal ultrasound was done no obstruction was found. History of lung cancer History of lung cancer status post right lobectomy Follows Martir Ornelas MD mint machine operator Current every day smoker 1 pack per day Smoking history of 65 years dvt s/p ivc filter and on coumadin INR today- 1.6 coumadin 3 mg DOSED will monitor inr in the morning and dose coumadin GERD continue omeprazole hypothyroid continue synthyroid Fibromyalgia Continue home dose of gabapentin 400 mg twice a day Continue home dose of Lyrica Depression Continue Lexapro home dose Anxiety Continue diazepam 5 mg daily Osteoarthritis on alendronate every Sunday 70 mg Constipation Dulcolax whenever necessary Microcytic anemia On iron sulfate Smoker Nicotine patch 21 mg daily dnr,dni dvt prophylaxis- coumadin regular diet mild pain pathway- tylinol As Ranked By This Provider Problem List: 1. COPD (chronic obstructive pulmonary disease) 2. Dysuria Core Measures/Misc (04/15) Acute Coronary Syndrome ACS Diagnosis: No Congestive Heart Failure Congestive Heart Failure Diagnosis No Cerebrovascular Accident CVA/TIA Diagnosis: No VTE (View Protocol) VTE Risk Factors Acute Medical Illness No Mechanical VTE Prophylaxis d/t N/A MechProphylax Ordered No VTE Pharm Prophylaxis d/t NA PharmProphylax ordered Sepsis (View protocol) Sepsis Present: No Robin Potter 08/26/17 1846: Attending MD Review Statement Attending Statement Attending MD Statement: examined this patient, discuss w/resident/PA/BUSINESS SERVICES ASSISTANT, agreed w/resident/PA/BUSINESS SERVICES ASSISTANT, reviewed EMR data (avail) Attending Assessment/Plan: 77 yr F with PMH of COPD not on home oxygen( active smoker since age 11, currently smokes 1-2 PPD), lung cancer status post right lobe resection, deep vein thrombosis both legs in 2010 status post IVC filter and Coumadin, also gives h/o Rt arm DVT, osteoarthritis on alendronate, GERD, hypothyroidism, HTN, HLD who lives alone presented to the ER with cc of dysuria and lower abdominal pain alongwith shortness of breath on exertion since morning. Pt was given nebs by EMS on route to ER and also got high dose iv steroids in ER. Pt in ER was found to have suprapubic abdominal discomfort and postive UA with worsening of her Cr. Acute cystitis- with severe dysuria. Pt is not allergic to penicillin. will start her on ceftriaxone. Will f/u on cultures. Acute copd exac- still has wheezing on exam. will cont with iv solumedrol 40 q12h. will get TRC . Nicotine dependence- will put her on nicotine patch 21 mg daily. d/w pt the care plan. consulled against smoking.
[2017-08-26 14:04] VITALS: BP 118/62
--- NOTE | 2017-08-26 16:47 | ULTRASOUND REPORT ---
EXAMINATION: US RETROPERITONEAL COMPLETE (RENAL) CLINICAL INFORMATION: Pyuria. Urinary tract infection. COMPARISON: Previous CT of the abdomen and pelvis and renal and bladder ultrasound 2013. TECHNIQUE: Real-time imaging of the kidneys and bladder. Exam is limited due to patient body habitus. FINDINGS: RIGHT KIDNEY: 9.7 x 4.5 x 4.3 cm (SAG x AP x TRV). The kidney is normal in size, contour, and echogenicity. Renal cortical thickness is normal. There is a 1.4 x 1.4 x 1.4 cm simple cyst in the lower pole. No calculi or mass. No hydronephrosis. LEFT KIDNEY: 8.4 x 4.9 x 4.1 cm (SAG x AP x TRV). The kidney is normal in size, contour, and echogenicity. Renal cortical thickness is normal. No calculi or focal parenchymal lesions. No hydronephrosis. BLADDER: The bladder is not optimally distended. No stone or mass is seen. A right ureteral jet is not seen. A left ureteral jet is seen. Prevoid bladder volume is 101 mL. Postvoid bladder volume was not obtained. IMPRESSION: Limited exam due to patient body habitus. Small right renal cyst otherwise unremarkable renal ultrasound. Limited but unremarkable bladder ultrasound. No stone or mass is seen.
[2017-08-26 18:19] LABS: PT 16.8 SEC (9.4-12.5)
[2017-08-26 22:05] VITALS: BP 136/60
[2017-08-27 07:18] VITALS: BP 142/76
--- NOTE | 2017-08-27 07:29 | PN- Housestaff ---
Marlene LISA,Stacey 08/27/17728: Subjective Follow-up For: UTI COPD BUTTOCK WOUND Complaints: pain scale (0-10) Subjective: PATIENT HAS SEVERE DYSURIA Review of Systems Constitutional: Reports: malaise, weakness. Respiratory: Reports: cough, short of breath. Genitourinary: Reports: dysuria. Skin: Reports: lesions. Objective Last 24 Hrs of Vital Signs/I&O Vital Signs Date Time Temp Pulse Resp B/P B/P Pulse O2 O2 Flow FiO2 Mean Ox Delivery Rate 08/27 1600 98 Room Air 08/27 1600 98.4 75 19 140/70 94 Room Air 08/27 1316 98 Nasal 1.0L Cannula 08/27 0800 94 Room Air Room Air 08/27 0718 98.5 78 20 142/76 94 Room Air 08/27 0000 96 Room Air 08/26 2205 98.2 78 20 136/60 96 Nasal 2.0L Cannula 08/26 2205 98.2 78 136/60 96 Intake & Output 08/27 1600 08/27 0800 08/27 0000 Intake Total 2683 475 6533 Output Total Balance 8620 169 4062 Intake, IV 525 600 600 Intake, Oral 500 50 600 Number 0 Bowel Movements Physical Exam General Appearance: Alert, Oriented X3, Cooperative, No Acute Distress Skin: No Rashes, LEFT BUTTOCK OPEN WOUND Skin Temp/Moisture Exam: Warm/Dry HEENT: Atraumatic, PERRLA Cardiovascular: Regular Rate, Normal S1, Normal S2, No Murmurs Lungs: Clear to Auscultation, Normal Air Movement Abdomen: Normal Bowel Sounds, Soft, No Tenderness, No Hepatospenomegaly, No Masses Neurological: Normal Speech Extremities: No Edema, Normal Pulses, No Tenderness/Swelling Vascular: Normal Pulses, Pulses Symmetrical Current Medications: Current Medications Sig/Eulogio Start time Last Medication Dose Route Stop Time Status Admin Acetaminophen 650 MG Q6P PRN 08/26 1330 AC PO Acetaminophen 1,000 MG Q6P PRN 08/26 1330 AC IV Albuterol Sulfate 2 PUF Q4 PRN 08/26 1330 AC INH Alendronate Sodium 70 MG QFRI 08/31 0700 AC PO Bisacodyl 5 MG DAILY 08/27 1000 AC 08/27 PO 0944 Budesonide/ 2 PUF BID 08/26 1328 AC 08/27 Formoterol Fumarate INH 0945 Ceftriaxone Sodium 1,000 MG DAILY@1900 08/26 1900 AC 08/26 IV 2005 Cyanocobalamin 1,000 MCG DAILY 08/27 1000 AC 08/27 PO 0944 Diazepam 5 MG BID PRN 08/26 2200 AC PO Escitalopram Oxalate 20 MG DAILY 08/27 1000 AC 08/27 PO 0944 Ferrous Sulfate 325 MG BID 08/26 2200 AC 08/27 PO 0944 Fluticasone 2 PUF BID 08/26 1330 AC 08/27 Propionate INH 1223 Folic Acid 1 MG DAILY 08/26 1330 AC 08/27 PO 0944 Gabapentin 400 MG BID 08/26 2200 AC 08/27 PO 0944 Ipratropium Gary 2.5 ML DAILY 08/26 1330 AC INH Levothyroxine Sodium 0.088 MG DAILY AC 08/26 1330 AC 08/27 PO 0618 Lidocaine 1 PAT DAILY 08/27 1000 AC EXT Melatonin 3 MG QPM 08/26 2200 AC 08/26 PO 2104 Methylprednisolone 40 MG Q12 08/26 2200 DC 08/27 IV 0944 Nicotine 14 MG DAILY 08/26 1333 AC TOP Omeprazole 40 MG DAILY AC 08/26 1333 AC 08/27 PO 0619 Phenazopyridine HCl 100 MG PC 08/27 1300 AC 08/27 PO 1747 Prednisone 10 MG DAILY 09/03 1000 AC PO 09/05 0959 Prednisone 20 MG DAILY 09/01 1000 AC PO 09/03 0959 Prednisone 30 MG DAILY 08/30 1000 AC PO 09/01 0959 Prednisone 40 MG DAILY 08/28 1000 CAN PO 09/05 0959 Prednisone 40 MG DAILY 08/28 1000 AC PO 08/30 0959 Pregabalin 100 MG TID 08/26 1600 AC 08/27 PO 1717 Sodium Chloride 1,000 ML Q13H 08/26 1415 DC 08/27 IV 08/27 1614 0615 Tiotropium Gary 1 PUF DAILY 08/26 1333 AC 08/27 INH 0943 Trazodone HCl 50 MG QPM 08/26 2200 AC 08/26 PO 2104 Warfarin Sodium 3 MG COUMADIN 1700 ONE 08/27 1700 DC 08/27 PO 08/27 1701 1718 Last 24 Hrs of Lab/Mick Results Last 24 Hrs of Labs/Mics: Laboratory Tests 08/27/17 0908: Anion Gap 12, Estimated GFR 54 L, BUN/Creatinine Ratio 22.0, PT 13.9 H, INR 1.33 H, CBC w Diff NO MAN DIFF REQ, RBC 3.63 L, MCV 92.0, MCH 31.2 H, MCHC 33.8, RDW 14.5, MPV 9.3, Gran % 82.0 H, Lymphocytes % 12.1 L, Monocytes % 5.6, Eosinophils % 0, Basophils % 0.3, Absolute Granulocytes 6.6 H, Absolute Lymphocytes 1.0 L, Absolute Monocytes 0.4, Absolute Eosinophils 0, Absolute Basophils 0 Assessment/Plan Assessment: This is a 75-year-old female with past medical history significant for current smoker 1PPD, COPD not on home oxygen, lung cancer status post right lobe resection, deep vein thrombosis status post IVC filter and Coumadin, osteoarthritis on alendronate, GERD, hypothyroidism, hypertension, anxiety, bilateral leg shakiness, microcytic anemia, allergic rhinitis, hypercholesterolemia, fibromyalgia, spinal stenosis, major depression, emphysema , nonrheumatic mitral valve prolapse, narcolepsy presented to the [facility] emergency department this afternoon with chief complaint of burning urination, lower abdominal pain, shortness of breath on exertion since morning. Vitals afebrile, heart rate 74, respiratory rate 16, blood pressure 128/70, saturating at 93 on room air. Labs CBC completely normal BUN 27 and creatinine 1.2, baseline is 1 BNP 530 Troponin negative Flu negative Chest x-ray normal Received IV methylprednisolone 125 mg and respiratory treatments in the emergency room Acute cystitis She presented with suprapubic discomfort, dysuria. Denies any frequency, urgency, fever, chills, flank pain, hematuria. Urine analysis showed positive nitrate, esterase, packed WBC, bacteria, hemoglobin. Given her symptoms and urine findings will treat her for urinary tract infection. * CONTINUE IV ceftriaxone 1 g daily * Follow-up urine cultures * Renal ultrasound was done to rule out any obstruction * Bladder ultrasound was normal * PATIENT AFEBRILE * WILL OFFER PYRIDIUM FOR PAIN. PAIN NOTIFIED THAT URINE WILL TURN ORANGE MAY TEARS. Acute exacerbation of COPD/acute resp failure Significant history of COPD, current every day smoker, worsening shortness of breath, most possibly COPD exacerbation. chest x-ray was clear with no acute pulmonary process, no pneumonia. * We'll admit to general med floor * Check her vitals every shift * Supplemental oxygen * Keep oxygen saturation above 92%, TODAY SHE IS [id number]%. HAS A COUGH. * CONTINUE IV Solu-Medrol 40 mg IV every DAY. ORAL TAPER ORDERED 40 FOR 2 30 FOR 2 DAYS 20 FOR 2 DAYS 10 FOR 2 DAYS AND THEN STOP. * TRC and nebulizer treatment * Bronchodilators and beta agonists * Smoking cessation counseled Acute kidney injury Creatinine 1.2 at the time of admission. Baseline creatinine was 1. Given her urine infection and dehydration- will Provide gentle hydration and recheck creatinine in the a.m. Renal ultrasound was done no obstruction was found. History of lung cancer History of lung cancer status post right lobectomy Follows Martir Ornelas MD retirement officer Current every day smoker 1 pack per day Smoking history of 65 years dvt s/p ivc filter and on coumadin INR today- 1.33 coumadin 3 mg DOSED will monitor inr in the morning and dose coumadin OPEN WOUNDS LEFT BUTTOCK WOUND CARE CONSULTED WILL APPLY THIN DUODERM CHANGED EVERY 2-3 DAYS OFFLOADING. GERD continue omeprazole hypothyroid continue synthyroid Fibromyalgia Continue home dose of gabapentin 400 mg twice a day Continue home dose of Lyrica Depression Continue Lexapro home dose Anxiety Continue diazepam 5 mg daily Osteoarthritis on alendronate every Sunday 70 mg Constipation Dulcolax whenever necessary Microcytic anemia On iron sulfate Smoker Nicotine patch 21 mg daily dnr,dni dvt prophylaxis- coumadin regular diet mild pain pathway- tylinol Problem List: 1. UTI (urinary tract infection) 2. Dysuria 3. COPD (chronic obstructive pulmonary disease) with acute bronchitis Pain Ratin Pain Location: WHEN URINATES AND BACK Pain Goal: Pain 4 or less Pain Plan: PYRIDIUM AND PATHWAY Tomorrow's Labs & Rationales: CBC BEP INR Rosario Rocha 08/27/17 1419: Attending MD Review Statement Attending Statement Attending MD Statement: examined this patient, discuss w/resident/PA/ELECTRIC ORGAN CHECKER, agreed w/resident/PA/ELECTRIC ORGAN CHECKER, discussed with family, reviewed EMR data (avail), discussed with nursing, discussed with case mgmt, reviewed images, amended to note Attending Assessment/Plan: 77 yr F with PMH of COPD not on home oxygen (active smoker since age 11, currently smokes 1-2 PPD), lung cancer status post right lobe resection, deep vein thrombosis both legs in 2010 status post IVC filter and Coumadin, also gives h/o Rt arm DVT, osteoporosis on alendronate, GERD, hypothyroidism, HTN, HLD who lives alone presented to the ER with cc of dysuria and lower abdominal pain alongwith shortness of breath on exertion. Pt was given nebs by EMS on route to ER and also got high dose iv steroids in ER. Pt in ER was found to have suprapubic abdominal discomfort and postive UA with worsening of her Cr. Acute cystitis- with severe dysuria. C/w ceftriaxone. f/u on cultures. Acute copd exac- Taper steroids, TRC , oxygen supplementation prn. Nicotine dependence c/w nicotine patch. d/w pt the care plan. consulled against smoking.
[2017-08-27 09:53] LABS: ABSOLUTE BASOPHIL COUNT 0 /CUMM (0.0-0.2); ABSOLUTE EOSINOPHIL COUNT 0 /CUMM (0.0-0.7); ABSOLUTE GRANULOCYTE CT 6.6 /CUMM (1.4-6.5); ABSOLUTE MONOCYTE COUNT 0.4 /CUMM (0.10-0.60); BASOPHIL % 0.3 % (0.0-2.0); EOSINOPHIL % 0 % (0-5); HEMATOCRIT 33.4 % (37-47); MEAN CORPUSCULAR HGB 31.2 PG (27.0-31.0); MEAN CORPUSCULAR HGB CONC 33.8 G/DL (33.0-37.0); MEAN PLATELET VOLUME 9.3 FL (7.4-10.4); PLATELET COUNT 130 /CUMM (130-400); RBC DISTRIBUTION WIDTH 14.5 % (11.5-14.5); RED BLOOD CELL CT 3.63 /CUMM (4.20-5.40)
[2017-08-27 10:10] LABS: PT 13.9 SEC (9.4-12.5)
--- NOTE | 2017-08-27 15:51 | Cons- Wound Care ---
General Information and HPI Consulting Request Date of Consult: 08/27/17 Requested By: Josefina LISA,Rosario Reason for Consult: Left buttock ulcer present on admission History of Present Illness: Patient is a 77-year-old with severe COPD actively smoking DVT IVC filter reportedly on Coumadin as admitted with symptoms of urinary tract infection. She was found to have a left buttock ulcer present on admission. She reports this have been present for some time Allergies/Medications Allergies: Coded Allergies: Penicillins (UNKNOWN 05/01/16) atorvastatin (UNKNOWN 05/01/16) nickel (UNKNOWN 05/01/16) morphine (UNKNOWN 05/01/16) Home Med List: Acetaminophen (Tylenol Extra Strength) 500 MG TABLET 2 TAB PO BID PAIN ( Reported) Albuterol Sulfate (Proventil Hfa) 90 MCG HFA.AER.AD 2 PUF INH Q4 PRN COPD ( Reported) Alendronate Sodium (Fosamax) 70 MG TABLET 1 TAB PO QFRI BONE (Reported) in the morning, at least 30 minutes before the first food, beverage, or medication of the day Azithromycin 250 MG TABLET 1 DP PO DAILY COPD EXACERBATION 2 the first day followed by 1 for days 2-5 Bisacodyl (Dulcolax) 5 MG TABLET.DR 1 TAB PO DAILY GI (Reported) Budesonide 0.25 MG/2 ML AMPUL.NEB 1 Vial INH/UDAY BID BREATHING PROBLEMS ( Reported) Reason to Stop at ADM: TRC Butalb/Acetaminophen/Caffeine (Fioricet 50-300-40 MG Capsule) 50 MG-300 MG-40 MG CAPSULE 1 CAP PO Q4 HRS NEEDED PRN HEADACHE (Reported) Cyanocobalamin (Vitamin B-12) 1,000 MCG TABLET 1 TAB PO DAILY SUPPLEMENT ( Reported) Diazepam 5 MG TABLET 1 TAB PO BIDP PRN anxiety/insomnia (Reported) Ergocalciferol (Vitamin D2) (Vitamin D2) 50,000 UNIT CAPSULE 1 CAP PO QFRI SUPPLEMENT (Reported) Escitalopram Oxalate (Lexapro) 20 MG TABLET 1 TAB PO DAILY MENTAL HEALTH ( Reported) Ferrous Sulfate 325 MG (65 MG IRON) TABLET 1 TAB PO BID SUPPLEMENT (Reported) Fluticasone/Salmeterol (Advair 500-50 Diskus) 500 MCG-50 MCG/DOSE BLST.W.DEV 1 PUF INH BID BREATHING PROBLEMS (Reported) Folic Acid 0.8 MG TABLET 1 TAB PO TID SUPPLEMENT (Reported) Gabapentin (Neurontin) 400 MG CAPSULE 1 CAP PO BID NEUROPATHY (Reported) Ipratropium/Albuterol Sulfate (Iprat-Albut 0.5-3(2.5) MG/3 Ml) 0.5 MG-3 MG (2.5 MG BASE)/3 ML AMPUL.NEB 1 Vial INH/UDAY 4 TIMES/DAY COPD (Reported) Levothyroxine Sodium 88 MCG TABLET 1 TAB PO DAILY AC THYROID (Reported) Lidocaine (Lidoderm) 5 % ADH..PATCH 1 PAT TOP DAILY PAIN (Reported) may wear up to 12 hours Melatonin 3 MG TABLET 1 TAB PO QPM SLEEP (Reported) Mometasone Furoate (Nasonex) 50 MCG SPRAY.PUMP 2 SPRAY [place] DAILY ALLERGIES ( Reported) Nicotine (Nicoderm Cq) 14 MG/24 HOUR PATCH.TD24 1 PAT TOP DAILY SMOKING CESSATION Omeprazole 40 MG CAPSULE.DR 1 CAP PO DAILY GI (Reported) Prednisone 10 MG TABLET 0 PO TAPER copd TAPER FOLLOWS: 4 TABS FOR 2 DAYS; 3 TABS FOR 2 DAYS; 2 TABS FOR 2 DAYS; 1 TAB FOR 2 DAYS; Pregabalin (Lyrica) 100 MG CAPSULE 1 CAP PO TID PAIN (Reported) Tiotropium [place] (Spiriva) 18 MCG CAP.W.DEV 1 CAP INH DAILY BREATHING PROBLEMS (Reported) Trazodone HCl 50 MG TABLET 1 TAB PO QPM SLEEP (Reported) Warfarin Sodium (Coumadin) 3 MG TABLET 1 TAB PO DAILY DVT Past History Travel History Traveled to [place] past 21 day No Medical History Neurological: narcolepsy EENT: allergies, cataracts, rhinitis Cardiovascular: hyperlipidemia, mitral valve prolapse Respiratory: COPD Gastrointestinal: constipation, diverticulitis, GERD Hepatic: NONE Renal: NONE Musculoskeletal: fibromyalgia, osteoarthritis, spinal stenosis (cervical) Psychiatric: anxiety, depression Endocrine: diabetes, hypothyroidism Blood Disorders: anemia, DVT BLE Cancer(s): lung cancer CAR WHACKER/Reproductive: uterine/bladder prolapse Surgical History Surgical History: appendectomy, hysterectomy, lumpectomy, right lobectomy cervical fusion Family History Relations & Conditions If Any: FATHER FH: CHF (congestive heart failure) Hypertension Psychosocial History Who Do You Live With? self Primary Language: Sudanese Smoking Status: Current Everyday Smoker ETOH Use: denies use Illicit Drug Use: denies illicit drug use Living Will? yes Functional Ability ADLs Independent: dressing, eating, toileting, bathing. Ambulation: walker IADLs Independent: telephone. Needs Assist: shopping, housework, transportation, medication admin. Exam & Diagnostic Data Vital Signs and I&O Vital Signs Result Date Time Pulse Ox 98 08/27 1316 O2 Delivery Nasal Cannula 08/27 1316 O2 Flow Rate 1.0L 08/27 1316 B/P 142/76 08/27 0718 Temp 98.5 08/27 0718 Pulse 78 08/27 0718 Resp 20 08/27 0718 Intake & Output 08/27 0000 08/26 1600 08/26 0800 Intake Total 1200 600 Output Total Balance 1200 600 Intake, IV 600 Intake, Oral 600 600 Patient 160 lb Weight Weight Estimated Measurement Method Exam of the left buttock shows there to be a 1.5 x 0.6 cm stage II ulcer over the left buttock there is no significant periwound erythema undermining sinus tracking or exposed bone. Assessment/Plan Impression/Plan: 77-year-old woman admitted with urinary symptoms significant COPD actively smoking was found to have a ulcer of her left buttock. Recommend application of a thin duoderm changed every 2-3 days offloading. Consult Acknowledgment - Thank you for your consult request.
[2017-08-27 16:00] VITALS: BP 140/70
[2017-08-27 22:20] VITALS: BP 140/70
[2017-08-28 07:07] VITALS: BP 126/74
--- NOTE | 2017-08-28 09:06 | PN- Housestaff ---
Marlene LISA,Stacey 08/28/17 0905: Subjective Follow-up For: UTI COPD BUTTOCK WOUND Subjective: PATIENT has slight abdominal pain today but no other complaints. she has less burning on urination. she notes that she is slightly wheezy too but is satting well on RA Review of Systems Constitutional: Reports: no symptoms. Respiratory: Reports: wheezing. Gastrointestinal: Reports: abdominal pain. Objective Last 24 Hrs of Vital Signs/I&O Vital Signs Date Time Temp Pulse Resp B/P B/P Pulse O2 O2 Flow FiO2 Mean Ox Delivery Rate 08/28 1416 98.2 77 19 120/60 95 08/28 0707 97.9 69 20 126/74 94 Room Air 08/28 0000 Room Air 08/27 2220 99.3 83 20 140/70 93 Intake & Output 08/28 1600 08/28 0800 08/28 0000 Intake Total 800 110 900 Output Total 300 Balance 500 110 900 Intake, IV 10 600 Intake, Oral 800 100 300 Output, Urine 300 Physical Exam General Appearance: Alert, Oriented X3, Cooperative, No Acute Distress Skin: No Rashes, No Breakdown, No Significant Lesion Skin Temp/Moisture Exam: Warm/Dry HEENT: Atraumatic, PERRLA, EOMI, Mucous Membr. moist/pink Cardiovascular: Regular Rate, Normal S1, Normal S2, No Murmurs Lungs: scattered wheezes mild Abdomen: Normal Bowel Sounds, Soft, No Hepatospenomegaly, No Masses Neurological: Normal Speech Extremities: No Clubbing, No Cyanosis, Normal Pulses, No Tenderness/Swelling Current Medications: Current Medications Sig/Eulogio Start time Last Medication Dose Route Stop Time Status Admin Acetaminophen 650 MG Q6P PRN 08/26 1330 AC PO Acetaminophen 1,000 MG Q6P PRN 08/26 1330 AC IV Albuterol Sulfate 2 PUF Q4 PRN 08/26 1330 AC INH Alendronate Sodium 70 MG QFRI 08/31 0700 AC PO Bisacodyl 5 MG DAILY 08/27 1000 AC 08/28 PO 0903 Budesonide/ 2 PUF BID 08/26 1328 AC 08/28 Formoterol Fumarate INH 0904 Ceftriaxone Sodium 1,000 MG DAILY@1900 08/26 1900 DC 08/27 IV 1938 Cephalexin 500 MG BID 08/28 1151 AC 08/28 PO 1704 Cyanocobalamin 1,000 MCG DAILY 08/27 1000 AC 08/28 PO 0904 Diazepam 5 MG BID PRN 08/26 2200 AC PO Escitalopram Oxalate 20 MG DAILY 08/27 1000 AC 08/28 PO 0903 Ferrous Sulfate 325 MG BID 08/26 2200 AC 08/28 PO 0903 Fluticasone 2 PUF BID 08/26 1330 AC 08/28 Propionate INH 0905 Folic Acid 1 MG DAILY 08/26 1330 AC 08/28 PO 0903 Gabapentin 400 MG BID 08/26 2200 AC 08/28 PO 0904 Ipratropium [place] 2.5 ML DAILY 08/26 1330 AC INH Levothyroxine Sodium 0.088 MG DAILY AC 08/26 1330 AC 08/28 PO 0602 Lidocaine 1 PAT DAILY 08/27 1000 AC EXT Melatonin 3 MG QPM 08/26 2200 AC 08/27 PO 2150 Nicotine 14 MG DAILY 08/26 1333 AC TOP Omeprazole 40 MG DAILY AC 08/26 1333 AC 08/28 PO 0601 Phenazopyridine HCl 100 MG PC 08/27 1300 AC 08/28 PO 1704 Prednisone 10 MG DAILY 09/03 1000 AC PO 09/05 0959 Prednisone 20 MG DAILY 09/01 1000 AC PO 09/03 0959 Prednisone 30 MG DAILY 08/30 1000 AC PO 09/01 0959 Prednisone 40 MG DAILY 08/28 1000 AC 08/28 PO 08/30 0959 0904 Pregabalin 100 MG TID 08/26 1600 AC 08/28 PO 1703 Tiotropium [place] 1 PUF DAILY 08/26 1333 AC 08/28 INH 0904 Trazodone HCl 50 MG QPM 08/26 2200 AC 08/27 PO 2150 Warfarin Sodium 4 MG COUMADIN 1700 ONE 08/28 1700 DC 08/28 PO 08/28 1701 1703 Last 24 Hrs of Lab/Mick Results Last 24 Hrs of Labs/Mics: Laboratory Tests 08/28/17 0755: Anion Gap 13, Estimated GFR 54 L, BUN/Creatinine Ratio 24.0, PT 13.0 H, INR 1.24 H, CBC w Diff NO MAN DIFF REQ, RBC 3.46 L, MCV 92.7, MCH 30.8, MCHC 33.2, RDW 14.2, MPV 9.0, Gran % 70.0, Lymphocytes % 22.6, Monocytes % 6.2, Eosinophils % 0.8, Basophils % 0.4, Absolute Granulocytes 4.9, Absolute Lymphocytes 1.6, Absolute Monocytes 0.4, Absolute Eosinophils 0.1, Absolute Basophils 0 Assessment/Plan Assessment: This is a 75-year-old female with past medical history significant for current smoker 1PPD, COPD not on home oxygen, lung cancer status post right lobe resection, deep vein thrombosis status post IVC filter and Coumadin, osteoarthritis on alendronate, GERD, hypothyroidism, hypertension, anxiety, bilateral leg shakiness, microcytic anemia, allergic rhinitis, hypercholesterolemia, fibromyalgia, spinal stenosis, major depression, emphysema , nonrheumatic mitral valve prolapse, narcolepsy presented to the [facility] emergency department this afternoon with chief complaint of burning urination, lower abdominal pain, shortness of breath on exertion since morning. Vitals afebrile, heart rate 74, respiratory rate 16, blood pressure 128/70, saturating at 93 on room air. Labs CBC completely normal BUN 27 and creatinine 1.2, baseline is 1 BNP 530 Troponin negative Flu negative Chest x-ray normal Received IV methylprednisolone 125 mg and respiratory treatments in the emergency room Acute cystitis She presented with suprapubic discomfort, dysuria. Denies any frequency, urgency, fever, chills, flank pain, hematuria. Urine analysis showed positive nitrate, esterase, packed WBC, bacteria, hemoglobin. Given her symptoms and urine findings will treat her for urinary tract infection. * change ceftriaxone to keflex bid 500mg for next 4 days for total 7 days treatment * Renal ultrasound was done which did rule out any obstruction * Bladder ultrasound was normal * PATIENT AFEBRILE * ucx shows ecoli susceptible to keflex * WILL OFFER PYRIDIUM FOR PAIN. PAIN NOTIFIED THAT URINE WILL TURN ORANGE MAY TEARS. Exacerbation of COPD Significant history of COPD, current every day smoker, wheezing on admission, good o2 sats throughout, given NC two times. chest x-ray was clear with no acute pulmonary process, no pneumonia. * Check her vitals every shift * Keep oxygen saturation above 92%, TODAY SHE IS [id number]%. HAS A COUGH and wheezing on interview * CONTINUE steroids. ORAL TAPER ORDERED 40 FOR 2 30 FOR 2 DAYS 20 FOR 2 DAYS 10 FOR 2 DAYS AND THEN STOP. * TRC and nebulizer treatment * Bronchodilators and beta agonists * Smoking cessation counseled * ambulatory O2 tomorrow Acute kidney injury Creatinine 1.2 at the time of admission. Baseline creatinine was 1. Given her urine infection and dehydration- will recheck creatinine in the a.m. Renal ultrasound was done no obstruction was found. 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 Disposition PT SAYS STR GERD continue omeprazole hypothyroid continue synthyroid Fibromyalgia Continue home dose of gabapentin 400 mg twice a day Continue home dose of Lyrica Depression Continue Lexapro home dose Anxiety Continue diazepam 5 mg daily Osteoarthritis on alendronate every Sunday 70 mg Constipation Dulcolax whenever necessary Microcytic anemia On iron sulfate Smoker Nicotine patch 21 mg daily dnr,dni dvt prophylaxis- coumadin regular diet mild pain pathway- tylenol Problem List: 1. UTI (urinary tract infection) 2. COPD exacerbation Pain Ratin Pain Location: abdominal which dissipated Pain Goal: Remain pain free Pain Plan: prn Tomorrow's Labs & Rationales: cbc bep inr Rosario Rocha 08/28/17 1222: Attending MD Review Statement Attending Statement Attending MD Statement: examined this patient, discuss w/resident/PA/CLOTH MENDER, agreed w/resident/PA/CLOTH MENDER, discussed with family, reviewed EMR data (avail), discussed with nursing, discussed with case mgmt, reviewed images, amended to note Attending Assessment/Plan: 77 yr F with PMH of COPD not on home oxygen (active smoker since age 11, currently smokes 1-2 PPD), lung cancer status post right lobe resection, deep vein thrombosis both legs in 2010 status post IVC filter and Coumadin, also gives h/o Rt arm DVT, osteoporosis on alendronate, GERD, hypothyroidism, HTN, HLD who lives alone presented to the ER with cc of dysuria and lower abdominal pain alongwith shortness of breath on exertion. Pt was given nebs by EMS on route to ER and also got high dose iv steroids in ER. Acute cystitis- with severe dysuria. Change to PO antibiotic. Cultures grew Ecoli resistant to ampicillin and gentamicin. Acute copd exac- Taper steroids, TRC , oxygen supplementation prn. Nicotine dependence c/w nicotine patch. Wound conuslted for decubiti ulcer present on admission PT consult for general physical deconditioning. d/w pt the care plan. consulled against smoking.
--- NOTE | 2017-08-28 09:49 | Patient Discharge Instructions ---
Discharge Instructions General Discharge Information You were seen/treated for: urinary tract infection copd exacerbation sacral decubitus ulcers (ulcers in lower back) Special Instructions: 1. please follow up with your pcp in one week 2. please follow up with linux architect and wound care doctor Dr. Mayes Diet Continue normal diet: Yes Activity Full Activity/No Limits: Yes (as tolerated) Acute Coronary Syndrome Inclusion Criteria At DC or during hospital stay patient has or had the following: ACS DIAGNOSIS No Discharge Core Measures Meds if any: Prescribed or Continued at Discharge Meds if any: NOT Prescribed or Continued at Discharge Congestive Heart Failure Inclusion Criteria At DC or during hospital stay patient has or had the following: CHF DIAGNOSIS No Discharge Core Measures Meds if any: Prescribed or Continued at Discharge Meds if any: NOT Prescribed or Continued at Discharge Cerebrovascular accident Inclusion Criteria At DC or during hospital stay patient has or had the following: CVA/TIA Diagnosis No Discharge Core Measures Meds if any: Prescribed or Continued at Discharge Meds if any: NOT Prescribed or Continued at Discharge Venous thromboembolism Inclusion Criteria VTE Diagnosis No VTE Type NONE VTE Confirmed by (Test) NONE Discharge Core Measures - Per Current guidelines, there needs to be overlap - treatment for the first 5 days of Warfarin therapy. - If discharged on Warfarin prior to 5 days of - overlap therapy, the patient will need to be - assessed for post discharge needs including - *Post discharge parental anticoagulation - *Warfarin and/or parental anticoagulation education - *Follow up date to check INR post discharge At least 5 days overlap therapy as Inpatient No Meds if any: Prescribed or Continued at Discharge Note: Overlap Therapy is Warfarin and Anticoagulant Meds if any: NOT Prescribed or Continued at Discharge
[2017-08-28 10:10] LABS: ABSOLUTE BASOPHIL COUNT 0 /CUMM (0.0-0.2); ABSOLUTE EOSINOPHIL COUNT 0.1 /CUMM (0.0-0.7); ABSOLUTE GRANULOCYTE CT 4.9 /CUMM (1.4-6.5); ABSOLUTE LYMPH COUNT 1.6 /CUMM (1.2-3.4); ABSOLUTE MONOCYTE COUNT 0.4 /CUMM (0.10-0.60); BASOPHIL % 0.4 % (0.0-2.0); EOSINOPHIL % 0.8 % (0-5); MEAN CORPUSCULAR HGB 30.8 PG (27.0-31.0); MEAN CORPUSCULAR HGB CONC 33.2 G/DL (33.0-37.0); MEAN CORPUSCULAR VOLUME 92.7 FL (81.0-99.0); PLATELET COUNT 124 /CUMM (130-400); RBC DISTRIBUTION WIDTH 14.2 % (11.5-14.5); RED BLOOD CELL CT 3.46 /CUMM (4.20-5.40); WHITE BLOOD CELL COUNT 6.9 /CUMM (4.8-10.8)
[2017-08-28 14:16] VITALS: BP 120/60
[2017-08-28 22:28] VITALS: BP 142/70
[2017-08-29 06:15] VITALS: BP 138/70
--- NOTE | 2017-08-29 07:22 | PN- Housestaff ---
Marlene LISA,Stacey 08/29/17 0722: Subjective Follow-up For: UTI COPD BUTTOCK WOUND Subjective: patient continues to wheeze today. no other complaints. Review of Systems Constitutional: Reports: no symptoms. Cardiovascular: Reports: no symptoms. Respiratory: Reports: wheezing. Gastrointestinal: Reports: no symptoms. Objective Last 24 Hrs of Vital Signs/I&O Vital Signs Date Time Temp Pulse Resp B/P B/P Pulse O2 O2 Flow FiO2 Mean Ox Delivery Rate 08/29 1420 97.2 63 20 120/70 93 08/29 0800 Room Air 08/29 0615 97.9 59 20 138/70 92 Room Air 08/28 2228 98.6 68 22 142/70 93 Room Air Intake & Output 08/29 1600 08/29 0800 08/29 0000 Intake Total 482 Output Total Balance 482 Intake, Oral 482 Number 0 Bowel Movements Output, Urine Physical Exam General Appearance: Alert, Oriented X3, Cooperative, No Acute Distress Skin: No Rashes, No Breakdown, No Significant Lesion HEENT: Atraumatic, PERRLA, EOMI, Mucous Membr. moist/pink Cardiovascular: Regular Rate, Normal S1, Normal S2, No Murmurs Lungs: wheezing throughout Abdomen: Normal Bowel Sounds, Soft, No Tenderness, No Hepatospenomegaly, No Masses Neurological: Normal Speech Extremities: No Clubbing, No Cyanosis, No Edema, Normal Pulses, No Tenderness/ Swelling Current Medications: Current Medications Sig/Eulogio Start time Last Medication Dose Route Stop Time Status Admin Acetaminophen 650 MG .STK-MED ONE 08/28 2145 DC PO 08/28 214 Acetaminophen 650 MG Q6P PRN 08/26 1330 AC 08/28 PO 2147 Acetaminophen 1,000 MG Q6P PRN 08/26 1330 AC IV Albuterol Sulfate 2 PUF Q4 PRN 08/26 1330 AC INH Alendronate Sodium 70 MG QFRI 08/31 0700 AC PO Bisacodyl 5 MG DAILY 08/27 1000 AC 08/29 PO 0937 Budesonide/ 2 PUF BID 08/26 1328 AC 08/29 Formoterol Fumarate INH 0940 Cephalexin 500 MG BID 08/28 1151 AC 08/29 PO 0937 Cyanocobalamin 1,000 MCG DAILY 08/27 1000 AC 08/29 PO 0937 Diazepam 5 MG BID PRN 08/26 2200 AC PO Escitalopram Oxalate 20 MG DAILY 08/27 1000 AC 08/29 PO 0937 Ferrous Sulfate 325 MG BID 08/26 2200 AC 08/29 PO 0937 Fluticasone 2 PUF BID 08/26 1330 AC 08/29 Propionate INH 0940 Folic Acid 1 MG DAILY 08/26 1330 AC 08/29 PO 0937 Gabapentin 400 MG BID 08/26 2200 AC 08/29 PO 0937 Ipratropium [place] 2.5 ML DAILY 08/26 1330 AC INH Levothyroxine Sodium 0.088 MG DAILY AC 08/26 1330 AC 08/29 PO 0558 Lidocaine 1 PAT DAILY 08/27 1000 AC 08/29 EXT 1533 Melatonin 3 MG QPM 08/26 2200 AC 08/28 PO 2145 Nicotine 14 MG DAILY 08/26 1333 AC TOP Omeprazole 40 MG DAILY AC 08/26 1333 AC 08/29 PO 0558 Phenazopyridine HCl 100 MG PC 08/27 1300 AC 08/29 PO 1248 Prednisone 10 MG DAILY 09/03 1000 AC PO 09/05 0959 Prednisone 20 MG DAILY 09/01 1000 AC PO 09/03 0959 Prednisone 30 MG DAILY 08/30 1000 AC PO 09/01 0959 Prednisone 40 MG DAILY 08/28 1000 AC 08/29 PO 08/30 0959 0937 Pregabalin 100 MG TID 08/26 1600 AC 08/29 PO 0942 Tiotropium [place] 1 PUF DAILY 08/26 1333 AC 08/29 INH 0940 Trazodone HCl 50 MG QPM 08/26 2200 AC 08/28 PO 2144 Warfarin Sodium 4 MG COUMADIN 1700 ONE 08/28 1700 DC 08/28 PO 08/28 1701 1703 Last 24 Hrs of Lab/Mick Results Last 24 Hrs of Labs/Mics: Laboratory Tests 08/29/17 0755: Anion Gap 11, Estimated GFR 48 L, BUN/Creatinine Ratio 24.5, PT 15.5 H, INR 1.48 H, CBC w Diff NO MAN DIFF REQ, RBC 3.67 L, MCV 92.7, MCH 30.6, MCHC 33.0, RDW 14.4, MPV 8.5, Gran % 71.8, Lymphocytes % 20.4 L, Monocytes % 7.0, Eosinophils % 0.5, Basophils % 0.3, Absolute Granulocytes 5.4, Absolute Lymphocytes 1.5, Absolute Monocytes 0.5, Absolute Eosinophils 0, Absolute Basophils 0 Assessment/Plan Assessment: This is a 75-year-old female with past medical history significant for current smoker 1PPD, COPD not on home oxygen, lung cancer status post right lobe resection, deep vein thrombosis status post IVC filter and Coumadin, osteoarthritis on alendronate, GERD, hypothyroidism, hypertension, anxiety, bilateral leg shakiness, microcytic anemia, allergic rhinitis, hypercholesterolemia, fibromyalgia, spinal stenosis, major depression, emphysema , nonrheumatic mitral valve prolapse, narcolepsy presented to the [facility] emergency department this afternoon with chief complaint of burning urination, lower abdominal pain, shortness of breath on exertion since morning. Vitals afebrile, heart rate 74, respiratory rate 16, blood pressure 128/70, saturating at 93 on room air. Labs CBC completely normal BUN 27 and creatinine 1.2, baseline is 1 BNP 530 Troponin negative Flu negative Chest x-ray normal Received IV methylprednisolone 125 mg and respiratory treatments in the emergency room Acute cystitis She presented with suprapubic discomfort, dysuria. Denies any frequency, urgency, fever, chills, flank pain, hematuria. Urine analysis showed positive nitrate, esterase, packed WBC, bacteria, hemoglobin. Given her symptoms and urine findings will treat her for urinary tract infection. * WBC 7.6 * CONTINUE keflex bid 500mg for next 3 days for total 7 days treatment * Renal ultrasound was done which did rule out any obstruction * Bladder ultrasound was normal * PATIENT AFEBRILE * ucx shows ecoli susceptible to keflex * PYRIDIUM HAS HELPED WITH DYSURIA Exacerbation of COPD Significant history of COPD, current every day smoker, wheezing on admission, good o2 sats throughout, given NC two times. chest x-ray was clear with no acute pulmonary process, no pneumonia. * Check her vitals every shift * Keep oxygen saturation above 92%, TODAY SHE IS SATTING 94%. HAS A COUGH and wheezing on interview * CONTINUE steroids. ORAL TAPER ORDERED 40 FOR 2 (WE ARE ON THE LAST DAY OF 40MG AND MAY CONTINUE 40MG IF SHE IS STILL WHEEZING TOMORROW) 30 FOR 2 DAYS 20 FOR 2 DAYS 10 FOR 2 DAYS AND THEN STOP. * TRC and nebulizer treatment * CONTINUED WHEEZING - WE HAVE ADDED AZITHROMYCIN 250MG DAILY FOR ANTI-INFLAM PROPERTIES * Bronchodilators and beta agonists * Smoking cessation counseled * ambulatory O2 tomorrow Acute kidney injury Creatinine 1.2 at the time of admission. Baseline creatinine was 1. Given her urine infection and dehydration- will recheck creatinine in the a.m. Renal ultrasound was done no obstruction was found. History of lung cancer History of lung cancer status post right lobectomy Follows Martir Ornelas MD manager internal Current every day smoker 1 pack per day Smoking history of 65 years dvt s/p ivc filter and on coumadin INR today- 1.48 coumadinINCREASED TO 5MG TODAY will monitor inr in the morning and dose coumadin OPEN WOUNDS LEFT BUTTOCK WOUND CARE CONSULTED WILL APPLY THIN DUODERM CHANGED EVERY 2-3 DAYS OFFLOADING. Disposition PT SAYS STR GERD continue omeprazole hypothyroid continue synthyroid Fibromyalgia Continue home dose of gabapentin 400 mg twice a day Continue home dose of Lyrica Depression Continue Lexapro home dose Anxiety Continue diazepam 5 mg daily Osteoarthritis on alendronate every Sunday 70 mg PPI FOR GASTRIC PROTECTION Constipation Dulcolax whenever necessary Microcytic anemia On iron sulfate Smoker Nicotine patch 21 mg daily dnr,dni dvt prophylaxis- coumadin regular diet mild pain pathway- tylenol Problem List: 1. COPD exacerbation 2. UTI (urinary tract infection) Pain Ratin Pain Location: na Pain Goal: Remain pain free Pain Plan: na Tomorrow's Labs & Rationales: cbc bep inr Rosario Rocha 08/29/17 1325: Attending MD Review Statement Attending Statement Attending MD Statement: examined this patient, discuss w/resident/PA/CONFIDENTIAL SECRETARY, agreed w/resident/PA/CONFIDENTIAL SECRETARY, discussed with family, reviewed EMR data (avail), discussed with nursing, discussed with case mgmt, reviewed images, amended to note Attending Assessment/Plan: 77 yr F with PMH of COPD not on home oxygen (active smoker since age 11, currently smokes 1-2 PPD), lung cancer status post right lobe resection, deep vein thrombosis both legs in 2010 status post IVC filter and Coumadin, also gives h/o Rt arm DVT, osteoporosis on alendronate, GERD, hypothyroidism, HTN, HLD who lives alone presented to the ER with cc of dysuria and lower abdominal pain alongwith shortness of breath on exertion. Pt was given nebs by EMS on route to ER and also got high dose iv steroids in ER. Acute cystitis- with severe dysuria. Changed to PO antibiotic. Cultures grew Ecoli resistant to ampicillin and gentamicin. Acute copd exac- Taper steroids, TRC , oxygen supplementation prn. Nicotine dependence c/w nicotine patch. Wound conuslted for decubiti ulcer present on admission PT consult for general physical deconditioning. Plan is to discharge to [facility]. d/w pt the care plan. consulled against smoking.
--- NOTE | 2017-08-29 07:57 | Discharge Summary ---
Visit Information Visit Dates Admission Date: 08/26/17 Discharge Date: 08/31/17 Hospital Course Course Attending Physician: Rosario Rocha MD Primary Care Physician: Pari Montano MD Consulting Request: Consulting Specialty: Pulmonary Disease Hospital Course: Patient is a 75-year-old female with past medical history significant for current smoker 1PPD, COPD not on home oxygen, lung cancer status post right lobe resection, deep vein thrombosis status post IVC filter and Coumadin, osteoarthritis on alendronate, GERD, hypothyroidism, hypertension, anxiety, bilateral leg shakiness, microcytic anemia, allergic rhinitis, hypercholesterolemia, fibromyalgia, spinal stenosis, major depression, emphysema , nonrheumatic mitral valve prolapse, narcolepsy presented to the [facility] emergency department this afternoon with chief complaint of burning urination, lower abdominal pain, shortness of breath on exertion since morning. Vitals afebrile, heart rate 74, respiratory rate 16, blood pressure 128/70, saturating at 93 on room air. Labs CBC completely normal, BUN 27, Cr 1.2, baseline is 1, BNP 530, Troponin negative , Flu negative Chest x-ray normal Received IV methylprednisolone 125 mg and respiratory treatments in the emergency room Admitted to general medicine floor and the following is her management Acute cystitis She presented with suprapubic discomfort, dysuria. Denies any frequency, urgency, fever, chills, flank pain, hematuria. Urine analysis showed positive nitrate, esterase, packed WBC, bacteria, hemoglobin. Given her symptoms and urine findings will treat her for urinary tract infection. Started on IV ceftriaxone and converted to keflex 500mg BID as per the culture sensitivities. Acute exacerbation of COPD Significant history of COPD, current every day smoker, worsening shortness of breath, most possibly COPD exacerbation. chest x-ray was clear with no acute pulmonary process, no pneumonia. Supplemental oxygen to keep oxygen saturation above 92%. started on IV steroids and tapered down to oral steroids. TRC and nebulizer treatment provided. Be noted that the chest x-ray does have an abnormality that's in the right midlung field. When compared to previous x- rays and CTs it appears stable but she needs ongoing follow-up to make sure there is radiographic resolution of this abnormality. Acute kidney injury - resolved Creatinine 1.2 at the time of admission. Baseline creatinine was 1. Given her urine infection and dehydration, hydrated and repeat Cr was back to normal(0.9). Renal ultrasound was done no obstruction was found. History of lung cancer History of lung cancer status post right lobectomy Follows Martir Ornelas MD pyrometallurgical engineer Current every day smoker 1 pack per day Smoking history of 65 years dvt s/p ivc filter and on coumadin INR today- 1.6 coumadin 3 mg DOSED GERD continued omeprazole hypothyroid continued synthyroid Fibromyalgia Continued home dose of gabapentin 400 mg twice a day Continued home dose of Lyrica Depression Continue Lexapro home dose Anxiety Continue diazepam 5 mg daily Osteoarthritis on alendronate every Sunday 70 mg Constipation Dulcolax whenever necessary Microcytic anemia On iron sulfate Smoker Nicotine patch 21 mg daily dnr,dni dvt prophylaxis- coumadin regular diet mild pain pathway- tylenol Complications: none Allergies: Coded Allergies: Penicillins (UNKNOWN 05/01/16) atorvastatin (UNKNOWN 05/01/16) nickel (UNKNOWN 05/01/16) morphine (UNKNOWN 05/01/16) Significant Procedures: Renal ultrasound 08/26/17 IMPRESSION: Limited exam due to patient body habitus. Small right renal cyst otherwise unremarkable renal ultrasound. Limited but unremarkable bladder ultrasound. No stone or mass is seen. CXR 08/26/17 IMPRESSION: Stable abnormal parenchymal density in the right lateral mid lung. No evidence of pneumonia. Pertinent Lab Results: as above Disposition Summary Disposition Principal Diagnosis: Acute cystitis Additional Diagnosis: Exacerbation of COPD DVT s/p filter on warfain JOANNE - resolved History of lung cancer Anxiety Depression Sacral decubitus stage II ulcer. Discharge Disposition: short term rehab Discharge Instructions General Discharge Information Code Status: Do Not Resucitate/Intubat Patient's Diet: as tolerated Patient's Activity: as tolerated Follow-Up Instructions/Appts: Please follow up with your PCP in a week Please follow up with your Hydraulic Jack Adjuster and fisheries specialist - in a week Please make sure that patient has radiographic follow-up of the abnormality seen in the lung on chest x-ray, pulmonology follow-up will then arrange follow-up chest CT in 2-3 weeks. Tobacco cessation counseling at all times Please continue Coumadin and keep INR therapeutic. Discharge INR is 2.3. Check INR in 2-3 days. Medications at Discharge Discharge Medications: Stop taking the following medications: Prednisone (Prednisone) 10 MG TABLET ORAL TAPER Qty = 20 Azithromycin (Azithromycin) 250 MG TABLET ORAL DAILY Qty = 1 Continue taking these medications: Levothyroxine Sodium (Levothyroxine Sodium) 88 MCG TABLET 1 Tablet ORAL DAILY BEFORE BREAKFAST Comments: Last Taken: 11/30/16 Time: 6:00 AM Escitalopram Oxalate (Lexapro) 20 MG TABLET 1 Tablet ORAL DAILY Comments: Last Taken: 11/30/16 Time: 9:30 AM Cyanocobalamin (Vitamin B-12) 1,000 MCG TABLET 1 Tablet ORAL DAILY Comments: Last Taken: 11/30/16 Time: 9:30 AM Trazodone HCl (Trazodone HCl) 50 MG TABLET 1 Tablet ORAL Every night Comments: Last Taken: 11/30/16 Time: 10:30 PM Folic Acid (Folic Acid) 0.8 MG TABLET 1 Tablet ORAL THREE TIMES DAILY Comments: Last Taken: 11/30/16 Time: 9:30 AM Albuterol Sulfate (Proventil Hfa) 90 MCG HFA.AER.AD 2 Puff Inhale through mouth Every 4 hours as needed for COPD Comments: NOT GIVEN AT HOSPITAL Ergocalciferol (Vitamin D2) (Vitamin D2) 50,000 UNIT CAPSULE 1 Capsule ORAL EVERY SUNDAY Comments: NOT GIVEN IN HOSPITAL Ipratropium/Albuterol Sulfate (Iprat-Albut 0.5-3(2.5) MG/3 Ml) 0.5 MG-3 MG (2.5 MG BASE)/3 ML AMPUL.NEB 1 Vial Inhale Solution 4 TIMES A DAY Comments: Last Taken: 11/30/16 Time: 12:00 PM Mometasone Furoate (Nasonex) 50 MCG SPRAY.PUMP 2 [place] Both sides of nose DAILY Comments: NOT GIVEN IN HOSPITAL Acetaminophen (Tylenol Extra Strength) 500 MG TABLET 2 Tablet ORAL TWICE DAILY Comments: Last Taken: 11/28/16 Time: 12:00 PM Gabapentin (Neurontin) 400 MG CAPSULE 1 Capsule ORAL TWICE DAILY Comments: Last Taken: 11/30/16 Time: 9:30 AM Omeprazole (Omeprazole) 40 MG CAPSULE.DR 1 Capsule ORAL DAILY Comments: Last Taken: 11/30/16 Time: 6:00 AM Bisacodyl (Dulcolax) 5 MG TABLET.DR 1 Tablet ORAL DAILY Comments: Last Taken: 11/30/16 Time: 9:30 AM Alendronate Sodium (Fosamax) 70 MG TABLET 1 Tablet ORAL EVERY SUNDAY Instructions: in the morning, at least 30 minutes before the first food, beverage, or medication of the day Comments: NOT GIVEN IN HOSPTIAL Fluticasone/Salmeterol (Advair 500-50 Diskus) 500 MCG-50 MCG/DOSE BLST.W.DEV 1 Puff Inhale through mouth TWICE DAILY Comments: NOT GIVEN IN HOSPITAL Lidocaine (Lidoderm) 5 % ADH..PATCH 1 Patch On the skin DAILY Instructions: may wear up to 12 hours Comments: Last Taken: 11/30/16 Time: 11:00 AM Tiotropium [place] (Spiriva) 18 MCG CAP.W.DEV 1 Capsule Inhale through mouth DAILY Comments: Last Taken: 11/30/16 Time: 9:30 AM Pregabalin (Lyrica) 100 MG CAPSULE 1 Capsule ORAL THREE TIMES DAILY Comments: Last Taken: 11/30/16 Time: 4:00 PM Diazepam (Diazepam) 5 MG TABLET 1 Tablet ORAL 2 x Daily as needed as needed for anxiety/insomnia Comments: Last Taken: 11/28/16 Time: 12:30 PM Warfarin Sodium (Coumadin) 3 MG TABLET 1 Tablet ORAL DAILY Qty = 30 Comments: Last Taken: 11/29/16 Time: 4:30 PM Melatonin (Melatonin) 3 MG TABLET 1 Tablet ORAL Every night Comments: NOT GIVEN IN HOSPITAL Butalb/Acetaminophen/Caffeine (Fioricet 50-300-40 MG Capsule) 50 MG-300 MG-40 MG CAPSULE 1 Capsule ORAL EVERY 4 HOURS NEEDED as needed for HEADACHE Comments: NOT GIVEN WHILE IN HOSPITAL Budesonide (Budesonide) 0.25 MG/2 ML AMPUL.NEB 1 Vial Inhale Solution TWICE DAILY Instructions: Reason to Stop at ADM: TRC Comments: NOT GIVEN WHILE IN HOSPITAL Ferrous Sulfate (Ferrous Sulfate) 325 MG (65 MG IRON) TABLET 1 Tablet ORAL TWICE DAILY Comments: Last Taken: 11/30/16 Time: 9:30 AM Nicotine (Nicoderm Cq) 14 MG/24 HOUR PATCH.TD24 1 Patch On the skin DAILY Qty = 28 Comments: NOT GIVEN IN HOSPITAL Start taking the following new medications: Cephalexin (Keflex) 500 MG CAPSULE 1 Capsule ORAL TWICE DAILY Qty = 3 No Refills Azithromycin (Azithromycin) 250 MG TABLET 1 Tablet ORAL DAILY Qty = 2 No Refills Instructions: 2 the first day followed by 1 for days 2-5 Prednisone (Prednisone) 10 MG TABLET 1 Tablet ORAL SEE INSTRUCTIONS Qty = 6 No Refills Instructions: TAKE 2 DAILY for 2 DAYS 09/01, 09/02 TAKE 1 DAILY for 2 DAYS 09/03, 09/04 Copies To: Gerber LISA,Martir Lloyd; Dusty LISA,Pari Attending MD Review Statement Documenting Attending: Maury LISA,Niki Cole
[2017-08-29 08:46] LABS: PT 15.5 SEC (9.4-12.5)
[2017-08-29 09:03] LABS: ABSOLUTE BASOPHIL COUNT 0 /CUMM (0.0-0.2); ABSOLUTE EOSINOPHIL COUNT 0 /CUMM (0.0-0.7); ABSOLUTE GRANULOCYTE CT 5.4 /CUMM (1.4-6.5); ABSOLUTE LYMPH COUNT 1.5 /CUMM (1.2-3.4); ABSOLUTE MONOCYTE COUNT 0.5 /CUMM (0.10-0.60); BASOPHIL % 0.3 % (0.0-2.0); EOSINOPHIL % 0.5 % (0-5); GRANULOCYTE % 71.8 % (42.2-75.2); MEAN CORPUSCULAR HGB 30.6 PG (27.0-31.0); MEAN CORPUSCULAR VOLUME 92.7 FL (81.0-99.0); MEAN PLATELET VOLUME 8.5 FL (7.4-10.4); PLATELET COUNT 128 /CUMM (130-400); RBC DISTRIBUTION WIDTH 14.4 % (11.5-14.5); RED BLOOD CELL CT 3.67 /CUMM (4.20-5.40); WHITE BLOOD CELL COUNT 7.6 /CUMM (4.8-10.8)
[2017-08-29 14:20] VITALS: BP 120/70
--- NOTE | 2017-08-30 07:36 | PN- Housestaff ---
Marlene LISA,Stacey 08/30/17 0736: Subjective Follow-up For: UTI COPD BUTTOCK WOUND Subjective: Patient continues to be wheezy. Some feeling of being "short of breath" but O2 sats have been good and patient is continued on RA. Patient continues on pyridium and notes no dysuria or hematuria. Review of Systems Constitutional: Reports: no symptoms. Cardiovascular: Reports: no symptoms. Respiratory: Reports: wheezing. Gastrointestinal: Reports: no symptoms. Genitourinary: Reports: no symptoms. Musculoskeletal: Reports: no symptoms. Skin: Reports: lesions. Objective Last 24 Hrs of Vital Signs/I&O Vital Signs Date Time Temp Pulse Resp B/P B/P Pulse O2 O2 Flow FiO2 Mean Ox Delivery Rate 08/30 1600 94 Room Air 08/30 1434 97.8 71 20 138/76 93 08/30 1105 Room Air Room Air 08/30 1100 Room Air Room Air 08/30 0800 94 Room Air 08/30 0000 Room Air Intake & Output 08/30 1600 08/30 0800 08/30 0000 Intake Total 480 10 400 Output Total Balance 480 10 400 Intake, IV 10 Intake, Oral 480 400 Physical Exam General Appearance: Alert, Oriented X3, Cooperative, No Acute Distress Skin: sacral decubitus ulcer, clean Skin Temp/Moisture Exam: Warm/Dry HEENT: Atraumatic, EOMI, Mucous Membr. moist/pink Cardiovascular: Regular Rate, Normal S1, Normal S2, No Murmurs Lungs: scattered mild wheezes Abdomen: Normal Bowel Sounds, Soft, No Tenderness, No Hepatospenomegaly, No Masses Extremities: No Clubbing, No Cyanosis, No Edema, Normal Pulses, No Tenderness/ Swelling Current Medications: Current Medications Sig/Eulogio Start time Last Medication Dose Route Stop Time Status Admin Acetaminophen 650 MG Q6P PRN 08/26 1330 AC 08/28 PO 2147 Acetaminophen 1,000 MG Q6P PRN 08/26 1330 AC IV Albuterol Sulfate 2 PUF Q4 PRN 08/26 1330 AC INH Alendronate Sodium 70 MG QFRI 08/31 0700 AC PO Azithromycin 250 MG DAILY 08/29 1548 AC 08/30 PO 0832 Bisacodyl 5 MG DAILY 08/27 1000 AC 08/30 PO 0830 Budesonide/ 2 PUF BID 08/26 1328 AC 08/30 Formoterol Fumarate INH 0832 Cephalexin 500 MG BID 08/28 1151 AC 08/30 PO 0830 Cyanocobalamin 1,000 MCG DAILY 08/27 1000 AC 08/30 PO 0831 Diazepam 5 MG BID PRN 08/26 2200 AC PO Escitalopram Oxalate 20 MG DAILY 08/27 1000 AC 08/30 PO 0831 Ferrous Sulfate 325 MG BID 08/26 2200 AC 08/30 PO 0831 Fluticasone 2 PUF BID 08/26 1330 AC 08/30 Propionate INH 0834 Folic Acid 1 MG DAILY 08/26 1330 AC 08/30 PO 0830 Gabapentin 400 MG BID 08/26 2200 AC 08/30 PO 0831 Ipratropium [place] 2.5 ML DAILY 08/26 1330 AC INH Levothyroxine Sodium 0.088 MG DAILY AC 08/26 1330 AC 08/30 PO 0606 Lidocaine 1 PAT DAILY 08/27 1000 AC 08/29 EXT 1533 Melatonin 3 MG QPM 08/26 2200 AC 08/29 PO 2130 Nicotine 14 MG DAILY 08/26 1333 AC TOP Omeprazole 40 MG DAILY AC 08/26 1333 AC 08/30 PO 0606 Phenazopyridine HCl 100 MG PC 08/27 1300 AC 08/30 PO 1654 Prednisone 10 MG DAILY 09/03 1000 AC PO 09/05 0959 Prednisone 20 MG DAILY 09/01 1000 AC PO 09/03 0959 Prednisone 30 MG DAILY 08/30 1000 AC 08/30 PO 09/01 0959 0838 Prednisone 40 MG DAILY 08/28 1000 DC 08/29 PO 08/30 0959 0937 Pregabalin 100 MG TID 08/30 2200 AC PO Pregabalin 100 MG TID 08/30 1600 AC 08/30 PO 1710 Pregabalin 75 MG .STK-MED ONE 08/30 826 DC PO 08/30 0828 Pregabalin 25 MG .STK-MED ONE 08/30 0826 DC PO 08/30 0827 Pregabalin 100 MG TID 08/26 1600 DC 08/30 PO 0836 Tiotropium [place] 1 PUF DAILY 08/26 1333 AC 08/30 INH 0832 Trazodone HCl 50 MG QPM 08/26 2200 AC 08/29 PO 2130 Warfarin Sodium 3 MG COUMADIN 1700 ONE 08/30 1700 DC PO 08/30 1701 Warfarin Sodium 3 MG COUMADIN 1700 ONE 08/30 1700 DC 08/30 PO 08/30 1701 1651 Last 24 Hrs of Lab/Mick Results Last 24 Hrs of Labs/Mics: Laboratory Tests 08/30/17 0815: Anion Gap 12, Estimated GFR > 60, BUN/Creatinine Ratio 32.2 H, PT 21.0 H, INR 2.01 H, CBC w Diff NO MAN DIFF REQ, RBC 3.74 L, MCV 93.5, MCH 30.8, MCHC 33.0, RDW 14.5, MPV 8.4, Gran % 77.1 H, Lymphocytes % 16.8 L, Monocytes % 5.5, Eosinophils % 0.4, Basophils % 0.2, Absolute Granulocytes 7.4 H, Absolute Lymphocytes 1.6, Absolute Monocytes 0.5, Absolute Eosinophils 0, Absolute Basophils 0 Assessment/Plan Assessment: This is a 75-year-old female with past medical history significant for current smoker 1PPD, COPD not on home oxygen, lung cancer status post right lobe resection, deep vein thrombosis status post IVC filter and Coumadin, osteoarthritis on alendronate, GERD, hypothyroidism, hypertension, anxiety, bilateral leg shakiness, microcytic anemia, allergic rhinitis, hypercholesterolemia, fibromyalgia, spinal stenosis, major depression, emphysema , nonrheumatic mitral valve prolapse, narcolepsy presented to the [facility] emergency department this afternoon with chief complaint of burning urination, lower abdominal pain, shortness of breath on exertion since morning. Vitals afebrile, heart rate 74, respiratory rate 16, blood pressure 128/70, saturating at 93 on room air. Labs CBC completely normal BUN 27 and creatinine 1.2, baseline is 1 BNP 530 Troponin negative Flu negative Chest x-ray normal Received IV methylprednisolone 125 mg and respiratory treatments in the emergency room PLAN Acute cystitis She presented with suprapubic discomfort, dysuria. Denies any frequency, urgency, fever, chills, flank pain, hematuria. Urine analysis showed positive nitrate, esterase, packed WBC, bacteria, hemoglobin. Given her symptoms and urine findings will treat her for urinary tract infection. * WBC 9.5 * CONTINUE keflex bid 500mg for next 2 days for total 7 days treatment. We have confirmed with pharmacy that dosing is correct for her CrCl. * Renal ultrasound was done which did rule out any obstruction * Bladder ultrasound was normal * PATIENT AFEBRILE * UCX shows ecoli susceptible to keflex * PYRIDIUM HAS HELPED WITH DYSURIA Exacerbation of COPD Significant history of COPD, current every day smoker, wheezing on admission, good o2 sats throughout, given NC two times. chest x-ray was clear with no acute pulmonary process, no pneumonia. * Check her vitals every shift * Keep oxygen saturation above 92%, TODAY SHE IS SATTING 95%. STILL HAS A COUGH and wheezing on interview. * CONTINUE steroids. ORAL TAPER ORDERED 30 FOR 2 DAYS, 20 FOR 2 DAYS 10 FOR 2 DAYS AND THEN STOP. * TRC and nebulizer treatment * CONTINUED WHEEZING - WE HAVE ADDED AZITHROMYCIN 250MG DAILY FOR ANTI-INFLAM PROPERTIES and she is on Day 2 250mg. * Bronchodilators and beta agonists * Smoking cessation counseled * Ambulatory O2 tomorrow * Dr. Mayes is patient's compressor station operator. As she continues to have wheezing we will ask him to see her not for the wounds which he has seen here for during this admission, but for her breathing. According to attending's discussion with him, patient has SEVERE COPD and with her lung resection she should be followed for planning especially for outpatient planning. As of this afternoon, Dr. Mayes did speak with patient and convinced her to go to [facility]. Acute kidney injury Creatinine 1.2 at the time of admission. Baseline creatinine was 1. Renal ultrasound was done no obstruction was found. RESOLVED History of lung cancer History of lung cancer status post right lobectomy Follows Martir Ornelas MD compressor station operator Current every day smoker 1 pack per day Smoking history of 65 years DVT s/p IVC filter and on coumadin INR today- 2.01 coumadin decreased back down to 3mg today will monitor inr in the morning and dose coumadin if she remains here tomorrow OPEN WOUNDS LEFT BUTTOCK WOUND CARE CONSULTED WILL APPLY THIN DUODERM CHANGED EVERY 2-3 DAYS OFFLOADING. Disposition PT SAYS [facility] GERD continue omeprazole hypothyroid continue synthyroid Fibromyalgia Continue home dose of gabapentin 400 mg twice a day Continue home dose of Lyrica Depression Continue Lexapro home dose Anxiety Continue diazepam 5 mg daily Osteoarthritis On alendronate every Sunday 70 mg PPI FOR GASTRIC PROTECTION Constipation Dulcolax whenever necessary Microcytic anemia On iron sulfate Smoker Nicotine patch 21 mg daily DNRDNI DVT prophylaxis- coumadin regular diet mild pain pathway- tylenol Problem List: 1. COPD exacerbation 2. UTI (urinary tract infection) Pain Ratin Pain Location: lower back Pain Goal: Pain 4 or less Pain Plan: prn Tomorrow's Labs & Rationales: INR Niki Mendiola MD 08/30/17 1223: Attending MD Review Statement Attending Statement Attending MD Statement: examined this patient, discuss w/resident/PA/BONDING MACHINE SETTER, agreed w/resident/PA/BONDING MACHINE SETTER, reviewed EMR data (avail), discussed with case mgmt, reviewed images Attending Assessment/Plan: 77-year-old female advanced COPD, DVT with IVC filter on Coumadin who is here with a COPD exacerbation now on a by mouth prednisone taper, subtherapeutic INR repeated today and now at 2 and a cystitis being treated with by mouth antibiotics currently. Initially when I saw the patient she was adamantly refusing rehabilitation and there were numerous concerns giving her sacral stage II decubitus, and PT concerns. Dr. Mayes saw her. He knows her from his outpatient palmarly practice and feels that her breathing is at her baseline. We have her on a prednisone taper and off oxygen. And he convinced her that rehabilitation is in her best interests. At this point the plan is to taper the prednisone, complete the course of antibiotics she is on by mouth Keflex for an Escherichia coli cystitis. We've counseled her extensively about stopping smoking as she is still smoking. She is on Coumadin and her INR is therapeutic and that'll need to be closely followed. In addition she has a right parenchymal density noted on her chest x-ray, that when compared to previous chest x-rays and CTs has been commented on by radiology is stable. She will need close outpatient follow-up for the same.
[2017-08-30 09:33] LABS: ABSOLUTE BASOPHIL COUNT 0 /CUMM (0.0-0.2); ABSOLUTE EOSINOPHIL COUNT 0 /CUMM (0.0-0.7); ABSOLUTE GRANULOCYTE CT 7.4 /CUMM (1.4-6.5); ABSOLUTE LYMPH COUNT 1.6 /CUMM (1.2-3.4); ABSOLUTE MONOCYTE COUNT 0.5 /CUMM (0.10-0.60); BASOPHIL % 0.2 % (0.0-2.0); EOSINOPHIL % 0.4 % (0-5); GRANULOCYTE % 77.1 % (42.2-75.2); MEAN CORPUSCULAR HGB 30.8 PG (27.0-31.0); MEAN CORPUSCULAR VOLUME 93.5 FL (81.0-99.0); MEAN PLATELET VOLUME 8.4 FL (7.4-10.4); PLATELET COUNT 154 /CUMM (130-400); RBC DISTRIBUTION WIDTH 14.5 % (11.5-14.5); RED BLOOD CELL CT 3.74 /CUMM (4.20-5.40); WHITE BLOOD CELL COUNT 9.5 /CUMM (4.8-10.8)
[2017-08-30] MEDS ORDERED: AZITHROMYCIN250 M1 PO (13:50)
[2017-08-30] MEDS ORDERED: PREDNISONE10 M2 PO (13:50)
[2017-08-30] MEDS ORDERED: KEFLEX500 M1 PO (13:50)
[2017-08-30 14:34] VITALS: BP 138/76
[2017-08-30 22:25] VITALS: BP 128/70
[2017-08-31 05:52] VITALS: BP 120/71
[2017-08-31 09:12] LABS: PT 24.6 SEC (9.4-12.5)
--- NOTE | 2017-08-31 10:26 | PN- Housestaff ---
Marlene LISA,Stacey 08/31/17 1026: Subjective Follow-up For: UTI COPD BUTTOCK WOUND Subjective: Patient today notes continued wheezing although notes that it is also less. She has no other complaints and no events overnight. Review of Systems Constitutional: Reports: weakness. Respiratory: Reports: wheezing. Skin: Reports: lesions. Objective Last 24 Hrs of Vital Signs/I&O Vital Signs Date Time Temp Pulse Resp B/P B/P Pulse O2 O2 Flow FiO2 Mean Ox Delivery Rate 08/31 0800 94 Room Air 08/31 0552 98.0 82 20 120/71 95 08/31 0000 Room Air 08/30 2225 97.9 71 20 128/70 93 Room Air 08/30 1600 94 Room Air Intake & Output 08/31 1600 08/31 0800 08/31 0000 Intake Total 1000 120 120 Output Total 400 450 Balance 1000 -280 -330 Intake, Oral 1000 120 120 Output, Urine 400 450 Physical Exam General Appearance: Alert, Cooperative, No Acute Distress Skin: No Rashes, stage II sacral decub ulcer left buttock Cardiovascular: Regular Rate, Normal S1, Normal S2, No Murmurs Lungs: mild wheezing on auscultation Abdomen: Normal Bowel Sounds, Soft, No Tenderness Extremities: No Clubbing, No Cyanosis, No Edema, Normal Pulses, No Tenderness/ Swelling Current Medications: Current Medications Sig/Eulogio Start time Last Medication Dose Route Stop Time Status Admin Acetaminophen 650 MG Q6P PRN 08/26 1330 AC 08/28 PO 2147 Acetaminophen 1,000 MG Q6P PRN 08/26 1330 AC IV Albuterol Sulfate 2 PUF Q4 PRN 08/26 1330 AC INH Alendronate Sodium 70 MG QFRI 08/31 0700 AC 08/31 PO 0618 Azithromycin 250 MG DAILY 08/29 1548 AC 08/31 PO 1023 Bisacodyl 5 MG DAILY 08/27 1000 AC 08/31 PO 1024 Budesonide/ 2 PUF BID 08/26 1328 AC 08/31 Formoterol Fumarate INH 1024 Cephalexin 500 MG BID 08/28 1151 DC 08/30 PO 2224 Cyanocobalamin 1,000 MCG DAILY 08/27 1000 AC 08/31 PO 1023 Diazepam 5 MG BID PRN 08/26 2200 AC PO Escitalopram Oxalate 20 MG DAILY 08/27 1000 AC 08/31 PO 1023 Ferrous Sulfate 325 MG BID 08/26 2200 AC 08/31 PO 1023 Fluticasone 2 PUF BID 08/26 1330 AC 08/31 Propionate INH 1024 Folic Acid 1 MG DAILY 08/26 1330 AC 08/31 PO 1023 Gabapentin 400 MG BID 08/26 2200 AC 08/31 PO 1023 Ipratropium [place] 2.5 ML DAILY 08/26 1330 AC INH Levothyroxine Sodium 0.088 MG DAILY AC 08/26 1330 AC 08/31 PO 0650 Lidocaine 1 PAT DAILY 08/27 1000 AC 08/29 EXT 1533 Melatonin 3 MG QPM 08/26 2200 AC 08/30 PO 2224 Nicotine 14 MG DAILY 08/26 1333 AC TOP Omeprazole 40 MG DAILY AC 08/26 1333 AC 08/31 PO 0650 Phenazopyridine HCl 100 MG PC 08/27 1300 AC 08/31 PO 1310 Prednisone 10 MG DAILY 09/03 1000 AC PO 09/05 0959 Prednisone 20 MG DAILY 09/01 1000 AC PO 09/03 0959 Prednisone 30 MG DAILY 08/30 1000 AC 08/31 PO 09/01 0959 1023 Pregabalin 100 MG TID 08/30 2200 AC 08/31 PO 1022 Pregabalin 100 MG TID 08/30 1600 DC 08/30 PO 1710 Pregabalin 100 MG TID 08/26 1600 DC 08/30 PO 0836 Tiotropium [place] 1 PUF DAILY 08/26 1333 AC 08/31 INH 1022 Trazodone HCl 50 MG QPM 08/26 2200 AC 08/30 PO 2224 Warfarin Sodium 3 MG COUMADIN 1700 ONE 08/31 1700 AC PO 08/31 1701 Warfarin Sodium 3 MG COUMADIN 1700 ONE 08/30 1700 DC PO 08/30 1701 Warfarin Sodium 3 MG COUMADIN 1700 ONE 08/30 1700 DC 08/30 PO 08/30 1701 1651 Last 24 Hrs of Lab/Mick Results Last 24 Hrs of Labs/Mics: Laboratory Tests 08/31/17 0705: PT 24.6 H, INR 2.36 H Assessment/Plan Assessment: This is a 75-year-old female with past medical history significant for current smoker 1PPD, COPD not on home oxygen, lung cancer status post right lobe resection, deep vein thrombosis status post IVC filter and Coumadin, osteoarthritis on alendronate, GERD, hypothyroidism, hypertension, anxiety, bilateral leg shakiness, microcytic anemia, allergic rhinitis, hypercholesterolemia, fibromyalgia, spinal stenosis, major depression, emphysema , nonrheumatic mitral valve prolapse, narcolepsy presented to the [facility] emergency department this afternoon with chief complaint of burning urination, lower abdominal pain, shortness of breath on exertion since morning. Vitals afebrile, heart rate 74, respiratory rate 16, blood pressure 128/70, saturating at 93 on room air. Labs CBC completely normal BUN 27 and creatinine 1.2, baseline is 1 BNP 530 Troponin negative Flu negative Chest x-ray normal Received IV methylprednisolone 125 mg and respiratory treatments in the emergency room PLAN Acute cystitis She presented with suprapubic discomfort, dysuria. Denies any frequency, urgency, fever, chills, flank pain, hematuria. Urine analysis showed positive nitrate, esterase, packed WBC, bacteria, hemoglobin. Given her symptoms and urine findings will treat her for urinary tract infection. * CONTINUE keflex bid 500mg for next 1 days for total 7 days treatment. We have confirmed with pharmacy that dosing is correct for her CrCl. * Renal ultrasound was done which did rule out any obstruction * Bladder ultrasound was normal * PATIENT AFEBRILE with normal white count. No dysuria today. * UCX shows ecoli susceptible to keflex * PYRIDIUM HAS HELPED WITH DYSURIA Exacerbation of COPD Significant history of COPD, current every day smoker, wheezing on admission, good O2 sats throughout, given NC two times. chest x-ray was clear with no acute pulmonary process, no pneumonia. * Keep oxygen saturation above 92%, TODAY SHE IS SATTING 94%. STILL has wheezing on interview. * CONTINUE steroids. ORAL TAPER ORDERED 30 FOR next DAY, 20 FOR 2 DAYS 10 FOR 2 DAYS AND THEN STOP. DC prescriptions entered. * TRC and nebulizer treatment * CONTINUED WHEEZING - WE HAVE ADDED AZITHROMYCIN 250MG DAILY FOR ANTI-INFLAM PROPERTIES and she is on Day 3 250mg. * Bronchodilators and beta agonists * Smoking cessation counseled * Ambulatory O2 tomorrow * Dr. Mayes is patient's packer. As she continues to have wheezing we will ask him to see her not for the wounds which he has seen here for during this admission, but for her breathing. According to attending's discussion with him, patient has SEVERE COPD and with her lung resection she should be followed for planning especially for outpatient planning. Yesterday, Dr. Mayes did speak with patient and convinced her to go to [facility]. Acute kidney injury Creatinine 1.2 at the time of admission. Baseline creatinine was 1. Renal ultrasound was done no obstruction was found. RESOLVED History of lung cancer History of lung cancer status post right lobectomy Follows Martir Ornelas MD packer Current every day smoker 1 pack per day Smoking history of 65 years DVT s/p IVC filter and on coumadin INR today- 2.36 coumadin 3mg home dose given will monitor inr in the morning and dose coumadin if she remains here tomorrow OPEN WOUNDS LEFT BUTTOCK WOUND CARE CONSULTED 1.5 x 0.6 cm stage II ulcer over the left buttock there is no significant periwound erythema undermining sinus tracking or exposed bone. WILL APPLY THIN DUODERM CHANGED EVERY 2-3 DAYS OFFLOADING. Disposition PT SAYS [facility] BUT patient is apparently not sick enough to be covered by insurance for particular facility. CASE MANAGEMENT WILL HELP WITH PLACEMENT. GERD continue omeprazole hypothyroid continue synthyroid Fibromyalgia Continue home dose of gabapentin 400 mg twice a day Continue home dose of Lyrica Depression Continue Lexapro home dose Anxiety Continue diazepam 5 mg daily Osteoarthritis On alendronate every Sunday 70 mg PPI FOR GASTRIC PROTECTION Constipation Dulcolax whenever necessary Microcytic anemia On iron sulfate Smoker Nicotine patch 21 mg daily DNRDNI DVT prophylaxis- coumadin regular diet mild pain pathway- tylenol Problem List: 1. COPD exacerbation 2. UTI (urinary tract infection) Pain Ratin Pain Location: none Pain Goal: Remain pain free Pain Plan: pyridium as needed Tomorrow's Labs & Rationales: none Niki Mendiola MD 08/31/17 1458: Attending MD Review Statement Attending Statement Attending MD Statement: examined this patient, discuss w/resident/PA/SENIOR COGNOS DEVELOPER, agreed w/resident/PA/SENIOR COGNOS DEVELOPER, reviewed EMR data (avail), discussed with nursing, discussed with case mgmt Attending Assessment/Plan: Patient is doing well on by mouth antibiotics for cholecystitis, by mouth prednisone taper for a COPD exacerbation. She is getting wound care for the sacral decubitus and the plan is that she'll go to [facility] with close outpatient follow-up. Her right middle lobe opacity in her lung needs outpatient chest x- ray follow-up, her INR needs to be kept therapeutic at all times and she needs follow-up with Dr. Mayes.
[2017-08-31] MEDS ORDERED: PREDNISONE10 M2 PO (11:13)
[2017-08-31] MEDS ORDERED: KEFLEX500 M1 PO (11:13)
[2017-08-31] MEDS ORDERED: AZITHROMYCIN250 M1 PO (11:13)
[2017-08-31 15:03] VITALS: BP 120/71
== END 2017-08-31 18:30 | DRG 191 ==
LOC: ERH 08:08 → 2NA 11:48 → ERHI 11:48 → ENRESERV 12:38 → ENTRNSPT 13:26 → EDTRNSPTSTS 13:40 → 2NA 13:45 → CMPTRNSPT 14:02 → 2NA 08-27 08:42 → ENPENDDIS 08-31 11:50 → 2NA 08-31 18:30
PROVIDERS: Emergency Medicine; Hospitalist; Student in an Organized Health Care Education/Training Program
DX: J44.1 Chronic obstructive pulmonary disease with (acute) exacerbation (principal); N30.00 Acute cystitis without hematuria; L89.322 Pressure ulcer of left buttock, stage 2; D64.9 Anemia, unspecified; F17.210 Nicotine dependence, cigarettes, uncomplicated; Z86.718 Personal history of other venous thrombosis and embolism; Z85.118 Personal history of other malignant neoplasm of bronchus and lung; K21.9 Gastro-esophageal reflux disease without esophagitis; E03.9 Hypothyroidism, unspecified; I10 Essential (primary) hypertension; F41.9 Anxiety disorder, unspecified; M79.7 Fibromyalgia; M19.90 Unspecified osteoarthritis, unspecified site; F32.9 Major depressive disorder, single episode, unspecified; Z79.01 Long term (current) use of anticoagulants
CPT/HCPCS: 2NAP; 36415; 71046; 76775; 81001; 82436; 87086; 87804; 87804-59; 93005; 93010; 96374; 97110-GO; 97116-GO; 97161-GP; 97530-GO; J0131; J0456; J0696; J2920; J2930; J3490; J7512

== ENCOUNTER 2017-09-10 11:59 | Observation (INO) | payer OTHER ==
[~2017-09-10] VITALS: Ht 165.1 cm; Wt 80.7 kg
[~2017-09-10 11:59] MED LIST changes: +KEFLEX500 M1 PO; -NEURONTIN400 M1 PO
--- NOTE | 2017-09-10 12:28 | ED DYSPNEA/ASTHMA COMPLAINT ---
History of Present Illness General Chief Complaint: Dyspnea (COPD, CHF, Other) Stated Complaint: BIBA, SOB Source: patient, family (DAUGHTER ) Exam Limitations: no limitations Vital Signs & Intake/Output Vital Signs & Intake/Output ED Intake and Output 09/13 0000 09/12 1200 Intake Total 290 Output Total Balance 290 Intake, IV 0 Intake, Oral 290 Number 0 Bowel Movements Allergies Coded Allergies: Penicillins (UNKNOWN 05/01/16) atorvastatin (UNKNOWN 05/01/16) nickel (UNKNOWN 05/01/16) morphine (UNKNOWN 05/01/16) Triage Note: 77F BIBA FROM ECF FOR WORSENING DYSPNEA AND SOB AT REST. RECENTLY TREATED FOR PNA AND GIVEN PREDNISONE AND ANTIBIOTICS BUT SYMPTOMS WORSENING. DIFFUSE EXP WHEEZES NOTED TO ALL DE JESUS. PT REPORTS SHE IS ON O2 NORMALLY BUT UNSURE OF AMOUNT. RECEIVED DUONEB AND 125MG SOLUMEDROL IVP BY EMS AND ARRIVES TACHYPNIC RATE 30'S AND SAT 94%. PLACED ON 2LNC SUPPLIMENTAL O2. DENIES ANY CHEST PAIN. DENIES COUGH. REPORTS 1/2PPD SMOKER QUIT TWO WEEKS AGO. DENIES FEVERS/CHILLS OR BODY ACHES. NEUROS INTACT. AFEBRILE. ON COUMADIN, HX DVT'S BUT DENIES PE OR CVA. MINIMAL BLE EDEMA OBSERVED. Triage Nurses Notes Reviewed? yes Onset: Abrupt Duration: day(s): (5), constant, continues in ED, getting worse Timing: recent history Severity: moderate, severe Activities at Onset: none Prior Episodes/Possible Cause: frequent episodes Modifying Factors: Improves With: movement. Worsens With: rest. Associated Symptoms: cough, wheezing, weakness LMP (ages 10-50): post menopausal, unknown : No Patient currently breastfeeds: No HPI: 77 her old female past medical history of COPD, lung cancer, DVT presents for evaluation of cough, congestion and shortness of breath. Symptoms have been worsening over the past few days. She was recently admitted here at the end of last month with a COPD exacerbation. [facility] was [facility] to a [facility] facility. She states that she is becoming increasingly short of breath at rest and has been coughing. The cough is dry. She denies any chest pain or hemoptysis. No lower extremity edema. No fevers. She's been using DuoNeb's at the shelter without any improvement. She received 125 IV Solu-Medrol and DuoNeb in route to the emergency department. No nausea vomiting or diarrhea. She is eating and drinking normally. (Florin POWERS,Clint) Reconcile Medications Acetaminophen (Tylenol Extra Strength) 500 MG TABLET 2 TAB PO BID PAIN ( Reported) Albuterol Sulfate (Proventil Hfa) 90 MCG HFA.AER.AD 2 PUF INH Q4 PRN COPD ( Reported) Alendronate Sodium (Fosamax) 70 MG TABLET 1 TAB PO QFRI BONE (Reported) in the morning, at least 30 minutes before the first food, beverage, or medication of the day Apixaban (Eliquis) 5 MG TABLET 5 MG PO BID Blood thinner Bisacodyl (Dulcolax) 5 MG TABLET.DR 1 TAB PO DAILY GI (Reported) Budesonide 0.25 MG/2 ML AMPUL.NEB 1 Vial INH/UDAY BID BREATHING PROBLEMS ( Reported) Reason to Stop at ADM: TRC Butalb/Acetaminophen/Caffeine (Fioricet 50-300-40 MG Capsule) 50 MG-300 MG-40 MG CAPSULE 1 CAP PO Q4 HRS NEEDED PRN HEADACHE (Reported) Calcium Carbonate/Vitamin D3 (Caltrate 600 + D Tablet) 600 MG-800 TABLET 1 TAB PO DAILY osteoprosis (Reported) Cyanocobalamin (Vitamin B-12) 1,000 MCG TABLET 1 TAB PO DAILY SUPPLEMENT ( Reported) Diazepam 5 MG TABLET 1 TAB PO BIDP PRN anxiety/insomnia (Reported) Diphenhydramine HCl/Zinc Acet (Itch Relief Cream) 2 %-0.1 % CREAM..G. 1 MOIRA TOP BID PRN Pruitis Ergocalciferol (Vitamin D2) (Vitamin D2) 50,000 UNIT CAPSULE 1 CAP PO QFRI SUPPLEMENT (Reported) Ergocalciferol (Vitamin D2) (Vitamin D2) 50,000 UNIT CAPSULE 1 CAP PO QW osteoprosis (Reported) Escitalopram Oxalate (Lexapro) 20 MG TABLET 1 TAB PO DAILY depression ( Reported) Ferrous Sulfate 325 MG (65 MG IRON) TABLET 1 TAB PO BID SUPPLEMENT (Reported) Fluticasone/Salmeterol (Advair 500-50 Diskus) 500 MCG-50 MCG/DOSE BLST.W.DEV 1 PUF INH BID BREATHING PROBLEMS (Reported) Folic Acid 0.8 MG TABLET 1 TAB PO TID SUPPLEMENT (Reported) Gabapentin (Neurontin) 400 MG CAPSULE 1 CAP PO BID NEUROPATHY (Reported) Ipratropium/Albuterol Sulfate (Iprat-Albut 0.5-3(2.5) MG/3 Ml) 0.5 MG-3 MG (2.5 MG BASE)/3 ML AMPUL.NEB 1 Vial INH/UDAY 4 TIMES/DAY COPD (Reported) Levothyroxine Sodium (Synthroid) 75 MCG TABLET 0.075 MG PO DAILY AC Thyroid Lidocaine (Lidoderm) 5 % ADH..PATCH 1 PAT TOP DAILY PAIN (Reported) may wear up to 12 hours Melatonin 3 MG TABLET 1 TAB PO QPM SLEEP (Reported) Mometasone Furoate (Nasonex) 50 MCG SPRAY.PUMP 2 SPRAY NASB DAILY ALLERGIES ( Reported) Nicotine (Nicoderm Cq) 14 MG/24 HOUR PATCH.TD24 1 PAT TOP DAILY SMOKING CESSATION Omeprazole 40 MG CAPSULE.DR 1 CAP PO DAILY GI (Reported) Polyethylene Glycol 3350 (Miralax) 17 GRAM POWD.PACK 1 PAC PO DAILY constipation (Reported) dissolve in water Prednisone 10 MG TABLET 1 TAB PO DAILY Steroid Taper Take 40mg from 09/13/17-09/15/17, 30mg from 09/16/17-09/18/17, 20mg from 09/19/17-09/21/17, 10mg from 09/22/17-09/24/17, then stop. Pregabalin (Lyrica) 100 MG CAPSULE 1 CAP PO TID PAIN (Reported) Tiotropium [place] (Spiriva) 18 MCG CAP.W.DEV 1 CAP INH DAILY BREATHING PROBLEMS (Reported) Trazodone HCl 50 MG TABLET 1 TAB PO QPM SLEEP (Reported) (Elza LISA,Christiano Mchugh) Past History Travel History Traveled to [place] past 21 day No Medical History Any Pertinent Medical History? see below for history Neurological: narcolepsy EENT: allergies, cataracts, rhinitis Cardiovascular: hyperlipidemia, mitral valve prolapse Respiratory: COPD Gastrointestinal: constipation, diverticulitis, GERD Hepatic: NONE Renal: NONE Musculoskeletal: fibromyalgia, osteoarthritis, spinal stenosis (cervical) Psychiatric: anxiety, depression Endocrine: diabetes, hypothyroidism Blood Disorders: anemia, DVT BLE Cancer(s): lung cancer WEB WEAVER/Reproductive: uterine/bladder prolapse History of MRSA: No History of VRE: No History of CDIFF: No Influenza Vaccine: 06/29/17 Surgical History Surgical History: appendectomy, hysterectomy, lumpectomy, right lobectomy cervical fusion Psychosocial History Who do you live with Patient/Self What is your primary language [place]ian Tobacco Use: Quit <30 days ago Family History Family History, If Any: FATHER FH: CHF (congestive heart failure) Hypertension Hx Contributory? No (Clint Tran) Review of Systems Review of Systems Constitutional: Reports: weakness. EENTM: Reports: no symptoms. Respiratory: Reports: see HPI, cough, short of breath, wheezing. Cardiovascular: Reports: no symptoms. GI: Reports: no symptoms. Genitourinary: Reports: no symptoms. Musculoskeletal: Reports: no symptoms. Skin: Reports: no symptoms. Neurological/Psychological: Reports: no symptoms. Hematologic/Endocrine: Reports: no symptoms. Immunologic/Allergic: Reports: no symptoms. All Other Systems: Reviewed and Negative (Clint Tran) Physical Exam Physical Exam General Appearance: well developed/nourished, no apparent distress, alert, awake Head: atraumatic, normal appearance Eyes: Bilateral: normal appearance, PERRL, EOMI. Ears, Nose, Throat: normal pharynx, normal ENT inspection, hearing grossly normal Neck: normal inspection, supple, full range of motion Respiratory: chest non-tender, rhonchi, wheezing, respiratory distress Cardiovascular: regular rate/rhythm, normal peripheral pulses Peripheral Pulses: 2+ radial (R), 2+ radial (L) Gastrointestinal: soft, non-tender Extremities: normal inspection, normal range of motion, no edema Neurologic/Psych: no motor/sensory deficits, awake, alert, oriented x 3, normal gait Skin: intact, normal color, warm/dry Lymphatic: no anterior cervical dahlia Core Measures ACS in differential dx? No CVA/TIA Diagnosis No Sepsis Present: No Sepsis Focused Exam Completed? No (Clint Tran) Progress Differential Diagnosis: asthma, AMI, bronchitis, CHF, COPD, musculoskeletal pain , pulmonary embolism, pneumonia, pneumothorax, unstable angina Plan of Care: Orders Procedure Date/time Status AEROSOL CHG 09/12 UNK Complete OXYGEN 09/12 UNK Complete OXYGEN DAILY CHARGE 09/12 UNK Complete Patient seen and evaluated. On initial evaluation she was in acute distress with diffuse wheezing and rhonchi auscultated bilaterally. Patient received DuoNeb and Solu-Medrol in route. She is having increased work of breathing. She was placed on 3 L nasal cannula to maintain oxygen saturation in the mid 90s. She was given additional DuoNeb. Blood work does not show any acute findings chest x-ray is negative influenza testing is negative. Patient was trialed on room air and she desaturates to the low 90s. She is still visibly short of breath even when talking or moving around the stretcher. Case was discussed with Dr. DOBBINS the patient's correctional officer. He recommends admitting the patient for observation due to COPD exacerbation. Patient will require oxygen supplementation, pulmonology consult, serial chest x-rays, serial labs, IV steroids, DuoNeb's, monitoring of vital signs. Case discussed with Dr. Bertrand he agrees. Diagnostic Imaging: Viewed by Me: Radiology Read. Discussed w/RAD: Radiology Read. CXR Impression: PATIENT: REID WEINER PRESENT AGE: 77 PATIENT ACCOUNT NO: [id number] : 41 LOCATION: [facility] [place] ORDERING PHYSICIAN: Clint POWERS SERVICE DATE: 09/10/17 EXAM TYPE: RAD - XRY-PORTABLE CHEST XRAY EXAMINATION: XR PORTABLE CHEST CLINICAL INFORMATION: Pneumonia CHF. Cough shortness of breath. COMPARISON: Multiple prior chest exams most recent chest x-ray 08/26/2017. TECHNIQUE: Portable frontal view of the chest was obtained. FINDINGS: Chronic blunting of the right costophrenic angle. Linear opacity in the right midlung laterally compatible scarring unchanged. Postsurgical changes The cardiac silhouette, pulmonary vascularity and aorta are unremarkable. Postsurgical changes overlie the lower cervical spine IMPRESSION: No acute disease. DICTATED BY: Doroteo Bhatti MD DATE/TIME DICTATED:09/10/171332 PLAN COORDINATOR:NATHAN DATE/TIME TRANSCRIBED:09/10/171332 CONFIDENTIAL, DO NOT COPY WITHOUT APPROPRIATE AUTHORIZATION. Initial ED EKG: normal sinus rhythm, no ST T wave changes Prior EKG: unchanged Rhythm Strip: normal sinus rhythm (Clint Tran) Departure Departure Disposition: STILL A PATIENT Condition: Stable Clinical Impression Primary Impression: COPD exacerbation Referrals: Pari Montano MD (PCP/Family) Departure Forms: Customer Survey General Discharge Information Observation Note Spoke With: Doroteo Ho MD Physician Advisor Notified: FLO LISA,CORWIN [address] Patient In: Non-ED OBS Care Area Rationale for Observation: My rational for observation is as follows [IV steroids, DuoNeb's, oxygen supplementation, serial labs, serial chest x-rays, pulmonology consult, monitoring of vital signs]. (Clint Tran) Departure Prescriptions: Current Visit Scripts Apixaban (Eliquis) 5 MG PO BID #60 TAB Levothyroxine Sodium (Synthroid) 0.075 MG PO DAILY AC #30 TAB Prednisone 1 TAB PO DAILY #30 TAB Take 40mg from 09/13/17-09/15/17, 30mg from 09/16/17-09/18/17, 20mg from 09/19/17-09/21/17, 10mg from 09/22/17-09/24/17, then stop. Diphenhydramine HCl/Zinc Acet (Itch Relief Cream) 1 MOIRA TOP BID PRN Pruitis #1 TUBE PA/COMMUNITY DEVELOPMENT AIDE Co-Sign Statement Statement: ED Attending supervision documentation- [X] I saw and evaluated the patient. I have also reviewed all the pertinent lab results and diagnostic results. I agree with the findings and the plan of care as documented in the PA's/COMMUNITY DEVELOPMENT AIDE's documentation. Patient presents for evaluation of worsening dyspnea with cough and chest congestion over the past few days. Sickle examination reveals decreased breath sounds with scattered and expiratory wheezing and mild rhonchi. [] I have reviewed the ED Record and agree with the PA's/COMMUNITY DEVELOPMENT AIDE's documentation. [] Additions or exceptions (if any) to the PAs/COMMUNITY DEVELOPMENT AIDE's note and plan are summarized below: [] (Elza LISA,Christiano Mchugh) Critical Care Note Critical Care Note Critical Care Time: 30-74 min (Clint Tran) Place Patient In: Non-ED OBS Care Area Rationale for Observation: My rational for observation is as follows [IV steroids, DuoNeb's, oxygen supplementation, serial labs, serial chest x-rays, pulmonology consult, monitoring of vital signs]. Critical Care Note Critical Care Note Critical Care Time: 30-74 min
[2017-09-10 12:30] LABS: ABSOLUTE BASOPHIL COUNT 0 /CUMM (0.0-0.2); ABSOLUTE EOSINOPHIL COUNT 0 /CUMM (0.0-0.7); ABSOLUTE LYMPH COUNT 0.6 /CUMM (1.2-3.4); ABSOLUTE MONOCYTE COUNT 0.6 /CUMM (0.10-0.60); BASOPHIL % 0 % (0.0-2.0); EOSINOPHIL % 0 % (0-5); HEMATOCRIT 39.7 % (37-47); MEAN CORPUSCULAR HGB 30.9 PG (27.0-31.0); MEAN CORPUSCULAR HGB CONC 32.9 G/DL (33.0-37.0); MEAN PLATELET VOLUME 8.2 FL (7.4-10.4); RBC DISTRIBUTION WIDTH 15.1 % (11.5-14.5); RED BLOOD CELL CT 4.22 /CUMM (4.20-5.40); WHITE BLOOD CELL COUNT 8.2 /CUMM (4.8-10.8)
[2017-09-10 12:44] LABS: PT 17.9 SEC (9.4-12.5); PTT 46 SEC (25-37)
[2017-09-10 12:55] LABS: PLATELET COUNT 200 /CUMM (130-400)
[2017-09-10 12:56] LABS: GRANULOCYTE % 85.3 % (42.2-75.2)
--- NOTE | 2017-09-10 13:39 | RADIOLOGY REPORT ---
EXAMINATION: XR PORTABLE CHEST CLINICAL INFORMATION: Pneumonia CHF. Cough shortness of breath. COMPARISON: Multiple prior chest exams most recent chest x-ray 08/26/2017. TECHNIQUE: Portable frontal view of the chest was obtained. FINDINGS: Chronic blunting of the right costophrenic angle. Linear opacity in the right midlung laterally compatible scarring unchanged. Postsurgical changes The cardiac silhouette, pulmonary vascularity and aorta are unremarkable. Postsurgical changes overlie the lower cervical spine IMPRESSION: No acute disease.
--- NOTE | 2017-09-10 14:38 | History & Physical ---
[facility] 09/10/17 1438: General Information and HPI MD Statement: I have seen and personally examined REID WEINER and documented this H&P. The patient is a 77 year old F who presented with a patient stated chief complaint of progressive worsening shortness of breath with cough. []. Source of Information: patient, old records Exam Limitations: no limitations History of Present Illness: 77 YO F former smoker (quit 6 weeks back, 1/2 packs/d) with PMH of COPD not on home oxygen, lung cancer s/p right lobe resection, deep vein thrombosis status post IVC filter, atrial flutter on eliquis, osteoarthritis, osteoprosis on alendronate, GERD, hypothyroidism, HTN, anxiety, microcytic anemia, allergic rhinitis, hypercholesterolemia, fibromyalgia, spinal stenosis, major depression, nonrheumatic mitral valve prolapse and narcolepsy was sent to ED from nursing facility with shortness of breath with cough for last couple of days. She reported that she was in her usual state of health when she started to have shortness of breath that was on exertion previously but for last couple of days his progressively worsening. Now patient is feeling short of breath even at rest with dry cough. Patient is having baseline dry cough but for last couple of days she reported that it's worsening and she is not able to bring any phlegm. In nursing facility patient received nebulization treatment and also steroids but she didn't get relief and her shortness of breath and cough worsened that's why they sent the patient to ED. Patient denied any chest pain, palpitation, lightheadedness, fever, chills, diarrhea, constipation, dizziness, pain while chewing, tenderness in temporal region and dysuria. Patient also reported having right sided abdominal pain but no diarrhea or constipation. Patient also reported having headache for couple of days and diplopia for long time. Patient also reported sick contacts as she reported that in [facility] the resident's but also coughing around her. Patient reported that she started to follow Dr. Moreno for her lung problems after her recent admission. 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 Last time patient was admitted to [facility] in July 2017 with acute COPD exacerbation. Patient's echocardiogram was done in June 2011 that showing ejection fraction 60%. ED course: Vitals: Temperature 98.3, pulse 103, respiratory rate 30, blood pressure 127/66, oxygen saturation 94% on room air. Was started on supplemental oxygen 2 L in ED Labs; WBC 8.2, hemoglobin 13.0, hematocrit 39.7, platelet count 200, sodium 139, potassium 4.8, BUN 28, creatinine 1.0, BUNs/creatinine ratio 28.0, glucose 81, calcium 8.8, AST 25, ALT 35, troponin less than 0.01, PT 17.9, INR 1.71 And rapid influenza test was done in ED that was negative. Allergies/Medications Allergies: Coded Allergies: Penicillins (UNKNOWN 05/01/16) atorvastatin (UNKNOWN 05/01/16) nickel (UNKNOWN 05/01/16) morphine (UNKNOWN 05/01/16) Past History Travel History Traveled to [place] past 21 day No Medical History Neurological: narcolepsy EENT: allergies, cataracts, rhinitis Cardiovascular: hyperlipidemia, mitral valve prolapse Respiratory: COPD Gastrointestinal: constipation, diverticulitis, GERD Hepatic: NONE Renal: NONE Musculoskeletal: fibromyalgia, osteoarthritis, spinal stenosis (cervical) Psychiatric: anxiety, depression Endocrine: diabetes, hypothyroidism Blood Disorders: anemia, DVT BLE Cancer(s): lung cancer RADIOLOGIC THERAPIST/Reproductive: uterine/bladder prolapse History of MRSA: No History of VRE: No History of CDIFF: No Surgical History Surgical History: appendectomy, hysterectomy, lumpectomy, right lobectomy cervical fusion Past Family/Social History Family History Relations & Conditions if any FATHER FH: CHF (congestive heart failure) Hypertension Psychosocial History Who Do You Live With? self Primary Language: Monegasque Living Will? yes Functional Ability ADLs Independent: dressing, eating, toileting, bathing. Ambulation: walker IADLs Independent: telephone. Needs Assist: shopping, housework, transportation, medication admin. Review of Systems Review of Systems Constitutional: Reports: no symptoms. EENTM: Reports: no symptoms. Cardiovascular: Reports: no symptoms. Respiratory: Reports: cough, short of breath. GI: Reports: no symptoms. Genitourinary: Reports: no symptoms. Musculoskeletal: Reports: see HPI. Neurological/Psychological: Reports: headache. Exam & Diagnostic Data Physical Exam General Appearance Alert, Oriented X3, Cooperative Skin Temp/Moisture Exam: Warm/Dry Sepsis Skin Exam (color): Normal for Ethnicity HEENT Atraumatic, PERRLA, EOMI Neck Supple Cardiovascular Normal S1, Normal S2 Lungs Expiratory wheezing b/l, B/L decreased breath sounds Abdomen Soft, tenderness in right side of abdomen Neurological Normal Speech, Strength at 5/5 X4 Ext, Normal Tone, Sensation Intact Extremities B/L pedal edema Assessment/Plan Assessment: 77 YO F former smoker (quit 6 weeks back, 1/2 packs/d) with PMH of COPD not on home oxygen, lung cancer s/p right lobe resection, deep vein thrombosis status post IVC filter, atrial flutter on eliquis, osteoarthritis, osteoprosis on alendronate, GERD, hypothyroidism, HTN, anxiety, microcytic anemia, allergic rhinitis, hypercholesterolemia, fibromyalgia, spinal stenosis, major depression, nonrheumatic mitral valve prolapse and narcolepsy was sent to ED from nursing facility with shortness of breath with cough for last couple of days. We'll keep the patient under observation and treat for acute hypoxemic respiratory failure due to COPD exacerbation. Acute hypoxemic respiratory failure due to COPD exacerbation; -Probably secondary to flu although its negative but she has sick contact and rapid flu test could be false negative. -Supplemental oxygen as needed to keep oxygen saturation above 92%. -IV Solu-Medrol every 8 hourly -TRC nebulization -IV azithromycin -Mucinex -Pulmonology consult in a.m. -Tamiflu for 5 days. -Sputum cultures History of hypothyroidism: -Patient TSH is low. May be needed to adjust her dose. -Continue levothyroxine History of A. fib/aflutter: -Continue Eliquis History of recurrent DVT status post IVC filter: -Continue Eliquis 5 mg twice a day -Eliquis was prescribed by Dr. Torres. History of depression: -Continue escitalopram History of GERD: Continue omeprazole History of back pain: Continue lidocaine patch. DVT prophylaxis: Mechanical and subcutaneous heparin. CODE STATUS: DNR/DNI As Ranked By This Provider Problem List: 1. COPD exacerbation Core Measures/Misc (04/15) Acute Coronary Syndrome ACS Diagnosis: No Congestive Heart Failure Congestive Heart Failure Diagnosis No Cerebrovascular Accident CVA/TIA Diagnosis: No VTE (View Protocol) VTE Risk Factors Age>40 No Mechanical VTE Prophylaxis d/t N/A MechProphylax Ordered No VTE Pharm Prophylaxis d/t NA PharmProphylax ordered Sepsis (View protocol) Sepsis Present: No Jaret LISA,Ismary jo 09/10/17 1616: General Information and HPI Allergies/Medications Home Med list Acetaminophen (Tylenol Extra Strength) 500 MG TABLET 2 TAB PO BID PAIN ( Reported) Albuterol Sulfate (Proventil Hfa) 90 MCG HFA.AER.AD 2 PUF INH Q4 PRN COPD ( Reported) Alendronate Sodium (Fosamax) 70 MG TABLET 1 TAB PO QFRI BONE (Reported) in the morning, at least 30 minutes before the first food, beverage, or medication of the day Apixaban (Eliquis) 5 MG TABLET 1 TAB PO DAILY DVT (Reported) Azithromycin 250 MG TABLET 1 TAB PO DAILY COPD EXACERBATION 2 the first day followed by 1 for days 2-5 Bisacodyl (Dulcolax) 5 MG TABLET.DR 1 TAB PO DAILY GI (Reported) Budesonide 0.25 MG/2 ML AMPUL.NEB 1 Vial INH/UDAY BID BREATHING PROBLEMS ( Reported) Reason to Stop at ADM: TRC Butalb/Acetaminophen/Caffeine (Fioricet 50-300-40 MG Capsule) 50 MG-300 MG-40 MG CAPSULE 1 CAP PO Q4 HRS NEEDED PRN HEADACHE (Reported) Calcium Carbonate/Vitamin D3 (Caltrate 600 + D Tablet) 600 MG-800 TABLET 1 TAB PO DAILY osteoprosis (Reported) Cephalexin (Keflex) 500 MG CAPSULE 1 CAP PO BID UTI Cyanocobalamin (Vitamin B-12) 1,000 MCG TABLET 1 TAB PO DAILY SUPPLEMENT ( Reported) Diazepam 5 MG TABLET 1 TAB PO BIDP PRN anxiety/insomnia (Reported) Ergocalciferol (Vitamin D2) (Vitamin D2) 50,000 UNIT CAPSULE 1 CAP PO QW osteoprosis (Reported) Ergocalciferol (Vitamin D2) (Vitamin D2) 50,000 UNIT CAPSULE 1 CAP PO QFRI SUPPLEMENT (Reported) Escitalopram Oxalate (Lexapro) 20 MG TABLET 1 TAB PO DAILY depression ( Reported) Escitalopram Oxalate (Lexapro) 20 MG TABLET 1 TAB PO DAILY MENTAL HEALTH ( Reported) Ferrous Sulfate 325 MG (65 MG IRON) TABLET 1 TAB PO BID SUPPLEMENT (Reported) Fluticasone/Salmeterol (Advair 500-50 Diskus) 500 MCG-50 MCG/DOSE BLST.W.DEV 1 PUF INH BID BREATHING PROBLEMS (Reported) Folic Acid 0.8 MG TABLET 1 TAB PO TID SUPPLEMENT (Reported) Ipratropium/Albuterol Sulfate (Iprat-Albut 0.5-3(2.5) MG/3 Ml) 0.5 MG-3 MG (2.5 MG BASE)/3 ML AMPUL.NEB 1 Vial INH/UDAY 4 TIMES/DAY COPD (Reported) Levothyroxine Sodium 88 MCG TABLET 1 TAB PO DAILY AC THYROID (Reported) Lidocaine (Lidoderm) 5 % ADH..PATCH 1 PAT TOP DAILY PAIN (Reported) may wear up to 12 hours Melatonin 3 MG TABLET 1 TAB PO QPM SLEEP (Reported) Mometasone Furoate (Nasonex) 50 MCG SPRAY.PUMP 2 SPRAY NASB DAILY ALLERGIES ( Reported) Nicotine (Nicoderm Cq) 14 MG/24 HOUR PATCH.TD24 1 PAT TOP DAILY SMOKING CESSATION Omeprazole 40 MG CAPSULE.DR 1 CAP PO DAILY GI (Reported) Polyethylene Glycol 3350 (Miralax) 17 GRAM POWD.PACK 1 PAC PO DAILY constipation (Reported) dissolve in water Prednisone 10 MG TABLET 1 TAB PO SEE ADMIN CRITERIA COPD EXACERBATION TAKE 2 DAILY for 2 DAYS 2/3, 2/4 TAKE 1 DAILY for 2 DAYS 25, 2/6 Pregabalin (Lyrica) 100 MG CAPSULE 1 CAP PO TID PAIN (Reported) Tiotropium [place] (Spiriva) 18 MCG CAP.W.DEV 1 CAP INH DAILY BREATHING PROBLEMS (Reported) Trazodone HCl 50 MG TABLET 1 TAB PO QPM SLEEP (Reported) Exam & Diagnostic Data Last 24 Hrs of Vital Signs/I&O Vital Signs Date Time Temp Pulse Resp B/P B/P Pulse O2 O2 Flow FiO2 Mean Ox Delivery Rate 09/10 2107 Nasal 2.0L Cannula 09/10 1942 98.3 89 18 150/72 98 Nasal 4.5L Cannula 09/10 1902 Nasal 3.0L Cannula 09/10 1819 24 94 Nasal 3.0L Cannula 09/10 1816 98.3 82 18 145/69 92 Room Air 09/10 1446 94 Nasal 2.0L Cannula 09/10 1324 98.0 90 24 122/70 95 Nasal 2.0L Cannula 09/10 1233 94 Nasal 2.0L Cannula 09/10 1222 95 Nasal 2.0L Cannula 09/10 1209 98.3 103 30 127/66 94 Room Air Resident Review Statement Resident Statement: examined this patient, discussed with spring internship, agreed with spring internship Other Findings: 77/F with extensive PMH including but not limited to COPD (no home oxygen), remote lung cancer S/P right upper lobe resection, recurrent DVT s/p IVC filter, on eliquis, and hypothyroidism who presented to [place] ED from [facility] because of worsening dyspnea and dry cough. For the past 5 days patient been complaining of wheezing, dyspnea, and dry cough. She received 80 mg IV Solu-Medrol really for the past 5 days without improvement. The patient reported that her [facility]mate in the [facility] was sick recently, she is not sure if it was influenza however she believes that her roommate was started on Tamiflu. The patient denies chest pain, palpitation, sputum production, hemoptysis, weight loss, or recent travel. The patient reported recent right sided headache that lasts for a few minutes. She denies dizziness, numbness, weakness, or visual changes. The patient also has chronic right lower quadrant abdominal tenderness that's been going for years. She denies diarrhea, constipation, nausea or vomiting. The patient reported intermittent bright red per rectum, however she denies any recent episodes. Assessment and plan This is 77-year-old female who presented dizziness, wheezing and decreased air entry over lung bilaterally which suggestive of COPD exacerbation. She was coughing intermittently during exam without sputum production. BMP was found to be 1150, x-ray did not show any pleural effusion, she has no lower extremity edema which exclude cardiac involvement. The patient was found to be tachycardic on admission, she has a history of hypothyroidism with TSH of 0.2 ( low). #COPD exacerbation/possible flu contact * Patient will be on obs on General medicine floor * Start IV Solu-Medrol 40 mg 3 times a day * Azithromycin daily * Sputum culture * Oxygen as necessary * Nebulizer [id number] * Tamiflu as a prophylaxis #Hx Hypothyroidism * TSH was found to be low, Free T4 was found to be normal, this is subclinical hyperthyroidism. * We will decrease levothyroxine to 75 instead of 88 in the setting of tachycardia and low TSH * This is most likely because of the synergistic effect of steroid on thyroxine, patient will most likely need to repeat TSH after steroid is tapered, and adjust of thyroxin does accordingly. #Recurrent DVT status post inferior vena cava filter * Start eliquis 5 mg BID * The patient was on [facility] daily Eliquis at [facility]. I spoke with Dr. Torres (pt's PCP) over the phone, She confirmed that patient was prescribed BID not once daily, so the patient was under treated during last week.(switched form warfarin to eluqis around a week ago) #Depression/Insomnia * Continue Escitalopram 20 mg daily * Continue Trazodon 50 mg at bed time * Continue Melatonin 3 mg at bed time #GERD * Continue omeprazole 40 mg daily #Chronic back pain * We'll continue lidocaine patch -DVT PPx: Alps/pharmacological -Heart healthy diet -DNR/DNI Attending MD Review Statement Attending Statement Attending MD Statement: examined this patient, discuss w/resident/PA/NETWORK OPERATIONS LEAD, agreed w/resident/PA/NETWORK OPERATIONS LEAD, discussed with family, reviewed EMR data (avail), discussed with nursing, discussed with case mgmt, reviewed images, amended to note Attending Assessment/Plan: 77 YO F former smoker (quit 6 weeks back, 1/2 packs/d) with PMH of COPD not on home oxygen, lung cancer s/p right lobe resection, deep vein thrombosis status post IVC filter, atrial flutter on eliquis, osteoarthritis, osteoprosis on alendronate, GERD, hypothyroidism, hypertension, anxiety, bilateral leg shakiness, microcytic anemia, allergic rhinitis, hypercholesterolemia, fibromyalgia, spinal stenosis, major depression, emphysema, nonrheumatic mitral valve prolapse, narcolepsy comes with shortness of breath after seen at [facility]. Patient c/o cough, diffuse wheezing, denies fever, chest pain, no crackles, no edema. Patient recent contact flu+. Patient recieved steroids in ER with improvement. VITALS 98 bp 122/70 94 on 2l NC RR 30 LABS wbc 8.2, h/h 13/39.7 Cr 1.0 Plt 210 Na 139 Chest xray no acute abnormalities ASSESSMENT AND PLAN: Patient is placed in observation for acute hypoxemic respiratory failure 2/2 COPD exacebration. Patient will be started on i/v steroids, iv abx, tamiflu, oxygen supplementation, TRCs, pulmonary consult if no improvement. Resume home meds (confirm ac). gi/dvt prophyalxis DNR/DNI.
[2017-09-10] MEDS ORDERED: ELIQUIS5 M1 PO (18:13)
[2017-09-10] MEDS ORDERED: MIRALAX17 G1 PO (18:41)
[2017-09-10] MEDS ORDERED: LEXAPRO20 M1 PO (18:41)
[2017-09-10] MEDS ORDERED: VITAMIN D250000 UNIT PO (18:42)
[2017-09-10] MEDS ORDERED: CALTRATE 600 +1 EACH PO (18:43)
[2017-09-10 19:42] VITALS: BP 150/72
[2017-09-10 23:12] VITALS: BP 120/70
[2017-09-11 05:50] VITALS: BP 140/62
--- NOTE | 2017-09-11 07:44 | PN- Housestaff ---
See Addendum Subjective Follow-up For: COPD vs flu Subjective: Admitted last night. Still having wheezing, some SOB. No CP, fever, chills, or other issues. Review of Systems Constitutional: Reports: no symptoms. EENTM: Reports: no symptoms. Cardiovascular: Reports: no symptoms. Respiratory: Reports: see HPI. Gastrointestinal: Reports: no symptoms. Genitourinary: Reports: no symptoms. Musculoskeletal: Reports: no symptoms. Skin: Reports: no symptoms. Neurological/Psychological: Reports: no symptoms. Hematologic/Endocrine: Reports: no symptoms. Immunologic/Allergic: Reports: no symptoms. Objective Last 24 Hrs of Vital Signs/I&O Vital Signs Date Time Temp Pulse Resp B/P B/P Pulse O2 O2 Flow FiO2 Mean Ox Delivery Rate 09/11 0550 97.9 64 20 140/62 98 Nasal 2.5L Cannula 09/11 0000 Nasal 2.0L Cannula 09/10 2312 97.9 72 20 120/70 97 Nasal Cannula 09/10 2107 Nasal 2.0L Cannula 09/10 2000 Nasal 2.0L Cannula 09/10 1942 98.3 89 18 150/72 98 Nasal 4.5L Cannula 09/10 1902 Nasal 3.0L Cannula 09/10 1819 24 94 Nasal 3.0L Cannula 09/10 1816 98.3 82 18 145/69 92 Room Air 09/10 1446 94 Nasal 2.0L Cannula 09/10 1324 98.0 90 24 122/70 95 Nasal 2.0L Cannula 09/10 1233 94 Nasal 2.0L Cannula 09/10 1222 95 Nasal 2.0L Cannula 09/10 1209 98.3 103 30 127/66 94 Room Air Intake & Output 09/11 0800 09/11 0000 09/10 1600 Intake Total Output Total Balance Number 1 Bowel Movements Patient 80.739 kg Weight Physical Exam General Appearance: Alert, Oriented X3, Cooperative, No Acute Distress Cardiovascular: Regular Rate, Normal S1, Normal S2 Lungs: wheezing bilaterally Abdomen: Normal Bowel Sounds, Soft, No Tenderness Neurological: Normal Speech Extremities: No Edema, Normal Pulses, No Tenderness/Swelling Current Medications: Current Medications Sig/Eulogio Start time Last Medication Dose Route Stop Time Status Admin Acetaminophen 1,000 MG BID 09/10 2200 AC 09/10 PO 2213 Acetaminophen 0 .STK-MED ONE 09/10 1245 DC IV Acetaminophen 1,000 MG ONCE ONE 09/10 1230 DC 09/10 N/A 1 UNIT IV 09/10 1244 1245 Albuterol Sulfate 3 ML EVERY 4 HRS/AWAKE 09/11 0800 AC 09/10 INH 2000 Albuterol Sulfate 3 ML Q4P PRN 09/10 1900 AC INH Albuterol Sulfate 3 ML ONCE ONE 09/10 1445 DC 09/10 INH 09/10 1446 1445 Albuterol Sulfate 3 ML ONCE ONE 09/10 1230 DC 09/10 INH 09/10 1231 1231 Apixaban 5 MG DAILY 09/11 1000 CAN PO Apixaban 5 MG BID 09/10 2200 AC 09/10 PO 2213 Bisacodyl 5 MG DAILY 09/11 1000 AC PO Calcium/Vitamin D 1 TAB DAILY 09/11 1000 AC PO Escitalopram Oxalate 20 MG DAILY 09/11 1000 AC PO Ferrous Sulfate 325 MG DAILY 09/10 1836 AC 09/10 PO 2214 Folic Acid 1 MG DAILY 09/11 1000 AC PO Ipratropium Nash 2.5 ML DAILY 09/11 1000 CAN INH Ipratropium Nash 2.5 ML EVERY 4 HRS/AWAKE 09/11 0800 AC 09/10 INH 2000 Ipratropium Nash 2.5 ML ONCE ONE 09/10 1445 DC 09/10 INH 09/10 1446 1445 Ipratropium Nash 2.5 ML ONCE ONE 09/10 1230 DC 09/10 INH 09/10 1231 1231 Levothyroxine Sodium 0.075 MG DAILY AC 09/11 0700 AC 09/11 PO 0610 Lidocaine 1 PAT DAILY 09/11 1000 AC EXT Melatonin 3 MG QPM 09/10 2200 AC 09/10 PO 2213 Methylprednisolone 125 MG ONCE ONE 09/10 1230 CAN IV 09/10 1231 Omeprazole 40 MG DAILY AC 09/11 0700 AC 09/11 PO 0610 Oseltamivir Phosphate 75 MG DAILY 09/11 1000 CAN PO 09/15 0959 Oseltamivir Phosphate 30 MG BID 09/11 1000 AC PO 09/15 0959 Polyethylene Glycol 17 GM DAILY 09/11 1000 AC PO Pregabalin 100 MG TID 09/10 2200 AC 09/10 PO 2213 Trazodone HCl 50 MG QPM 09/10 2200 AC 09/10 PO 2213 Last 24 Hrs of Lab/Mick Results Last 24 Hrs of Labs/Mics: Laboratory Tests 09/11/17 0648: Sodium Pending, Potassium Pending, Chloride Pending, Carbon Dioxide Pending, Anion Gap Pending, BUN Pending, Creatinine Pending, BUN/Creatinine Ratio Pending , CBC w Diff Pending, WBC Pending, RBC Pending, Hgb Pending, Hct Pending, MCV Pending, MCH Pending, MCHC Pending, RDW Pending, Plt Count Pending, MPV Pending 09/10/17 1833: ESR Westergren 30 H 09/10/17 1826: Urine Color YEL, Urine Clarity HAZY H, Urine pH 6.0, Ur Specific Alligator 1.025, Urine Protein TRACE H, Urine Ketones NEG, Urine Nitrite NEG, Urine Bilirubin NEG, Urine Urobilinogen 0.2, Ur Leukocyte Esterase NEG, Ur Microscopic SEDIMENT EXAMINED, Urine RBC 3-5, Urine WBC RARE, Ur Epithelial Cells FEW, Urine Bacteria MANY H, Urine Hemoglobin SMALL H, Urine Glucose 250 H 09/10/17 1213: Anion Gap 10, Estimated GFR 54 L, BUN/Creatinine Ratio 28.0 H, Glucose 81, Calcium 8.8, Total Bilirubin 0.4, AST 25, ALT 35, Alkaline Phosphatase 72, Troponin I < 0.01, [id number] Pept 1150 H, Total Protein 6.9, Albumin 4.0, Globulin 2.9, Albumin/Globulin Ratio 1.4, TSH 0.214 L, Free T4 1.34, PT 17.9 H, INR 1.71 H, APTT 46 H, D-Dimer High Sensitivty < 200, CBC w Diff NO MAN DIFF REQ, RBC 4.22, MCV 94.0, MCH 30.9, MCHC 32.9 L, RDW 15.1 H, MPV 8.2, Gran % 85.3 H, Lymphocytes % 6.9 L, Monocytes % 7.8, Eosinophils % 0, Basophils % 0, Absolute Granulocytes 7.0 H, Absolute Lymphocytes 0.6 L, Absolute Monocytes 0.6, Absolute Eosinophils 0, Absolute Basophils 0 Microbiology 09/11 733 LOWER RESP: Respiratory Culture - ORD 09/11 733 LOWER RESP: Gram Stain - ORD 09/10 1245 BLOOD: Blood Culture - RECD 09/10 121 NASOPHARYN: Influenza Virus A & B Rapid Smear - COMP 09/10 1215 BLOOD: Blood Culture - RECD Assessment/Plan Assessment: 77 YO F former smoker (quit 6 weeks back, 1/2 packs/d) with PMH of COPD not on home oxygen, lung cancer s/p right lobe resection, deep vein thrombosis status post IVC filter, atrial flutter on eliquis, osteoarthritis, osteoprosis on alendronate, GERD, hypothyroidism, HTN, anxiety, microcytic anemia, allergic rhinitis, hypercholesterolemia, fibromyalgia, spinal stenosis, major depression, nonrheumatic mitral valve prolapse and narcolepsy was sent to ED from nursing facility with shortness of breath with cough for last couple of days. Problem List: 1. Acute hypoxic respiratory failure secondary to COPD exacerbation 2. Hypothyroidism #Acute hypoxic respiratory failure secondary to COPD exacerbation: Patient presented with shortness of breath. Was recently admitted in July 2017 for COPD exacerbation. She felt well when she went home and began having shortness of breath the last couple days. She still having some wheezing this morning and some shortness of breath. Flu swab was negative. -Methylprednisolone 40 mg every 8 hours -TRC nebs -Azithromycin -Guaifenesin -Oseltamivir -Appreciate pulmonology requisitions -Follow up cultures #Hypothyroidism: TSH was low but free T4 is normal. -Continue levothyroxine #Chronic medical problems: -Continue home medications DVT prophylaxis with apixiban Consistent carbohydrate one DNR/DNI Problem List: 1. COPD exacerbation Pain Ratin Pain Location: no pain Pain Goal: Remain pain free Pain Plan: see a/p Tomorrow's Labs & Rationales: cbc
--- NOTE | 2017-09-11 08:37 | Cons- Pulmonary ---
General Information and HPI Consulting Request Date of Consult: 09/11/17 Requested By: Joe Reason for Consult: Acute bronchospasm shortness of breath History of Present Illness: Patient is 77-year-old with severe COPD recently admitted for exacerbation again presents with increasing cough wheezing shortness of breath and bronchospasm. She's had exposure to the flu though nasal swab is negative and she has received the flu vaccine. She denies chest pain or sputum production Allergies/Medications Allergies: Coded Allergies: Penicillins (UNKNOWN 05/01/16) atorvastatin (UNKNOWN 05/01/16) nickel (UNKNOWN 05/01/16) morphine (UNKNOWN 05/01/16) Home Med List: Acetaminophen (Tylenol Extra Strength) 500 MG TABLET 2 TAB PO BID PAIN ( Reported) Albuterol Sulfate (Proventil Hfa) 90 MCG HFA.AER.AD 2 PUF INH Q4 PRN COPD ( Reported) Alendronate Sodium (Fosamax) 70 MG TABLET 1 TAB PO QFRI BONE (Reported) in the morning, at least 30 minutes before the first food, beverage, or medication of the day Apixaban (Eliquis) 5 MG TABLET 1 TAB PO DAILY DVT (Reported) Azithromycin 250 MG TABLET 1 TAB PO DAILY COPD EXACERBATION 2 the first day followed by 1 for days 2-5 Bisacodyl (Dulcolax) 5 MG TABLET.DR 1 TAB PO DAILY GI (Reported) Budesonide 0.25 MG/2 ML AMPUL.NEB 1 Vial INH/UDAY BID BREATHING PROBLEMS ( Reported) Reason to Stop at ADM: TRC Butalb/Acetaminophen/Caffeine (Fioricet 50-300-40 MG Capsule) 50 MG-300 MG-40 MG CAPSULE 1 CAP PO Q4 HRS NEEDED PRN HEADACHE (Reported) Calcium Carbonate/Vitamin D3 (Caltrate 600 + D Tablet) 600 MG-800 TABLET 1 TAB PO DAILY osteoprosis (Reported) Cephalexin (Keflex) 500 MG CAPSULE 1 CAP PO BID UTI Cyanocobalamin (Vitamin B-12) 1,000 MCG TABLET 1 TAB PO DAILY SUPPLEMENT ( Reported) Diazepam 5 MG TABLET 1 TAB PO BIDP PRN anxiety/insomnia (Reported) Ergocalciferol (Vitamin D2) (Vitamin D2) 50,000 UNIT CAPSULE 1 CAP PO QW osteoprosis (Reported) Ergocalciferol (Vitamin D2) (Vitamin D2) 50,000 UNIT CAPSULE 1 CAP PO QFRI SUPPLEMENT (Reported) Escitalopram Oxalate (Lexapro) 20 MG TABLET 1 TAB PO DAILY depression ( Reported) Escitalopram Oxalate (Lexapro) 20 MG TABLET 1 TAB PO DAILY MENTAL HEALTH ( Reported) Ferrous Sulfate 325 MG (65 MG IRON) TABLET 1 TAB PO BID SUPPLEMENT (Reported) Fluticasone/Salmeterol (Advair 500-50 Diskus) 500 MCG-50 MCG/DOSE BLST.W.DEV 1 PUF INH BID BREATHING PROBLEMS (Reported) Folic Acid 0.8 MG TABLET 1 TAB PO TID SUPPLEMENT (Reported) Ipratropium/Albuterol Sulfate (Iprat-Albut 0.5-3(2.5) MG/3 Ml) 0.5 MG-3 MG (2.5 MG BASE)/3 ML AMPUL.NEB 1 Vial INH/UDAY 4 TIMES/DAY COPD (Reported) Levothyroxine Sodium 88 MCG TABLET 1 TAB PO DAILY AC THYROID (Reported) Lidocaine (Lidoderm) 5 % ADH..PATCH 1 PAT TOP DAILY PAIN (Reported) may wear up to 12 hours Melatonin 3 MG TABLET 1 TAB PO QPM SLEEP (Reported) Mometasone Furoate (Nasonex) 50 MCG SPRAY.PUMP 2 SPRAY [place] DAILY ALLERGIES ( Reported) Nicotine (Nicoderm Cq) 14 MG/24 HOUR PATCH.TD24 1 PAT TOP DAILY SMOKING CESSATION Omeprazole 40 MG CAPSULE.DR 1 CAP PO DAILY GI (Reported) Polyethylene Glycol 3350 (Miralax) 17 GRAM POWD.PACK 1 PAC PO DAILY constipation (Reported) dissolve in water Prednisone 10 MG TABLET 1 TAB PO SEE ADMIN CRITERIA COPD EXACERBATION TAKE 2 DAILY for 2 DAYS 2/3, 2/4 TAKE 1 DAILY for 2 DAYS 2/5, 2/6 Pregabalin (Lyrica) 100 MG CAPSULE 1 CAP PO TID PAIN (Reported) Tiotropium [place] (Spiriva) 18 MCG CAP.W.DEV 1 CAP INH DAILY BREATHING PROBLEMS (Reported) Trazodone HCl 50 MG TABLET 1 TAB PO QPM SLEEP (Reported) Review of Systems Review of Systems Constitutional: Denies: chills, fever. Cardiovascular: Denies: chest pain, peripheral edema. Respiratory: Reports: cough, short of breath, wheezing. Denies: hemoptysis, sputum production. GI: Denies: abdominal pain, diarrhea, melena. 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 Senior Living Facility Who Do You Live With? self Primary Language: Indonesian Smoking Status: Former Smoker Living Will? yes Functional Ability ADLs Independent: dressing, eating, toileting, bathing. Ambulation: walker IADLs Independent: telephone. Needs Assist: shopping, housework, transportation, medication admin. Exam & Diagnostic Data Last 24 Hrs of Vital Signs/I&O Vital Signs Date Time Temp Pulse Resp B/P B/P Pulse O2 O2 Flow FiO2 Mean Ox Delivery Rate 09/11 0834 95 Nasal 2.0L Cannula 09/11 0550 97.9 64 20 140/62 98 Nasal 2.5L Cannula 09/11 0000 Nasal 2.0L Cannula 09/10 2312 97.9 72 20 120/70 97 Nasal Cannula 09/10 2107 Nasal 2.0L Cannula 09/10 2000 Nasal 2.0L Cannula 09/10 1942 98.3 89 18 150/72 98 Nasal 4.5L Cannula 09/10 1902 Nasal 3.0L Cannula 09/10 1819 24 94 Nasal 3.0L Cannula 09/10 1816 98.3 82 18 145/69 92 Room Air 09/10 1446 94 Nasal 2.0L Cannula 09/10 1324 98.0 90 24 122/70 95 Nasal 2.0L Cannula 09/10 1233 94 Nasal 2.0L Cannula 09/10 1222 95 Nasal 2.0L Cannula 09/10 1209 98.3 103 30 127/66 94 Room Air Intake & Output 09/11 1600 09/11 0800 09/11 0000 Intake Total 100 Output Total Balance 100 Intake, Oral 100 Number 1 Bowel Movements Patient 178 lb Weight Oxygen saturation 2 L 98-96% exam of her chest shows diffuse inspiratory extremity wheezing cardiac exam shows regular S1 and S2 abdomen is soft nontender she has no peripheral edema Last 48 Hrs of Labs/Mick: Laboratory Tests 09/11/17 0648: Sodium Pending, Potassium Pending, Chloride Pending, Carbon Dioxide Pending, Anion Gap Pending, BUN Pending, Creatinine Pending, BUN/Creatinine Ratio Pending , CBC w Diff Pending, WBC Pending, RBC Pending, Hgb Pending, Hct Pending, MCV Pending, MCH Pending, MCHC Pending, RDW Pending, Plt Count Pending, MPV Pending 09/10/17 1833: ESR Westergren 30 H 09/10/17 1826: Urine Color YEL, Urine Clarity HAZY H, Urine pH 6.0, Ur Specific [place] 1.025, Urine Protein TRACE H, Urine Ketones NEG, Urine Nitrite NEG, Urine Bilirubin NEG, Urine Urobilinogen 0.2, Ur Leukocyte Esterase NEG, Ur Microscopic SEDIMENT EXAMINED, Urine RBC 3-5, Urine WBC RARE, Ur Epithelial Cells FEW, Urine Bacteria MANY H, Urine Hemoglobin SMALL H, Urine Glucose 250 H 09/10/17 1213: Anion Gap 10, Estimated GFR 54 L, BUN/Creatinine Ratio 28.0 H, Glucose 81, Calcium 8.8, Total Bilirubin 0.4, AST 25, ALT 35, Alkaline Phosphatase 72, Troponin I < 0.01, Yyi-K-Pstclnllcqz Pept 1150 H, Total Protein 6.9, Albumin 4.0, Globulin 2.9, Albumin/Globulin Ratio 1.4, TSH 0.214 L, Free T4 1.34, PT 17.9 H, INR 1.71 H, APTT 46 H, D-Dimer High Sensitivty < 200, CBC w Diff NO MAN DIFF REQ, RBC 4.22, MCV 94.0, MCH 30.9, MCHC 32.9 L, RDW 15.1 H, MPV 8.2, Gran % 85.3 H, Lymphocytes % 6.9 L, Monocytes % 7.8, Eosinophils % 0, Basophils % 0, Absolute Granulocytes 7.0 H, Absolute Lymphocytes 0.6 L, Absolute Monocytes 0.6, Absolute Eosinophils 0, Absolute Basophils 0 Microbiology 09/10 1215 NASOPHARYN: Influenza Virus A & B Rapid Smear - COMP Assessment/Plan Impression/Plan: 77-year-old woman with severe COPD admitted with acute exacerbation of COPD and acute bronchospasm x-ray shows no evidence of pneumonia. Flu Is negative Recommendations: Begin IV Solu-Medrol 40 mg every 8 hours. Continue baseline bronchodilator medications. Further evaluation of elevated BNP. Attempt sputum collection for culture. Taper FiO2 his saturations allow Consult Acknowledgment - Thank you for your consult request.
[2017-09-11 08:41] LABS: ABSOLUTE BASOPHIL COUNT 0 /CUMM (0.0-0.2); ABSOLUTE EOSINOPHIL COUNT 0 /CUMM (0.0-0.7); ABSOLUTE GRANULOCYTE CT 4.9 /CUMM (1.4-6.5); ABSOLUTE MONOCYTE COUNT 0.7 /CUMM (0.10-0.60); BASOPHIL % 0.1 % (0.0-2.0); EOSINOPHIL % 0.3 % (0-5); GRANULOCYTE % 73.9 % (42.2-75.2); HEMATOCRIT 34.9 % (37-47); MEAN CORPUSCULAR HGB 30.9 PG (27.0-31.0); MEAN CORPUSCULAR VOLUME 93.7 FL (81.0-99.0); MEAN PLATELET VOLUME 8.7 FL (7.4-10.4); PLATELET COUNT 163 /CUMM (130-400); RED BLOOD CELL CT 3.73 /CUMM (4.20-5.40); WHITE BLOOD CELL COUNT 6.6 /CUMM (4.8-10.8)
[2017-09-11] MEDS ORDERED: ELIQUIS5 M1 PO (14:06)
[2017-09-11 14:11] VITALS: BP 112/64
[2017-09-11 22:33] VITALS: BP 118/60
[2017-09-12 06:07] VITALS: BP 130/80
--- NOTE | 2017-09-12 07:50 | PN- Housestaff ---
Josefina LISA,Clint 09/12/17 0748: Subjective Follow-up For: COPD Subjective: ANNALISA. She feels ok this morning, unsure whether she is strong enough to go home. No CP or SOB. Review of Systems Constitutional: Reports: no symptoms. EENTM: Reports: no symptoms. Cardiovascular: Reports: no symptoms. Respiratory: Reports: see HPI. Gastrointestinal: Reports: no symptoms. Genitourinary: Reports: no symptoms. Musculoskeletal: Reports: no symptoms. Skin: Reports: no symptoms. Neurological/Psychological: Reports: no symptoms. Hematologic/Endocrine: Reports: no symptoms. Immunologic/Allergic: Reports: no symptoms. Objective Last 24 Hrs of Vital Signs/I&O Vital Signs Date Time Temp Pulse Resp B/P B/P Pulse O2 O2 Flow FiO2 Mean Ox Delivery Rate 09/12 0607 98.1 62 20 130/80 97 Nasal 2.0L Cannula 09/11 2233 98.1 86 19 118/60 96 Nasal Cannula 09/11 1942 95 Nasal 2.0L Cannula 09/11 1600 Nasal 2.0L Cannula 09/11 1548 96 Nasal 2.0L Cannula 09/11 1411 97.4 107 18 112/64 97 Nasal 2.0L Cannula 09/11 0834 95 Nasal 2.0L Cannula 09/11 0800 98 Nasal 2.0L Cannula Intake & Output 09/12 0800 09/12 0000 09/11 1600 Intake Total 290 480 Output Total Balance 290 480 Intake, IV 10 Intake, Oral 280 480 Physical Exam General Appearance: Alert, Oriented X3, Cooperative, No Acute Distress Skin: No Rashes Cardiovascular: Regular Rate, Normal S1, Normal S2 Lungs: moderate wheezing Abdomen: Normal Bowel Sounds, Soft, No Tenderness Neurological: Normal Speech Extremities: No Edema, Normal Pulses, No Tenderness/Swelling Current Medications: Current Medications Sig/Eulogio Start time Last Medication Dose Route Stop Time Status Admin Acetaminophen 1,000 MG BID 09/100 AC 09/11 PO 2032 Albuterol Sulfate 3 ML EVERY 4 HRS/AWAKE 09/11 0800 AC 09/11 INH 194 Albuterol Sulfate 3 ML Q4P PRN 09/10 1900 AC INH Apixaban 5 MG BID 09/10 2200 AC 09/11 PO 2032 Bisacodyl 5 MG DAILY 09/11 1000 AC 09/11 PO 09 Calcium/Vitamin D 1 TAB DAILY 09/11 1000 AC 09/11 PO 0922 Escitalopram Oxalate 20 MG DAILY 09/11 1000 AC 09/11 PO 0920 Ferrous Sulfate 325 MG DAILY 09/10 1836 AC 09/11 PO 0922 Folic Acid 1 MG DAILY 09/11 1000 AC 09/11 PO 0920 Ipratropium [place] 2.5 ML EVERY 4 HRS/AWAKE 09/11 0800 AC 09/11 INH 1944 Levothyroxine Sodium 0.075 MG DAILY AC 09/11 0700 AC 09/12 PO 0608 Lidocaine 1 PAT DAILY 09/11 1000 AC EXT Melatonin 3 MG QPM 09/10 2200 AC 09/11 PO 2033 Methylprednisolone 40 MG Q8 09/11 0835 AC 09/12 IV 0608 Omeprazole 40 MG DAILY AC 09/11 0700 AC 09/12 PO 0608 Oseltamivir Phosphate 30 MG BID 09/11 1000 AC 09/11 PO 09/15 0959 2033 Polyethylene Glycol 17 GM DAILY 09/11 1000 AC PO Pregabalin 100 MG TID 09/10 2200 AC 09/11 PO 203 Trazodone HCl 50 MG QPM 09/10 2200 AC 09/11 PO 203 Last 24 Hrs of Lab/Mick Results Last 24 Hrs of Labs/Mics: Laboratory Tests 09/12/17 0730: CBC w Diff Pending, WBC Pending, RBC Pending, Hgb Pending, Hct Pending, MCV Pending, MCH Pending, MCHC Pending, RDW Pending, Plt Count Pending, MPV Pending Assessment/Plan Assessment: 77 YO F former smoker (quit 6 weeks back, 1/2 packs/d) with PMH of COPD not on home oxygen, lung cancer s/p right lobe resection, deep vein thrombosis status post IVC filter, atrial flutter on eliquis, osteoarthritis, osteoprosis on alendronate, GERD, hypothyroidism, HTN, anxiety, microcytic anemia, allergic rhinitis, hypercholesterolemia, fibromyalgia, spinal stenosis, major depression, nonrheumatic mitral valve prolapse and narcolepsy was sent to ED from nursing facility with shortness of breath with cough for last couple of days. Problem List: 1. Acute hypoxic respiratory failure secondary to COPD exacerbation 2. Hypothyroidism #Acute hypoxic respiratory failure secondary to COPD exacerbation: Patient presented with shortness of breath. Was recently admitted in July 2017 for COPD exacerbation. She felt well when she went home and began having shortness of breath the last couple days. Flu swab was negative. Feeling much improved today. -Methylprednisolone 40 mg every 8 hours -TRC nebs -Azithromycin -Guaifenesin -stop Oseltamivir -Appreciate pulmonology requisitions -Follow up cultures #Hypothyroidism: TSH was low but free T4 is normal. -Continue levothyroxine at lower dose. #Chronic medical problems: -Continue home medications DVT prophylaxis with apixiban Consistent carbohydrate one DNR/DNI Problem List: 1. COPD exacerbation Pain Ratin Pain Location: no Pain Goal: Remain pain free Pain Plan: see a/p Tomorrow's Labs & Rationales: no Georgia Gamboa MD 09/12/17 1107: Attending MD Review Statement Attending Statement Attending MD Statement: examined this patient, discuss w/resident/PA/LAMP CLEANER, agreed w/resident/PA/LAMP CLEANER, reviewed EMR data (avail) Attending Assessment/Plan: 77F PMH COPD not on home oxygen, lung cancer s/p right lobe resection, deep vein thrombosis status post IVC filter, atrial flutter on eliquis, osteoarthritis, osteoprosis on alendronate, GERD, hypothyroidism, hypertension brought in under observation for shortness of breath and wheezing, with close influenza contact but swab negative, no evidence of pneumonia, started on Tamiflu empirically with Solumedrol, improved breathing today. Plan - Continue observation in general medicine - Prednisone - Discontinue Tamiflu, as no evidence of flu - Outpatient pulmonary follow up - Continue home medications
[2017-09-12 08:08] LABS: ABSOLUTE BASOPHIL COUNT 0 /CUMM (0.0-0.2); ABSOLUTE EOSINOPHIL COUNT 0 /CUMM (0.0-0.7); ABSOLUTE GRANULOCYTE CT 5.4 /CUMM (1.4-6.5); ABSOLUTE LYMPH COUNT 0.6 /CUMM (1.2-3.4); ABSOLUTE MONOCYTE COUNT 0.3 /CUMM (0.10-0.60); BASOPHIL % 0.4 % (0.0-2.0); EOSINOPHIL % 0 % (0-5); MEAN CORPUSCULAR VOLUME 93.9 FL (81.0-99.0); MEAN PLATELET VOLUME 8.6 FL (7.4-10.4); PLATELET COUNT 164 /CUMM (130-400); RBC DISTRIBUTION WIDTH 15.2 % (11.5-14.5); RED BLOOD CELL CT 3.72 /CUMM (4.20-5.40); WHITE BLOOD CELL COUNT 6.4 /CUMM (4.8-10.8)
--- NOTE | 2017-09-12 08:21 | PN- Pulmonary ---
Subjective HPI/Critical Care Issues: Patient shortness of breath and congestion is improved Objective Current Medications: Current Medications Sig/Eulogio Start time Last Medication Dose Route Stop Time Status Admin Acetaminophen 1,000 MG BID 09/10 220 AC 09/11 PO 2032 Albuterol Sulfate 3 ML EVERY 4 HRS/AWAKE 09/11 0800 AC 09/11 INH 1945 Albuterol Sulfate 3 ML Q4P PRN 09/10 1900 AC INH Apixaban 5 MG BID 09/10 2200 AC 09/11 PO 2032 Bisacodyl 5 MG DAILY 09/11 1000 AC 09/11 PO 0922 Calcium/Vitamin D 1 TAB DAILY 09/11 1000 AC 09/11 PO 0922 Escitalopram Oxalate 20 MG DAILY 09/11 1000 AC 09/11 PO 0920 Ferrous Sulfate 325 MG DAILY 09/10 1836 AC 09/11 PO 921 Folic Acid 1 MG DAILY 09/11 1000 AC 09/11 PO 0920 Ipratropium [place] 2.5 ML EVERY 4 HRS/AWAKE 09/11 0800 AC 09/11 INH 1944 Levothyroxine Sodium 0.075 MG DAILY AC 09/11 0700 AC 09/12 PO 0608 Lidocaine 1 PAT DAILY 09/11 1000 AC EXT Melatonin 3 MG QPM 09/10 2200 AC 09/11 PO 2033 Methylprednisolone 40 MG Q8 09/11 0835 AC 09/12 IV 0608 Omeprazole 40 MG DAILY AC 09/11 0700 AC 09/12 PO 0608 Oseltamivir Phosphate 30 MG BID 09/11 1000 AC 09/11 PO 09/15 0959 2033 Polyethylene Glycol 17 GM DAILY 09/11 1000 AC PO Pregabalin 100 MG TID 09/10 2200 AC 09/11 PO 2032 Trazodone HCl 50 MG QPM 09/10 220 AC 09/11 PO 203 Vital Signs & I&O Last 24 Hrs of Vitals and I&O: Vital Signs Date Time Temp Pulse Resp B/P B/P Pulse O2 O2 Flow FiO2 Mean Ox Delivery Rate 09/12 606 98.1 62 20 130/80 97 Nasal 2.0L Cannula 09/11 2232 98.1 86 19 118/60 96 Nasal Cannula 09/11 1942 95 Nasal 2.0L Cannula 09/11 1600 Nasal 2.0L Cannula 09/11 1548 96 Nasal 2.0L Cannula 09/11 1411 97.4 107 18 112/64 97 Nasal 2.0L Cannula 09/11 0834 95 Nasal 2.0L Cannula Intake & Output 09/12 1600 09/12 0800 09/12 0000 Intake Total 290 Output Total Balance 290 Intake, IV 10 Intake, Oral 280 Oxygen saturation 2 L 97% exam for chest shows decreased breath sounds are no wheezes or crackles heard cardiac exam shows regular S1 and S2 without murmurs Impression/Plan Impression/Plan Impression/Plan: 77-year-old woman with severe COPD admitted with acute exacerbation of COPD and acute bronchospasm x-ray shows no evidence of pneumonia. Flu Is negative respiratory status appears improved Recommendations: DC IV steroids begin by mouth prednisone. Complete empiric antibiotic therapy. Taper FiO2 with improved saturations. Patient continues to do well she can be discharged back to short-term rehabilitation
[2017-09-12 08:52] LABS: GRANULOCYTE % 84.6 % (42.2-75.2)
--- NOTE | 2017-09-12 09:50 | Discharge Summary ---
Visit Information Visit Dates Admission Date: 09/10/17 Discharge Date: 09/12/17 Hospital Course Course Attending Physician: Georgia Gamboa MD Primary Care Physician: Dusty LISA,[facility] Course: This is 77-year-old female who presented dizziness, wheezing and decreased air entry over lung bilaterally which suggestive of COPD exacerbation. She was coughing intermittently during exam without sputum production. BMP was found to be 1150, x-ray did not show any pleural effusion, she has no lower extremity edema which exclude cardiac involvement. The patient was found to be tachycardic on admission, she has a history of hypothyroidism with TSH of 0.2 on admission (low). #COPD exacerbation/possible flu contact Patient was admitted to general medicine floor. we start IV Solu-Medrol 40 mg 3 times a day and Azithromycin daily. As per patient she may have recent flu contact for which she was started on Tamiflu as a prophylaxis. The patient was placed also new providers [id number] and oxygen as necessary. #Hx Hypothyroidism An admission patient was mildly tachycardic. TSH was found to be low, Free T4 was found to be normal. This is most likely because of the synergistic effect of steroid on thyroxine. We decrease levothyroxine to 75 instead of 88 in the setting of tachycardia and low TSH. The patient will need to repeat TSH 2-4 weeks after steroid is tapered, and adjust of thyroxin does accordingly. 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 The patient should be continued on the same dose post discharge. #Depression/Insomnia We continued Escitalopram 20 mg daily, Trazodon 50 mg at bed time, and Melatonin 3 mg at bed time. #GERD We continued omeprazole 40 mg daily #Chronic back pain * We'll continue lidocaine patch #Right arm rash 2/2 itchiness likely due to dehydration. We will prescribe Benadryl cream twice a day when necessary. If the symptom progressed patient mainly to further address this with primary care doctor. Allergies: Coded Allergies: Penicillins (UNKNOWN 05/01/16) atorvastatin (UNKNOWN 05/01/16) nickel (UNKNOWN 05/01/16) morphine (UNKNOWN 05/01/16) Disposition Summary Disposition Principal Diagnosis: COPD exacerbation Additional Diagnosis: Chronic DVT Discharge Disposition: SNF Discharge Instructions General Discharge Information Code Status: Do Not Resucitate/Intubat Patient's Diet: Heart healthy diet Patient's Activity: As tolerated Follow-Up Instructions/Appts: Please follow-up with primary care doctor within 1-2 weeks, please ask for TSH level 2-4 weeks after steroid taper. Please follow-up with brass cleaner within 1-2 weeks. Medications at Discharge Discharge Medications: Stop taking the following medications: Levothyroxine Sodium (Levothyroxine Sodium) 88 MCG TABLET ORAL DAILY BEFORE BREAKFAST Escitalopram Oxalate (Lexapro) 20 MG TABLET ORAL DAILY Cephalexin (Keflex) 500 MG CAPSULE ORAL TWICE DAILY Qty = 3 Azithromycin (Azithromycin) 250 MG TABLET ORAL DAILY Qty = 2 Prednisone (Prednisone) 10 MG TABLET ORAL SEE INSTRUCTIONS Qty = 6 Apixaban (Eliquis) 5 MG TABLET ORAL DAILY Warfarin Sodium (Coumadin) 3 MG TABLET ORAL DAILY Qty = 30 Continue taking these medications: Cyanocobalamin (Vitamin B-12) 1,000 MCG TABLET 1 Tablet ORAL DAILY Comments: NOT GIVEN IN THE HOSPITAL Trazodone HCl (Trazodone HCl) 50 MG TABLET 1 Tablet ORAL Every night Comments: Last Taken: 09/11/17 Time: 830 PM Folic Acid (Folic Acid) 0.8 MG TABLET 1 Tablet ORAL THREE TIMES DAILY Comments: Last Taken: 09/12/17 Time: 1015 AM Albuterol Sulfate (Proventil Hfa) 90 MCG HFA.AER.AD 2 Puff Inhale through mouth Every 4 hours as needed for COPD Comments: NOT ADMINISTERED AT HOSPITAL Ergocalciferol (Vitamin D2) (Vitamin D2) 50,000 UNIT CAPSULE 1 Capsule ORAL EVERY SUNDAY Comments: NOT GIVEN IN HOSPITAL Ipratropium/Albuterol Sulfate (Iprat-Albut 0.5-3(2.5) MG/3 Ml) 0.5 MG-3 MG (2.5 MG BASE)/3 ML AMPUL.NEB 1 Vial Inhale Solution 4 TIMES A DAY Comments: NOT GIVEN IN HOSPITAL Mometasone Furoate (Nasonex) 50 MCG SPRAY.PUMP 2 [place] Both sides of nose DAILY Comments: NOT GIVEN IN HOSPITAL Acetaminophen (Tylenol Extra Strength) 500 MG TABLET 2 Tablet ORAL TWICE DAILY Comments: Last Taken: 09/11/17 Time: 830 PM Gabapentin (Neurontin) 400 MG CAPSULE 1 Capsule ORAL TWICE DAILY Comments: NA Omeprazole (Omeprazole) 40 MG CAPSULE.DR 1 Capsule ORAL DAILY Comments: Last Taken: 09/16 Time: 6 AM Bisacodyl (Dulcolax) 5 MG TABLET. 1 Tablet ORAL DAILY Comments: Last Taken: 09/12/17 Time: 1015 AM Alendronate Sodium (Fosamax) 70 MG TABLET 1 Tablet ORAL EVERY SUNDAY Instructions: in the morning, at least 30 minutes before the first food, beverage, or medication of the day Comments: NOT GIVEN IN HOSPTIAL Fluticasone/Salmeterol (Advair 500-50 Diskus) 500 MCG-50 MCG/DOSE BLST.W.DEV 1 Puff Inhale through mouth TWICE DAILY Comments: NA Lidocaine (Lidoderm) 5 % ADH..PATCH 1 Patch On the skin DAILY Instructions: may wear up to 12 hours Comments: Last Taken: 09/11/17 Time: 1000 AM Tiotropium [place] (Spiriva) 18 MCG CAP.W.DEV 1 Capsule Inhale through mouth DAILY Comments: NOT GIVEN Pregabalin (Lyrica) 100 MG CAPSULE 1 Capsule ORAL THREE TIMES DAILY Comments: Last Taken: 09/12/17 Time: 1015 AM Diazepam (Diazepam) 5 MG TABLET 1 Tablet ORAL 2 x Daily as needed as needed for anxiety/insomnia Comments: NOT GIVEN IN HOSPITAL Melatonin (Melatonin) 3 MG TABLET 1 Tablet ORAL Every night Comments: Last Taken: 09/11/17 Time: 830 PM Butalb/Acetaminophen/Caffeine (Fioricet 50-300-40 MG Capsule) 50 MG-300 MG-40 MG CAPSULE 1 Capsule ORAL EVERY 4 HOURS NEEDED as needed for HEADACHE Comments: NOT GIVEN WHILE IN HOSPITAL Budesonide (Budesonide) 0.25 MG/2 ML AMPUL.NEB 1 Vial Inhale Solution TWICE DAILY Instructions: Reason to Stop at ADM: TRC Comments: NOT GIVEN WHILE IN HOSPITAL Ferrous Sulfate (Ferrous Sulfate) 325 MG (65 MG IRON) TABLET 1 Tablet ORAL TWICE DAILY Comments: Last Taken: 09/12/17 Time: 1015 AM Nicotine (Nicoderm Cq) 14 MG/24 HOUR PATCH.TD24 1 Patch On the skin DAILY Qty = 28 Comments: NOT GIVEN IN HOSPITAL Escitalopram Oxalate (Lexapro) 20 MG TABLET 1 Tablet ORAL DAILY Comments: NA Polyethylene Glycol 3350 (Miralax) 17 GRAM POWD.PACK 1 Packet ORAL DAILY Instructions: dissolve in water Comments: Last Taken: 2/13/14 Time: 1000 AM Ergocalciferol (Vitamin D2) (Vitamin D2) 50,000 UNIT CAPSULE 1 Capsule ORAL Once a Week Comments: NA Calcium Carbonate/Vitamin D3 (Caltrate 600 + D Tablet) 600 MG-800 TABLET 1 Tablet ORAL DAILY Comments: Last Taken: 09/12/17 Time: 1015 AM Start taking the following new medications: Apixaban (Eliquis) 5 MG TABLET 5 Milligram ORAL TWICE DAILY Qty = 60 No Refills Comments: Last Taken: 09/12/17 Time: 1015 AM Levothyroxine Sodium (Synthroid) 75 MCG TABLET 0.075 Milligram ORAL DAILY BEFORE BREAKFAST Qty = 30 No Refills Comments: Last Taken: 09/12/17 Time: 6 AM Prednisone (Prednisone) 10 MG TABLET 1 Tablet ORAL DAILY Qty = 30 No Refills Instructions: Take 40mg from 09/13/17-09/15/17, 30mg from 09/16/17-09/18/17, 20mg from 09/19/17-09/21/17, 10mg from 09/22/17-09/24/17, then stop. Comments: NA Copies To: Gerber LISA,Martir Lloyd; Dusty LISA,Pari
[2017-09-12] MEDS ORDERED: SYNTHROID75 MCG PO (10:47)
[2017-09-12] MEDS ORDERED: PREDNISONE10 M2 PO (10:51)
--- NOTE | 2017-09-12 10:52 | Patient Discharge Instructions ---
Discharge Instructions General Discharge Information You were seen/treated for: COPD exacerbation Watch for these problems: Fever, chest pain, shortness of breath Special Instructions: Please take all medications as directed. Please follow-up with primary care and pulmonology. Diet Continue normal diet: Yes Activity Full Activity/No Limits: Yes Acute Coronary Syndrome Inclusion Criteria At DC or during hospital stay patient has or had the following: ACS DIAGNOSIS No Discharge Core Measures Meds if any: Prescribed or Continued at Discharge Meds if any: NOT Prescribed or Continued at Discharge Congestive Heart Failure Inclusion Criteria At DC or during hospital stay patient has or had the following: CHF DIAGNOSIS No Discharge Core Measures Meds if any: Prescribed or Continued at Discharge Meds if any: NOT Prescribed or Continued at Discharge Cerebrovascular accident Inclusion Criteria At DC or during hospital stay patient has or had the following: CVA/TIA Diagnosis No Discharge Core Measures Meds if any: Prescribed or Continued at Discharge Meds if any: NOT Prescribed or Continued at Discharge Venous thromboembolism Inclusion Criteria VTE Diagnosis No VTE Type NONE VTE Confirmed by (Test) NONE Discharge Core Measures - Per Current guidelines, there needs to be overlap - treatment for the first 5 days of Warfarin therapy. - If discharged on Warfarin prior to 5 days of - overlap therapy, the patient will need to be - assessed for post discharge needs including - *Post discharge parental anticoagulation - *Warfarin and/or parental anticoagulation education - *Follow up date to check INR post discharge At least 5 days overlap therapy as Inpatient No Meds if any: Prescribed or Continued at Discharge Note: Overlap Therapy is Warfarin and Anticoagulant Meds if any: NOT Prescribed or Continued at Discharge
[2017-09-12] MEDS ORDERED: NEURONTIN400 M1 PO (11:49)
[2017-09-12] MEDS ORDERED: ITCH RELIEF CRE28 GM TOP (13:18)
[2017-09-12 14:32] VITALS: BP 126/76
== END 2017-09-12 14:39 ==
LOC: ERH 11:59 → ERHI 14:35 → 2NA 14:35 → ENRESERV 16:16 → ENTRNSPT 18:23 → EDTRNSPTSTS 18:37 → EDTRNSPT 18:37 → 2NB 18:50 → 2NA 18:50 → CMPTRNSPT 18:57 → 2NA 22:54 → ENPENDDIS 09-12 10:49 → 2NA 09-12 14:39
PROVIDERS: Internal Medicine; Physician Assistant Medical; Student in an Organized Health Care Education/Training Program
DX: J44.1 Chronic obstructive pulmonary disease with (acute) exacerbation (principal); J96.00 Acute respiratory failure, unspecified whether with hypoxia or hypercapnia; E11.9 Type 2 diabetes mellitus without complications; K59.00 Constipation, unspecified; I82.509 Chronic embolism and thrombosis of unspecified deep veins of unspecified lower extremity; F32.9 Major depressive disorder, single episode, unspecified; I34.1 Nonrheumatic mitral (valve) prolapse; G47.419 Narcolepsy without cataplexy; R21 Rash and other nonspecific skin eruption; M54.9 Dorsalgia, unspecified; R00.0 Tachycardia, unspecified; F17.200 Nicotine dependence, unspecified, uncomplicated; Z85.118 Personal history of other malignant neoplasm of bronchus and lung; Z79.01 Long term (current) use of anticoagulants; I48.91 Unspecified atrial fibrillation; I48.92 Unspecified atrial flutter; M19.90 Unspecified osteoarthritis, unspecified site; M81.0 Age-related osteoporosis without current pathological fracture; K21.9 Gastro-esophageal reflux disease without esophagitis; E03.9 Hypothyroidism, unspecified; I10 Essential (primary) hypertension; F41.9 Anxiety disorder, unspecified; D50.9 Iron deficiency anemia, unspecified; J30.9 Allergic rhinitis, unspecified; E78.00 Pure hypercholesterolemia, unspecified; M79.7 Fibromyalgia; M48.02 Spinal stenosis, cervical region
CPT/HCPCS: 1263; 1328; 1530; 1748; 36415; 36592; 71045; 81001; 82436; 87040; 87070; 87804; 87804-59; 93005; 93010; 96374; 96375; 97161-GP; 99291; G0378; G8978-GP; G8979-GP; J0131; J2920; J3490

== ENCOUNTER 2017-10-30 15:16 | Emergency (ER) | payer OTHER ==
[~2017-10-30] VITALS: Ht 160 cm; Wt 73.9 kg
[~2017-10-30 15:16] MED LIST changes: +CALTRATE 600 +1 EACH PO; +ELIQUIS5 M1 PO; +ITCH RELIEF CRE28 GM TOP; +MIRALAX17 G1 PO; +NEURONTIN400 M1 PO; +SYNTHROID75 MCG PO
--- NOTE | 2017-10-30 15:40 | ED GENERAL ADULT ---
History of Present Illness General Chief Complaint: General Adult Stated Complaint: BIBA FOR WEAKNESS,MALAISE,FALL Source: patient Exam Limitations: no limitations Allergies Coded Allergies: Penicillins (UNKNOWN 05/01/16) atorvastatin (UNKNOWN 05/01/16) nickel (UNKNOWN 05/01/16) morphine (UNKNOWN 05/01/16) Reconcile Medications Acetaminophen (Tylenol Extra Strength) 500 MG TABLET 2 TAB PO BID PAIN ( Reported) Albuterol Sulfate (Proventil Hfa) 90 MCG HFA.AER.AD 2 PUF INH Q4 PRN COPD ( Reported) Alendronate Sodium (Fosamax) 70 MG TABLET 1 TAB PO QFRI BONE (Reported) in the morning, at least 30 minutes before the first food, beverage, or medication of the day Apixaban (Eliquis) 5 MG TABLET 5 MG PO BID Blood thinner Bisacodyl (Dulcolax) 5 MG TABLET.DR 1 TAB PO DAILY GI (Reported) Budesonide 0.25 MG/2 ML AMPUL.NEB 1 Vial INH/UDAY BID BREATHING PROBLEMS ( Reported) Reason to Stop at ADM: TRC Butalb/Acetaminophen/Caffeine (Fioricet 50-300-40 MG Capsule) 50 MG-300 MG-40 MG CAPSULE 1 CAP PO Q4 HRS NEEDED PRN HEADACHE (Reported) Calcium Carbonate/Vitamin D3 (Caltrate 600 + D Tablet) 600 MG-800 TABLET 1 TAB PO DAILY osteoprosis (Reported) Cyanocobalamin (Vitamin B-12) 1,000 MCG TABLET 1 TAB PO DAILY SUPPLEMENT ( Reported) Diazepam 5 MG TABLET 1 TAB PO BIDP PRN anxiety/insomnia (Reported) Diphenhydramine HCl/Zinc Acet (Itch Relief Cream) 2 %-0.1 % CREAM..G. 1 MOIRA TOP BID PRN [place] Ergocalciferol (Vitamin D2) (Vitamin D2) 50,000 UNIT CAPSULE 1 CAP PO QFRI SUPPLEMENT (Reported) Ergocalciferol (Vitamin D2) (Vitamin D2) 50,000 UNIT CAPSULE 1 CAP PO QW osteoprosis (Reported) Escitalopram Oxalate (Lexapro) 20 MG TABLET 1 TAB PO DAILY depression ( Reported) Ferrous Sulfate 325 MG (65 MG IRON) TABLET 1 TAB PO BID SUPPLEMENT (Reported) Fluticasone/Salmeterol (Advair 500-50 Diskus) 500 MCG-50 MCG/DOSE BLST.W.DEV 1 PUF INH BID BREATHING PROBLEMS (Reported) Folic Acid 0.8 MG TABLET 1 TAB PO TID SUPPLEMENT (Reported) Gabapentin (Neurontin) 400 MG CAPSULE 1 CAP PO BID NEUROPATHY (Reported) Ipratropium/Albuterol Sulfate (Iprat-Albut 0.5-3(2.5) MG/3 Ml) 0.5 MG-3 MG (2.5 MG BASE)/3 ML AMPUL.NEB 1 Vial INH/UDAY 4 TIMES/DAY COPD (Reported) Levothyroxine Sodium (Synthroid) 75 MCG TABLET 0.075 MG PO DAILY AC Thyroid Lidocaine (Lidoderm) 5 % ADH..PATCH 1 PAT TOP DAILY PAIN (Reported) may wear up to 12 hours Melatonin 3 MG TABLET 1 TAB PO QPM SLEEP (Reported) Mometasone Furoate (Nasonex) 50 MCG SPRAY.PUMP 2 SPRAY [place] DAILY ALLERGIES ( Reported) Nicotine (Nicoderm Cq) 14 MG/24 HOUR PATCH.TD24 1 PAT TOP DAILY SMOKING CESSATION Omeprazole 40 MG CAPSULE.DR 1 CAP PO DAILY GI (Reported) Polyethylene Glycol 3350 (Miralax) 17 GRAM POWD.PACK 1 PAC PO DAILY constipation (Reported) dissolve in water Prednisone 10 MG TABLET 1 TAB PO DAILY Steroid Taper Take 40mg from 09/13/17-09/15/17, 30mg from 09/16/17-09/18/17, 20mg from 09/19/17-09/21/17, 10mg from 09/22/17-09/24/17, then stop. Pregabalin (Lyrica) 100 MG CAPSULE 1 CAP PO TID PAIN (Reported) Tiotropium [place] (Spiriva) 18 MCG CAP.W.DEV 1 CAP INH DAILY BREATHING PROBLEMS (Reported) Trazodone HCl 50 MG TABLET 1 TAB PO QPM SLEEP (Reported) Triage Nurses Notes Reviewed? yes Onset: Abrupt Duration: hour(s):, constant Timing: single episode today No Modifying Factors: none HPI: 77-year-old female brought into the emergency room from assisted living facility after falling. According to EMS the patient has been increasingly weak over the past week. She had a mechanical fall today. She came down on her rear end. She denies hitting her head. It was a witnessed fall. Mechanical. There was no reports of head strike or loss of consciousness. She denies any rib pain or neck pain. She denies any chest pain shortness of breath fever chills vomiting dizziness. She was told that she had some sores on her rear end. (Dionicio Garrison) Vital Signs & Intake/Output Vital Signs & Intake/Output Vital Signs Date Time Temp Pulse Resp B/P B/P Pulse O2 O2 Flow FiO2 Mean Ox Delivery Rate 10/31 1659 99.0 98 18 180/92 96 Room Air 10/31 1314 92 18 130/83 99 Room Air 10/31 1133 Room Air 2.0L 10/31 1104 97.8 87 20 143/74 95 Room Air 10/31 0541 96.9 88 18 123/59 95 Room Air 10/31 0259 97.9 78 16 134/68 95 Room Air 10/31 0019 96.1 77 18 108/55 94 Nasal 2.0L Cannula 10/30 2243 98.0 78 18 121/68 93 Room Air Room Air 10/30 1805 97.7 73 16 143/69 97 Room Air ED Intake and Output 10/31 0000 10/30 1200 Intake Total Output Total Balance Patient 163 lb Weight Weight Reported by Patient Measurement Method (Tammie LISA,Austen Griffin) Past History Travel History Traveled to [place] past 21 day No Medical History Any Pertinent Medical History? 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 No (Dionicio Garrison) Review of Systems Review of Systems Constitutional: Reports: see HPI. EENTM: Reports: no symptoms. Respiratory: Reports: no symptoms. Cardiovascular: Reports: no symptoms. GI: Reports: no symptoms. Genitourinary: Reports: no symptoms. Musculoskeletal: Reports: see HPI. Skin: Reports: see HPI. Neurological/Psychological: Reports: no symptoms. Hematologic/Endocrine: Reports: no symptoms. Immunologic/Allergic: Reports: no symptoms. All Other Systems: Reviewed and Negative (Dionicio Garrison) Physical Exam Physical Exam General Appearance: alert, awake, mild distress Head: atraumatic Eyes: Bilateral: normal appearance. Ears, Nose, Throat: normal ENT inspection, hearing grossly normal Neck: normal inspection Respiratory: normal breath sounds, no respiratory distress Cardiovascular: regular rate/rhythm Gastrointestinal: soft, non-tender Back: normal inspection, no open sores appreciated to the gluteus bilaterally, some mild erythema, Extremities: normal inspection, no edema Neurologic/Psych: awake, alert, oriented x 3, normal gait Skin: intact (Dionicio Garrison) Core Measures ACS in differential dx? No CVA/TIA Diagnosis: No Sepsis Present: No Sepsis Focused Exam Completed? No (Christiano Nguyen DO) Progress Differential Diagnoses I considered the following diagnoses in my evaluation of the patient: UTI, pneumonia, cellulitis, open sores, sepsis, hip fracture, pelvic fracture, Diagnostic Imaging: Viewed by Me: Radiology Read. Discussed w/RAD: Radiology Read. Radiology Impression: PATIENT: REID WEINER PRESENT AGE: 77 PATIENT ACCOUNT NO: [id number] : 41 LOCATION: [facility] ORDERING PHYSICIAN: Dionicio POWERS SERVICE DATE: 10/30/17 EXAM TYPE : CAT - CT HEAD WO IV CONTRAST EXAMINATION: CT HEAD WITHOUT CONTRAST CLINICAL INFORMATION: History of fall on Eliquid. Head strike? COMPARISON: 04/24/2017 TECHNIQUE: Contiguous axial imaging was performed from the skull base to vertex without intravenous administration of contrast. DLP: 613 mGy-cm FINDINGS: Brain parenchyma: Again noted are a few scattered areas of decreased attenuation within deep/periventricular white matter compatible with chronic microvascular ischemic changes. Cantor-white matter differentiation is well preserved. No evidence of an acute major vascular territory infarction, hemorrhage, mass or midline shift. There is a prominent perivascular space or old lacunar infarct in the region of the right basal ganglia. Cerebrospinal fluid spaces: Mild atrophy of cerebral hemispheres with commensurate prominence of ventricles and sulci. No hydrocephalus or extra-axial fluid collections. Cerebellum and brainstem: Unremarkable. The 4th ventricle is midline in position. The cerebellopontine angles are normal. Calvarium and temporomandibular joints: Calvarium is intact. Mastoid air cells and middle ear cavities are well aerated. The TMJs are normal. Paranasal sinuses and orbits: There is opacification of a right anterior ethmoid air cell. Otherwise, the visualized paranasal sinuses are well aerated. Lenses have been extracted from each globe. There is punctate calcification/drusen of each optic nerve head. Other: No acute findings in the visualized extracranial soft tissues. IMPRESSION: No acute intracranial pathology compared to 2016. DICTATED BY: Jorge Grubbs MD DATE/TIME DICTATED:10/30/171814 MECHANICAL DESIGN TECHNICIAN:NATHAN DATE/TIME TRANSCRIBED:10/30/171814 CONFIDENTIAL, DO NOT COPY WITHOUT APPROPRIATE AUTHORIZATION. <Electronically signed in Other Vendor System> SIGNED BY: Jorge Grubbs MD 10/30/17 1830, PATIENT: REID WEINER PRESENT AGE: 77 PATIENT ACCOUNT NO: [id number] : 41 LOCATION: [facility] ORDERING PHYSICIAN: Dionicio POWERS SERVICE DATE: 10/30/17 EXAM TYPE: RAD - XRY-AP PELVIS; XRY-HIP 2-3 VIEWS, LEFT; XRY-HIP 2-3 VIEWS, RIGHT EXAMINATION: XR PELVIS XR HIP, LEFT XR HIP, RIGHT CLINICAL INFORMATION: Pain and weakness after fall. COMPARISON: 04/24/2017 TECHNIQUE: Pelvis, AP view Right hip, 2 views Left hip, 2 views FINDINGS: Pelvis : Chronic multilevel facet arthropathy and disc degeneration of the visualized lower lumbar spine. IVC filter projects over the L3 level. Bones have normal alignment at the sacroiliac joints, hips and pubic symphysis. There are intact suture anchors within each pubic bone. There is an old surgical or posttraumatic defect of the right lateral iliac bone. Atherosclerotic calcification of the aorta and iliac arteries. Right hip: No acute findings compared to 04/24/2017. 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 The femoral head is well-positioned within the intact acetabulum. There is chronic, minimal narrowing of superomedial joint space. Left hip: No acute findings compared to 04/24/2017. 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 The femoral head is well-positioned within the intact acetabulum. There is chronic, minimal narrowing of the superomedial joint space. IMPRESSION: No acute findings within the pelvis or hips compared to 04/24/2017. DICTATED BY: Jorge Grubbs MD DATE/TIME DICTATED:10/30/171632 MECHANICAL DESIGN TECHNICIAN:NATHAN DATE/TIME TRANSCRIBED:10/30/171632 CONFIDENTIAL, DO NOT COPY WITHOUT APPROPRIATE AUTHORIZATION. <Electronically signed in Other Vendor System> SIGNED BY: Jorge Grubbs MD 10/30/17 164 Initial ED EKG: normal sinus rhythm, rate (70) Hand-Off Endorsed To: Christiano Nguyen DO (Jason POWERS,Dionicio) Plan of Care: Orders Procedure Date/time Status Heart Healthy Diet 10/31 L Active Heart Healthy Diet 10/31 B Complete CASE MANAGEMENT CONSULT 10/31 0059 Active Theraputic Activities 15 Min 10/31 UNK Complete MOBILITY GOAL STATUS 10/31 UNK Complete MOBILITY CURRENT STATUS 10/31 UNK Complete Gait Training, 15 Min 10/31 UNK Complete PT EVAL LOW COMPLEX 20 MIN 10/31 UNK Complete PT Evaluate & Treat 10/30 2248 Active Current Medications Sig/Eulogio Start time Last Medication Dose Stop Time Status Admin Bisacodyl 5 MG DAILY 10/31 1000 UNVr 10/31 (Dulcolax) 0922 Escitalopram Oxalate 20 MG DAILY 10/31 1000 UNVr 10/31 (Lexapro) 0922 Gabapentin 400 MG BID 10/31 1000 UNVr 10/31 (Neurontin) 0922 Laboratory Tests 10/30/17 1933: Urine Color YEL, Urine Clarity CLEAR, Urine pH 6.0, Ur Specific Berry 1.020, Urine Protein NEG, Urine Ketones NEG, Urine Nitrite NEG, Urine Bilirubin NEG, Urine Urobilinogen 0.2, Ur Leukocyte Esterase NEG, Ur Microscopic EXAM NOT REQUIRED, Urine Hemoglobin NEG, Urine Glucose NEG Hand-Off Endorsed To: Christiano Bertrand MD Endorsed Time: 0700 Pending: consult, other (PT/placement) (Tammie LISA,Austen Griffin) Comments: 10/31/2017 3:23:13 PM patient signed out to me by Dr. Cho at shift chemical cell changer this morning. Patient has had an uneventful emergency department stay. Patient signed out to Dr. Nguyen at shift chemical cell changer. Insurance authorization pending. (Elza LISA,Christiano Mchugh) Departure Departure Condition: Stable Referrals: Pari Montano MD (PCP/Family) Departure Forms: Customer Survey General Discharge Information (Dionicio Garrison) Departure Disposition: STILL A PATIENT Clinical Impression Primary Impression: Weakness Secondary Impressions: Falls Comments 10/30/17 10:45 PM The patient was signed out to me by GIO Gomez 77-year-old female who I saw and evaluated. Currently she is sleeping. I woke her and she denied any pain. She is from [facility] and was brought in for weakness and frequent falls, labs and CAT scans were unremarkable for fracture or intracranial bleeding. She is pending case management evaluation and PT consult in the a.m. The patient was signed out to Dr. Cho at 11 PM. 10/31/17 5:50 PM Patient was signed out to me by Dr. Bertrand. She is awake and alert. She is been seen and evaluated by physical therapy and case management. She has been accepted for admission for short-term rehabilitation at [place]. (Christiano Nguyen DO) PA/POLITICAL AIDE Co-Sign Statement Statement: ED Attending supervision documentation- [] I saw and evaluated the patient. I have also reviewed all the pertinent lab results and diagnostic results. I agree with the findings and the plan of care as documented in the PA's/POLITICAL AIDE's documentation. [x] I have reviewed the ED Record and agree with the PA's/POLITICAL AIDE's documentation. [] Additions or exceptions (if any) to the PAs/POLITICAL AIDE's note and plan are summarized below: [] (Austen Cho MD) Critical Care Note Critical Care Note Critical Care Time: non-applicable (Christiano Nguyen DO) [] Additions or exceptions (if any) to the PAs/POLITICAL AIDE's note and plan are summarized below: [] (Austen Cho MD) Critical Care Note Critical Care Note Critical Care Time: non-applicable (Christiano Nguyen DO)
--- NOTE | 2017-10-30 16:39 | RADIOLOGY REPORT ---
EXAMINATION: CHEST 1 VIEW CLINICAL INFORMATION: Pain after fall. Weakness. COMPARISON: 09/10/2017. TECHNIQUE: An AP view of the chest is provided. FINDINGS: The cardiac silhouette is not enlarged. The mediastinal and hilar contours are unremarkable. There is blunting of the right lateral costophrenic angle likely indicative of a small pleural effusion. There is coarsened interstitial prominence within the mid right lung. The osseous structures are stable with cervical spine fusion hardware intact. IMPRESSION: Small right pleural effusion. Coarsening of interstitial markings within the mid right lung. This is nonspecific, but could correspond to atelectasis or developing infiltrate. Recommendation is for a followup chest series to be obtained following treatment and/or resolution of symptoms to assure resolution of this appearance.
[2017-10-30 16:43] LABS: ABSOLUTE BASOPHIL COUNT 0.1 /CUMM (0.0-0.2); ABSOLUTE EOSINOPHIL COUNT 0.2 /CUMM (0.0-0.7); ABSOLUTE GRANULOCYTE CT 3.8 /CUMM (1.4-6.5); ABSOLUTE LYMPH COUNT 1.2 /CUMM (1.2-3.4); ABSOLUTE MONOCYTE COUNT 0.5 /CUMM (0.10-0.60); BASOPHIL % 1.3 % (0.0-2.0); EOSINOPHIL % 2.6 % (0-5); GRANULOCYTE % 66.3 % (42.2-75.2); HEMATOCRIT 35.9 % (37-47); MEAN CORPUSCULAR HGB 31.2 PG (27.0-31.0); MEAN CORPUSCULAR HGB CONC 33.5 G/DL (33.0-37.0); MEAN CORPUSCULAR VOLUME 93.2 FL (81.0-99.0); MEAN PLATELET VOLUME 8.3 FL (7.4-10.4); PLATELET COUNT 166 /CUMM (130-400); RBC DISTRIBUTION WIDTH 14.6 % (11.5-14.5); RED BLOOD CELL CT 3.85 /CUMM (4.20-5.40); WHITE BLOOD CELL COUNT 5.7 /CUMM (4.8-10.8)
--- NOTE | 2017-10-30 16:43 | RADIOLOGY REPORT ---
EXAMINATION: XR PELVIS XR HIP, LEFT XR HIP, RIGHT CLINICAL INFORMATION: Pain and weakness after fall. COMPARISON: 04/24/2017 TECHNIQUE: Pelvis, AP view Right hip, 2 views Left hip, 2 views FINDINGS: Pelvis: Chronic multilevel facet arthropathy and disc degeneration of the visualized lower lumbar spine. IVC filter projects over the L3 level. Bones have normal alignment at the sacroiliac joints, hips and pubic symphysis. There are intact suture anchors within each pubic bone. There is an old surgical or posttraumatic defect of the right lateral iliac bone. Atherosclerotic calcification of the aorta and iliac arteries. Right hip: No acute findings compared to 04/24/2017. 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 The femoral head is well-positioned within the intact acetabulum. There is chronic, minimal narrowing of superomedial joint space. Left hip: No acute findings compared to 04/24/2017. 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 The femoral head is well-positioned within the intact acetabulum. There is chronic, minimal narrowing of the superomedial joint space. IMPRESSION: No acute findings within the pelvis or hips compared to 04/24/2017.
--- NOTE | 2017-10-30 18:30 | CT SCAN REPORT ---
EXAMINATION: CT HEAD WITHOUT CONTRAST CLINICAL INFORMATION: History of fall on Eliquid. Head strike? COMPARISON: 04/24/2017 TECHNIQUE: Contiguous axial imaging was performed from the skull base to vertex without intravenous administration of contrast. DLP: 613 mGy-cm FINDINGS: Brain parenchyma: Again noted are a few scattered areas of decreased attenuation within deep/periventricular white matter compatible with chronic microvascular ischemic changes. Cantor-white matter differentiation is well preserved. No evidence of an acute major vascular territory infarction, hemorrhage, mass or midline shift. There is a prominent perivascular space or old lacunar infarct in the region of the right basal ganglia. Cerebrospinal fluid spaces: Mild atrophy of cerebral hemispheres with commensurate prominence of ventricles and sulci. No hydrocephalus or extra-axial fluid collections. Cerebellum and brainstem: Unremarkable. The 4th ventricle is midline in position. The cerebellopontine angles are normal. Calvarium and temporomandibular joints: Calvarium is intact. Mastoid air cells and middle ear cavities are well aerated. The TMJs are normal. Paranasal sinuses and orbits: There is opacification of a right anterior ethmoid air cell. Otherwise, the visualized paranasal sinuses are well aerated. Lenses have been extracted from each globe. There is punctate calcification/drusen of each optic nerve head. Other: No acute findings in the visualized extracranial soft tissues. IMPRESSION: No acute intracranial pathology compared to 04/24/2017.
[2017-10-31 16:59] VITALS: BP 180/92
== END 2017-10-31 18:27 ==
LOC: ERH 15:16
PROVIDERS: Physician Assistant Medical
DX: R53.1 Weakness (principal)
CPT/HCPCS: 71045; 72170; 73502-LT; 73502-RT; 81003; 93005; 93010; 97116-GP; 97161-GP; 97530-GP; G8978-GP; G8979-GP

== ENCOUNTER 2018-03-04 13:17 | Inpatient (IN) | payer OTHER ==
[~2018-03-04] VITALS: Ht 160 cm; Wt 75.9 kg
[~2018-03-04 13:17] MED LIST changes: -LYRICA100 M1 PO; +LYRICA50 M1 PO
--- NOTE | 2018-03-04 13:33 | ED GENERAL ADULT ---
History of Present Illness General Chief Complaint: Dyspnea (COPD, CHF, Other) Stated Complaint: BIBA COPD Source: patient Exam Limitations: no limitations Vital Signs & Intake/Output Vital Signs & Intake/Output Vital Signs Date Time Temp Pulse Resp B/P B/P Pulse O2 O2 Flow FiO2 Mean Ox Delivery Rate 03/06 1634 96 Nasal 2.0L Cannula 03/06 1600 Nasal 2.0L Cannula 03/06 1409 98.1 71 18 130/60 96 Nasal 2.0L Cannula 03/06 0758 95 Nasal 2.0L Cannula 03/06 0757 95 Nasal 2.0L Cannula 03/06 0649 98.9 60 18 132/72 96 Nasal 2.0L Cannula 03/06 0000 Nasal 2.0L Cannula 03/05 2140 98.2 68 19 140/62 98 Nasal 2.0L Cannula ED Intake and Output 03/06 0000 03/05 1200 Intake Total 1870 200 Output Total 700 250 Balance 1170 -50 Intake, IV 30 Intake, Oral 1840 200 Number 1 Bowel Movements Output, Urine 700 250 Allergies Coded Allergies: Penicillins (UNKNOWN 05/01/16) atorvastatin (UNKNOWN 05/01/16) nickel (UNKNOWN 05/01/16) morphine (UNKNOWN 05/01/16) Reconcile Medications Acetaminophen (Tylenol Extra Strength) 500 MG TABLET 2 TAB PO BID PAIN ( Reported) Albuterol Sulfate (Proventil Hfa) 90 MCG HFA.AER.AD 2 PUF INH Q4 PRN COPD ( Reported) Alendronate Sodium (Fosamax) 70 MG TABLET 1 TAB PO QFRI BONE (Reported) in the morning, at least 30 minutes before the first food, beverage, or medication of the day Apixaban (Eliquis) 5 MG TABLET 5 MG PO BID Blood thinner Arformoterol Tartrate (Brovana) 15 MCG/2 ML VIAL.NEB 1 INH PO BID BREATHING PROBLEMS (Reported) Calcium Carbonate/Vitamin D3 (Caltrate 600 + D Tablet) 600 MG-800 TABLET 1 TAB PO DAILY osteoprosis (Reported) Cyanocobalamin (Vitamin B-12) 1,000 MCG TABLET 1 TAB PO DAILY SUPPLEMENT ( Reported) Escitalopram Oxalate (Lexapro) 20 MG TABLET 1 TAB PO DAILY depression ( Reported) Fluticasone/Vilanterol (Breo Ellipta 100-25 Mcg INH) 100 MCG-25 MCG/DOSE BLST.W.DEV 1 PUFF PO DAILY BREATHING PROBLEMS (Reported) Levothyroxine Sodium (Synthroid) 75 MCG TABLET 0.075 MG PO DAILY AC Thyroid Mometasone Furoate (Nasonex) 50 MCG SPRAY.PUMP 2 SPRAY [place] DAILY ALLERGIES ( Reported) Omeprazole 40 MG CAPSULE.DR 1 CAP PO DAILY GI (Reported) Polyethylene Glycol 3350 (Miralax) 17 GRAM POWD.PACK 1 PAC PO DAILY constipation (Reported) dissolve in water Pregabalin (Lyrica) 50 MG CAPSULE 1 CAP PO TID PAIN (Reported) Solifenacin Succinate (Vesicare) 5 MG TABLET 1 TAB PO DAILY BLADDER HEALTH ( Reported) Trazodone HCl 50 MG TABLET 1 TAB PO QPM SLEEP (Reported) Triage Note: PT BIBA FROM PCP C/O SOB. DENIES ANY OTHER S/S. PT SATS 95%. PLACED ON 1LNC FOR COMFORT. PT STATES SHE WAS @ HER PCP FOR A CHECKUP & BECAME SOB Triage Nurses Notes Reviewed? yes Onset: Gradual Duration: hour(s): Timing: constant HPI: 77-year-old female with a history of COPD (not O2 dependent), lung cancer, hyperlipidemia, mitral valve prolapse, diabetes, hypothyroid, anemia, DVT, fibromyalgia, osteoarthritis brought in by ambulance from her PMDs office after she presented with shortness of breath. Patient reports that she has baseline shortness of breath, but became acutely short of breath when she went outside into the heat too weak for her doctor's appointment. States that she has a nonproductive cough at baseline, has had no changes to her baseline cough, and no new sputum production. Denies fevers or chest pain. Is currently a one pack per day smoker. No recent sick contacts or travel. Patient received 2 DuoNeb's in route, and arrives to the emergency department in no acute distress, oxygen saturation 95% on room air, placed on 1 L nasal cannula for comfort, but still complaining of mild shortness of breath. (Brianna Perrin) Past History Travel History Traveled to [place] past 21 day No Medical History Any Pertinent Medical History? 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 No (Brianna Perrin) Review of Systems Review of Systems Constitutional: Reports: no symptoms. EENTM: Reports: no symptoms. Respiratory: Reports: see HPI. Cardiovascular: Reports: no symptoms. GI: Reports: no symptoms. Genitourinary: Reports: no symptoms. Musculoskeletal: Reports: no symptoms. Skin: Reports: no symptoms. Neurological/Psychological: Reports: no symptoms. Hematologic/Endocrine: Reports: no symptoms. Immunologic/Allergic: Reports: no symptoms. All Other Systems: Reviewed and Negative (Brianna Perrin) Physical Exam Physical Exam General Appearance: well developed/nourished, no apparent distress, alert, awake , comfortable Head: atraumatic, normal appearance Eyes: Bilateral: normal appearance. Neck: normal inspection Respiratory: wheezing (diffuse, all lung [place]) Cardiovascular: regular rate/rhythm Gastrointestinal: soft, non-tender Back: normal inspection Extremities: normal inspection Neurologic/Psych: awake, alert, oriented x 3, normal mood/affect Skin: intact, normal color, warm/dry Core Measures ACS in differential dx? No CVA/TIA Diagnosis: No Sepsis Present: No Sepsis Focused Exam Completed? No (Brianna Perrin) Progress Differential Diagnoses I considered the following diagnoses in my evaluation of the patient: [COPD exacerbation versus URI versus bronchitis versus pneumonia, low concern for ACS versus PE] Plan of Care: Orders Procedure Date/time Status Therapeutic Activities 03/06 UNK Complete PT EVAL LOW COMPLEX 20 MIN 03/06 UNK Complete Gait Training 03/06 UNK Complete PHARMACY COMMUNICATION FORM 03/06 UNK Active AEROSOL CHG 03/05 UNK Complete OXYGEN 03/05 UNK Complete OXYGEN DAILY CHARGE 03/05 UNK Complete Current Medications Sig/Eulogio Start time Last Medication Dose Stop Time Status Admin Methylprednisolone 40 MG Q12H 03/06 1800 AC 03/06 (Solumedrol) 1810 Trazodone HCl 50 MG QPM 03/05 2100 AC 03/05 (Desyrel) 2016 Guaifenesin 600 MG Q12H 03/05 1800 AC 03/06 (Mucinex) 1810 Budesonide/ 2 PUF BID 03/05 1349 AC 03/06 Formoterol Fumarate 0826 (Symbicort) Apixaban 5 MG BID 03/05 0950 AC 03/06 (Eliquis) 08 Escitalopram Oxalate 20 MG DAILY 03/05 09 AC 03/06 (Lexapro) 08 Oxybutynin Chloride 5 MG BID 03/05 09 AC 03/06 (Ditropan) 08 Polyethylene Glycol 17 GM DAILY 03/05 0900 AC 03/06 (Miralax) 0825 Pregabalin 50 MG TID 03/05 0900 AC 03/06 (Lyrica) 1300 Albuterol Sulfate 3 ML EVERY 4 HRS/AWAKE 03/05 08 AC 03/06 (Proventil) 1631 Ipratropium [place] 2.5 ML EVERY 4 HRS/AWAKE 03/05 0800 AC 03/06 (Atrovent) 1630 Levothyroxine Sodium 0.075 MG DAILY AC 03/05 0700 AC 03/06 (Synthroid) 0549 Omeprazole 40 MG DAILY AC 03/05 0700 AC 03/06 (Prilosec) 0549 Albuterol Sulfate 2 PUF Q4 PRN 03/04 2330 AC 03/06 (Ventolin) 0016 Acetaminophen 650 MG Q6P PRN 03/04 2230 AC 03/05 (Tylenol) 0609 EKG nonischemic, troponin negative Chest x-ray unremarkable Labs unremarkable including unremarkable ABG with no acidosis and no elevation in PCO2 Patient was given duo nebs, segmental, magnesium and attempted to titrate off supplemental oxygen to room air, was satting high 90s on room air while at rest, but desatted to high 80s with ambulation on room air. Discussed with the hospitalist and will admit to general medicine for COPD exacerbation. Discussed with the EDMD as well. Initial ED EKG: NSR, no ST T wave changes (Brianna Perrin) Departure Departure Disposition: STILL A PATIENT Condition: Stable Clinical Impression Primary Impression: COPD exacerbation Referrals: Miley Torres MD (PCP/Family) Departure Forms: Customer Survey General Discharge Information Admission Note Spoke With: William Marcum MD Documentation of Exam: Documentation of any treatments & extenuating circumstances including Concerns Regarding Discharge (functional status, medication knowledge or non-compliance, living conditions, etc.) that warrant an admission rather than observation: [ DuoNeb, IV steroids, and repeat chest x-rays, hemodynamic monitoring, respiratory monitoring, supplemental oxygen, pulmonary consult] (Brianna Perrin) PA/AMERICAN HISTORY PROFESSOR Co-Sign Statement Statement: ED Attending supervision documentation- [X] I saw and evaluated the patient. I have also reviewed all the pertinent lab results and diagnostic results. I agree with the findings and the plan of care as documented in the PA's/AMERICAN HISTORY PROFESSOR's documentation. [X] I have reviewed the ED Record and agree with the PA's/AMERICAN HISTORY PROFESSOR's documentation. [] Additions or exceptions (if any) to the PAs/AMERICAN HISTORY PROFESSOR's note and plan are summarized below: [PT TO BE ADMITTEDFOR COPD EXACERBATION, WING, HYPOXIA, NEBS, IV STEROIDS, IV ABX , PULM CONSULT] (Shalom LISA,Mak Lloyd) PA/AMERICAN HISTORY PROFESSOR Co-Sign Statement Statement: ED Attending supervision documentation- x I saw and evaluated the patient. I have also reviewed all the pertinent lab results and diagnostic results. I agree with the findings and the plan of care as documented in the PA's/AMERICAN HISTORY PROFESSOR's documentation. [] I have reviewed the ED Record and agree with the PA's/AMERICAN HISTORY PROFESSOR's documentation. [] Additions or exceptions (if any) to the PAs/AMERICAN HISTORY PROFESSOR's note and plan are summarized below: [] (Robyn LISA,Tab) Critical Care Note Critical Care Note Critical Care Time: 30-74 min (Brianna Perrin)
[2018-03-04 13:56] LABS: ABSOLUTE BASOPHIL COUNT 0 /CUMM (0.0-0.2); ABSOLUTE EOSINOPHIL COUNT 0.1 /CUMM (0.0-0.7); ABSOLUTE GRANULOCYTE CT 5.5 /CUMM (1.4-6.5); ABSOLUTE LYMPH COUNT 0.9 /CUMM (1.2-3.4); ABSOLUTE MONOCYTE COUNT 0.3 /CUMM (0.10-0.60); BASOPHIL % 0.7 % (0.0-2.0); EOSINOPHIL % 1.2 % (0-5); GRANULOCYTE % 80.4 % (42.2-75.2); HEMATOCRIT 42.1 % (37-47); MEAN CORPUSCULAR HGB 30.4 PG (27.0-31.0); MEAN CORPUSCULAR HGB CONC 33.2 G/DL (33.0-37.0); MEAN CORPUSCULAR VOLUME 91.6 FL (81.0-99.0); MEAN PLATELET VOLUME 8.6 FL (7.4-10.4); PLATELET COUNT 150 /CUMM (130-400); RBC DISTRIBUTION WIDTH 14.9 % (11.5-14.5); WHITE BLOOD CELL COUNT 6.8 /CUMM (4.8-10.8)
[2018-03-04] MEDS ORDERED: BROVANA15 MCG/21 PO (15:25)
[2018-03-04] MEDS ORDERED: BREO ELLIPTA 11 EACH PO (15:25)
[2018-03-04] MEDS ORDERED: VESICARE5 M1 PO (15:27)
--- NOTE | 2018-03-04 16:57 | RADIOLOGY REPORT ---
EXAMINATION: XR CHEST CLINICAL INFORMATION: Shortness of breath. Evaluate for pneumonia. COMPARISON: Multiple previous chest imaging studies, the last chest x-ray of 10/30/2017. Chest CT of 11/27/2016. TECHNIQUE: 2 views of the chest were obtained. FINDINGS: The cervical fusion hardware is partially visualized. Stable postsurgical changes in the right hemithorax with chronic scarring noted in the mid to lower lung field laterally. The lungs are hyperinflated with increased AP diameter of the chest and flattening of the diaphragms. No focal consolidation, changes of congestion or pleural effusions. Mild blunting of the right lateral costophrenic sulcus is a stable finding reflecting pleural thickening. Cardiomediastinal silhouette is stable with upper limits of normal cardiac size and mildly ectatic aorta. No acute osseous abnormality. 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 IMPRESSION: No radiographic evidence of pneumonia. Stable postsurgical changes in the right hemithorax. No acute pulmonary process.
--- NOTE | 2018-03-04 19:57 | History & Physical ---
Esvin Rubio [birth year]: General Information and HPI MD Statement: I have seen and personally examined REID NOONAN and documented this H&P. The patient is a 77 year old F who presented with a patient stated chief complaint of [shortness of breath x1 day]. Source of Information: patient, old records History of Present Illness: Mrs Reid Funez is a 77F with a PMH of COPD not on home O2, lung cancer status post right lobe resection, hyperlipidemia, mitral valve prolapse, diet controlled diabetes mellitus, hypothyroidism, anemia, bilateral DVTs with a questionable IVC filter placement, fibromyalgia, A. fib on warfarin or Eliquis who presents today with a 1 day history of acute onset of shortness of breath. Patient states that she is chronically short of breath, "I have learned to deal with it", chronic dry cough nonproductive, not on home O2. Patient states that today, she went to her doctor's office for a follow-up visit, walk from her car to the doctor's office and sat down when she felt like she could not get any air into her lungs. Patient states her doctor had not interviewed her yet, but said that they already heard her wheezing, and called EMS who brought her to [place] today. She states that she has not had any fever/chills/night sweats recently, however she is in assisted living and there sick people around her. She states that she continues to smoke, although she knows she has to quit and is recently cut down to 1/2 pack a day. She states that her last exacerbation was sometime earlier this year. She states that she has a hogshead dumper but she has not seen him as the only time she visited him, he told her to quit smoking and then come back. She denies any chest pain, abdominal pain, nausea vomiting diarrhea, urinary symptoms, lower extremity edema. 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 Review of systems Positive for: Chronic dry cough, acute onset shortness of breath Negative for: Fevers/chills/night sweats/chest pain/abdominal pain/urinary symptoms/lower extremity edema Allergies/Medications Allergies: Coded Allergies: Penicillins (UNKNOWN 05/01/16) atorvastatin (UNKNOWN 05/01/16) nickel (UNKNOWN 05/01/16) morphine (UNKNOWN 05/01/16) Home Med list Acetaminophen (Tylenol Extra Strength) 500 MG TABLET 2 TAB PO BID PAIN ( Reported) Albuterol Sulfate (Proventil Hfa) 90 MCG HFA.AER.AD 2 PUF INH Q4 PRN COPD ( Reported) Alendronate Sodium (Fosamax) 70 MG TABLET 1 TAB PO QFRI BONE (Reported) in the morning, at least 30 minutes before the first food, beverage, or medication of the day Apixaban (Eliquis) 5 MG TABLET 5 MG PO BID Blood thinner Arformoterol Tartrate (Brovana) 15 MCG/2 ML VIAL.NEB 1 INH PO BID BREATHING PROBLEMS (Reported) Calcium Carbonate/Vitamin D3 (Caltrate 600 + D Tablet) 600 MG-800 TABLET 1 TAB PO DAILY osteoprosis (Reported) Cyanocobalamin (Vitamin B-12) 1,000 MCG TABLET 1 TAB PO DAILY SUPPLEMENT ( Reported) Escitalopram Oxalate (Lexapro) 20 MG TABLET 1 TAB PO DAILY depression ( Reported) Fluticasone/Vilanterol (Breo Ellipta 100-25 Mcg INH) 100 MCG-25 MCG/DOSE BLST.W.DEV 1 PUFF PO DAILY BREATHING PROBLEMS (Reported) Levothyroxine Sodium (Synthroid) 75 MCG TABLET 0.075 MG PO DAILY AC Thyroid Mometasone Furoate (Nasonex) 50 MCG SPRAY.PUMP 2 SPRAY NASB DAILY ALLERGIES ( Reported) Omeprazole 40 MG CAPSULE.DR 1 CAP PO DAILY GI (Reported) Polyethylene Glycol 3350 (Miralax) 17 GRAM POWD.PACK 1 PAC PO DAILY constipation (Reported) dissolve in water Pregabalin (Lyrica) 50 MG CAPSULE 1 CAP PO TID PAIN (Reported) Solifenacin Succinate (Vesicare) 5 MG TABLET 1 TAB PO DAILY BLADDER HEALTH ( Reported) Trazodone HCl 50 MG TABLET 1 TAB PO QPM SLEEP (Reported) Past History Travel History Traveled to [place] past 21 day No Medical History Neurological: narcolepsy EENT: allergies, cataracts, rhinitis Cardiovascular: hyperlipidemia, mitral valve prolapse Respiratory: COPD Gastrointestinal: constipation, diverticulitis, GERD Hepatic: NONE Renal: NONE Musculoskeletal: fibromyalgia, osteoarthritis, spinal stenosis (cervical) Psychiatric: anxiety, depression Endocrine: diabetes, hypothyroidism Blood Disorders: anemia, DVT BLE Cancer(s): lung cancer IMAGING MANAGER/Reproductive: uterine/bladder prolapse History of MRSA: No History of VRE: No History of CDIFF: No Surgical History Surgical History: appendectomy, hysterectomy, lumpectomy, right lobectomy cervical fusion Past Family/Social History Family History Relations & Conditions if any FATHER FH: CHF (congestive heart failure) Hypertension Psychosocial History Who Do You Live With? self Primary Language: Maori ETOH Use: denies use Illicit Drug Use: denies illicit drug use Living Will? yes Functional Ability ADLs Independent: dressing, eating, toileting, bathing. Ambulation: walker IADLs Independent: telephone. Needs Assist: shopping, housework, transportation, medication admin. Review of Systems Review of Systems Constitutional: Reports: see HPI. Exam & Diagnostic Data Last 24 Hrs of Vital Signs/I&O Vital Signs Date Time Temp Pulse Resp B/P B/P Pulse O2 O2 Flow FiO2 Mean Ox Delivery Rate 03/04 2313 96 Nasal 2.0L Cannula 03/04 2238 99.0 68 18 134/68 96 Nasal 2.0L Cannula 03/04 2229 Nasal 2.0L Cannula 03/04 2050 65 15 126/63 96 Nasal Cannula 03/04 1842 85 22 141/65 95 Nasal Cannula 03/04 1627 78 16 121/60 95 Nasal Cannula 03/04 1355 97 Nasal 1.5L Cannula 03/04 1323 98.3 76 20 129/61 95 Room Air Intake & Output 03/04 1600 08 0800 08 0000 Intake Total Output Total Balance Patient 168 lb Weight Physical Exam General Appearance Alert, Oriented X3, Cooperative, No Acute Distress Skin No Rashes Skin Temp/Moisture Exam: Warm/Dry Cardiovascular Regular Rate, Normal S1, Normal S2 Lungs expiratory wheezes in all [place]; decreased lung sounds in RLL Abdomen Soft, No Tenderness Neurological Normal Speech, Sensation Intact Extremities No Edema, Normal Pulses Last 24 Hrs of Labs/Mick: Laboratory Tests 03/04/18 1910: pH 7.35, pCO2 39, pO2 77 L, HCO3 21, ABG O2 Sat (Measured) 92.0 L, P-50 (Temp Corrected) Y, Carboxyhemoglobin 3.1, O2 Concentration % 2L, Temperature 98.9, O2 Delivery Method NC, Phlebotomy Draw Site RIGHT BRACHIAL 03/04/18 1517: Anion Gap 9, Estimated GFR 44 L, BUN/Creatinine Ratio 19.2, Glucose 148 H, Calcium 10.4 H, Magnesium 2.9 H, Total Bilirubin 0.3, AST 26, ALT 28, Alkaline Phosphatase 102, Troponin I 0.01, Total Protein 6.6, Albumin 4.0, Globulin 2.6, Albumin/Globulin Ratio 1.5 03/04/18 1345: CBC w Diff NO MAN DIFF REQ, RBC 4.60, MCV 91.6, MCH 30.4, MCHC 33.2, RDW 14.9 H , MPV 8.6, Gran % 80.4 H, Lymphocytes % 13.8 L, Monocytes % 3.9, Eosinophils % 1.2, Basophils % 0.7, Absolute Granulocytes 5.5, Absolute Lymphocytes 0.9 L, Absolute Monocytes 0.3, Absolute Eosinophils 0.1, Absolute Basophils 0 Assessment/Plan Assessment: Mrs Reid Funez is a 77F with a PMH of COPD not on home O2, lung cancer status post right lobe resection, hyperlipidemia, mitral valve prolapse, diet controlled diabetes mellitus, hypothyroidism, anemia, bilateral DVTs with a questionable IVC filter placement, fibromyalgia, A. fib on warfarin or Eliquis who presents today with a 1 day history of acute onset of shortness of breath. She is admitted for likely COPD Exacerbation, doubt PNA as patient is afebrile without leukocytosis and cough is chronic; PE not likely as no tachycardia and no recent periods of immobility. Problem List: #Acute on Chronic Hypoxic Respiratory Failure (COPD Exacerbation 2/2 environmental factors) #Hyperkalemia & Hypermagnesemia w/o symptoms, 2/2 dehydration #JOANNE 2/2 dehydration #Acute on Chronic Hypoxic Respiratory Failure -Recieved Solu-Medrol 125 mg in the ED, magnesium 2 g, DuoNeb 2, 500 cc normal saline bolus #Hyperkalemia and Hypermagnesemia -Recheck BEP in the AM #Nicotine dependence #Chronic right shoulder pain #Chronic medical conditions pharmacy which was not open during time of call DVT prophylaxis - ALPS pending confirmation of eliquis/coumadin dose IV access Heart healthy Diet DNR/DNI Disposition As Ranked By This Provider Problem List: 1. Nicotine dependence 2. COPD exacerbation Core Measures/Misc (04/15) Acute Coronary Syndrome ACS Diagnosis: No Congestive Heart Failure Congestive Heart Failure Diagnosis No Cerebrovascular Accident CVA/TIA Diagnosis: No VTE (View Protocol) VTE Risk Factors Age>40 No Mechanical VTE Prophylaxis d/t N/A MechProphylax Ordered No VTE Pharm Prophylaxis d/t Other (unsure if eliquis or coumadin) Sepsis (View protocol) Sepsis Present: No If YES complete Sepsis Event Note If YES complete Sepsis Event Note Marylin Caceres 03/04/182024: Core Measures/Misc (04/15) Sepsis (View protocol) If YES complete Sepsis Event Note If YES complete Sepsis Event Note Resident Review Statement Resident Statement: examined this patient, discussed with hospitality internship, agreed with hospitality internship, discussed with family, reviewed EMR data (avail), discussed with nursing , discussed with case mgmt, reviewed images, amended to note Other Findings: Ms. Noonan is a 77yo F w/ PMH of COPD, MVP, GERD, Fibromyalgia/OA/Cervical stenosis s/p cervical fusion, Anxiety/depression, DM, HypoTSH, hx of BLE DVT s/p IVC filter on Eliquis 5mg BID, Hx of Lung CA s/p right lobectomy, s/p appendectomy/hysterectomy, BIBA from PCP cc of SOB who was at baseline not O2 dependent COPD. Today she felt she was increasing dyspnea 2/2 heat outside which made her too weak to make to PCP appointment. Patient received 2 DuoNeb's in route, and arrives to the ER in no acute distress, oxygen saturation 95% on room air, placed on 1 L nasal cannula for comfort, but still complaining of mild shortness of breath. rest of history per hospitality internship's note. During our clinical interaction, patient denied recent travel/sick contacts, fever/lightheadedness/diaphoresis/night sweat/weight change/Palpitation/ Abdominal pain/bowel movement or urinary abnormality, or other skin/ musculoskeletal/neurological/mood disorders, or dietary/appetite change. -Smoking: Active 1/2 ppd smoker since 12yo -Alcohol: denied -Rec Drugs: denied -Outpt physicians: was seeing Dr. Mayes before for COPD On admission, Vitals: stable afebrile, HR/RR/BP stable, 97% under 1.5L Physical exam as above. Pertinent findings including bilateral expiratory wheezing on lungs, with wnl cardiac findings. -CBC: WNL -CMP: Hyperkalemia 5.4 w/o symptoms, Hypermagnesemia 2.9, elevated Cr 1.2 from baseline of 1.0 -ABG 7.35/39/77/21/92% under 2LNC, carboxyHgb 2.1 -CXR: No radiographic evidence of pneumonia. Stable postsurgical changes in the right hemithorax. No acute pulmonary process. -EKG: NSR w/o significant ST-T abnormalities, unchanged from previous. -Last Echo: 06/2011 normal EF of 60% w. mild MR. by Dr. Cárdenas -Interventions in ER: Duoneb x 2, Solumedrol 125 IV x 1, NS bolus 500cc x 1, MgSulfate x 1 Problem list/Assessment/Hospital Course: #COPD Exacerbation 2/2 environmental factors #Hyperkalemia & Hypermagnesemia w/o symptoms, 2/2 dehydration #JOANNE 2/2 dehydration #PMHx as above - Admit to general medicine - Vitals per protocol, monitor I&O per protocol. - Supplemental O2/TRC/Neb - Would continue IVF gentlely overnight. - Monitor for any hyperK/Mg symptoms and recheck BEp in the AM. - Continue home meds - Patient was unsure of whether she got IVC filter and unsure whether he was taking Eliquis or Coumadin, despite the med list showed Eliquis 5mg BID. - Stat PT/INR, if INR is not w/ 2-3 range, would confirm Eliquis dose w/ assist living, or with [facility] pharmacy in the AM per primary team. - Start Solumedorl 40mg q8 and taper per clinical course. Patient had no active signs of infection, would keep off zithromax for now per Attending. - Pending cultures including blood/sputum etc. - Pain per pathway DVT prophylaxis ALPS only for now, pending confirming eliquis/coumadin dose Heart Healthy Diet IV Access: Peripheral IV DNR/DNI William Marcum MD 03/05/18 0659: Core Measures/Misc (04/15) Sepsis (View protocol) If YES complete Sepsis Event Note If YES complete Sepsis Event Note Attending Review Statement Attending Statement Attending MD Statement: examined this patient, discuss w/resident/PA/ENVELOPE SEALER OPERATOR, agreed w/resident/PA/ENVELOPE SEALER OPERATOR Attending Assessment/Plan: Patient is seen and examined independently by me. Care plan discussed with emergency medical technician basic and resident. I agree with the physical exam findings and plan of care as outlined above with the following changes and additions. 77 yo F with history of COPD, lung cancer s/p right lobectomy, HLD, MVP, diet controlled DM, bilateral DVT s/p IVC filter, A fib on Eliquis as per assisted living med list but patient states she is on warfarin, presented with SOB for 1 day. She alos has WING, dry cough. But she has no fever, chills or chest pain. She is living in an assisted living and states there are sick people around. She still smokes 1/2 pack daily. She went to PCP office and noted to have O2 sat in 80's on RA and advised to come to ED. In the ED, WBC 6.8. Troponin 0.01. ABG 7.35/39/77/21/92% on 2 L NC CXR shows no acute infiltrate or edema. Patient got Solumedrol 125 mg IV, Mag 2 g IV and Duoneb x2 in the ED. Patient is seen and examined after she got to the floor. She is resting comfortable with improving SOB and has no audible wheezing. She is able to speak in full sentence. On lung exam, there are mild diffused expiratory wheezing. No pedal edema. Patient is admitted to Med for acute exacerbation of COPD. Doubt she has respiratory infection given that she is afebrile with normal WBC and has non productive cough with no infiltrates on CXR. On solmedrol, nebs, NC and titrate O2 to low 90's. Start nicotine patch and advise for smoking cessation. Check INR. Need to clarify with her pharmacy regarding her home anticoagulation. Signed: William Marcum MD FACP
[2018-03-04 22:38] VITALS: BP 134/68
[2018-03-05 00:55] LABS: PT 13.5 SEC (9.4-12.5)
[2018-03-05 04:58] VITALS: BP 110/60
[2018-03-05 06:39] VITALS: BP 110/60
--- NOTE | 2018-03-05 07:17 | PN- Housestaff ---
Marlene LISA,Stacey 03/05/18716: Subjective Follow-up For: COPD EXACERBATION electrolyte derangements Subjective: Patient seen and examined. On interview she is eating her breakfast but is very short of breath and wheezing, refusing TRC nebs until she finishes eating. Her vitals are stable overnight and she is on 2 L of oxygen, not on any home oxygen. Patient had an ABG done on admission which showed no respiratory acidosis. Patient continues to complain of right shoulder pain that began several months ago after she "laid on it wrong". Review of Systems Constitutional: Reports: no symptoms. Cardiovascular: Reports: no symptoms. Respiratory: Reports: cough, short of breath, sputum production, wheezing. Gastrointestinal: Reports: no symptoms. Genitourinary: Reports: no symptoms. Musculoskeletal: Reports: joint pain. Skin: Reports: no symptoms. Neurological/Psychological: Reports: no symptoms. Objective Last 24 Hrs of Vital Signs/I&O Vital Signs Date Time Temp Pulse Resp B/P B/P Pulse O2 O2 Flow FiO2 Mean Ox Delivery Rate 03/05 0817 96 Nasal 2.0L Cannula 03/05 0800 96 Nasal 1.5L Cannula 03/05 0639 97.8 71 16 110/60 97 03/05 0500 96 Nasal 2.0L Cannula 03/05 0458 97.8 71 16 110/60 97 03/04 2313 96 Nasal 2.0L Cannula 03/04 2238 99.0 68 18 134/68 96 Nasal 2.0L Cannula 03/04 2229 Nasal 2.0L Cannula 03/04 2050 65 15 126/63 96 Nasal Cannula 03/04 1842 85 22 141/65 95 Nasal Cannula 03/04 1627 78 16 121/60 95 Nasal Cannula 03/04 1355 97 Nasal 1.5L Cannula 03/04 1323 98.3 76 20 129/61 95 Room Air Intake & Output 03/05 1600 08 0800 08 0000 Intake Total 200 1200 Output Total 250 300 Balance -50 900 Intake, IV 1200 Intake, Oral 200 Number 0 Bowel Movements Output, Urine 250 300 Patient 167 lb Weight Weight Bed scale Measurement Method Physical Exam General Appearance: Alert, Oriented X3, Cooperative, No Acute Distress Skin: No Rashes, No Breakdown Skin Temp/Moisture Exam: Warm/Dry Sepsis Skin Exam (color): Normal for Ethnicity HEENT: Atraumatic, PERRLA, EOMI, Mucous Membr. moist/pink Neck: Supple, No JVD Cardiovascular: Regular Rate, Normal S1, Normal S2, No Murmurs Lungs: scattered wheezing throughout Abdomen: Normal Bowel Sounds, Soft, No Tenderness Neurological: Normal Speech Extremities: No Clubbing, No Cyanosis, No Edema, Normal Pulses Current Medications: Current Medications Sig/Eulogio Start time Last Medication Dose Route Stop Time Status Admin Acetaminophen 650 MG Q6P PRN 03/04 2230 AC 03/05 PO 0609 Albuterol Sulfate 3 ML EVERY 4 HRS/AWAKE 03/05 800 AC 03/05 INH 0816 Albuterol Sulfate 2 PUF Q4 PRN 03/04 2330 AC INH Albuterol Sulfate 3 ML ONCE ONE 03/04 1345 DC 03/04 INH 03/04 1346 1355 Albuterol Sulfate 3 ML ONCE ONE 03/04 1345 DC 03/04 INH 03/04 1346 1355 Apixaban 5 MG BID 03/05 0950 AC PO Azithromycin 250 MG DAILY 03/06 900 CAN PO Azithromycin 500 MG ONCE ONE 03/040 CAN Sodium Chloride 250 ML IV 03/04 2329 Diphenhydramine HCl 0 .STK-MED ONE 03/05 0141 DC PO Escitalopram Oxalate 20 MG DAILY 03/05 900 AC 03/05 PO 0901 Ipratropium [place] 2.5 ML EVERY 4 HRS/AWAKE 03/05 800 AC 03/05 INH 0816 Ipratropium [place] 2.5 ML ONCE ONE 03/04 1345 DC 03/04 INH 03/04 1346 1355 Ipratropium [place] 2.5 ML ONCE ONE 03/04 1345 DC 03/04 INH 03/04 1346 1355 Levothyroxine Sodium 0.075 MG DAILY AC 03/05 700 AC 03/05 PO 0556 Magnesium Sulfate 1 GM Q2H 03/04 1715 DC 03/04 Dextrose/Water 100 ML IV 03/04 2114 1841 Methylprednisolone 40 MG Q8 03/05 600 AC 03/05 IV 0556 Methylprednisolone 125 MG ONCE ONE 03/04 1345 DC 03/04 IV 03/04 1346 1342 Methylprednisolone 0 .STK-MED ONE 03/04 1345 DC .ROUTE Omeprazole 40 MG DAILY AC 03/05 700 AC 03/05 PO 0556 Oxybutynin Chloride 5 MG BID 03/05 900 AC 03/05 PO 0901 Polyethylene Glycol 17 GM DAILY 03/05 900 AC PO Pregabalin 50 MG TID 03/05 900 AC 03/05 PO 0902 Sodium Chloride 1,000 ML Q13H 03/05 0015 AC 03/05 IV 03/05 1314 0104 Sodium Chloride 500 ML BOLUS ONE 03/04 1700 DC 03/04 IV 03/04 1759 1704 Trazodone HCl 50 MG QPM 03/05 2100 AC PO Last 24 Hrs of Lab/Mick Results Last 24 Hrs of Labs/Mics: Laboratory Tests 03/05/18 0650: Anion Gap 6, Estimated GFR > 60, BUN/Creatinine Ratio 23.3, Magnesium 2.2, CBC w Diff NO MAN DIFF REQ, RBC 3.85 L, MCV 91.7, MCH 31.0, MCHC 33.8, RDW 14.7 H, MPV 8.5, Gran % 85.1 H, Lymphocytes % 9.1 L, Monocytes % 5.7, Eosinophils % 0, Basophils % 0.1, Absolute Granulocytes 7.8 H, Absolute Lymphocytes 0.8 L, Absolute Monocytes 0.5, Absolute Eosinophils 0, Absolute Basophils 0 03/04/18 1910: pH 7.35, pCO2 39, pO2 77 L, HCO3 21, ABG O2 Sat (Measured) 92.0 L, P-50 (Temp Corrected) Y, Carboxyhemoglobin 3.1, O2 Concentration % 2L, Temperature 98.9, O2 Delivery Method NC, Phlebotomy Draw Site RIGHT BRACHIAL 03/04/18 1517: Anion Gap 9, Estimated GFR 44 L, BUN/Creatinine Ratio 19.2, Glucose 148 H, Calcium 10.4 H, Magnesium 2.9 H, Total Bilirubin 0.3, AST 26, ALT 28, Alkaline Phosphatase 102, Troponin I 0.01, Total Protein 6.6, Albumin 4.0, Globulin 2.6, Albumin/Globulin Ratio 1.5 03/04/18 1345: CBC w Diff NO MAN DIFF REQ, RBC 4.60, MCV 91.6, MCH 30.4, MCHC 33.2, RDW 14.9 H , MPV 8.6, Gran % 80.4 H, Lymphocytes % 13.8 L, Monocytes % 3.9, Eosinophils % 1.2, Basophils % 0.7, Absolute Granulocytes 5.5, Absolute Lymphocytes 0.9 L, Absolute Monocytes 0.3, Absolute Eosinophils 0.1, Absolute Basophils 0 03/04/18 1159: PT 13.5 H, INR 1.24 H Microbiology 03/05 951 LOWER RESP: Respiratory Culture - ORD 03/05 951 LOWER RESP: Gram Stain - ORD Assessment/Plan Assessment: Ms. Noonan is a 77yo F w/ PMH of COPD, MVP, GERD, Fibromyalgia/OA/Cervical stenosis s/p cervical fusion, Anxiety/depression, DM, HypoTSH, hx of BLE DVT s/p IVC filter on Eliquis 5mg BID, Hx of Lung CA s/p right lobectomy, s/p appendectomy/hysterectomy, BIBA from PCP cc of SOB who was at baseline not O2 dependent COPD. Today she felt she was increasing dyspnea 2/2 heat outside which made her too weak to make to PCP appointment. Patient received 2 DuoNeb's in route, and arrives to the ER in no acute distress, oxygen saturation 95% on room air, placed on 1 L nasal cannula for comfort, but still complaining of mild shortness of breath. During our clinical interaction, patient denied recent travel/sick contacts, fever/lightheadedness/diaphoresis/night sweat/weight change/Palpitation/ Abdominal pain/bowel movement or urinary abnormality, or other skin/ musculoskeletal/neurological/mood disorders, or dietary/appetite change. -Smoking: Active 1/2 ppd smoker since 12yo -Alcohol: denied -Rec Drugs: denied -Outpt physicians: was seeing Dr. Mayes before for COPD On admission, Vitals: stable afebrile, HR/RR/BP stable, 97% under 1.5L Physical exam as above. Pertinent findings including bilateral expiratory wheezing on lungs, with wnl cardiac findings. -CBC: WNL -CMP: Hyperkalemia 5.4 w/o symptoms, Hypermagnesemia 2.9, elevated Cr 1.2 from baseline of 1.0 -ABG 7.35/39/77/21/92% under 2LNC, carboxyHgb 2.1 -CXR: No radiographic evidence of pneumonia. Stable postsurgical changes in the right hemithorax. No acute pulmonary process. -EKG: NSR w/o significant ST-T abnormalities, unchanged from previous. -Last Echo: 06/2011 normal EF of 60% w. mild MR. by Dr. Cárdenas -Interventions in ER: Duoneb x 2, Solumedrol 125 IV x 1, NS bolus 500cc x 1, MgSulfate x 1 Problem list/Assessment/Hospital Course: #COPD Exacerbation 2/2 environmental factors #Hyperkalemia & Hypermagnesemia w/o symptoms, 2/2 dehydration #JOANNE 2/2 dehydration #PMHx as above #Hemodilution -Continue to monitor patient in the general medical floors -Vitals per protocol, monitor I&O per protocol. -Supplemental O2/TRC/Neb -Would stop IVF as JOANNE has resolved. - Monitor for any hyperK/Mg symptoms, both have normalized this morning. - Pulmonary consult appreciated - Continue home meds - Continue patient eliquis 5mg bid which was confirmed with pharmacy for her prior DVT - Continue Solumedorl 40mg q8 and taper per clinical course. Patient had no active signs of infection, would keep off zithromax for now per attending. - Pending cultures including blood/sputum etc. - Pain per pathway - Physical therapy consult, patient uses walker at home. DVT prophylaxis ALPS eliquis Heart Healthy Diet IV Access: Peripheral IV DNR/DNI Problem List: 1. COPD exacerbation Pain Ratin Pain Location: right shoulder Pain Goal: Pain 4 or less Pain Plan: pathway Tomorrow's Labs & Rationales: lai Yarbrough MD,[facility] 03/05/18 1114: Attending MD Review Statement Attending Statement Attending MD Statement: examined this patient, discuss w/resident/PA/TRUCK SAFETY INSPECTOR, agreed w/resident/PA/TRUCK SAFETY INSPECTOR, reviewed EMR data (avail), discussed with nursing, discussed with case mgmt, reviewed images, amended to note Attending Assessment/Plan: Patient seen and examined, still feeling short of breath. She still wheezing pretty bad. She did complain of some headache this morning. Vital Signs Date Time Temp Pulse Resp B/P B/P Pulse O2 O2 Flow FiO2 Mean Ox Delivery Rate 03/05 08 96 Nasal 2.0L Cannula 03/05 0800 96 Nasal 1.5L Cannula 03/05 0639 97.8 71 16 110/60 97 03/05 0500 96 Nasal 2.0L Cannula 03/05 0458 97.8 71 16 110/60 97 03/04 2313 96 Nasal 2.0L Cannula 03/048 99.0 68 18 134/68 96 Nasal 2.0L Cannula 03/049 Nasal 2.0L Cannula 03/04 2050 65 15 126/63 96 Nasal Cannula 03/04 1842 85 22 141/65 95 Nasal Cannula 03/04 1627 78 16 121/60 95 Nasal Cannula 03/04 1355 97 Nasal 1.5L Cannula 03/04 1323 98.3 76 20 129/61 95 Room Air on exam; aox3, nad. cv; s1, s2, rrr resp; b/l exp wheeze. abd; soft, nt, bs+ ext; no edema Laboratory Tests 03/05 03/04 0650 1910 Blood Gas pH (7.35 - 7.45 PH) 7.35 pCO2 (35 - 45 TORR) 39 pO2 (80 - 100 TORR) 77 L HCO3 (21 - 28 MEQ/L) 21 ABG O2 Sat (Measured) (>96.0 %) 92.0 L P-50 (Temp Corrected) Y Carboxyhemoglobin (1.5 - 5.0 %) 3.1 O2 Concentration % 2L Temperature (97.0 - 100.0 FARH) 98.9 O2 Delivery Method NC Chemistry Sodium (137 - 145 mmol/L) 135 L Potassium (3.5 - 5.1 mmol/L) 5.0 Chloride (98 - 107 mmol/L) 106 Carbon Dioxide (22 - 30 mmol/L) 23 Anion Gap (5 - 16) 6 BUN (7 - 17 mg/dL) 21 H Creatinine (0.5 - 1.0 mg/dL) 0.9 Estimated GFR (>60 ml/min) > 60 BUN/Creatinine Ratio (7 - 25 %) 23.3 Magnesium (1.6 - 2.3 mg/dL) 2.2 Hematology CBC w Diff NO MAN DIFF REQ WBC (4.8 - 10.8 /CUMM) 9.2 RBC (4.20 - 5.40 /CUMM) 3.85 L Hgb (12.0 - 16.0 G/DL) 11.9 L Hct (37 - 47 %) 35.3 L MCV (81.0 - 99.0 FL) 91.7 MCH (27.0 - 31.0 PG) 31.0 MCHC (33.0 - 37.0 G/DL) 33.8 RDW (11.5 - 14.5 %) 14.7 H Plt Count (130 - 400 /CUMM) 123 L MPV (7.4 - 10.4 FL) 8.5 Gran % (42.2 - 75.2 %) 85.1 H Lymphocytes % (20.5 - 51.1 %) 9.1 L Monocytes % (1.7 - 9.3 %) 5.7 Eosinophils % (0 - 5 %) 0 Basophils % (0.0 - 2.0 %) 0.1 Absolute Granulocytes (1.4 - 6.5 /CUMM) 7.8 H Absolute Lymphocytes (1.2 - 3.4 /CUMM) 0.8 L Absolute Monocytes (0.10 - 0.60 /CUMM) 0.5 Absolute Eosinophils (0.0 - 0.7 /CUMM) 0 Absolute Basophils (0.0 - 0.2 /CUMM) 0 Miscellaneous Phlebotomy Draw Site RIGHT BRACHIAL 03/04 03/04 03/04 1517 1345 1159 Chemistry Sodium (137 - 145 mmol/L) 139 Potassium (3.5 - 5.1 mmol/L) 5.4 H Chloride (98 - 107 mmol/L) 106 Carbon Dioxide (22 - 30 mmol/L) 24 Anion Gap (5 - 16) 9 BUN (7 - 17 mg/dL) 23 H Creatinine (0.5 - 1.0 mg/dL) 1.2 H Estimated GFR (>60 ml/min) 44 L BUN/Creatinine Ratio (7 - 25 %) 19.2 Glucose (65 - 99 mg/dL) 148 H Calcium (8.4 - 10.2 mg/dL) 10.4 H Magnesium (1.6 - 2.3 mg/dL) 2.9 H Total Bilirubin (0.2 - 1.3 mg/dL) 0.3 AST (14 - 36 U/L) 26 ALT (9 - 52 U/L) 28 Alkaline Phosphatase (<127 U/L) 102 Troponin I (< 0.11 ng/ml) 0.01 Total Protein (6.3 - 8.2 g/dL) 6.6 Albumin (3.5 - 5.0 g/dL) 4.0 Globulin (1.9 - 4.2 gm/dL) 2.6 Albumin/Globulin Ratio (1.1 - 2.2 %) 1.5 Coagulation PT (9.4 - 12.5 SEC) 13.5 H INR (0.90 - 1.19) 1.24 H Hematology CBC w Diff NO MAN DIFF REQ WBC (4.8 - 10.8 /CUMM) 6.8 RBC (4.20 - 5.40 /CUMM) 4.60 Hgb (12.0 - 16.0 G/DL) 14.0 Hct (37 - 47 %) 42.1 MCV (81.0 - 99.0 FL) 91.6 MCH (27.0 - 31.0 PG) 30.4 MCHC (33.0 - 37.0 G/DL) 33.2 RDW (11.5 - 14.5 %) 14.9 H Plt Count (130 - 400 /CUMM) 150 MPV (7.4 - 10.4 FL) 8.6 Gran % (42.2 - 75.2 %) 80.4 H Lymphocytes % (20.5 - 51.1 %) 13.8 L Monocytes % (1.7 - 9.3 %) 3.9 Eosinophils % (0 - 5 %) 1.2 Basophils % (0.0 - 2.0 %) 0.7 Absolute Granulocytes (1.4 - 6.5 /CUMM) 5.5 Absolute Lymphocytes (1.2 - 3.4 /CUMM) 0.9 L Absolute Monocytes (0.10 - 0.60 /CUMM) 0.3 Absolute Eosinophils (0.0 - 0.7 /CUMM) 0.1 Absolute Basophils (0.0 - 0.2 /CUMM) 0 A/P; 77 y/o F with pmh sig for COPD not on home O2, lung cancer status post right lobe resection, hyperlipidemia, mitral valve prolapse, diet controlled diabetes mellitus, hypothyroidism, anemia, bilateral DVTs with a questionable IVC filter placement, fibromyalgia, A. fib on Eliquis admitted with acute COPD exacerbation. Patient continues to smoke. At this point patient treated with IV steroids. We will continue the same dose of IV steroids. Appreciate pulmonology input. Will follow up on the sputum cultures. Continue DRC nebs. Noted the patient also takes Breo and Brovana at home. Please start Symbicort 160 two puffs BID. We also resumed Eliquis. Continue the rest of the management. Patient will be seen by physical therapy.
[2018-03-05 08:03] LABS: ABSOLUTE BASOPHIL COUNT 0 /CUMM (0.0-0.2); ABSOLUTE EOSINOPHIL COUNT 0 /CUMM (0.0-0.7); ABSOLUTE LYMPH COUNT 0.8 /CUMM (1.2-3.4); ABSOLUTE MONOCYTE COUNT 0.5 /CUMM (0.10-0.60); RBC DISTRIBUTION WIDTH 14.7 % (11.5-14.5); RED BLOOD CELL CT 3.85 /CUMM (4.20-5.40)
[2018-03-05 08:18] LABS: ABSOLUTE GRANULOCYTE CT 7.8 /CUMM (1.4-6.5); BASOPHIL % 0.1 % (0.0-2.0); EOSINOPHIL % 0 % (0-5); MEAN CORPUSCULAR HGB CONC 33.8 G/DL (33.0-37.0); MEAN CORPUSCULAR VOLUME 91.7 FL (81.0-99.0); MEAN PLATELET VOLUME 8.5 FL (7.4-10.4); PLATELET COUNT 123 /CUMM (130-400); WHITE BLOOD CELL COUNT 9.2 /CUMM (4.8-10.8)
[2018-03-05 08:19] LABS: HEMATOCRIT 35.3 % (37-47)
--- NOTE | 2018-03-05 08:43 | Cons- Pulmonary ---
General Information and HPI Consulting Request Date of Consult: 03/05/18 Requested By: Joe Reason for Consult: Exacerbation of COPD shortness of breath History of Present Illness: Patient is 77-year-old with COPD actively smoking admitted with shortness of breath. She has history of DVTs with IVC filter in place. She is reportedly on Coumadin for cardiac dysrhythmia though INR is normal. She developed acute shortness of breath with wheezing she denies chest pain or sputum production she 's had increasing cough. Chest x-ray shows no acute findings. Allergies/Medications Allergies: Coded Allergies: Penicillins (UNKNOWN 05/01/16) atorvastatin (UNKNOWN 05/01/16) nickel (UNKNOWN 05/01/16) morphine (UNKNOWN 05/01/16) Home Med List: Acetaminophen (Tylenol Extra Strength) 500 MG TABLET 2 TAB PO BID PAIN ( Reported) Albuterol Sulfate (Proventil Hfa) 90 MCG HFA.AER.AD 2 PUF INH Q4 PRN COPD ( Reported) Alendronate Sodium (Fosamax) 70 MG TABLET 1 TAB PO QFRI BONE (Reported) in the morning, at least 30 minutes before the first food, beverage, or medication of the day Apixaban (Eliquis) 5 MG TABLET 5 MG PO BID Blood thinner Arformoterol Tartrate (Brovana) 15 MCG/2 ML VIAL.NEB 1 INH PO BID BREATHING PROBLEMS (Reported) Calcium Carbonate/Vitamin D3 (Caltrate 600 + D Tablet) 600 MG-800 TABLET 1 TAB PO DAILY osteoprosis (Reported) Cyanocobalamin (Vitamin B-12) 1,000 MCG TABLET 1 TAB PO DAILY SUPPLEMENT ( Reported) Escitalopram Oxalate (Lexapro) 20 MG TABLET 1 TAB PO DAILY depression ( Reported) Fluticasone/Vilanterol (Breo Ellipta 100-25 Mcg INH) 100 MCG-25 MCG/DOSE BLST.W.DEV 1 PUFF PO DAILY BREATHING PROBLEMS (Reported) Levothyroxine Sodium (Synthroid) 75 MCG TABLET 0.075 MG PO DAILY AC Thyroid Mometasone Furoate (Nasonex) 50 MCG SPRAY.PUMP 2 SPRAY NASB DAILY ALLERGIES ( Reported) Omeprazole 40 MG CAPSULE.DR 1 CAP PO DAILY GI (Reported) Polyethylene Glycol 3350 (Miralax) 17 GRAM POWD.PACK 1 PAC PO DAILY constipation (Reported) dissolve in water Pregabalin (Lyrica) 50 MG CAPSULE 1 CAP PO TID PAIN (Reported) Solifenacin Succinate (Vesicare) 5 MG TABLET 1 TAB PO DAILY BLADDER HEALTH ( Reported) Trazodone HCl 50 MG TABLET 1 TAB PO QPM SLEEP (Reported) Review of Systems Review of Systems Constitutional: Denies: chills, fever. Cardiovascular: Denies: chest pain, edema. Respiratory: Reports: cough, short of breath, wheezing. Denies: hemoptysis, sputum production. GI: Denies: abdominal pain, diarrhea, melena. 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 Home Who Do You Live With? self Services at Home: None Primary Language: Kuwaiti Smoking Status: Current Everyday Smoker ETOH Use: denies use Illicit Drug Use: denies illicit drug use Living Will? yes Functional Ability ADLs Independent: dressing, eating, toileting, bathing. Ambulation: walker IADLs Independent: telephone. Needs Assist: shopping, housework, transportation, medication admin. Exam & Diagnostic Data Last 24 Hrs of Vital Signs/I&O Vital Signs Date Time Temp Pulse Resp B/P B/P Pulse O2 O2 Flow FiO2 Mean Ox Delivery Rate 03/05 08 96 Nasal 2.0L Cannula 03/05 0639 97.8 71 16 110/60 97 03/05 0500 96 Nasal 2.0L Cannula 03/05 0458 97.8 71 16 110/60 97 03/04 2313 96 Nasal 2.0L Cannula 03/04 2238 99.0 68 18 134/68 96 Nasal 2.0L Cannula 03/049 Nasal 2.0L Cannula 03/040 65 15 126/63 96 Nasal Cannula 03/04 1842 85 22 141/65 95 Nasal Cannula 03/04 1627 78 16 121/60 95 Nasal Cannula 03/04 1355 97 Nasal 1.5L Cannula 03/04 1323 98.3 76 20 129/61 95 Room Air Intake & Output 03/05 1600 03/05 0800 03/05 0000 Intake Total 200 1200 Output Total 250 300 Balance -50 900 Intake, IV 1200 Intake, Oral 200 Number 0 Bowel Movements Output, Urine 250 300 Patient 167 lb Weight Weight Bed scale Measurement Method Oxygen saturation 2 L 96% HEENT exam shows no adenopathy exam for chest shows scattered expiratory wheezing and rhonchi cardiac exam shows regular rhythm S1 and S2 without murmurs abdomen is soft nontender there's no edema Last 48 Hrs of Labs/Mick: Laboratory Tests 03/05/18 0650: Anion Gap 6, Estimated GFR > 60, BUN/Creatinine Ratio 23.3, Magnesium 2.2, CBC w Diff Pending, WBC Pending, RBC Pending, Hgb Pending, Hct Pending, MCV Pending, MCH Pending, MCHC Pending, RDW Pending, Plt Count Pending, MPV Pending, Gran % Pending, Lymphocytes % Pending, Monocytes % Pending, Eosinophils % Pending, Basophils % Pending, Absolute Granulocytes Pending, Absolute Lymphocytes Pending , Absolute Monocytes Pending, Absolute Eosinophils Pending, Absolute Basophils Pending 03/04/18 1910: pH 7.35, pCO2 39, pO2 77 L, HCO3 21, ABG O2 Sat (Measured) 92.0 L, P-50 (Temp Corrected) Y, Carboxyhemoglobin 3.1, O2 Concentration % 2L, Temperature 98.9, O2 Delivery Method NC, Phlebotomy Draw Site RIGHT BRACHIAL 03/04/18 1517: Anion Gap 9, Estimated GFR 44 L, BUN/Creatinine Ratio 19.2, Glucose 148 H, Calcium 10.4 H, Magnesium 2.9 H, Total Bilirubin 0.3, AST 26, ALT 28, Alkaline Phosphatase 102, Troponin I 0.01, Total Protein 6.6, Albumin 4.0, Globulin 2.6, Albumin/Globulin Ratio 1.5 03/04/18 1345: CBC w Diff NO MAN DIFF REQ, RBC 4.60, MCV 91.6, MCH 30.4, MCHC 33.2, RDW 14.9 H , MPV 8.6, Gran % 80.4 H, Lymphocytes % 13.8 L, Monocytes % 3.9, Eosinophils % 1.2, Basophils % 0.7, Absolute Granulocytes 5.5, Absolute Lymphocytes 0.9 L, Absolute Monocytes 0.3, Absolute Eosinophils 0.1, Absolute Basophils 0 03/04/18 1159: PT 13.5 H, INR 1.24 H Assessment/Plan Impression/Plan: 77-year-old with COPD actively smoking presented with increasing shortness of breath and evidence of bronchospasm. Patient has IVC filter. She's been counseled regarding the need for smoking cessation. Recommendations: Optimize INR. Continue IV steroids. Obtain sputum C&S if available. Continue baseline bronchodilator medications. Taper FiO2. Obtain d-dimer Consult Acknowledgment - Thank you for your consult request.
[2018-03-05 09:02] LABS: GRANULOCYTE % 85.1 % (42.2-75.2)
[2018-03-05 13:53] VITALS: BP 144/64
[2018-03-05 21:40] VITALS: BP 140/62
[2018-03-06 06:49] VITALS: BP 132/72
--- NOTE | 2018-03-06 08:03 | PN- Housestaff ---
Subjective Follow-up For: copd joanne chronic right shoulder pain Subjective: Patient overnight had stable vitals and is still requiring 2 L of oxygen, is not on any oxygen at home. On ambulation on the 2 L she is saturating 92%. Physical therapy seen the patient is suggesting STIR which the patient is amenable to. The patient has continued to wheeze and has had little sleep. She has still been unable to produce any sputum. Review of Systems Constitutional: Reports: no symptoms. Cardiovascular: Reports: no symptoms. Respiratory: Reports: cough, short of breath, wheezing. Gastrointestinal: Reports: no symptoms. Genitourinary: Reports: no symptoms. Musculoskeletal: Reports: no symptoms. Skin: Reports: no symptoms. Neurological/Psychological: Reports: no symptoms. Objective Last 24 Hrs of Vital Signs/I&O Vital Signs Date Time Temp Pulse Resp B/P B/P Pulse O2 O2 Flow FiO2 Mean Ox Delivery Rate 03/06 0758 95 Nasal 2.0L Cannula 03/06 0757 95 Nasal 2.0L Cannula 03/06 0649 98.9 60 18 132/72 96 Nasal 2.0L Cannula 03/06 0000 Nasal 2.0L Cannula 03/05 2140 98.2 68 19 140/62 98 Nasal 2.0L Cannula 03/05 1640 95 Nasal 2.0L Cannula 03/05 1607 Nasal 2.0L Cannula 03/05 1600 93 Nasal 2.0L Cannula Intake & Output 03/06 1600 03/06 0800 03/06 0000 Intake Total 510 870 Output Total 700 700 Balance -190 170 Intake, IV 30 30 Intake, Oral 480 840 Number 0 0 Bowel Movements Output, Urine 700 700 Physical Exam General Appearance: Alert, Oriented X3, Cooperative, No Acute Distress Skin: No Rashes Skin Temp/Moisture Exam: Warm/Dry Sepsis Skin Exam (color): Normal for Ethnicity HEENT: Atraumatic, EOMI, Mucous Membr. moist/pink Cardiovascular: Regular Rate, Normal S1, Normal S2, No Murmurs Lungs: Clear to Auscultation, Normal Air Movement Abdomen: Normal Bowel Sounds, Soft, No Tenderness Neurological: Normal Speech Extremities: No Clubbing, No Cyanosis, No Edema, Normal Pulses Vascular: Normal Pulses, Pulses Symmetrical Current Medications: Current Medications Sig/Eulogio Start time Last Medication Dose Route Stop Time Status Admin Acetaminophen 650 MG Q6P PRN 03/04 2230 AC 03/05 PO 0609 Albuterol Sulfate 3 ML EVERY 4 HRS/AWAKE 03/05 0800 AC 03/06 INH 1128 Albuterol Sulfate 2 PUF Q4 PRN 03/04 2330 AC 03/06 INH 0016 Apixaban 5 MG BID 03/05 0950 AC 03/06 PO 0827 Budesonide/ 2 PUF BID 03/05 1349 AC 03/06 Formoterol Fumarate INH 0826 Escitalopram Oxalate 20 MG DAILY 03/05 900 AC 03/06 PO 0827 Guaifenesin 600 MG Q12H 03/05 1800 AC 03/06 PO 0549 Ipratropium [place] 2.5 ML EVERY 4 HRS/AWAKE 03/05 800 AC 03/06 INH 1128 Levothyroxine Sodium 0.075 MG DAILY AC 03/05 700 AC 03/06 PO 0549 Methylprednisolone 40 MG BID 03/06 2100 DC IV Methylprednisolone 40 MG Q12H 03/06 1800 AC IV Methylprednisolone 40 MG Q8 03/05 600 DC 03/06 IV 0549 Omeprazole 40 MG DAILY AC 03/05 700 AC 03/06 PO 0549 Oxybutynin Chloride 5 MG BID 03/05 900 AC 03/06 PO 0827 Polyethylene Glycol 17 GM DAILY 03/05 900 AC 03/06 PO 0825 Pregabalin 50 MG TID 03/05 900 AC 03/06 PO 1300 Trazodone HCl 50 MG QPM 03/05 2100 AC 03/05 PO 2015 Assessment/Plan Assessment: Ms. Noonan is a 77yo F w/ PMH of COPD, MVP, GERD, Fibromyalgia/OA/Cervical stenosis s/p cervical fusion, Anxiety/depression, DM, HypoTSH, hx of BLE DVT s/p IVC filter on Eliquis 5mg BID, Hx of Lung CA s/p right lobectomy, s/p appendectomy/hysterectomy, BIBA from PCP cc of SOB who was at baseline not O2 dependent COPD. Today she felt she was increasing dyspnea 2/2 heat outside which made her too weak to make to PCP appointment. Patient received 2 DuoNeb's in route, and arrives to the ER in no acute distress, oxygen saturation 95% on room air, placed on 1 L nasal cannula for comfort, but still complaining of mild shortness of breath. During our clinical interaction, patient denied recent travel/sick contacts, fever/lightheadedness/diaphoresis/night sweat/weight change/Palpitation/ Abdominal pain/bowel movement or urinary abnormality, or other skin/ musculoskeletal/neurological/mood disorders, or dietary/appetite change. -Smoking: Active 1/2 ppd smoker since 12yo -Alcohol: denied -Rec Drugs: denied -Outpt physicians: was seeing Dr. Mayes before for COPD On admission, Vitals: stable afebrile, HR/RR/BP stable, 97% under 1.5L Physical exam as above. Pertinent findings including bilateral expiratory wheezing on lungs, with wnl cardiac findings. -CBC: WNL -CMP: Hyperkalemia 5.4 w/o symptoms, Hypermagnesemia 2.9, elevated Cr 1.2 from baseline of 1.0 -ABG 7.35/39/77/21/92% under 2LNC, carboxyHgb 2.1 -CXR: No radiographic evidence of pneumonia. Stable postsurgical changes in the right hemithorax. No acute pulmonary process. -EKG: NSR w/o significant ST-T abnormalities, unchanged from previous. -Last Echo: 06/2011 normal EF of 60% w. mild MR. by Dr. Crádenas -Interventions in ER: Duoneb x 2, Solumedrol 125 IV x 1, NS bolus 500cc x 1, MgSulfate x 1 Problem list/Assessment/Hospital Course: #COPD Exacerbation 2/2 environmental factors #Hyperkalemia & Hypermagnesemia w/o symptoms, 2/2 dehydration #JOANNE 2/2 dehydration #PMHx as above #Hemodilution -Continue to monitor patient in the general medical floors -Vitals per protocol, monitor I&O per protocol. -Supplemental O2/TRC/Neb -Stopped IVF as JOANNE has resolved. - Monitor for any hyperK/Mg symptoms, both have normalized. - Pulmonary consult appreciated - Continue home meds - Continue patient eliquis 5mg bid which was confirmed with pharmacy for her prior DVT - DEcrease Solumedorl to 40mg q12 and cnt to taper per clinical course. Patient had no active signs of infection, would keep off zithromax for now per attending. - Pending cultures including blood/sputum etc. - Pain per pathway - Physical therapy consult, patient uses walker at home. DVT prophylaxis ALPS eliquis Heart Healthy Diet IV Access: Peripheral IV DNR/DNI Problem List: 1. COPD exacerbation Pain Ratin Pain Location: na Pain Goal: Remain pain free Pain Plan: na Tomorrow's Labs & Rationales: na
--- NOTE | 2018-03-06 08:37 | PN- Pulmonary ---
Subjective HPI/Critical Care Issues: Patient continues to be short of breath both at rest and with exertion. Objective Current Medications: Current Medications Sig/Eulogio Start time Last Medication Dose Route Stop Time Status Admin Acetaminophen 650 MG Q6P PRN 03/04 2230 AC 03/05 PO 0609 Albuterol Sulfate 3 ML EVERY 4 HRS/AWAKE 03/05 0800 AC 03/06 INH 0754 Albuterol Sulfate 2 PUF Q4 PRN 03/04 2330 AC 03/06 INH 0016 Apixaban 5 MG BID 03/05 0950 AC 03/06 PO 0827 Budesonide/ 2 PUF BID 03/05 1349 AC 03/06 Formoterol Fumarate INH 0826 Escitalopram Oxalate 20 MG DAILY 03/05 900 AC 03/06 PO 0827 Guaifenesin 600 MG Q12H 03/05 1800 AC 03/06 PO 0549 Ipratropium [place] 2.5 ML EVERY 4 HRS/AWAKE 03/05 0800 AC 03/06 INH 0754 Levothyroxine Sodium 0.075 MG DAILY AC 03/05 07 AC 03/06 PO 0549 Methylprednisolone 40 MG Q8 03/05 0600 AC 03/06 IV 0549 Omeprazole 40 MG DAILY AC 03/05 0700 AC 03/06 PO 0549 Oxybutynin Chloride 5 MG BID 03/05 09 AC 03/06 PO 0827 Polyethylene Glycol 17 GM DAILY 03/05 900 AC 03/06 PO 0825 Pregabalin 50 MG TID 03/05 900 AC 03/06 PO 0827 Sodium Chloride 1,000 ML Q13H 03/05 0015 DC 03/05 IV 03/05 1314 0104 Trazodone HCl 50 MG QPM 03/05 2100 AC 03/05 PO 2016 Vital Signs & I&O Last 24 Hrs of Vitals and I&O: Vital Signs Date Time Temp Pulse Resp B/P B/P Pulse O2 O2 Flow FiO2 Mean Ox Delivery Rate 03/06 0758 95 Nasal 2.0L Cannula 03/06 0757 95 Nasal 2.0L Cannula 03/06 0649 98.9 60 18 132/72 96 Nasal 2.0L Cannula 03/06 0000 Nasal 2.0L Cannula 03/05 2140 98.2 68 19 140/62 98 Nasal 2.0L Cannula 03/05 1640 95 Nasal 2.0L Cannula 03/05 1607 Nasal 2.0L Cannula 03/05 1600 93 Nasal 2.0L Cannula 03/05 1353 98.6 76 20 144/64 93 Nasal 2.0L Cannula Intake & Output 03/06 1600 03/06 0800 03/06 0000 Intake Total 510 870 Output Total 700 700 Balance -190 170 Intake, IV 30 30 Intake, Oral 480 840 Number 0 0 Bowel Movements Output, Urine 700 700 Since saturation 2 L 95% exam for chest shows faint expiratory wheezing cardiac exam shows regular S1 and S2 without murmurs Impression/Plan Impression/Plan Impression/Plan: 77-year-old woman admitted with exacerbation of COPD in the setting of active tobacco abuse. She remains short of breath and if improvement is not significant may well need short-term rehabilitation for continued pulmonary care Recommendations: . Continue IV steroids. Obtain sputum C&S if available. Continue baseline bronchodilator medications. Taper FiO2. Case management evaluation for possible need for short-term rehabilitation for continued pulmonary care
--- NOTE | 2018-03-06 11:29 | PN- Att Addend ---
Attending Addendum Attending Brief Note Patient seen and examined, feelings almost the same. Still wheezy. Still requiring 2 L of oxygen. She is still not able to produce any sputum. Vital Signs Date Time Temp Pulse Resp B/P B/P Pulse O2 O2 Flow FiO2 Mean Ox Delivery Rate 03/06 0758 95 Nasal 2.0L Cannula 03/06 0757 95 Nasal 2.0L Cannula 03/06 0649 98.9 60 18 132/72 96 Nasal 2.0L Cannula 03/06 0000 Nasal 2.0L Cannula 03/05 2140 98.2 68 19 140/62 98 Nasal 2.0L Cannula 03/05 1640 95 Nasal 2.0L Cannula 03/05 1607 Nasal 2.0L Cannula 03/05 1600 93 Nasal 2.0L Cannula 03/05 1353 98.6 76 20 144/64 93 Nasal 2.0L Cannula on exam; aox3, nad. cv; s1,s2, rrr resp; + b/l wheeze abd; soft, nt, bs+ ext: no edema no labs. A/P: 77 y/o F with pmh sig for COPD not on home O2, lung cancer status post right lobe resection, hyperlipidemia, mitral valve prolapse, diet controlled diabetes mellitus, hypothyroidism, anemia, bilateral DVTs with a questionable IVC filter placement, fibromyalgia, A. fib on Eliquis admitted with acute COPD exacerbation. Patient continued to smoke prior to this admit. Patient was not tachypneic or tachycardic and she was not in any acute respiratory distress on admission. Therefore she does not meet the criteria for acute respiratory failure. We will keep her on IV steroids but taper to every 12 hours. Continue Symbicort , GRC nebs. Patient will likely need oxygen. Sputum culture could not be obtained as patient is not able to produce any sputum. The patient pulmonology follow-up. Patient will likely need to go to rehab. Continue the rets of the mx. DVT px: ELiquis. Ambulate with PT.
[2018-03-06 14:09] VITALS: BP 130/60
[2018-03-06 21:57] VITALS: BP 122/74
[2018-03-07 06:34] VITALS: BP 146/80
--- NOTE | 2018-03-07 08:06 | PN- Housestaff ---
Subjective Follow-up For: COPD exacerbation Subjective: Overnight patient required 2 L with oxygen saturation of 95%. This morning she has been tapered down to 1 L and is still saturating 95%. The patient continues to have wheezing and rails on evaluation. Is able to produce sputum with her cough now. Overall the patient states that she feels "crappy". Review of Systems Constitutional: Reports: no symptoms. EENTM: Reports: no symptoms. Cardiovascular: Reports: no symptoms. Respiratory: Reports: cough, short of breath, sputum production, wheezing. Gastrointestinal: Reports: no symptoms. Genitourinary: Reports: no symptoms. Musculoskeletal: Reports: no symptoms. Neurological/Psychological: Reports: no symptoms. Objective Last 24 Hrs of Vital Signs/I&O Vital Signs Date Time Temp Pulse Resp B/P B/P Pulse O2 O2 Flow FiO2 Mean Ox Delivery Rate 03/07 1400 97.9 70 20 138/64 96 Nasal 1.0L Cannula 03/07 0844 95 Nasal 1.0L Cannula 03/07 08 95 Nasal 2.0L Cannula 03/07 0634 99.3 63 18 146/80 99 03/07 0000 Nasal 2.0L Cannula 03/06 2157 98.4 63 18 122/74 96 Nasal 2.0L Cannula 03/06 2026 96 Nasal 5.0L Cannula 03/06 1634 96 Nasal 2.0L Cannula 03/06 1600 Nasal 2.0L Cannula Intake & Output 03/07 1600 03/07 0800 03/07 0000 Intake Total 600 270 480 Output Total 100 300 Balance 600 170 180 Intake, IV 30 Intake, Oral 600 240 480 Number 0 Bowel Movements Output, Urine 100 300 Physical Exam General Appearance: Alert, Oriented X3, Cooperative, No Acute Distress Skin: No Rashes, No Breakdown, No Significant Lesion Sepsis Skin Exam (color): Normal for Ethnicity HEENT: Atraumatic, PERRLA, EOMI Cardiovascular: Regular Rate, Normal S1, Normal S2 Lungs: Rales and wheezing heard loudest at lung bases. Abdomen: Normal Bowel Sounds, Soft, No Tenderness Neurological: Normal Gait, Normal Speech Current Medications: Current Medications Sig/Eulogio Start time Last Medication Dose Route Stop Time Status Admin Acetaminophen 650 MG Q6P PRN 03/04 2230 AC 03/05 PO 0609 Albuterol Sulfate 3 ML EVERY 4 HRS/AWAKE 03/05 0800 AC 03/07 INH 1224 Albuterol Sulfate 2 PUF Q4 PRN 03/04 2330 AC 03/06 INH 0016 Apixaban 5 MG BID 03/05 0950 AC 03/07 PO 0901 Budesonide/ 2 PUF BID 03/05 1349 AC 03/07 Formoterol Fumarate INH 0903 Escitalopram Oxalate 20 MG DAILY 03/05 900 AC 03/07 PO 0901 Guaifenesin 600 MG Q12H 03/05 1800 AC 03/07 PO 0541 Ipratropium [place] 2.5 ML EVERY 4 HRS/AWAKE 03/05 800 AC 03/07 INH 1224 Levothyroxine Sodium 0.075 MG DAILY AC 03/05 700 AC 03/07 PO 0541 Methylprednisolone 40 MG BID 03/06 2100 DC IV Methylprednisolone 40 MG Q12H 03/06 1800 AC 03/07 IV 0541 Omeprazole 40 MG DAILY AC 03/05 700 AC 03/07 PO 0541 Oxybutynin Chloride 5 MG BID 03/05 900 AC 03/07 PO 0901 Patient Medication 1 ED ONE ONE 03/07 1115 DC 03/07 Teaching ED 03/07 1116 1240 Polyethylene Glycol 17 GM DAILY 03/05 900 AC 03/07 PO 0901 Pregabalin 50 MG TID 03/05 900 AC 03/07 PO 1319 Senna/Docusate Sodium 2 TAB DAILY 03/07 900 AC 03/07 PO 1032 Trazodone HCl 50 MG QPM 03/05 2100 AC 03/06 PO 2110 Last 24 Hrs of Lab/Mick Results Last 24 Hrs of Labs/Mics: Microbiology 03/07 755 LOWER RESP: Respiratory Culture - RES 03/07 755 LOWER RESP: Gram Stain - RES Assessment/Plan Assessment: Ms. Noonan is a 77yo F w/ PMH of COPD, MVP, GERD, Fibromyalgia/OA/Cervical stenosis s/p cervical fusion, Anxiety/depression, DM, HypoTSH, hx of BLE DVT s/p IVC filter on Eliquis 5mg BID, Hx of Lung CA s/p right lobectomy, s/p appendectomy/hysterectomy, BIBA from PCP cc of SOB who was at baseline not O2 dependent COPD. Today she felt she was increasing dyspnea 2/2 heat outside which made her too weak to make to PCP appointment. Patient received 2 DuoNeb's in route, and arrives to the ER in no acute distress, oxygen saturation 95% on room air, placed on 1 L nasal cannula for comfort, but still complaining of mild shortness of breath. During our clinical interaction, patient denied recent travel/sick contacts, fever/lightheadedness/diaphoresis/night sweat/weight change/Palpitation/ Abdominal pain/bowel movement or urinary abnormality, or other skin/ musculoskeletal/neurological/mood disorders, or dietary/appetite change. -Smoking: Active 1/2 ppd smoker since 12yo -Alcohol: denied -Rec Drugs: denied -Outpt physicians: was seeing Dr. Mayes before for COPD On admission, Vitals: stable afebrile, HR/RR/BP stable, 97% under 1.5L Physical exam as above. Pertinent findings including bilateral expiratory wheezing on lungs, with wnl cardiac findings. -CBC: WNL -CMP: Hyperkalemia 5.4 w/o symptoms, Hypermagnesemia 2.9, elevated Cr 1.2 from baseline of 1.0 -ABG 7.35/39/77/21/92% under 2LNC, carboxyHgb 2.1 -CXR: No radiographic evidence of pneumonia. Stable postsurgical changes in the right hemithorax. No acute pulmonary process. -EKG: NSR w/o significant ST-T abnormalities, unchanged from previous. -Last Echo: 06/2011 normal EF of 60% w. mild MR. by Dr. Cárdenas -Interventions in ER: Duoneb x 2, Solumedrol 125 IV x 1, NS bolus 500cc x 1, MgSulfate x 1 Problem list/Assessment/Hospital Course: #COPD Exacerbation 2/2 environmental factors, of note the patient did not have any respiratory distress, tachypnea, tachycardia on admission and thus does not meet criteria for acute respiratory failure. #Hyperkalemia & Hypermagnesemia w/o symptoms, 2/2 dehydration #JOANNE 2/2 dehydration #PMHx as above #Hemodilution -Continue to monitor patient in the general medical floors -Vitals per protocol, monitor I&O per protocol. -Supplemental O2/TRC/Neb -Stopped IVF as JOANNE has resolved. - Monitor for any hyperK/Mg symptoms, both have normalized. - Pulmonary consult appreciated - Continue home meds - Continue patient eliquis 5mg bid which was confirmed with pharmacy for her prior DVT -Continue patient on Solumedorl to 40mg q12 and cnt to taper per clinical course. Patient had no active signs of infection, would keep off zithromax for now per attending. We will discharge patient on prednisone hopefully tomorrow - Pending cultures including blood/sputum etc. - Pain per pathway - Physical therapy consult, patient uses walker at home. A she is amenable to going to short-term rehabilitation as needed. DVT prophylaxis ALPS eliquis Heart Healthy Diet IV Access: Peripheral IV DNR/DNI Problem List: 1. COPD exacerbation Pain Ratin Pain Location: na Pain Goal: Remain pain free Pain Plan: na Tomorrow's Labs & Rationales: na
[2018-03-07] MEDS ORDERED: PREDNISONE10 M2 PO (08:08)
--- NOTE | 2018-03-07 08:09 | Patient Discharge Instructions ---
Discharge Instructions General Discharge Information You were seen/treated for: copd EXACERBATION Special Instructions: 1. please follow up with PCP in one week 2. 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 in one week Diet Continue normal diet: Yes Activity Full Activity/No Limits: Yes Acute Coronary Syndrome Inclusion Criteria At DC or during hospital stay patient has or had the following: ACS DIAGNOSIS No Discharge Core Measures Meds if any: Prescribed or Continued at Discharge Meds if any: NOT Prescribed or Continued at Discharge Congestive Heart Failure Inclusion Criteria At DC or during hospital stay patient has or had the following: CHF DIAGNOSIS No Discharge Core Measures Meds if any: Prescribed or Continued at Discharge Meds if any: NOT Prescribed or Continued at Discharge Cerebrovascular accident Inclusion Criteria At DC or during hospital stay patient has or had the following: CVA/TIA Diagnosis No Discharge Core Measures Meds if any: Prescribed or Continued at Discharge Meds if any: NOT Prescribed or Continued at Discharge Venous thromboembolism Inclusion Criteria VTE Diagnosis No VTE Type NONE VTE Confirmed by (Test) NONE Discharge Core Measures - Per Current guidelines, there needs to be overlap - treatment for the first 5 days of Warfarin therapy. - If discharged on Warfarin prior to 5 days of - overlap therapy, the patient will need to be - assessed for post discharge needs including - *Post discharge parental anticoagulation - *Warfarin and/or parental anticoagulation education - *Follow up date to check INR post discharge At least 5 days overlap therapy as Inpatient No Meds if any: Prescribed or Continued at Discharge Note: Overlap Therapy is Warfarin and Anticoagulant Meds if any: NOT Prescribed or Continued at Discharge
--- NOTE | 2018-03-07 08:11 | Discharge Summary ---
Visit Information Visit Dates Admission Date: 03/04/18 Discharge Date: 03/07/18 Hospital Course Course Attending Physician: Zenon LISA,Nazia Primary Care Physician: Brian LISA,[facility] Hospital Course: Ms. Noonan is a 77yo F w/ PMH of COPD, MVP, GERD, Fibromyalgia/OA/Cervical stenosis s/p cervical fusion, Anxiety/depression, DM, HypoTSH, hx of BLE DVT s/p IVC filter on Eliquis 5mg BID, Hx of Lung CA s/p right lobectomy, s/p appendectomy/hysterectomy, BIBA from PCP cc of SOB who was at baseline not O2 dependent COPD. Today she felt she was increasing dyspnea 2/2 heat outside which made her too weak to make to PCP appointment. Patient received 2 DuoNeb's in route, and arrives to the ER in no acute distress, oxygen saturation 95% on room air, placed on 1 L nasal cannula for comfort, but still complaining of mild shortness of breath. During our clinical interaction, patient denied recent travel/sick contacts, fever/lightheadedness/diaphoresis/night sweat/weight change/Palpitation/ Abdominal pain/bowel movement or urinary abnormality, or other skin/ musculoskeletal/neurological/mood disorders, or dietary/appetite change. -Smoking: Active 1/2 ppd smoker since 12yo -Alcohol: denied -Rec Drugs: denied -Outpt physicians: was seeing Dr. Mayes before for COPD On admission, Vitals: stable afebrile, HR/RR/BP stable, 97% under 1.5L Physical exam as above. Pertinent findings including bilateral expiratory wheezing on lungs, with wnl cardiac findings. -CBC: WNL -CMP: Hyperkalemia 5.4 w/o symptoms, Hypermagnesemia 2.9, elevated Cr 1.2 from baseline of 1.0 -ABG 7.35/39/77/21/92% under 2LNC, carboxyHgb 2.1 -CXR: No radiographic evidence of pneumonia. Stable postsurgical changes in the right hemithorax. No acute pulmonary process. -EKG: NSR w/o significant ST-T abnormalities, unchanged from previous. -Last Echo: 06/2011 normal EF of 60% w. mild MR. by Dr. Cárdenas -Interventions in ER: Duoneb x 2, Solumedrol 125 IV x 1, NS bolus 500cc x 1, MgSulfate x 1 Problem list/Assessment/Hospital Course: #COPD Exacerbation 2/2 environmental factors #Hyperkalemia & Hypermagnesemia w/o symptoms, 2/2 dehydration #JOANNE 2/2 dehydration #PMHx as above #Hemodilution Hospital course: Patient admitted to general medical floors for evaluation and treatment. Vitals per protocol, monitor ins and outs per protocol. Started patient on supplemental oxygen with [facility] nebs. We started the patient on fluids for her [place] I. We monitored patient for any symptoms of hyperkalemia and hypermagnesemia. We confirmed patient's Eliquis 5 mg twice daily with the pharmacy and begin her on that as well has her other home medications we started her on Solu-Medrol 40 mg q. 8 and consulted with harvest worker fruit Dr. Pace. We took blood and sputum cultures. Patient had no active signs of infection, so held antibiotics. We tapered steroids as able. Patient continued to have wheezing after tapering to Solu-Medrol 40 mg every 12 so we continued that for 2 days. The patient will be discharged on oral prednisone taper. She is amenable to going to short-term rehab. The patient usually ambulates with a walker at home. Allergies: Coded Allergies: Penicillins (UNKNOWN 05/01/16) atorvastatin (UNKNOWN 05/01/16) nickel (UNKNOWN 05/01/16) morphine (UNKNOWN 05/01/16) Disposition Summary Disposition Principal Diagnosis: #COPD Exacerbation 2/2 environmental factors Additional Diagnosis: #Hyperkalemia & Hypermagnesemia w/o symptoms, 2/2 dehydration #JOANNE 2/2 dehydration #PMHx as above #Hemodilution Discharge Disposition: SNF Discharge Instructions General Discharge Information Code Status: Full Code Patient's Diet: regular Patient's Activity: as tolerated Follow-Up Instructions/Appts: 1. please follow up with PCP in one week 2. please follow up with harvest worker fruit in one week Medications at Discharge Discharge Medications: Continue taking these medications: Cyanocobalamin (Vitamin B-12) 1,000 MCG TABLET 1 Tablet ORAL DAILY Comments: NOT GIVEN IN THE HOSPITAL Trazodone HCl (Trazodone HCl) 50 MG TABLET 1 Tablet ORAL Every night Comments: Last Taken: 09/11/17 Time: 830 PM Albuterol Sulfate (Proventil Hfa) 90 MCG HFA.AER.AD 2 Puff Inhale through mouth Every 4 hours as needed for COPD Comments: NOT ADMINISTERED AT HOSPITAL Mometasone Furoate (Nasonex) 50 MCG SPRAY.PUMP 2 [place] Both sides of nose DAILY Comments: NOT GIVEN IN HOSPITAL Acetaminophen (Tylenol Extra Strength) 500 MG TABLET 2 Tablet ORAL TWICE DAILY Comments: Last Taken: 09/11/17 Time: 830 PM Omeprazole (Omeprazole) 40 MG CAPSULE.DR 1 Capsule ORAL DAILY Comments: Last Taken: 09/16 Time: 6 AM Alendronate Sodium (Fosamax) 70 MG TABLET 1 Tablet ORAL EVERY SUNDAY Instructions: in the morning, at least 30 minutes before the first food, beverage, or medication of the day Comments: NOT GIVEN IN HOSPTIAL Pregabalin (Lyrica) 50 MG CAPSULE 1 Capsule ORAL THREE TIMES DAILY Comments: Last Taken: 09/12/17 Time: 1015 AM Escitalopram Oxalate (Lexapro) 20 MG TABLET 1 Tablet ORAL DAILY Comments: NA Polyethylene Glycol 3350 (Miralax) 17 GRAM POWD.PACK 1 Packet ORAL DAILY Instructions: dissolve in water Comments: Last Taken: 09/11/13 Time: 1000 AM Calcium Carbonate/Vitamin D3 (Caltrate 600 + D Tablet) 600 MG-800 TABLET 1 Tablet ORAL DAILY Comments: Last Taken: 09/12/17 Time: 1015 AM Apixaban (Eliquis) 5 MG TABLET 5 Milligram ORAL TWICE DAILY Qty = 60 Comments: Last Taken: 09/12/17 Time: 1015 AM Levothyroxine Sodium (Synthroid) 75 MCG TABLET 0.075 Milligram ORAL DAILY BEFORE BREAKFAST Qty = 30 Comments: Last Taken: 09/12/17 Time: 6 AM Arformoterol Tartrate (Brovana) 15 MCG/2 ML VIAL.NEB 1 Inhalation ORAL TWICE DAILY Fluticasone/Vilanterol (Breo Ellipta 100-25 Mcg INH) 100 MCG-25 MCG/DOSE BLST.W.DEV 1 PUFF ORAL DAILY Solifenacin Succinate (Vesicare) 5 MG TABLET 1 Tablet ORAL DAILY Start taking the following new medications: Prednisone (Prednisone) 10 MG TABLET 1 Tablet ORAL SEE INSTRUCT Qty = 10 No Refills Copies To: Gerber LISA,Martir Lloyd; Miley Torres MD Copies To: Gerber LISA,Martir Lloyd; Brian LISA,Miley
--- NOTE | 2018-03-07 08:24 | PN- Pulmonary ---
Subjective HPI/Critical Care Issues: Patient continues to feel shortness of breath with activities of daily living Objective Current Medications: Current Medications Sig/Eulogio Start time Last Medication Dose Route Stop Time Status Admin Acetaminophen 650 MG Q6P PRN 03/04 2230 AC 03/05 PO 0609 Albuterol Sulfate 3 ML EVERY 4 HRS/AWAKE 03/05 0800 AC 03/06 INH 2024 Albuterol Sulfate 2 PUF Q4 PRN 03/04 2330 AC 03/06 INH 0016 Apixaban 5 MG BID 03/05 0950 AC 03/06 PO 2110 Budesonide/ 2 PUF BID 03/05 1349 AC 03/06 Formoterol Fumarate INH 2111 Escitalopram Oxalate 20 MG DAILY 03/05 900 AC 03/06 PO 0827 Guaifenesin 600 MG Q12H 03/05 1800 AC 03/07 PO 0541 Ipratropium [place] 2.5 ML EVERY 4 HRS/AWAKE 03/05 08 AC 03/06 INH 2024 Levothyroxine Sodium 0.075 MG DAILY AC 03/05 07 AC 03/07 PO 0541 Methylprednisolone 40 MG BID 03/06 2100 DC IV Methylprednisolone 40 MG Q12H 03/06 1800 AC 03/07 IV 0541 Methylprednisolone 40 MG Q8 03/05 06 DC 03/06 IV 0549 Omeprazole 40 MG DAILY AC 03/05 700 AC 03/07 PO 0541 Oxybutynin Chloride 5 MG BID 03/05 900 AC 03/06 PO 2110 Polyethylene Glycol 17 GM DAILY 03/05 900 AC 03/06 PO 0825 Pregabalin 50 MG TID 03/05 900 AC 03/06 PO 2110 Trazodone HCl 50 MG QPM 03/05 2100 AC 03/06 PO 2110 Vital Signs & I&O Last 24 Hrs of Vitals and I&O: Vital Signs Date Time Temp Pulse Resp B/P B/P Pulse O2 O2 Flow FiO2 Mean Ox Delivery Rate 03/07 0634 99.3 63 18 146/80 99 03/07 0000 Nasal 2.0L Cannula 03/06 2157 98.4 63 18 122/74 96 Nasal 2.0L Cannula 03/06 2026 96 Nasal 5.0L Cannula 03/06 1634 96 Nasal 2.0L Cannula 03/06 1600 Nasal 2.0L Cannula 03/06 1409 98.1 71 18 130/60 96 Nasal 2.0L Cannula Intake & Output 03/07 1600 03/07 0800 03/07 0000 Intake Total 270 480 Output Total 100 300 Balance 170 180 Intake, IV 30 Intake, Oral 240 480 Number 0 Bowel Movements Output, Urine 100 300 Since saturation 2 L 99% exam for chest shows occasional wheezing and rhonchi cardiac exam shows regular S1 and S2 without murmurs Impression/Plan Impression/Plan Impression/Plan: 77-year-old with advanced COPD remained symptomatic with persistent shortness of breath with minimal exertion and weakness and difficulty walking she will need short-term rehabilitation. Recommendations: . Continue IV steroids. Obtain sputum C&S if available. Continue baseline bronchodilator medications. Taper FiO2. Patient can be converted to by mouth steroids at the time of discharged to short-term rehabilitation
--- NOTE | 2018-03-07 10:50 | PN- Att Addend ---
Attending Addendum Attending Brief Note Patient seen and examined, slightly feeling better today. Still has some wheezing. Oxygen requirement is improved to 1 L. Vital Signs Date Time Temp Pulse Resp B/P B/P Pulse O2 O2 Flow FiO2 Mean Ox Delivery Rate 03/07 0844 95 Nasal 1.0L Cannula 03/07 0800 95 Nasal 2.0L Cannula 03/07 0634 99.3 63 18 146/80 99 03/07 0000 Nasal 2.0L Cannula 03/06 2157 98.4 63 18 122/74 96 Nasal 2.0L Cannula 03/06 2026 96 Nasal 5.0L Cannula 03/06 1634 96 Nasal 2.0L Cannula 03/06 1600 Nasal 2.0L Cannula 03/06 1409 98.1 71 18 130/60 96 Nasal 2.0L Cannula on exam; aox3, nad. cv; s1,s2, rrr resp; exp wheeze b/l but improved than before. abd; soft, nt, bs+ ext; no edema no labs. A/P; 77 y/o F with pmh sig for COPD not on home O2, lung cancer status post right lobe resection, hyperlipidemia, mitral valve prolapse, diet controlled diabetes mellitus, hypothyroidism, anemia, bilateral DVTs with a questionable IVC filter placement, fibromyalgia, A. fib on Eliquis admitted with acute COPD exacerbation/hypoxia. Patient continued to smoke prior to this admit. Patient was not tachypneic or tachycardic and she was not in any acute respiratory distress on admission. Therefore she does not meet the criteria for acute respiratory failure. We will continue the present dose of steroids today. We will continue TST nebs and inhalers. Appreciate pulmonology follow-up. Will continue to taper her oxygen. Patient did better today with physical therapy. Likely will not need to go to rehab. Will try to taper oxygen but if you are not able to do that and patient would likely go home with oxygen. Continue the rest of the management. DVT px; Elqiuis.
[2018-03-07 14:00] VITALS: BP 138/64
[2018-03-07 22:23] VITALS: BP 138/62
[2018-03-08 06:56] VITALS: BP 158/84
--- NOTE | 2018-03-08 07:48 | PN- Housestaff ---
Subjective Follow-up For: COPD exacerbation Subjective: Patient seen and examined. She has normal vitals, stable overnight. Last night she was put on room air for 2 hours overnight but then put back on 1 L. Patient reportedly had desaturation to 88% on ambulation early this morning but on retesting today she had 92% oxygen saturation on room air during ambulation with physical therapy. The patient continues to be mildly wheezy. Other than that she has no complaints and is feeling good. Review of Systems Constitutional: Reports: no symptoms. EENTM: Reports: no symptoms. Cardiovascular: Reports: no symptoms. Respiratory: Reports: wheezing. Gastrointestinal: Reports: no symptoms. Genitourinary: Reports: no symptoms. Musculoskeletal: Reports: no symptoms. Skin: Reports: no symptoms. Neurological/Psychological: Reports: no symptoms. Objective Last 24 Hrs of Vital Signs/I&O Vital Signs Date Time Temp Pulse Resp B/P B/P Pulse O2 O2 Flow FiO2 Mean Ox Delivery Rate 03/08 0840 92 Room Air 03/08 0800 94 Room Air 03/08 0656 98.0 63 18 158/84 94 Nasal 1.0L Cannula 03/08 0000 93 Room Air 03/07 2223 99.0 73 18 138/62 94 Room Air 03/07 1805 96 Nasal 1.0L Cannula 03/07 1600 Nasal 1.0L Cannula 03/07 1538 Nasal 2.0L Cannula 03/07 1529 Nasal 2.0L Cannula 03/07 1400 97.9 70 20 138/64 96 Nasal 1.0L Cannula Intake & Output 03/08 1600 03/08 0800 03/08 0000 Intake Total 120 120 Output Total Balance 120 120 Intake, Oral 120 120 Physical Exam General Appearance: Alert, Oriented X3, Cooperative, No Acute Distress Skin: No Rashes Skin Temp/Moisture Exam: Warm/Dry HEENT: Atraumatic, PERRLA, EOMI, Mucous Membr. moist/pink Neck: Supple, No JVD Cardiovascular: Regular Rate, Normal S1, Normal S2, No Murmurs Lungs: scattered mild wheezing Abdomen: Normal Bowel Sounds, Soft, No Tenderness, No Hepatospenomegaly Neurological: Normal Speech Extremities: No Clubbing, No Cyanosis, No Edema, Normal Pulses Vascular: Normal Pulses, Pulses Symmetrical Current Medications: Current Medications Sig/Eulogio Start time Last Medication Dose Route Stop Time Status Admin Acetaminophen 650 MG Q6P PRN 03/04 2230 AC 03/05 PO 0609 Albuterol Sulfate 3 ML EVERY 4 HRS/AWAKE 03/05 0800 AC 03/08 INH 1132 Albuterol Sulfate 2 PUF Q4 PRN 03/04 2330 AC 03/06 INH 0016 Apixaban 5 MG BID 03/05 0950 AC 03/08 PO 0814 Bisacodyl 10 MG ONCE ONE 03/08 0900 DC 03/08 IN 03/08 0901 0926 Budesonide/ 2 PUF BID 03/05 1349 AC 03/08 Formoterol Fumarate INH 0814 Escitalopram Oxalate 20 MG DAILY 03/05 900 AC 03/08 PO 0813 Guaifenesin 600 MG Q12H 03/05 1800 AC 03/08 PO 0514 Ipratropium [place] 2.5 ML EVERY 4 HRS/AWAKE 03/05 0800 AC 03/08 INH 1132 Levothyroxine Sodium 0.075 MG DAILY AC 03/05 07 AC 03/08 PO 0515 Methylprednisolone 20 MG ONCE ONE 03/08 1200 DC 03/08 IV 03/08 1201 1212 Methylprednisolone 40 MG Q12H 03/06 1800 AC 03/08 IV 0522 Omeprazole 40 MG DAILY AC 03/05 07 AC 03/08 PO 0514 Oxybutynin Chloride 5 MG BID 03/05 09 AC 03/08 PO 0820 Polyethylene Glycol 17 GM DAILY 03/05 900 AC 03/08 PO 0813 Pregabalin 50 MG TID 03/05 0900 AC 03/08 PO 0813 Senna/Docusate Sodium 2 TAB DAILY 03/07 900 AC 03/08 PO 0814 Trazodone HCl 50 MG QPM 03/05 2100 AC 03/07 PO 2014 Assessment/Plan Assessment: Ms. Noonan is a 77yo F w/ PMH of COPD, MVP, GERD, Fibromyalgia/OA/Cervical stenosis s/p cervical fusion, Anxiety/depression, DM, HypoTSH, hx of BLE DVT s/p IVC filter on Eliquis 5mg BID, Hx of Lung CA s/p right lobectomy, s/p appendectomy/hysterectomy, BIBA from PCP cc of SOB who was at baseline not O2 dependent COPD. Today she felt she was increasing dyspnea 2/2 heat outside which made her too weak to make to PCP appointment. Patient received 2 DuoNeb's in route, and arrives to the ER in no acute distress, oxygen saturation 95% on room air, placed on 1 L nasal cannula for comfort, but still complaining of mild shortness of breath. During our clinical interaction, patient denied recent travel/sick contacts, fever/lightheadedness/diaphoresis/night sweat/weight change/Palpitation/ Abdominal pain/bowel movement or urinary abnormality, or other skin/ musculoskeletal/neurological/mood disorders, or dietary/appetite change. -Smoking: Active 1/2 ppd smoker since 12yo -Alcohol: denied -Rec Drugs: denied -Outpt physicians: was seeing Dr. Mayes before for COPD On admission, Vitals: stable afebrile, HR/RR/BP stable, 97% under 1.5L Physical exam as above. Pertinent findings including bilateral expiratory wheezing on lungs, with wnl cardiac findings. -CBC: WNL -CMP: Hyperkalemia 5.4 w/o symptoms, Hypermagnesemia 2.9, elevated Cr 1.2 from baseline of 1.0 -ABG 7.35/39/77/21/92% under 2LNC, carboxyHgb 2.1 -CXR: No radiographic evidence of pneumonia. Stable postsurgical changes in the right hemithorax. No acute pulmonary process. -EKG: NSR w/o significant ST-T abnormalities, unchanged from previous. -Last Echo: 06/2011 normal EF of 60% w. mild MR. by Dr. Cárdenas -Interventions in ER: Duoneb x 2, Solumedrol 125 IV x 1, NS bolus 500cc x 1, MgSulfate x 1 Problem list/Assessment/Hospital Course: #COPD Exacerbation 2/2 environmental factors, of note the patient did not have any respiratory distress, tachypnea, tachycardia on admission and thus does not meet criteria for acute respiratory failure. #Hyperkalemia & Hypermagnesemia w/o symptoms, 2/2 dehydration #JOANNE 2/2 dehydration #PMHx as above #Hemodilution -Continue to monitor patient in the general medical floors -Vitals per protocol, monitor I&O per protocol. -Supplemental O2/TRC/Neb -Stopped IVF as JOANNE has resolved. - Monitor for any hyperK/Mg symptoms, both have normalized. - Pulmonary consult appreciated with her balance bridge assembler Dr. Mayes - Continue home meds - Continue patient eliquis 5mg bid which was confirmed with pharmacy for her prior DVT -Stop Solu-Medrol 40mg q12 and give 1 more dose of 20 mg IV Solu-Medrol before she leaves. We will discharge her with a prednisone taper 60 mg for 3 days, 50 mg for 3 days and so on until 5 mg for 3 days. Patient had no active signs of infection, would keep off zithromax for now per attending. -Cultures negative -Patient was amenable to short-term rehab but as she is saturating well on ambulation room air, she will be discharged home, no oxygen needed as well. She will have home physical therapy. DVT prophylaxis ALPS eliquis Heart Healthy Diet IV Access: Peripheral IV DNR/DNI Problem List: 1. COPD exacerbation Pain Ratin Pain Location: na Pain Goal: Remain pain free Pain Plan: na Tomorrow's Labs & Rationales: na
--- NOTE | 2018-03-08 08:06 | PN- Pulmonary ---
Subjective HPI/Critical Care Issues: Patient feels somewhat improved and is now on room air. She still complains of feeling weak and continues with a congested cough. Objective Current Medications: Current Medications Sig/Eulogio Start time Last Medication Dose Route Stop Time Status Admin Acetaminophen 650 MG Q6P PRN 03/04 2230 AC 03/05 PO 0609 Albuterol Sulfate 3 ML EVERY 4 HRS/AWAKE 03/05 800 AC 03/07 INH 2140 Albuterol Sulfate 2 PUF Q4 PRN 03/04 2330 AC 03/06 INH 0016 Apixaban 5 MG BID 03/05 0950 AC 03/07 PO 2016 Budesonide/ 2 PUF BID 03/05 1349 AC 03/07 Formoterol Fumarate INH 2016 Escitalopram Oxalate 20 MG DAILY 03/05 900 AC 03/07 PO 0901 Guaifenesin 600 MG Q12H 03/05 1800 AC 03/08 PO 0514 Ipratropium [place] 2.5 ML EVERY 4 HRS/AWAKE 03/05 800 AC 03/07 INH 2140 Levothyroxine Sodium 0.075 MG DAILY AC 03/05 700 AC 03/08 PO 0515 Methylprednisolone 40 MG Q12H 03/06 1800 AC 03/08 IV 0522 Omeprazole 40 MG DAILY AC 03/05 700 AC 03/08 PO 0514 Oxybutynin Chloride 5 MG BID 03/05 900 AC 03/07 PO 2014 Patient Medication 1 ED ONE ONE 03/07 1115 DC 03/07 Teaching ED 03/07 1116 1240 Polyethylene Glycol 17 GM DAILY 03/05 900 AC 03/07 PO 0901 Pregabalin 50 MG TID 03/05 900 AC 03/07 PO 2015 Senna/Docusate Sodium 2 TAB DAILY 03/07 900 AC 03/07 PO 1032 Trazodone HCl 50 MG QPM 03/05 2100 AC 03/07 PO 2015 Vital Signs & I&O Last 24 Hrs of Vitals and I&O: Vital Signs Date Time Temp Pulse Resp B/P B/P Pulse O2 O2 Flow FiO2 Mean Ox Delivery Rate 03/08 0656 98.0 63 18 158/84 94 Nasal 1.0L Cannula 03/08 0000 93 Room Air 03/07 2223 99.0 73 18 138/62 94 Room Air 03/07 1805 96 Nasal 1.0L Cannula 03/07 1600 Nasal 1.0L Cannula 03/07 1538 Nasal 2.0L Cannula 03/07 1529 Nasal 2.0L Cannula 03/07 1400 97.9 70 20 138/64 96 Nasal 1.0L Cannula 03/07 0844 95 Nasal 1.0L Cannula Intake & Output 03/08 1600 03/08 0800 03/08 0000 Intake Total 120 120 Output Total Balance 120 120 Intake, Oral 120 120 Room oxygen saturation 93% exam for chest shows diminished breath sounds or occasional rhonchi cardiac exam shows a regular S1 and S2 without murmurs Impression/Plan Impression/Plan Impression/Plan: 77-year-old with severe COPD admitted with exacerbation in the setting of tobacco abuse. She continues to appear weak and my concern is that upon returning home she will resume smoking. She continues with a congested cough. I believe she would benefit from short-term rehabilitation with concern over rapid return to the hospital should she return home and resume smoking Recommendations: . Begin by mouth prednisone and taper slowly. Assess oxygen saturation with ambulation. A decision on short-term rehabilitation
[2018-03-08] MEDS ORDERED: PREDNISONE10 M2 PO ×2 (09:16→10:02)
[2018-03-08] MEDS ORDERED: ALBUTEROL2.5 MG/3 M INH/SOL (10:02)
--- NOTE | 2018-03-08 10:33 | PN- Att Addend ---
Attending Addendum Attending Brief Note Patient seen and examined, feels overall better. Now on ERA. Ambulated on RA and O2 sats remained in 90s. On exam her lungs are better. Pt is medically stable for discharge home today. Does not meet the criteria for home o2 as O2 sats remains in 90s on RA ambulation. Will discharge home on oral pred taper. Follow up with PCP, Pulm, COPD clinic and home services will be arranged.
== END 2018-03-08 13:37 | disposition home health service (06) | DRG 191 ==
LOC: ERH 13:17 → 2NB 19:15 → ERHI 19:15 → ENRESERV 20:45 → ENTRNSPT 21:09 → EDTRNSPT 21:13 → EDTRNSPTSTS 21:13 → 2NB 21:38 → CMPTRNSPT 21:50 → 2NB 03-05 07:49 → ENPENDDIS 03-08 09:54 → 2NB 03-08 13:37
PROVIDERS: Physician Assistant
DX: J44.1 Chronic obstructive pulmonary disease with (acute) exacerbation (principal); N17.9 Acute kidney failure, unspecified; F32.9 Major depressive disorder, single episode, unspecified; E03.9 Hypothyroidism, unspecified; M79.7 Fibromyalgia; Z85.118 Personal history of other malignant neoplasm of bronchus and lung; Z90.2 Acquired absence of lung [part of]; Z86.718 Personal history of other venous thrombosis and embolism; Z79.01 Long term (current) use of anticoagulants; M19.90 Unspecified osteoarthritis, unspecified site; I34.1 Nonrheumatic mitral (valve) prolapse; K59.00 Constipation, unspecified; E11.9 Type 2 diabetes mellitus without complications; I48.91 Unspecified atrial fibrillation; G47.419 Narcolepsy without cataplexy; E87.5 Hyperkalemia; E86.0 Dehydration; M25.511 Pain in right shoulder; Z95.828 Presence of other vascular implants and grafts; R09.02 Hypoxemia; F17.210 Nicotine dependence, cigarettes, uncomplicated; Z88.5 Allergy status to narcotic agent; Z88.0 Allergy status to penicillin; Z98.1 Arthrodesis status; F41.9 Anxiety disorder, unspecified; Z66 Do not resuscitate; Z79.51 Long term (current) use of inhaled steroids; H26.9 Unspecified cataract
CPT/HCPCS: 2NBSP; 36592; 71046; 82436; 87070; 93005; 93010; 94644; 97110-GO; 97116-GO; 97161-GP; 97530-GO; J0456; J2920; J2930; J3490; J7040